=== PATIENT | male | born 1935 | race Caucasian/White ===

== ENCOUNTER 2017-06-07 12:39 | Inpatient (IN) | payer MEDICARE ==
[2017-06-07 13:16] LABS: #Basophils 0.1 thou/uL (0.0-0.2); #Eosinphils 0.1 thou/uL (0.0-0.7); #Lymphocytes 1.5 thou/uL (1.20-3.40); #Monocytes 0.3 thou/uL (0.11-0.59); #Neutrophils 3.1 thou/uL (1.40-6.50); %Basophils 1.2 % (0.0-1.0); %Lymphocytes 29.8 % (21.0-51.0); %Monocytes 5.8 % (0.0-10.0); Hematocrit 39.2 % (42.0-52.0); Mean Platelet Volume 7.4 fL (7.4-10.4); Red Blood Cell (RBC) Count 4.18 mill/uL (4.70-6.10); White Blood Cell (WBC) Count 5.1 thou/uL (4.8-10.8)
[2017-06-07] MEDS ORDERED: ISOVUE-370 76%-LOCM 1 ML ONE (13:29)
[2017-06-07 13:37] LABS: ALT (SGPT) 19 U/L (8-55); AST (SGOT) 16 U/L (5-34); Alkaline Phosphatase 70 U/L (40-150); Anion Gap 13 mmol/L (10-20); BUN (Urea Nitrogen) 21 mg/dL (8.4-25.7); Bilirubin, Total 0.8 mg/dL (0.2-1.2); Calc. Creatinine Clearance 0 mL/min (70-130); Calcium 9.2 mg/dL (7.8-10.44); Carbon Dioxide 27 mmol/L (23-31); Chloride 101 mmol/L (98-107); Estimated GFR-MDRD 51; Globulin 2.7 g/dL (2.4-3.5); Lipase 281 U/L (8-78); Protein, Total 6.5 g/dL (5.8-8.1)
[2017-06-07 13:46] LABS: Bilirubin Negative (Negative); Blood, Urine Negative (Negative); Glucose, Urine (Dipstick) Negative (Negative); Ketone, Urine Negative (Negative); Nitrite Negative (Negative); Protein, Urine (Dipstick) Negative (Neg-Trace); Urobilinogen 0.2 mg/dL (0.2-1.0)
[2017-06-07 13:49] LABS: Bacteria/HPF None Seen HPF (None Seen); Hyaline Casts/LPF 0-3 HYALINE CAST LPF (0-3 Hyaline); RBC/HPF 0-3 HPF (0-3); Squamous Epithelial None Seen HPF (0-3); WBC/HPF None Seen HPF (0-3)
--- NOTE | 2017-06-07 15:23 | ULT ---
GALLBLADDER ULTRASOUND: History: Abdominal pain. Comparison: None. Technique: Utilizing multihertz transducer, sonographic images of the right upper quadrant was perfo rmed in longitudinal and transverse plane. FINDINGS: Pancreas is obscured by bowel gas. Main portal vein is patent. Appropriate direction of flow. Hepatic parenchyma has a normal echotexture. No hepatic masses or intrahepatic dilatation. Contour o f the hepatic margin is maintained. Right hepatic lobe measures 16.3 cm. Mild right renal cortical thinning. No hydronephrosis. Right kidney measures 4.6 x 11.5 x 5.9 cm. Common bile duct diameter is 0.5 cm. There are gallstones in the gallbladder. Gallbladder is thickened. There is no pericholecystic fluid . Aviation Electronics Technician reports a negative Bone's sign. IMPRESSION: Sonographic evidence of cholelithiasis. There is pericholecystic fluid. However, there is gallbladde r wall thickening. Absent Bone's sign. Findings are equivocal. If there is concern, consider HIDA scan. POS: [facility]
[2017-06-07 17:28] VITALS: BMI 21.5
[2017-06-07] MEDS ORDERED: Ondansetron HCl/PF 4 MG/2 ML Vial IVP PRN ×2 (17:53→18:00)
[2017-06-07] MEDS ORDERED: Ondansetron ODT 4 MG TAB SL PRN (17:53)
[2017-06-07] MEDS ORDERED: Acetaminophen 325 MG TAB PO PRN (17:53)
[2017-06-07] MEDS ORDERED: Sodium Chloride 0.9% 1,000 ML IV SCH (17:53)
[2017-06-07] MEDS ORDERED: Potassium Chloride 20 MEQ TAB PO SCH (18:00)
[2017-06-07] MEDS ORDERED: Ondansetron ODT 4 MG TAB PO PRN (18:00)
[2017-06-07] MEDS: Sodium Chloride 0.9% 1,000 ML IV SCH (19:17)
--- NOTE | 2017-06-07 20:44 | CT ---
CT ABDOMEN AND PELVIS WITH IV AND ORAL CONTRAST: 06/07/17 HISTORY: Right upper quadrant pain. COMPARISON: 01/06/15 FINDINGS: There is mild atelectasis at the lung bases. Hyperdense stones are evident within the gallbladder ne ck. Cysts within the liver are stable. The spleen, kidneys, adrenal glands, and pancreas are within normal limits. There is calcification throughout the arterial structures. Urinary bladder is incompl etely distended. Appendix is not filled with contrast but is not inflamed. There are degenerative ch anges of the lumbar spine. IMPRESSION: 1. Cholelithiasis. No acute biliary abnormalities are evident. 2. Atherosclerosis. 3. Chronic type findings appear stable. POS: [facility]
[2017-06-07] MEDS ORDERED: Vancomycin HCl 25 MG/ML Oral PO SCH (21:00)
[2017-06-07] MEDS: Carvedilol 6.25 MG TAB PO SCH (21:11)
[2017-06-07] MEDS: Atorvastatin Calcium 40 MG TAB PO SCH (21:11)
[2017-06-08] MEDS: Sodium Chloride 0.9% 1,000 ML IV SCH ×4 (01:50→19:29)
--- NOTE | 2017-06-08 05:45 | HP ---
CHIEF COMPLAINT: Diarrhea. HISTORY OF PRESENT ILLNESS: This is an 81-year-old male with a past history of coronary artery disease, who presents with a several day history of diarrhea that occurs after every intake of food. He denies any abdominal pain, nausea, vomiting, dysuria, urgency, fever or chills, but he does have persistent diarrhea. He denies any blood in his stool; however, he does have some blood on the toilet paper from what he describes is having to clean himself so much. REVIEW OF SYSTEMS: Constitutional: No fever or chills. No icterus or injection. Ears, mouth, nose, and throat: No oral lesions or throat pain. Cardiovascular: No chest pain, shortness of breath. Respiratory: No cough or congestion. Gastrointestinal: See HPI. Genitourinary: Only positive for hesitancy. Difficulty voiding at time. Musculoskeletal: No arthralgias or myalgias. Skin: No rash or wounds. Neurologic: No numbness or weakness. No headaches, vision changes. He does confess that he has quite a bit of memory loss and relies on family members for remembering specific events. Endocrine: Denies polyuria, polyphagia, polydipsia. PAST MEDICAL HISTORY: 1. Coronary artery disease. 2. Restless leg syndrome. 3. New diagnosis of cholelithiasis. PAST SURGICAL HISTORY: Positive for CABG in 1996. ALLERGIES: None. MEDICATIONS: He cannot recall these to me. He requires on family members to recall. SOCIAL HISTORY: Denies tobacco, ethanol or drug use. FAMILY HISTORY: Noncontributory. PHYSICAL EXAMINATION: VITAL SIGNS: Temperature 97.6, pulse 72, respirations 18, O2 saturation 98%, blood pressure 130/70. CONSTITUTIONAL: No acute distress, resting comfortably. HEENT: No icterus or injection. Positive for arcus senilis. Nares is patent and is without lesion. He has an old, but relatively well-kept dentition. No oral lesions. NECK: Trachea is midline and mobile. No carotid bruits. CARDIOVASCULAR: Regular rate and rhythm. No murmur, gallops, or rubs. RESPIRATORY: Clear to auscultation bilaterally. No increased work of breathing , wheezes, rales, or rhonchi. GASTROINTESTINAL: Bowel sounds positive. Nontender to palpation. He has a negative Bone sign. No palpable organomegaly. Scaphoid abdomen. GENITOURINARY: Deferred. RECTAL: He has hemorrhoid, but no active bleeding visualized and not having card available, will try to procure one. No malformation or deformity. SKIN: He has a midline sternotomy scar that is well healed. Otherwise, he has a senile purpura that is quite extensive of the bilateral upper extremities, is bit dark as well. NEUROLOGICAL: Cranial nerves II through XII intact and symmetric. Motor 5/5 throughout. Sensation intact to light touch throughout. PSYCHIATRIC: Alert and oriented x3. Mood and affect appropriate for current condition. LABORATORY DATA: White blood cell count 5.1, hemoglobin 13.5, MCV 93.7, platelets 196. Chemistry: Sodium 138, potassium 3.3, chloride 107, carbon dioxide 27, BUN 21, creatinine 1.34, glucose 135, normal LFTs, albumin 3.8, lipase 281. Urine relatively unremarkable except for trace leukocyte esterase. Microbiology is negative today including a parasite screen, Campylobacter and Shiga toxin assays, and C. diff. The abdominal ultrasound is positive for cholelithiasis and also there is pericholecystic fluid with mild thickening gallbladder wall. Upon review, that he may have focal fatty infiltration in one specific area. I am not convinced that he has a lot of pericholecystic fluid and the gallbladder wall is minimally thickened at 0.38 mm. ASSESSMENT AND PLAN: An 81-year-old male with a past medical history of; 1. Diarrhea. We will continue to work up and wait for final report. Stool studies, get Hemoccult blood adequately volume resuscitate him. 2. Acute kidney injury with creatinine 1.34. Unsure if this is acute or chronic, we will repeat in the morning after volume resuscitation. 3. Elevated lipase. I think this is all may be related to his acute renal failure in light of his benign abdomen. We will feed him after his CT abdomen and pelvis has been ordered with oral contrast. 4. Asymptomatic cholelithiasis. It is likely that his diarrhea is related to his cholelithiasis and he seems to be asymptomatic and so we will monitor for now. 5. Deep venous thrombosis prophylaxis with SCDs until Hemoccult was negative. 6. Gastrointestinal prophylaxis with diet. MTDD
--- NOTE | 2017-06-08 06:00 | HP-2 ---
CODE STATUS: FULL. PRIMARY CARE PHYSICIAN: Dr. Martines ATTENDING PHYSICIAN: Dr. Capo Martini RESIDENT: Celsa Mccann D.O. HISTORIAN: Patient records and chart. SPECIALISTS: Dr. Shaikh, Dr. Frazier CHIEF COMPLAINT: Diarrhea and weight loss. HISTORY OF PRESENT ILLNESS: This is an 81-year-old white male with past medical history of systolic and diastolic congestive heart failure with last EF of 40-45% in 07/2016, hypertension, hyperlipidemia, history of Clostridium difficile and dementia presenting with diarrhea x2-3 weeks and at least a 10 pound weight loss over the last 2 weeks as well as weakness. He also admits to blood on the toilet paper and possibly in the stool per the daughter; however, he did not admit this himself. He states he has not had any abdominal pain, but does feel abdominal fullness. He denies any fevers or any other symptoms at this time and states that he does feel hungry; however, it just feels like he cannot really eat a lot. The diarrhea is about every 2 hours. He denies any urinary symptoms or any other concerns. Also, there was concern for C. diff; however, C. diff was negative there as well as in the clinic with Dr. Martines. The patient was seen with Bobbi in the clinic when this initially started and was diagnosed with a likely a food gastritis as he had eaten chicken prior to this starting; however, it continued and the patient then followed up in clinic again and was diagnosed with a viral gastroenteritis as he had developed some nonbloody vomiting x1 day along with his diarrhea. Stool studies were taken at that time in her office and were found to be negative. The patient has continued since that time to have this diarrhea and weight loss which brought him to the emergency room. In the emergency room, there was concern for dehydration. He was given 1 liter of normal saline. PAST MEDICAL HISTORY: 1. Clostridium difficile. 2. Myocardial infarction. 3. Coronary artery disease status post CABG in the . 4. Hyperlipidemia. 5. Hypertension. 6. Diastolic and systolic congestive heart failure with EF of 40-45% (2016). 7. Dementia. 8. Tremor. PAST SURGICAL HISTORY: 1. AICD placement. 2. CABG in . 3. Right hip replacement. ALLERGIES: None. MEDICATIONS: 1. Donepezil 10 mg every day. 2. Lisinopril 5 mg at bedtime. 3. Restoril 15 mg every day. 4. Atorvastatin 80 mg at bedtime. 5. Aspirin 81 mg daily. 6. Fluoxetine 20 mg daily. 7. Plavix 75 mg every day. 8. Protonix 40 mg daily. 9. Carvedilol 6.25 mg b.i.d. 10. Furosemide 20 mg every day. 11. Ranexa 1000 mg q.12h. FAMILY HISTORY: Pertinent for heart attacks as well as hypertension, diabetes, coronary artery disease in family members. Mom by age 35 with complications of diabetes and dad from heart related complications at age 75. SOCIAL HISTORY: The patient is and lives with his [id number] and her parents. He is retired. He does have 2 children. He denies any ill contacts. REVIEW OF SYSTEMS: GENERAL: He denies any fevers or chills. He does admit to the decreased appetite and weight loss and weakness. EYES: Denies any vision changes or eye pain. ENT: Denies any nasal congestion, rhinorrhea, or sore throat. RESPIRATORY: Denies any cough, congestion, shortness of breath; however, he does admit to exercise intolerance. CARDIOVASCULAR: Denies any chest pain, palpitations, edema, paroxysmal nocturnal dyspnea or orthopnea. GASTROINTESTINAL: Admits to nausea and vomiting x1 day which has resolved. This is approximately 2 weeks ago. He does continue to have diarrhea, but denies any abdominal pain. He does have bright red blood on the toilet paper. GENITOURINARY: He does have chronic urinary incontinence; however, he denies any acute urinary changes at this time. SKIN: Denies any rashes, lesions or jaundice. MUSCULOSKELETAL: Denies any new pain; however, he does have the chronic low back pain which has been worked up by Dr. Frazier outpatient. PSYCHIATRIC: Admits to generalized weakness and just not feeling well. He does have a past medical history of chronic depression and anxiety that is stable. PHYSICAL EXAMINATION: VITAL SIGNS: Blood pressure was 125/66, pulse 74, respirations 16, T-max 97.5, pulse ox 98% on room air, current weight is 63.5 kilograms. GENERAL: Alert, oriented x4, in no acute distress. He is very thin and cachectic looking, but he is appropriately interactive. EYES: Pupils equal and reactive to light. Extraocular muscles intact. ENT: Tympanic membranes pearly pearson without bulging or erythema. Nasal mucosa and oropharynx are very dry mucous membranes. In the ear, on the right ear he also does have a noticeable lesion and that is concerning for basal cell carcinoma and will need to be looked at outpatient. He is very hard of hearing. NECK: Supple, no lymphadenopathy. CARDIOVASCULAR: Regular rate and rhythm, no murmurs. Radial pulses +2 symmetric bilaterally, pedal pulses +2 symmetric bilaterally. LUNGS: Respirations within normal limits. No retractions. Clear to auscultation bilaterally. SKIN: Warm and dry, no cyanosis. ABDOMEN: Soft, nontender to palpation. Bowel sounds present x4, scaphoid abdomen. There is no mass or distention. He does not have any rebound or any guarding upon examination. EXTREMITIES: There is no edema. NEUROLOGIC: There are no focal deficits. GCS of 15. PSYCHIATRIC: Appropriate. LABORATORY DATA: CBC: WBC 5.1, hemoglobin 13.5, hematocrit of 39.2, platelets 196. Sodium 138, potassium 3.3, chloride 101, bicarbonate 27, BUN 21, creatinine 1.34 , GFR 51, glucose 135. Total bilirubin is 0.8, AST 16, ALT 19, alkaline phosphatase 70, total serum protein 6.5, albumin 3.8, lactate dehydrogenase 183. Lipase 281. Magnesium 1.9, C. diff is negative and also stool was negative for Giardia and cryptosporidium. IMAGING: Right upper quadrant shows positive cholelithiasis with pericholecystic fluid. ASSESSMENT AND PLAN: This is an 81-year-old white male with: 1. Severe acute diarrhea, possibly secondary to gallstone pancreatitis. We will obtain a CT of the abdomen and pelvis and if this is positive and concerning we will go ahead and consult GI and General Surgery; however, the patient is currently non-toxic appearing and vital signs are stable at this time. We will obtain followup with the stool studies. We will obtain a fasting lipid panel, FOBT as he admits to bright red blood on the toilet paper, likely from hemorrhoids per history. We will go ahead and start Florastor to assist with his probiotics and admit the patient to medical for observation. He may need a colonoscopy as he has never had one in the past. The patient has seen Dr. Bower in the past. 2. Dehydration, likely secondary to #1. Continue fluids. If no improvement and patient still unable to tolerate PO, consider TPN at that time. Normal saline at 150 as patient does have a history of congestive heart failure. 3. Acute kidney injury likely secondary to dehydration. Continue fluids. Repeat BMP in the morning. 4. History of coronary artery disease status post coronary artery bypass graft and myocardial infarction. We will continue home medications. However, if FOBT is positive, we will hold medications if needed. 5. Hypertension. Continue home medications and monitor blood pressure. 6.. Diastolic and systolic congestive heart failure. Continue home medications. Last echo was in July 2016, which did show the EF of 40-45% at that time. 7. Dementia. Continue home medications. 8. Hypokalemia. Replace and recheck in the morning as well as recheck a magnesium which came back normal at this time. 9. Weight loss. We will consult dietary and consider TPN if patient continues to lose weight and is unable to tolerate food. 10. Bright red Blood per Rectum, likely hemorrhoids verses GI bleed, however hemoglobin normal. 10. Deep venous thrombosis prophylaxis; sequential compression devices as the patient is currently at bleeding risk with his concern for bright red blood per rectum. This history and physical exam as well as management was discussed with Dr. Josue, who agrees with the above assessment and plan. BERNARDO
[2017-06-08 06:17] LABS: #Eosinphils 0.1 thou/uL (0.0-0.7); #Lymphocytes 1.8 thou/uL (1.20-3.40); #Monocytes 0.3 thou/uL (0.11-0.59); #Neutrophils 2.7 thou/uL (1.40-6.50); %Basophils 0.6 % (0.0-1.0); %Eosinophils 2.3 % (0.0-10.0); %Lymphocytes 36.5 % (21.0-51.0); %Monocytes 6.7 % (0.0-10.0); Hematocrit 36.8 % (42.0-52.0); Mean Platelet Volume 8.1 fL (7.4-10.4); Red Blood Cell (RBC) Count 3.92 mill/uL (4.70-6.10)
[2017-06-08 06:33] LABS: Anion Gap 11 mmol/L (10-20); BUN (Urea Nitrogen) 13 mg/dL (8.4-25.7); Calc. Creatinine Clearance 52 mL/min (70-130); Calcium 8.5 mg/dL (7.8-10.44); Carbon Dioxide 25 mmol/L (23-31); Chloride 105 mmol/L (98-107); Cholesterol 126 mg/dl (< 200 Desired); Estimated GFR-MDRD 76; LDL Cholesterol, Calculated 29 mg/dL
[2017-06-08] MEDS: Saccharomyces boulardii 250 MG CAP PO SCH (08:27)
[2017-06-08] MEDS: Pantoprazole 40 MG GRANULES PACKET PO SCH (08:27)
[2017-06-08] MEDS: Lisinopril 5 MG TAB PO SCH (08:27)
[2017-06-08] MEDS: FLUoxetine HCl 20 MG CAP PO SCH (08:27)
[2017-06-08] MEDS: Carvedilol 6.25 MG TAB PO SCH ×2 (08:27→19:25)
--- NOTE | 2017-06-08 08:54 | PDOC.FM ---
- Subjective Subjective: Pt reports doing better this morning. Did not have really any complaints or pains at this time. Pt resting comfortably in bed. reports still having some loose stools. Pt told me about his weight loss over the last 2 weeks. Denied any episodes of vomitting overnight. Denied any Fevers or chills. Denied any chest pain or SOB. No other conerns noted at this time - Objective Vital Signs & Weight: Vital Signs (12 hours) Temp Pulse Resp BP BP Pulse Ox 06/08/17 08:27 75 153/71 H 06/08/17 08:00 98.7 F 75 18 153/71 H 98 06/08/17 04:00 97.6 F 76 16 115/64 97 06/08/17 00:00 97.6 F 82 16 129/63 96 06/07/17 22:27 97.6 F 80 16 98 06/07/17 21:11 140/76 Weight Weight 60.6 kg I&O: 06/07/17 06/08/17 06/09/17 06:59 06:59 06:59 Intake Total 2050 Output Total 300 Balance 1750 Result Diagrams: 06/08/17 03:57 06/08/17 03:57 Radiology Reviewed by me: Yes Radiology: Gallbladder U/s: sonographic evidence of cholelithiasis. there is pericholecysitc fluid. However, there is gallbladder wall thickening. Absent stevenson's sign. Findings are equivocal. If there is concern consider a hida scan. CT abdo/pelvis: 1. cholelithiasis. No acute biliary abnormalities are evident. 2. atherosclerosis. 3. chronic type findings appear stable Phys Exam - Physical Examination HEENT: PERRLA, oral pharynx no lesions Pt dry mm Neck: no nodes, supple Respiratory: no wheezing, no rales, no rhonchi, clear to auscultation bilateral Cardiovascular: RRR, no significant murmur, no rub Gastrointestinal: soft, no distention, positive bowel sounds mildly tender to palpation in epigastric area Musculoskeletal: no edema, pulses present Neurological: non-focal, normal sensation, moves all 4 limbs Lymphatic: no nodes Psychiatric: normal affect, A&O x 3 Skin: no rash Dx/Plan (1) Diarrhea Code(s): R19.7 - DIARRHEA, UNSPECIFIED Status: Acute (2) Dehydration Code(s): E86.0 - DEHYDRATION Status: Acute (3) Acute kidney injury Code(s): N17.9 - ACUTE KIDNEY FAILURE, UNSPECIFIED Status: Resolved (4) Hypokalemia Code(s): E87.6 - HYPOKALEMIA Status: Acute (5) Chronic systolic (congestive) heart failure Code(s): I50.22 - CHRONIC SYSTOLIC (CONGESTIVE) HEART FAILURE Status: Chronic (6) HTN (hypertension) Code(s): I10 - ESSENTIAL (PRIMARY) HYPERTENSION Status: Chronic Qualifiers: Hypertension type: essential hypertension Qualified Code(s): I10 - Essential (primary) hypertension (7) Hx of CABG Status: Chronic - Plan Plan: Acute severe Diarrhea -NS @150 mls/hr -NPO for now. will consult GI -Hida scan for workup on previous gallbladder studies. Possible cause. Depending on results will consult General Surgery Dehydration -Will continue replacement with fluids. -Monitor hydration -Recheck CMP tmrw SUNNI -replaced with NS -Cr trended down -resolved for now Hypokalemia 3.2 today -replace with KCL and recheck CMP tmrw Hx CABG -continue home meds HTN -continue home meds dsCHF -ef 40-45% -continue home meds Weight loss -consult dietary and consider TPN if he continues to lose weight.
[2017-06-08] MEDS ORDERED: Furosemide 20 MG TAB PO SCH (09:00)
[2017-06-08] MEDS ORDERED: Potassium Chloride 20 MEQ TAB PO SCH (12:45)
[2017-06-08] MEDS: Aspirin 81 mg Enteric Coated Tablet PO SCH (15:02)
[2017-06-08] MEDS: Clopidogrel Bisulfate 75 MG TAB PO SCH (15:02)
--- NOTE | 2017-06-08 16:06 | NM ---
HEPATOBILIARY STUDY: 06/08/2017 HISTORY: Nausea and vomiting. Consideration for hepatobiliary study was recommended on a recent right upper quadrant ultrasound exam. RADIOPHARMACEUTICAL: Technetium 99m mebrofenin 5.1 millicuries IV. MEDICATIONS: CCK analog 1.2 mcg infused intravenously over 30 minutes. FINDINGS: There is normal uptake and excretion of radiotracer by the liver. Gallbladder activity is faintly v isualized by 6 minutes, with increasing activity in the gallbladder region up to 60 minutes. Bowel abnormality is visualized by 27 minutes. After 60 minutes of imaging, CCK analog was infused intrav enously over 30 minutes. A gallbladder ejection fraction of 97% was obtained, which is within akash l limits. IMPRESSION: 1. No evidence of a cystic or common duct obstruction. 2. Normal gallbladder ejection fraction. POS: [facility]
[2017-06-08] MEDS ORDERED: GoLYTELY 4,000 ml Bottle PO SCH (17:45)
[2017-06-08] MEDS: Atorvastatin Calcium 40 MG TAB PO SCH (19:25)
[2017-06-08] MEDS ORDERED: Pantoprazole 40 MG VIAL IVP SCH (21:00)
--- NOTE | 2017-06-08 21:24 | ADD-PRG ---
ADDENDUM DATE OF SERVICE: 06/08/2017 Please add it as an addendum to the note of Dr. Cristian Ahumada. Mr. Johnston is a pleasant, crusty 81-year-old white male patient who was admitted with 2 weeks of kaylee ly diarrhea and weight loss. He has had no recent travel. He has not eaten any recent exotic foods . He has never had a colonoscopy. His fecal was positive and we will work him up for infecti ous diarrhea. Given the fact that he is 81 years old and has never had a colonoscopy and has had di arrhea for 2 weeks to the point of losing weight, need to consider the possibility of a villous lori leena. We will consult GI for consideration of colonoscopy while we continue to rehydrate the patient and advance his diet as tolerated while we await further stool culture.
[2017-06-09] MEDS: Sodium Chloride 0.9% 1,000 ML IV SCH ×3 (04:39→21:09)
[2017-06-09 05:03] LABS: #Basophils 0.1 thou/uL (0.0-0.2); #Eosinphils 0.1 thou/uL (0.0-0.7); #Lymphocytes 2.4 thou/uL (1.20-3.40); #Monocytes 0.5 thou/uL (0.11-0.59); #Neutrophils 5.2 thou/uL (1.40-6.50); %Basophils 0.7 % (0.0-1.0); %Eosinophils 1.4 % (0.0-10.0); %Lymphocytes 28.6 % (21.0-51.0); %Monocytes 6.5 % (0.0-10.0); Hematocrit 42.4 % (42.0-52.0); Red Blood Cell (RBC) Count 4.52 mill/uL (4.70-6.10); White Blood Cell (WBC) Count 8.3 thou/uL (4.8-10.8)
[2017-06-09 05:19] LABS: ALT (SGPT) 20 U/L (8-55); AST (SGOT) 19 U/L (5-34); Alkaline Phosphatase 75 U/L (40-150); Bilirubin, Direct 0.4 mg/dL (0.1-0.3); Bilirubin, Total 1.2 mg/dL (0.2-1.2)
[2017-06-09 05:21] LABS: Anion Gap 12 mmol/L (10-20); BUN (Urea Nitrogen) 10 mg/dL (8.4-25.7); Calc. Creatinine Clearance 53 mL/min (70-130); Calcium 9.4 mg/dL (7.8-10.44); Carbon Dioxide 26 mmol/L (23-31); Chloride 106 mmol/L (98-107); Estimated GFR-MDRD 78; Lipase 68 U/L (8-78); Magnesium 1.8 mg/dL (1.6-2.6)
[2017-06-09] MEDS: Carvedilol 6.25 MG TAB PO SCH ×2 (05:54→20:58)
--- NOTE | 2017-06-09 06:17 | CON ---
DATE OF CONSULTATION: 06/08/2017 REASON FOR CONSULTATION: Diarrhea and weight loss. HISTORY OF PRESENT ILLNESS: Mr. Johnston was admitted to the hospital from the emergency room yesterd ay when he presented with complaints of diarrhea for 2-3 weeks with 10 pounds weight loss over 2 we eks. He reports that he had been having loose stools about every couple of hours on and off for the past 2-3 weeks. He thought maybe this was C. difficile as he had this earlier this year, but he webster d it checked with an outside physician he states that was normal. In the interim, he had some episo shante of incontinence and some lower abdominal cramping, but no overt pain and ultimately was brought to the emergency room by his family. He was hungry, but could not eat much. He had the urinary sym ptoms. C. diff in the clinic was negative per Dr. Martines, was negative here at the hospital. The patient apparently was seen by Dr. Martines in his [facility] and was felt that possibly he had a gastroenteritis that is how this started after eating chicken. With persistent symptoms, he c antonio to the emergency room. He had a CAT scan that was essentially normal. He had a mildly elevated lipase. The patient denies starting any new medications or recent antibiotics. PAST MEDICAL HISTORY: Includes C. difficile colitis x3 last episode being in December this year. He h ad a colonoscopy in 12/2014 with some ischemic colitis in both right and left colon in the outpatien t setting. History of coronary artery disease, myocardial infarction in the past, previous CABG in the , hyperlipidemia, hypertension, diastolic dysfunction, EF 40%-45%, dementia, and tremor. PAST SURGICAL HISTORY: Notable for AICD placement, CABG, right hip replacement, and endoscopy as no heaven above. ALLERGIES: None. MEDICATIONS IN THE HOSPITAL: Lisinopril, Restoril, atorvastatin, aspirin, fluoxetine, Plavix, Nathaniel nix, carvedilol, furosemide, Ranexa. FAMILY HISTORY: Negative for colorectal cancer or liver disease. SOCIAL HISTORY: The patient is , lives with his [id number] and her parents. He is retir ed and has two children. REVIEW OF SYSTEMS: Negative for dysphagia or odynophagia. Talking with the nurses, they noticed __ ___ blood, it is brown and watery, does not smell like C. diff. The patient denies any upper abdomi nal pain, history of pancreatitis, history of alcohol abuse. He does state that when he eats is whe n he tends to have diarrhea. He denies any chest pain or shortness of breath or dyspnea. PHYSICAL EXAMINATION: VITAL SIGNS: Weight is 133 pounds. He reportedly weighed 149 pounds on 11/08/2016 and on , he was 154 pounds. Temperature is 97, pulse 70, blood pressure 150/80. GENERAL: He is alert and oriented. LUNGS: Clear. CARDIOVASCULAR: Heart regular, without clicks or murmurs. ABDOMEN: Soft, nontender, somewhat sumner. There is no rebound. There is no guarding. EXTREMITIES: No clubbing, cyanosis, or edema. LABORATORY AND X-RAY FINDINGS: Today, urinalysis was negative. White count is 5, hemoglobin is 12. 7, platelet count 166,000. Chemistries: Sodium was 3.2. Triglycerides were 282, lipase is 281 yes terday, it was not checked today. The liver function tests were normal. Electrolytes were normal. Magnesium was 1.9 yesterday. Phosphorus was not checked. Negative RPR earlier this year. CAT sca n of abdomen and pelvis this admission showed cholelithiasis, atherosclerotic vessel disease. HIDA scan today was negative. Abdominal ultrasound showed gallstones, no pericholecystic fluid, but ther e is some mild gallbladder wall thickening. Microbiology: Stool is negative for blood, C. diff, Ca mpylobacter stool culture, parasite screen. Lactoferrin was positive. ASSESSMENT: 1. A 3-4 weeks of diarrhea he states every 1-2 hours and often when he eats. He has also ongoing w eight loss. The patient has not been eating well. It is unclear why. It does not seem related to pain. Differential diagnosis would include ischemia, pancreatic insufficiency, pancreatic malignanc y, although there was none seen on CAT scan. Recurrent Clostridium difficile will be a concern, but seems less likely with negative Clostridium difficile toxins thus far, bacterial overgrowth of smal l bowel, possibly he has been on a lot of antibiotics this past year and that seems unlikely as well , although he has been on probiotics more recently. Adrenal insufficiency could cause diarrhea and weight loss. 2. Gallstones. There are no signs if this is a active process. He denies any abdominal pain or ty pical biliary colic and there have been normal LFTs. 3. Mildly elevated lipase on admission. We would repeat that again tomorrow. He was dehydrated at that time. This is nonspecific blood test with negative CAT scan of the pancreas. RECOMMENDATIONS: Upper and lower endoscopy in light of 3 weeks of diarrhea. We will check stool fo r fecal fat, Cyclospora as there has been recent outbreaks of this in the [place] cause chronic diarrh ea. We will recheck his C. diff. We will check electrolytes, magnesium. We will defer potassium r eplacement to primary physician and we will check fasting cortisol level tomorrow.
--- NOTE | 2017-06-09 06:56 | PDOC.FM ---
- Subjective Subjective: Pt reports being busy this night after drinking bowel prep. He said he got a bath around 5:00 and has made him feel a lot better. He denies any pain. Denies any nausea or vomitting. Denies any Chest pain or SOB. States he still feels a little weak. - Objective MAR Reviewed: Yes Vital Signs & Weight: Vital Signs (12 hours) Temp Pulse Resp BP BP Pulse Ox 06/09/17 05:54 143/75 H 06/09/17 04:36 143/75 H 06/09/17 03:54 98.0 F 85 20 97 06/08/17 20:48 97.6 F 77 20 97 06/08/17 19:27 97.6 F 77 20 161/81 H 97 06/08/17 19:25 150/80 H Weight Admit Weight 60.6 kg Weight 60.6 kg I&O: 06/07/17 06/08/17 06/09/17 06:59 06:59 06:59 Intake Total 2050 5040 Output Total 300 300 Balance 1750 4740 Result Diagrams: 06/09/17 04:02 06/09/17 04:02 Radiology Reviewed by me: Yes Radiology: Gallbladder U/s: sonographic evidence of cholelithiasis. there is pericholecysitc fluid. However, there is gallbladder wall thickening. Absent stevenson's sign. Findings are equivocal. If there is concern consider a hida scan. CT abdo/pelvis: 1. cholelithiasis. No acute biliary abnormalities are evident. 2. atherosclerosis. 3. chronic type findings appear stable Hida SCAN: no sign of obstruction. Normal ejection fraction Phys Exam - Physical Examination Constitutional: NAD HEENT: oral pharynx no lesions MM a little dry Neck: no nodes, no JVD, supple Respiratory: no wheezing, no rales, no rhonchi, clear to auscultation bilateral Cardiovascular: RRR, no significant murmur, no rub Gastrointestinal: soft, non-tender, no distention, positive bowel sounds Musculoskeletal: no edema Neurological: non-focal Psychiatric: normal affect, A&O x 3 Skin: no rash Dx/Plan (1) Diarrhea Code(s): R19.7 - DIARRHEA, UNSPECIFIED Status: Acute (2) Dehydration Code(s): E86.0 - DEHYDRATION Status: Acute (3) Acute kidney injury Code(s): N17.9 - ACUTE KIDNEY FAILURE, UNSPECIFIED Status: Resolved (4) Hypokalemia Code(s): E87.6 - HYPOKALEMIA Status: Acute (5) Chronic systolic (congestive) heart failure Code(s): I50.22 - CHRONIC SYSTOLIC (CONGESTIVE) HEART FAILURE Status: Chronic (6) HTN (hypertension) Code(s): I10 - ESSENTIAL (PRIMARY) HYPERTENSION Status: Chronic Qualifiers: Hypertension type: essential hypertension Qualified Code(s): I10 - Essential (primary) hypertension (7) Hx of CABG Status: Chronic - Plan Plan: Acute severe Diarrhea -NS @150 mls/hr -NPO for now. -GI- Dr. Oconnor- Plan for EGD and colonoscopy today. Appreciate Recs -Hida scan normal Dehydration -Will continue replacement with fluids. -Monitor hydration -Monitor with CMP -P low, will replace when no longer NPO SUNNI -replaced with NS -Cr trended down -resolved for now Hypokalemia 3.7 today -KCL 40 meq daily. Continue to monitor Hx CABG -continue home meds HTN -continue home meds dsCHF -ef 40-45% -continue home meds Weight loss -consult dietary. Await results of scope, advance diet as tolerated. Consider starting TPN
[2017-06-09] MEDS: Clopidogrel Bisulfate 75 MG TAB PO SCH (08:55)
[2017-06-09] MEDS: Aspirin 81 mg Enteric Coated Tablet PO SCH (08:55)
[2017-06-09] MEDS: Saccharomyces boulardii 250 MG CAP PO SCH (08:59)
[2017-06-09] MEDS: FLUoxetine HCl 20 MG CAP PO SCH (08:59)
[2017-06-09] MEDS: Potassium Chloride 20 MEQ TAB PO SCH (09:00)
[2017-06-09] MEDS: Lisinopril 5 MG TAB PO SCH (09:00)
[2017-06-09] MEDS: Pantoprazole 40 MG GRANULES PACKET PO SCH (09:05)
--- NOTE | 2017-06-09 14:09 | ADD-PRG ---
DATE OF SERVICE: 06/09/2017 This is an addendum to the note of Dr. Cristian Ahumada. Mr. Johnston is resting quietly in bed. He was seen in consultation by Dr. Oconnor and we appreciate h is input. He is scheduled for colonoscopy. We are still awaiting stool culture results, but have f ound no pathogens thus far. Further treatment for the patient will depend on results of colonoscopy and further recommendations per Dr. Oconnor. His HIDA scan was normal and he is having no signs or symptoms of acute cholecystitis.
[2017-06-09] MEDS ORDERED: Lidocaine 1% PF 5 ML VIAL ONE (17:58)
[2017-06-09] MEDS ORDERED: Ondansetron HCl/PF 4 MG/2 ML Vial IVP PRN (18:07)
[2017-06-09] MEDS ORDERED: Sodium Chloride 0.9% 0 ML ONE (18:16)
[2017-06-09] MEDS: Atorvastatin Calcium 40 MG TAB PO SCH (20:58)
[2017-06-10] MEDS: Sodium Chloride 0.9% 1,000 ML IV SCH ×3 (02:01→08:57)
[2017-06-10 05:34] LABS: #Eosinphils 0.1 thou/uL (0.0-0.7); #Lymphocytes 1.2 thou/uL (1.20-3.40); #Monocytes 0.3 thou/uL (0.11-0.59); #Neutrophils 3.6 thou/uL (1.40-6.50); %Basophils 0.3 % (0.0-1.0); %Eosinophils 2.2 % (0.0-10.0); %Lymphocytes 23.1 % (21.0-51.0); %Monocytes 6.5 % (0.0-10.0); Hematocrit 34.4 % (42.0-52.0); Mean Platelet Volume 7.9 fL (7.4-10.4); Red Blood Cell (RBC) Count 3.66 mill/uL (4.70-6.10); White Blood Cell (WBC) Count 5.3 thou/uL (4.8-10.8)
[2017-06-10 05:56] LABS: Anion Gap 13 mmol/L (10-20); BUN (Urea Nitrogen) 8 mg/dL (8.4-25.7); Calc. Creatinine Clearance 63 mL/min (70-130); Calcium 8.8 mg/dL (7.8-10.44); Carbon Dioxide 21 mmol/L (23-31); Chloride 110 mmol/L (98-107); Estimated GFR-MDRD Greater than 90
--- NOTE | 2017-06-10 06:56 | OP ---
PROCEDURE: Esophagogastroduodenoscopy and colonoscopy. PREOPERATIVE DIAGNOSIS: Weight loss 20 pounds, chronic diarrhea. POSTOPERATIVE DIAGNOSES: 1. Normal esophagogastroduodenoscopy, biopsy of small bowel obtained. 2. Colonoscopy, no overt signs of colitis. Random biopsies were obtained most from the right colon . 3. Polyp cecum, appendiceal orifice, removed by snare polypectomy saline assisted, Hemoclip placed to reduce risk of perforation. 4. Five ascending colon polyps removed ranging in size from 3 to 10 mm, two of the largest removed by saline-assisted snare polypectomy, others by hot snare polypectomy, and one area had a Hemoclip p laced secondary to reduced risk of perforation. 5. Two small hepatic flexure polyps removed by cold snare polypectomy and submitted to Pathology. RECOMMENDATIONS: 1. Await histopathology. 2. Lactose-free diet, probiotic, hold Protonix, and continue aspirin. ANESTHESIA: TIVA. PROCEDURE IN DETAIL: After the patient was informed of the risks, benefits, possible complications of endoscopy including perforation, bleeding, reactions to medication and aspiration, informed conse nt was obtained. The patient was brought to the endoscopy suite where he was sedated in gradual fas hion. Once he was comfortable, a bite block was placed in incisural orifice. The endoscope was adv anced through the esophagus, stomach and second and third portion of duodenum and slowly removed. T here was good visualization of mucosa. There were no masses, lesions, or arteriovenous malformation s identified. The duodenum appeared normal as well as the stomach in forward and retroflexed views. Small bowel biopsy was obtained with regard to his history of diarrhea and weight loss and submitt ed to Pathology. The patient was turned in the room. A rectal exam was performed. The endoscope was advanced throug h the anal canal through the colon to cecum which was identified by ileocecal valve and appendiceal orifice. There was a 7-mm sessile polyp adjacent to the appendiceal orifice was removed with saline -assisted snare polypectomy and a Hemoclip was placed. There were 2 polyps in the ascending colon t hat were about a centimeter in size, these were removed by saline-assisted snare polypectomy, and at the larger of the two, there was a large mucosal defect and a Hemoclip was placed here. There were 3 other small polyps ranging in size from 3 to 7 mm in the ascending colon, removed by snare polype ctomy and submitted to Pathology. There were 2 small polyps at the hepatic flexure these were remov ed by cold snare polypectomy and submitted to Pathology. There were mild diverticulosis coli throug hout the colon. There was no evidence of colitis, inflammation, edema, or loss of vascular pattern. Random biopsies were taken from the left and right colon with regard to the chronic diarrhea.
--- NOTE | 2017-06-10 07:40 | PDOC.FM ---
- Objective Vital Signs & Weight: Vital Signs (12 hours) Temp Pulse Resp BP BP Pulse Ox 06/10/17 03:36 98.1 F 72 20 149/60 H 97 06/10/17 01:07 98.0 F 82 20 132/64 94 L 06/09/17 22:00 97.6 F 78 18 06/09/17 20:58 176/92 H Weight Admit Weight 60.6 kg Weight 60.6 kg I&O: 06/09/17 06/10/17 06/11/17 06:59 06:59 06:59 Intake Total 5040 1950 Output Total 300 Balance 4740 1950 Result Diagrams: 06/10/17 03:54 06/10/17 03:54 <Jose F Guo - Last Filed: 06/10/17 13:03> - Objective Vital Signs & Weight: Vital Signs (12 hours) Temp Pulse Resp BP Pulse Ox 06/10/17 11:48 97.7 F 72 20 122/61 99 06/10/17 08:39 98.1 F 74 18 126/69 95 06/10/17 08:00 98.1 F 74 18 06/10/17 03:36 98.1 F 72 20 149/60 H 97 Weight Admit Weight 133 lb 9.6 oz Weight 133 lb 9.6 oz I&O: 06/09/17 06/10/17 06/11/17 06:59 06:59 06:59 Intake Total 5040 1950 Output Total 300 Balance 4740 1950 Result Diagrams: 06/10/17 03:54 06/10/17 03:54 <Capo Martini - Last Filed: 06/10/17 13:23> Dx/Plan - Plan Plan: Acute severe Diarrhea -NS @150 mls/hr -starting full diet today, monitor tolerance of diet and progression of diarrhea -GI- cscope performed. multiple biopsies and polyps taken. No obvious cause of diarrhea -pending cyclospora and fecal fat -Hida scan normal Dehydration -resolved. continue PO/IV fluids SUNNI -resolved -continue PO/IV fluids Hypokalemia resolved. continue to monitor Hx CABG -continue home meds HTN -continue home meds dsCHF -ef 40-45% -continue home meds Weight loss -consult dietary. Await results of scope, advance diet as tolerated. Consider starting TPN <Jose F Guo - Last Filed: 06/10/17 13:03> Attending Addendum - Attending Addendum I personally evaluated the patient and discussed the management with [ aSri] I agree with the History, Examination, Assessment and Plan documented above with any addition or exceptions noted below. significant diarrhea and significant work up with out etiology. we need to see how he does with feeding and time away from bowel prep and await bx. if no better tomorrow will start empiric imodium for t he present time. <Capo Martini - Last Filed: 06/10/17 13:23>
[2017-06-10] MEDS: Aspirin 81 mg Enteric Coated Tablet PO SCH (08:52)
[2017-06-10] MEDS: FLUoxetine HCl 20 MG CAP PO SCH (08:56)
[2017-06-10] MEDS: Carvedilol 6.25 MG TAB PO SCH ×3 (08:56→20:51)
[2017-06-10] MEDS: Lisinopril 5 MG TAB PO SCH (08:56)
[2017-06-10] MEDS: Saccharomyces boulardii 250 MG CAP PO SCH (08:56)
[2017-06-10] MEDS: Potassium Chloride 20 MEQ TAB PO SCH (12:56)
--- NOTE | 2017-06-10 14:08 | PRG ---
DATE OF SERVICE: 06/10/2017 SUBJECTIVE: Mr. Johnston reports that he had some rectal bleeding last night. Nurse today notes in t he nurses' note last night to about 300 mL; I was not called regarding this. He has had 2 use small stools this morning which were blood tinged, mainly liquid with urine but no clots. He denies any abdominal pain. He had stable vital signs overnight. PHYSICAL EXAMINATION: VITAL SIGNS: Temperature is 98, pulse 74, respirations 18, blood pressure 126/69. HEENT: Conjunctivae and sclerae are clear. Mucous membranes are pink and moist. ABDOMEN: Soft and nontender. Bowel sounds are positive. LABORATORY STUDIES: At 0345, White count 5.3; hemoglobin 12.1, he was 13.5 on admission and 12.7 on 06/08/2017 and 14.2 yesterday. Platelet count is 150. Chemistries notable for sodium 140, potassi um 3.6, BUN and creatinine of 8 and 0.7. Cortisol 16.6. Repeat Clostridium difficile on 06/08/2017 was negative. Cyclospora is pending. Fecal fat is pending. ASSESSMENT: 1. Chronic diarrhea, workup in progress. Random biopsies taken from colon yesterday. Stool fecal fat and stool Campylobacter pending. Small bowel biopsies pending. In the past, he had some issues with chronic ischemic changes noted on colon biopsies a few years ago. 2. Colon polyps. He had about 11 polyps removed, ranging in size from 5-10 mm, the largest ones we re hemoclipped. His Plavix has been held as his last heart catheterization and stent were over 3 ye ars ago. With his bleeding this morning, we are going to hold his aspirin. We will place him back on a liquid diet and monitor his H\T\H. If he has continued bleeding, he may need repeat endoscopy.
[2017-06-10] MEDS ORDERED: EPINEPHrine 1 MG/10 ML Abboject SYRINGE ONE (15:05)
[2017-06-10] MEDS ORDERED: Lidocaine 1% PF 5 ML VIAL ONE (15:21)
[2017-06-10] MEDS ORDERED: Propofol 200 MG/20 ML VIAL ONE (15:21)
[2017-06-10] MEDS ORDERED: Succinylcholine Chloride 20 MG/ML 10 ml SYRINGE FS ONE (15:21)
[2017-06-10] MEDS ORDERED: Promethazine HCl 25 MG/ML VIAL SLOW IVP PRN (15:56)
[2017-06-10] MEDS ORDERED: Ondansetron HCl/PF 4 MG/2 ML Vial IVP PRN (15:56)
[2017-06-10] MEDS ORDERED: Promethazine HCl 25 MG/ML VIAL IM PRN (15:56)
[2017-06-10] MEDS: Atorvastatin Calcium 40 MG TAB PO SCH (20:48)
[2017-06-10 21:59] LABS: Hematocrit 28.3 % (42.0-52.0)
--- NOTE | 2017-06-11 01:28 | OP ---
PREOPERATIVE DIAGNOSES: Lower gastrointestinal bleeding, likely post-polypectomy related to 11 poly ps removed yesterday and the patient is on aspirin and Plavix. Bleeding would not stop with discont inuing those medications. POSTOPERATIVE DIAGNOSES: 1. Bleeding from the polypectomy site in the right colon controlled with injection of 1:10,000 epin ephrine 2 mL and Hemoclip placement of active bleeding visible vessel. 2. Other Hemoclips that had been placed yesterday were in place. Other polypectomy sites showed sm all ulceration, but no active bleeding or stigmata of recent bleeding. RECOMMENDATIONS: 1. Full liquid diet, serial H\T\Hs, observe before advancing diet tomorrow if no further bleeding. 2. Hold Plavix and aspirin for now. ANESTHESIA: General endotracheal anesthesia. PROCEDURE IN DETAIL: After the patient was informed of the risks, benefits, possible complications of endoscopy including perforation, bleeding, reaction to medication, and aspiration as well as the risks and complications of ongoing hemorrhage, informed consent was obtained. The patient was broug ht to the endoscopy suite urgently and intubated with rapid sequence induction as he had had liquid diet about 4 hours prior and had had a solid breakfast about 7 hours prior. This went well. He was placed in a left lateral decubitus position. The endoscope was advanced through the anal canal thr ough the colon to the cecum. The previously noted clip at the appendiceal orifice was noted to be i n place, no bleeding there and the clip in the large polypectomy site in the right colon was in plac e, no bleeding there. There was another polypectomy site in the right colon visible vessel activel y oozing fresh blood and clot. This was injected with 1:10,000 epinephrine and then the polypectomy site was clipped, taking care to clip the visible vessel as well. Bleeding stopped. Irrigation pe rformed irrigating this whole area showing good placement of the clip. The remainder polypectomy si xochilt were identified. These were small and nonbleeding, ulcerative, but not bleeding. Retroflexed v iews in the rectum were normal. Diverticulosis was present, but not bleeding. The scope was remove d. The patient tolerated the procedure well with no complications.
[2017-06-11] MEDS: Sodium Chloride 0.9% 1,000 ML IV SCH ×2 (01:30→10:35)
[2017-06-11 06:23] LABS: Anion Gap 9 mmol/L (10-20); BUN (Urea Nitrogen) 6 mg/dL (8.4-25.7); Calc. Creatinine Clearance 61 mL/min (70-130); Calcium 8.3 mg/dL (7.8-10.44); Carbon Dioxide 23 mmol/L (23-31); Chloride 112 mmol/L (98-107); Estimated GFR-MDRD Greater than 90
--- NOTE | 2017-06-11 07:08 | PDOC.FM ---
- Subjective Subjective: Pt doing well with no specific complaints. There were no issues over night. Denies all symptoms in ROS. States that the bloody stools have stopped and diarrhea has improved. - Objective MAR Reviewed: Yes Vital Signs & Weight: Vital Signs (12 hours) Temp Pulse Resp BP BP Pulse Ox 06/11/17 06:14 98.0 F 72 20 114/53 L 96 06/11/17 00:30 97.8 F 76 18 111/62 96 06/10/17 20:51 116/64 06/10/17 20:00 98.1 F 74 18 116/64 99 Weight Admit Weight 60.6 kg Weight 60.6 kg I&O: 06/10/17 06/11/17 06/12/17 06:59 06:59 06:59 Intake Total 1949 2925 Output Total 1075 Balance 1949 1849 Result Diagrams: 06/11/17 05:40 06/11/17 05:40 <Jose F Guo - Last Filed: 06/11/17 07:21> - Objective Vital Signs & Weight: Vital Signs (12 hours) Temp Pulse Resp BP BP BP Pulse Ox 06/11/17 10:35 121/61 06/11/17 08:00 98.1 F 71 16 06/11/17 07:41 98.1 F 71 16 112/58 L 96 06/11/17 06:14 98.0 F 72 20 114/53 L 96 06/11/17 00:30 97.8 F 76 18 111/62 96 Weight Admit Weight 133 lb 9.6 oz Weight 133 lb 9.6 oz I&O: 06/10/17 06/11/17 06/12/17 06:59 06:59 06:59 Intake Total 1949 2925 Output Total 1075 Balance 1949 1849 Result Diagrams: 06/11/17 05:40 06/11/17 05:40 <Chadwick Daniel - Last Filed: 06/11/17 11:17> Phys Exam - Physical Examination Constitutional: NAD HEENT: PERRLA, moist MMs Neck: no JVD, full ROM Respiratory: clear to auscultation bilateral Cardiovascular: RRR, no significant murmur Gastrointestinal: soft, non-tender, positive bowel sounds Musculoskeletal: no edema Neurological: non-focal, moves all 4 limbs Psychiatric: normal affect, A&O x 3 Skin: no rash, normal turgor <Jose F Guo - Last Filed: 06/11/17 07:21> Dx/Plan - Plan Plan: Acute severe Diarrhea -starting full diet today, monitor tolerance of diet and progression of diarrhea -GI- repeat cscope dt bloody diarrhea. This resulted in clipping a bleeding polypectomy site. Bloody diarrhea has since resolved. -pending cyclospora and fecal fat -Hida scan normal Dehydration -resolved. continue PO fluids Pancytopenia -peripheral smear to evaluate Hypophosphatemia -recheck today and replace PO SUNNI -resolved -continue PO/IV fluids Hypokalemia resolved. continue to monitor Hx CABG -continue home meds HTN -continue home meds dsCHF -ef 40-45% -continue home meds Weight loss -consult dietary. Await results of scope, advance diet as tolerated. Consider starting TPN <Jose F Guo - Last Filed: 06/11/17 07:21> Attending Addendum - Attending Addendum I personally evaluated the patient and discussed the management with resident[] I agree with the History, Examination, Assessment and Plan documented above with any addition or exceptions noted below. <Chadwick Daniel - Last Filed: 06/11/17 11:17>
[2017-06-11 07:46] LABS: Magnesium 1.5 mg/dL (1.6-2.6); Phosphorus 2.4 mg/dL (2.3-4.7)
[2017-06-11 08:01] LABS: Band 1 % (5-11); Burr Cells SLIGHT = 2-5 cells (100X) (0-1/hpf); Hematocrit 27.6 % (42.0-52.0); Mean Platelet Volume 7.5 fL (7.4-10.4); Neutrophil 54 % (42-75); Red Blood Cell (RBC) Count 2.92 mill/uL (4.70-6.10); White Blood Cell (WBC) Count 4.1 thou/uL (4.8-10.8)
[2017-06-11] MEDS: Saccharomyces boulardii 250 MG CAP PO SCH (08:22)
[2017-06-11] MEDS: Carvedilol 6.25 MG TAB PO SCH ×2 (08:22→21:05)
[2017-06-11] MEDS: FLUoxetine HCl 20 MG CAP PO SCH (08:22)
[2017-06-11] MEDS: Potassium Chloride 20 MEQ TAB PO SCH (08:23)
[2017-06-11] MEDS: Lisinopril 5 MG TAB PO SCH (10:35)
--- NOTE | 2017-06-11 14:07 | PRG ---
DATE OF SERVICE: 06/11/2017 SUBJECTIVE: Mr. Johnston has had no further bleeding overnight. He is tolerating full liquid diet. He like to eat some solid food. OBJECTIVE: VITAL SIGNS: Temperature is 98, blood pressure 121/61. ABDOMEN: Soft, nontender. He has got a little bit of wasting suprascapular muscles. LABORATORY STUDIES: His white count 4.1, hemoglobin 9.6, platelet count 118, phosphorus 1.5, potass ium 3.5, sodium 140. BUN and creatinine are 6 and 0.8. Cortisol is 16. Lipase is 68. Cyclospora smear and fecal fat are pending. ASSESSMENT: 1. Hypophosphatemia, replaced. 2. Chronic diarrhea of unclear etiology with CAT scan unrevealing random biopsies of the colon and duodenum are pending at this time. 3. 11 polyps, ranging in size from 5-10 mm, removed with post-polypectomy bleeding controlled yeste rday. 4. Anemia secondary to post-polypectomy bleed, stable. RECOMMENDATIONS: Advance diet. If the patient has ongoing diarrhea, consider empiric trial of panc reatic enzymes.
[2017-06-11 14:37] LABS: Hematocrit 27.9 % (42.0-52.0)
[2017-06-11] MEDS: Atorvastatin Calcium 40 MG TAB PO SCH (21:05)
[2017-06-11 21:54] LABS: Hematocrit 27.9 % (42.0-52.0)
[2017-06-12] MEDS: Sodium Chloride 0.9% 1,000 ML IV SCH ×3 (01:26→20:27)
[2017-06-12 02:00] LABS: Troponin I 0.014 ng/mL (< 0.028)
[2017-06-12 06:08] LABS: #Basophils 0.1 thou/uL (0.0-0.2); #Eosinphils 0.2 thou/uL (0.0-0.7); #Lymphocytes 1.4 thou/uL (1.20-3.40); #Monocytes 0.3 thou/uL (0.11-0.59); #Neutrophils 2.8 thou/uL (1.40-6.50); %Basophils 1.3 % (0.0-1.0); %Eosinophils 3.6 % (0.0-10.0); %Lymphocytes 29.5 % (21.0-51.0); %Monocytes 6.3 % (0.0-10.0); Hematocrit 28.8 % (42.0-52.0); Mean Platelet Volume 8.3 fL (7.4-10.4); Red Blood Cell (RBC) Count 3.02 mill/uL (4.70-6.10); White Blood Cell (WBC) Count 4.7 thou/uL (4.8-10.8)
[2017-06-12 06:55] LABS: Anion Gap 10 mmol/L (10-20); BUN (Urea Nitrogen) 8 mg/dL (8.4-25.7); Calc. Creatinine Clearance 56 mL/min (70-130); Calcium 8.6 mg/dL (7.8-10.44); Carbon Dioxide 22 mmol/L (23-31); Chloride 111 mmol/L (98-107); Estimated GFR-MDRD 82; Magnesium 1.3 mg/dL (1.6-2.6); Phosphorus 3.4 mg/dL (2.3-4.7)
--- NOTE | 2017-06-12 08:19 | PDOC.FM ---
- Subjective Subjective: Pt reports doing fine this morning. Had some chest pain overnight. Says it was resolved. Thinks it was likely acid reflux. Says he has been tolerating PO. Says his stools are getting back to normal. Denies any other pain or problems at this time. - Objective Vital Signs & Weight: Vital Signs (12 hours) Pulse Resp BP BP Pulse Ox 06/12/17 01:16 77 18 141/70 H 97 06/11/17 21:05 138/72 Weight Admit Weight 60.6 kg Weight 60.6 kg I&O: 06/11/17 06/12/17 06/13/17 06:59 06:59 06:59 Intake Total 2925 2700 Output Total 1075 1200 Balance 1850 1500 Result Diagrams: 06/12/17 05:33 06/12/17 05:33 Radiology Reviewed by me: Yes <Cristian Ahumada - Last Filed: 06/12/17 08:17> - Objective Vital Signs & Weight: Vital Signs (12 hours) Temp Pulse Resp BP Pulse Ox 06/12/17 08:44 77 06/12/17 08:00 98.6 F 77 16 127/67 97 06/12/17 01:16 77 18 141/70 H 97 Weight Admit Weight 60.6 kg Weight 60.6 kg I&O: 06/11/17 06/12/17 06/13/17 06:59 06:59 06:59 Intake Total 2925 2700 Output Total 1075 1200 Balance 1850 1500 Result Diagrams: 06/12/17 05:33 06/12/17 05:33 <Flex Smith - Last Filed: 06/12/17 10:50> Dx/Plan (1) Diarrhea Code(s): R19.7 - DIARRHEA, UNSPECIFIED Status: Acute (2) Dehydration Code(s): E86.0 - DEHYDRATION Status: Acute (3) Acute kidney injury Code(s): N17.9 - ACUTE KIDNEY FAILURE, UNSPECIFIED Status: Resolved (4) Hypokalemia Code(s): E87.6 - HYPOKALEMIA Status: Resolved (5) Hypomagnesemia Code(s): E83.42 - HYPOMAGNESEMIA Status: Acute (6) Chronic systolic (congestive) heart failure Code(s): I50.22 - CHRONIC SYSTOLIC (CONGESTIVE) HEART FAILURE Status: Chronic (7) HTN (hypertension) Code(s): I10 - ESSENTIAL (PRIMARY) HYPERTENSION Status: Chronic Qualifiers: Hypertension type: essential hypertension Qualified Code(s): I10 - Essential (primary) hypertension (8) Hx of CABG Status: Chronic (9) GERD (gastroesophageal reflux disease) Code(s): K21.9 - GASTRO-ESOPHAGEAL REFLUX DISEASE WITHOUT ESOPHAGITIS Status: Acute - Plan Plan: Acute severe Diarrhea -starting full diet today, monitor tolerance of diet and progression of diarrhea -GI- repeat cscope dt bloody diarrhea. This resulted in clipping a bleeding polypectomy site. Bloody diarrhea has since resolved. Recommend Pancreatic enzymes if diarrhea doesn't improve. Continue to follow recs -pending cyclospora and fecal fat -Hida scan normal -continue to monitor. Dehydration -resolved. continue PO fluids Pancytopenia -peripheral smear to evaluate Hypomagnesmia -Low, replaced Mg PO. will recheck tmrw morning SUNNI -resolved -continue PO/IV fluids Hypokalemia resolved. continue to monitor Hx CABG -continue home meds HTN -continue home meds dsCHF -ef 40-45% -continue home meds Weight loss -consult dietary. Await results of scope, advance diet as tolerated. GERD -pt reported chest pain last night, troponin and CKMB negative. Pt states he thinks was more reflux -Zofran and tums PRN as needed. <Cristian Ahumada - Last Filed: 06/12/17 08:17> Attending Addendum - Attending Addendum I personally evaluated the patient and discussed the management with Dr. Ahumada I agree with the History, Examination, Assessment and Plan documented above with any addition or exceptions noted below. We will replace Magnesium, continue fiber restricted diet, check tsh. Fecal fat and cyclospora pending. Begin creon TID-WM. <Flex Smith - Last Filed: 06/12/17 10:50>
[2017-06-12] MEDS ORDERED: Calcium Carbonate 500 MG ChewTAB PO PRN (08:26)
[2017-06-12] MEDS: Saccharomyces boulardii 250 MG CAP PO SCH (08:43)
[2017-06-12] MEDS: Potassium Chloride 20 MEQ TAB PO SCH (08:44)
[2017-06-12] MEDS: FLUoxetine HCl 20 MG CAP PO SCH (08:44)
[2017-06-12] MEDS: Lisinopril 5 MG TAB PO SCH (08:44)
[2017-06-12] MEDS: Carvedilol 6.25 MG TAB PO SCH ×2 (08:44→20:26)
[2017-06-12] MEDS ORDERED: Magnesium Chloride 64 MG TAB PO SCH (09:00)
[2017-06-12] MEDS: Pancrelipase DR 12000 1 CAP PO SCH ×2 (14:16→17:42)
[2017-06-12 16:13] LABS: Fatty Acid Droplets Normal (.); Neutral Fats And/Or Soaps Normal (.)
--- NOTE | 2017-06-12 17:20 | RAD ---
TWO VIEWS OF THE CHEST 06/12/2017 COMPARISON: 11/13/2015 HISTORY: Muscle wasting, potential malignant disease. FINDINGS: Midline sternotomy wires are present. There is a transvenous AICD inserted via left-sided approach. There is no pneumothorax or focal consolidation. No evidence for alveolar edema. There is mild b lunting of bilateral costophrenic angles, which likely represents mild pleural thickening and/or ple ural scar. No definite pleural fluid seen. IMPRESSION: No focal consolidation or alveolar edema. POS: [facility]
--- NOTE | 2017-06-12 20:21 | PRG ---
DATE OF SERVICE: 06/12/2017 GI INPATIENT DAILY PROGRESS NOTE SUBJECTIVE: Mr. Johnston denies any abdominal pain. He has been tolerating his diet. No nausea or v omiting. He continues to have pretty watery bowel movements essentially after every meal. No fever , no other new symptoms. Pancreatic enzymes were started today and I see oral magnesium was continu ed. Cyclospora smear is still pending. Biopsies are still pending as well. OBJECTIVE: VITAL SIGNS: Temperature 98.6, pulse 77, blood pressure 127/67, 97% oxygen saturation on room air. GENERAL: No acute distress. HEART: Regular rate and rhythm. LUNGS: Clear to auscultation bilaterally. ABDOMEN: Soft and nontender to palpation throughout. EXTREMITIES: No peripheral edema. LABORATORY STUDIES: Hemoglobin stable at 9.7, WBC 4.7, platelets 126. Sodium 139, potassium 3.8, B UN 8, creatinine 0.89. TSH 3.04. Fecal fat is normal. Stool fatty acid is normal. Note negative Clostridium difficile x2, negative stool culture, elevated fecal lactoferrin. Stool cyclosporine is pending. Tissue transglutaminase is pending as well. ASSESSMENT AND PLAN: 1. Chronic diarrhea. Still awaiting results of small bowel biopsies and random colon biopsies as w ell as pathology on of colon polyps. Evaluating for celiac disease versus microscopic colitis. No evidence of overt colitis or ileitis to explain the diarrhea. I agree with the initiation of pancre atic enzymes and I think it is okay to start an antimotility agent such as Lomotil as well. We will follow up results of biopsies and Cyclospora smear. No other new recommendations at this time. 2. Post-polypectomy bleed, resolved after Hemoclip placement by Dr. Oconnor. Still awaiting results all the colon polyps. Hemoglobin is stable and bleeding appears to have resolved.
[2017-06-12] MEDS: Atorvastatin Calcium 40 MG TAB PO SCH (20:27)
[2017-06-13] MEDS: Sodium Chloride 0.9% 1,000 ML IV SCH (05:28)
[2017-06-13] MEDS ORDERED: Diphenoxylate HCl/Atropine Tablet PO PRN (05:59)
[2017-06-13] MEDS ORDERED: Diphenoxylate HCl/Atropine Tablet PO SCH (06:00)
[2017-06-13 06:12] LABS: Hematocrit 27.1 % (42.0-52.0)
[2017-06-13 07:10] LABS: Anion Gap 9 mmol/L (10-20); BUN (Urea Nitrogen) 7 mg/dL (8.4-25.7); Calc. Creatinine Clearance 59 mL/min (70-130); Calcium 8.3 mg/dL (7.8-10.44); Carbon Dioxide 23 mmol/L (23-31); Chloride 112 mmol/L (98-107); Estimated GFR-MDRD 88; Magnesium 1.7 mg/dL (1.6-2.6); Phosphorus 3.8 mg/dL (2.3-4.7)
[2017-06-13] MEDS: FLUoxetine HCl 20 MG CAP PO SCH (08:02)
[2017-06-13] MEDS: Potassium Chloride 20 MEQ TAB PO SCH (08:02)
[2017-06-13] MEDS: Carvedilol 6.25 MG TAB PO SCH ×2 (08:02→21:20)
[2017-06-13] MEDS: Saccharomyces boulardii 250 MG CAP PO SCH (08:02)
[2017-06-13] MEDS: Lisinopril 5 MG TAB PO SCH (08:02)
[2017-06-13 08:03] LABS: #Eosinphils 0.1 thou/uL (0.0-0.7); #Lymphocytes 1.2 thou/uL (1.20-3.40); #Monocytes 0.2 thou/uL (0.11-0.59); #Neutrophils 2.5 thou/uL (1.40-6.50); %Basophils 1.1 % (0.0-1.0); %Eosinophils 3.2 % (0.0-10.0); %Lymphocytes 28.7 % (21.0-51.0); %Monocytes 5.9 % (0.0-10.0); Mean Platelet Volume 7.7 fL (7.4-10.4); Red Blood Cell (RBC) Count 2.85 mill/uL (4.70-6.10); White Blood Cell (WBC) Count 4.1 thou/uL (4.8-10.8)
--- NOTE | 2017-06-13 08:13 | PDOC.FM ---
- Subjective Subjective: Pt doing well this morning. Says he thinks the diarrhea is improving. Says his appetite is getting better. Is eating everything they put in front of him. Denies any pain. Denies any chest pain, SOB. Denies any nausea or vomitting. No other concerns or problems this morning Per nursing he did have 2 bm overnight. Did report them to be loose still. - Objective Vital Signs & Weight: Vital Signs (12 hours) Pulse BP 06/13/17 08:02 70 131/85 06/12/17 20:26 127/67 Weight Admit Weight 60.6 kg Weight 60.6 kg I&O: 06/12/17 06/13/17 06/14/17 06:59 06:59 06:59 Intake Total 2700 3050 Output Total 1200 1300 Balance 1500 1750 Result Diagrams: 06/13/17 05:46 06/13/17 05:46 Radiology Reviewed by me: Yes Radiology: CXR 06/12: No focal consolidation or alveolar edema <Cristian Ahumada - Last Filed: 06/13/17 08:11> - Objective Vital Signs & Weight: Vital Signs (12 hours) Temp Pulse Resp BP BP Pulse Ox 06/13/17 08:02 70 131/85 06/13/17 08:00 97.7 F 70 18 131/85 95 Weight Admit Weight 60.6 kg Weight 60.6 kg I&O: 06/12/17 06/13/17 06/14/17 06:59 06:59 06:59 Intake Total 2700 3050 Output Total 1200 1300 Balance 1500 1750 Result Diagrams: 06/13/17 05:46 06/13/17 05:46 <Flex Smith - Last Filed: 06/13/17 10:01> Phys Exam - Physical Examination HEENT: moist MMs, oral pharynx no lesions Neck: no nodes, supple, full ROM Respiratory: no wheezing, no rales, no rhonchi, clear to auscultation bilateral Cardiovascular: RRR, no significant murmur, no rub Gastrointestinal: soft, non-tender, no distention, positive bowel sounds Musculoskeletal: no edema, pulses present Neurological: non-focal, normal sensation Psychiatric: normal affect, A&O x 3 Skin: no rash, normal turgor, cap refill <2 seconds <Cristian Ahumada - Last Filed: 06/13/17 08:11> Dx/Plan (1) Diarrhea Code(s): R19.7 - DIARRHEA, UNSPECIFIED Status: Acute (2) Dehydration Code(s): E86.0 - DEHYDRATION Status: Acute (3) Acute kidney injury Code(s): N17.9 - ACUTE KIDNEY FAILURE, UNSPECIFIED Status: Resolved (4) Hypokalemia Code(s): E87.6 - HYPOKALEMIA Status: Resolved (5) Hypomagnesemia Code(s): E83.42 - HYPOMAGNESEMIA Status: Acute (6) Chronic systolic (congestive) heart failure Code(s): I50.22 - CHRONIC SYSTOLIC (CONGESTIVE) HEART FAILURE Status: Chronic (7) HTN (hypertension) Code(s): I10 - ESSENTIAL (PRIMARY) HYPERTENSION Status: Chronic Qualifiers: Hypertension type: essential hypertension Qualified Code(s): I10 - Essential (primary) hypertension (8) Hx of CABG Status: Chronic (9) GERD (gastroesophageal reflux disease) Code(s): K21.9 - GASTRO-ESOPHAGEAL REFLUX DISEASE WITHOUT ESOPHAGITIS Status: Acute - Plan Plan: Acute severe Diarrhea -starting full diet today, monitor tolerance of diet and progression of diarrhea -GI- repeat cscope dt bloody diarrhea. This resulted in clipping a bleeding polypectomy site. Bloody diarrhea has since resolved. Recommend Pancreatic enzymes if diarrhea doesn't improve. Continue to follow recs -pending cyclospora -Fecal Fat normal -Hida scan normal -Added Pancreatic Enzymes yesterday, Started Lomotil this morning. -Awaiting path reports on colonoscopy bx -continue to monitor. Dehydration -resolved. NS @ 75. tolerating PO as well Pancytopenia -peripheral smear to evaluate Hypomagnesmia -Normal this AM. Resolved for now. SUNNI -resolved -continue PO/IV fluids Hypokalemia resolved. continue to monitor Hx CABG -continue home meds HTN -continue home meds dsCHF -ef 40-45% -continue home meds Weight loss -consult dietary. Await results of scope, advance diet as tolerated. GERD -pt reported chest pain the other night, troponin and CKMB negative. Pt states he thinks was more reflux -Zofran and tums PRN as needed. <Cristian Ahumada - Last Filed: 06/13/17 08:11> Attending Addendum - Attending Addendum I personally evaluated the patient and discussed the management with [Brandyn ] I agree with the History, Examination, Assessment and Plan documented above with any addition or exceptions noted below. Will start with lomotil today. Continue creon. If stool improves and eating okay possibly discharge tmrw. Will continue to follow recs per Dr. Bower. Pathology results still pending. <Flex Smith - Last Filed: 06/13/17 10:01>
[2017-06-13] MEDS: Pancrelipase DR 12000 1 CAP PO SCH ×3 (08:27→16:19)
[2017-06-13] MEDS ORDERED: SODIUM CHLORIDE IVPB SCH (10:30)
[2017-06-13] MEDS ORDERED: ADMIXTURE FEE IVPB SCH (10:30)
[2017-06-13] MEDS ORDERED: MAGNESIUM SULFATE IVPB SCH (10:30)
[2017-06-13 14:14] LABS: Hematocrit 27.1 % (42.0-52.0)
--- NOTE | 2017-06-13 19:20 | PRG ---
DATE OF SERVICE: 06/13/2017 GI INPATIENT DAILY PROGRESS NOTE SUBJECTIVE: Mr. Johnston says he is feeling pretty well today. There is no abdominal pain, nausea, o r vomiting. He is tolerating his diet. He had 2 bowel movements overnight and says only one bowel movement so far today as of late afternoon. He has no other complaints. PHYSICAL EXAMINATION: VITAL SIGNS: Temperature 97.7, pulse 70, blood pressure 131/85, 95% oxygen saturation on room air. GENERAL: No acute distress. HEART: Regular rate and rhythm. LUNGS: Clear to auscultation bilaterally. ABDOMEN: Soft and nontender to palpation. EXTREMITIES: No peripheral edema. LABORATORY STUDIES: Stool fat normal, sodium 140, potassium 4.1, BUN 7, creatinine 0.84. TSH is 3. 04, hemoglobin 9.4, WBC 4.1, platelets 109. Stool cyclospora is still pending. C. difficile, Campy lobacter and Shiga toxin are all negative. is negative. Fecal lactoferrin is elevated. ASSESSMENT AND PLAN: 1. Chronic diarrhea, appears to be improving. Still awaiting results of small bowel biopsies and r andom colon biopsies as well as the pathology on the colon polyps. For now, agree with Creon 3 time s daily as well as the Lomotil. The patient can continue these upon discharge even while pathology is pending. We will follow up as an outpatient with pathology results. 2. Post-polypectomy bleed, resolved after Hemoclip placement by Dr. Oconnor. There has been no furt her evidence of bleeding following his repeat colonoscopy. If the patient is doing well from a symptomatic standpoint tomorrow, he could be discharged home fro m a GI standpoint for outpatient followup.
[2017-06-13] MEDS: Atorvastatin Calcium 40 MG TAB PO SCH (21:20)
[2017-06-13 22:10] LABS: Hematocrit 29.1 % (42.0-52.0)
[2017-06-14] MEDS: Sodium Chloride 0.9% 1,000 ML IV SCH (05:26)
[2017-06-14 05:48] LABS: Hematocrit 28.8 % (42.0-52.0)
[2017-06-14 06:55] LABS: #Eosinphils 0.1 thou/uL (0.0-0.7); #Lymphocytes 1.4 thou/uL (1.20-3.40); #Monocytes 0.3 thou/uL (0.11-0.59); #Neutrophils 3.1 thou/uL (1.40-6.50); %Basophils 0.6 % (0.0-1.0); %Eosinophils 2.8 % (0.0-10.0); %Lymphocytes 27.6 % (21.0-51.0); %Monocytes 6.3 % (0.0-10.0); Mean Platelet Volume 7.8 fL (7.4-10.4)
[2017-06-14 07:11] LABS: ALT (SGPT) 10 U/L (8-55); AST (SGOT) 12 U/L (5-34); Alkaline Phosphatase 53 U/L (40-150); Anion Gap 10 mmol/L (10-20); BUN (Urea Nitrogen) 9 mg/dL (8.4-25.7); Bilirubin, Total 0.6 mg/dL (0.2-1.2); Calc. Creatinine Clearance 47 mL/min (70-130); Calcium 8.6 mg/dL (7.8-10.44); Carbon Dioxide 26 mmol/L (23-31); Chloride 109 mmol/L (98-107); Estimated GFR-MDRD 68; Globulin 2.3 g/dL (2.4-3.5); Protein, Total 5.4 g/dL (5.8-8.1)
[2017-06-14] MEDS: Carvedilol 6.25 MG TAB PO SCH (08:57)
[2017-06-14] MEDS: Lisinopril 5 MG TAB PO SCH (08:58)
[2017-06-14] MEDS: Saccharomyces boulardii 250 MG CAP PO SCH (08:58)
[2017-06-14] MEDS: FLUoxetine HCl 20 MG CAP PO SCH (08:58)
[2017-06-14] MEDS: Potassium Chloride 20 MEQ TAB PO SCH (08:58)
[2017-06-14] MEDS: Pancrelipase DR 12000 1 CAP PO SCH (08:59)
--- NOTE | 2017-06-14 09:39 | PDOC.FM ---
- Subjective Subjective: Pt reports doing better this morning. Asking about going home. Pt says he tolerated food yesterday. Says he thinks his diarrhea has improved. Said he had a little gas yesterday. Denies any nausea/vomitting. Denies any pain. Denies any other problem or concerns at this time. - Objective MAR Reviewed: Yes Vital Signs & Weight: Vital Signs (12 hours) Temp Pulse Resp BP BP Pulse Ox 06/14/17 08:58 75 116/64 06/14/17 08:57 116/64 06/14/17 07:56 97.8 F 75 16 116/64 96 Weight Admit Weight 60.6 kg Weight 60.6 kg I&O: 06/13/17 06/14/17 06/15/17 06:59 06:59 06:59 Intake Total 3050 3760 Output Total 1300 1100 Balance 1750 2660 Result Diagrams: 06/14/17 05:26 06/14/17 05:26 Additional Labs: Colonoscopy Pathology: Sm bowel- No evidence celiac sprue Cecal bx- tubular adenoma Ascending bx- tubular adenoma Colon random- Hyperplastic polyp Hepatic Flexture- tubular adenoma Radiology Reviewed by me: Yes <Cristian Ahumada - Last Filed: 06/14/17 09:41> - Objective Vital Signs & Weight: Vital Signs (12 hours) Temp Pulse Resp BP BP Pulse Ox 06/14/17 08:58 75 116/64 06/14/17 08:57 116/64 06/14/17 07:56 97.8 F 75 16 116/64 96 Weight Admit Weight 60.6 kg Weight 60.6 kg I&O: 06/13/17 06/14/17 06/15/17 06:59 06:59 06:59 Intake Total 3050 3760 Output Total 1300 1100 Balance 1750 2660 Result Diagrams: 06/14/17 05:26 06/14/17 05:26 <Flex Smith - Last Filed: 06/14/17 10:02> Phys Exam - Physical Examination HEENT: moist MMs, oral pharynx no lesions Neck: no nodes, no JVD, supple, full ROM Respiratory: no wheezing, no rales, no rhonchi, clear to auscultation bilateral Cardiovascular: RRR, no significant murmur, no rub Gastrointestinal: soft, non-tender, no distention, positive bowel sounds Musculoskeletal: no edema Neurological: non-focal Psychiatric: normal affect, A&O x 3 Skin: no rash <Cristian Ahumada - Last Filed: 06/14/17 09:41> Dx/Plan (1) Diarrhea Code(s): R19.7 - DIARRHEA, UNSPECIFIED Status: Acute (2) Dehydration Code(s): E86.0 - DEHYDRATION Status: Acute (3) Acute kidney injury Code(s): N17.9 - ACUTE KIDNEY FAILURE, UNSPECIFIED Status: Resolved (4) Hypokalemia Code(s): E87.6 - HYPOKALEMIA Status: Resolved (5) Hypomagnesemia Code(s): E83.42 - HYPOMAGNESEMIA Status: Acute (6) Chronic systolic (congestive) heart failure Code(s): I50.22 - CHRONIC SYSTOLIC (CONGESTIVE) HEART FAILURE Status: Chronic (7) HTN (hypertension) Code(s): I10 - ESSENTIAL (PRIMARY) HYPERTENSION Status: Chronic (8) Hx of CABG Status: Chronic (9) GERD (gastroesophageal reflux disease) Code(s): K21.9 - GASTRO-ESOPHAGEAL REFLUX DISEASE WITHOUT ESOPHAGITIS Status: Acute - Plan Plan: Acute severe Diarrhea -starting full diet today, monitor tolerance of diet and progression of diarrhea -GI- repeat cscope dt bloody diarrhea. This resulted in clipping a bleeding polypectomy site. Bloody diarrhea has since resolved. Recommend Pancreatic enzymes if diarrhea doesn't improve. Continue to follow recs -pending cyclospora -Fecal Fat normal -Hida scan normal -Pancreatic Enzymes and Lomotil- pt says diarrhea improved -Path results do not show anything of immediate concern at this time. Will have him f/u with Dr. Bower out patient -continue to monitor. Dehydration -resolved. D/c fluids. tolerating PO as well Pancytopenia -peripheral smear to evaluate Hypomagnesmia -Normal yesterday. awaiting recheck SUNNI -resolved -continue PO luids Hypokalemia resolved. continue to monitor Hx CABG -continue home meds HTN -continue home meds dsCHF -ef 40-45% -continue home meds Weight loss -consult dietary. Tolerating diet. Will continue to monitor outpatien GERD -pt reported chest pain the other night, troponin and CKMB negative. Pt states he thinks was more reflux -Zofran and tums PRN as needed. <Cristian Ahumada - Last Filed: 06/14/17 09:41> Attending Addendum - Attending Addendum I personally evaluated the patient and discussed the management with Dr. Ahumada. I agree with the History, Examination, Assessment and Plan documented above with any addition or exceptions noted below. Patient only had 3 bowel movements in 24hrs period after adding Creon and Lamotil. Appetite significantly improved. No blood in stool. Patient requesting to go home. Colon pathology came back as benign. Will d/c home today with close follow-up with PCP and Dr. Bower outpatient. <Flex Smith - Last Filed: 06/14/17 10:02>
[2017-06-14 11:36] VITALS: BP 101/50; TEMP 97.7
[2017-06-14 11:49] LABS: Magnesium 1.9 mg/dL (1.6-2.6)
[2017-06-14 15:24] LABS: Transglutaminase IgA ABS Less than 2 U/mL (0-3); Transglutaminase IgG ABS Less than 2 U/mL (0-5)
--- NOTE | 2017-06-15 13:53 | DIS-2 ---
DISCHARGE LOCATION: [facility]. DATE OF ADMISSION: 06/07/2017 DATE OF DISCHARGE: 06/14/2017 ADMITTING ATTENDING: Capo Martini M.D. DISCHARGE ATTENDING: Flex Smith M.D. CONSULTS: During this visit were GI, Dr. Oconnor, and Dr. Bower. PROCEDURES: During this visit were colonoscopy with biopsies and an EGD. PRIMARY DIAGNOSES: 1. Acute severe diarrhea. 2. Dehydration. 3. Pancytopenia. 4. Hypomagnesemia. 5. Acute kidney injury. 6. Hypokalemia. 7. History of coronary artery bypass grafting. 8. Hypertension. 9. Diastolic, systolic congestive heart failure with an ejection fraction of 40%-45%. 10. Weight loss. 11. Gastroesophageal reflux disease. DISCHARGE MEDICATIONS: 1. Aspirin 81 mg with atorvastatin 80 mg p.o. 2. Calcium carbonate 1000 mg p.o. q.4. 3. Carvedilol 6.25 mg p.o. b.i.d. 4. Plavix 1 tab p.o. daily. 5. Diphenoxylate hydrochloride Lomotil 1 tab p.o. 6. Fluoxetine 40 mg. 7. Furosemide 20 mg. 8. Lisinopril 2.[address] [address] one cap p.o. t.i.d. 10. Pantoprazole 40 mg p.o. daily. 11. Ranolazine 500 mg p.o. b.i.d. 12. Florastor 250 mg p.o. daily. 13. Temazepam 30 mg p.o. at bedtime. DISCONTINUED MEDICATIONS: None. HISTORY OF PRESENT ILLNESS AND HOSPITAL COURSE: This is an 81-year-old male, who came in with a 2-3 weeks history of having severe diarrhea. On the last 2 days before discharge was no longer eating. Due to the severeness of the diarrhea, did not want to eat because it would just cause him to have diarrhea and family also reported a 10-15 pounds of weight loss. He also admitted to having blood on the toilet paper and the stool per the daughter. He denied any fevers or chills. At this time, he stated did not have any sickness. He did stay eating some chicken, did not state any recent jared el. He had been seen in clinic during this time by Dr. Martines, who had thought this was viral sveta roenteritis. They did stool studies and were found to be negative and then at this time, diarrhea s till did not improve as said, so he came to the ER, where he was given a liter of normal saline. At this time, patient also reported having pain in the abdomen, did have some right upper quadrant feliz n. A CT abdomen and pelvis showed cholelithiasis. No acute biliary abnormality is evident and some atherosclerosis. We got a gallbladder ultrasound that showed sonographic evidence of cholelithiasi s and pericholecystic fluid. There was gallbladder wall thickening, but absent Bone's sign. We a lso got a HIDA scan while he was here and HIDA scan showed no evidence of cystic or common duct obst ruction and normal gallbladder ejection fraction. At this time, there was nothing to be done surgic ally with the gallbladder per the HIDA scan. During this time due to severe diarrhea and his dehydr ation when he initially came in with some initial labs, his potassium was a little low at 3.3. He w ould be replaced with potassium a couple of days due to potassium would be low, the next day on 05/26 at 3.2 as well. Due to the history of diarrhea, he initially came with the SUNNI. Creatinine was 1.34. We started him on fluids at a rate of 150. His creatinine was then improved to 0.95 and his sodium would stay at 138 to 140 throughout the stay, which must have been mildly dehydrated and improved quickly after getting fluids. We continued his home medications throughout the visit per h is CABG, hypertension, and heart failure with weight loss, we consulted dietary and had them help rodriguez nagel, we consulted GI at that time, on 06/08/2017, they planned on doing a scope, which they did a c olonoscopy and EGD on 06/09/2017. We kept him over. He is still continued to have diarrhea through out the weekend, having multiple bowels and have reported having loose stools at this time to over t he weekend. At this time on Monday, he had some bloody diarrhea. They did a repeat C scope, whic h resulted in a clipping at a bleeding polypectomy site. Since then, the bloody diarrhea resolved o n Monday, otherwise here we got everything single stool studies, we get stool lactoferrin, there was stool lactoferrin noted. The rapid parasite screen was negative. The stool culture did not grow a nything. The Campylobacter antigen was negative. Shiga toxin test was negative. The C. difficile, GDH antigen and toxins were negative. Stool occult blood was negative on admission and we also did a Cyclospora, which was negative and stool fat which was negative at this time. All tests were neg ative. The patient still had some diarrhea. His appetite did improve over the weekend. It was the n decided on Monday with discussion with GI that we start him on some pancreatic enzymes. At this t solange, diarrhea has seemed to improve a little bit. Still had some loose stools on Monday, so at this time we added Lomotil on Monday and continue to watch. At this time, he continued to eat and repo rted eating much better. He reported having a little bit of gas pain, which he was already taking P rotonix. At this time finally, on Monday06/14/2017, we decided that he would be good to dischar ge. He would follow up with GI outpatient and he would continue taking the Lomotil and the pancreat ic enzymes. He also was taking a probiotic as well. At this time too, we have got the pathology re ports on polypectomies done and a colonoscopy. At this time, there was a small bowel biopsy which h as showed no evidence of celiac sprue. There was a cecal polyp, which was tubular adenoma. There w as an ascending polyp showed tubular adenoma. There was a colon random biopsy, which was a hyperpla stic polyp. There was a hepatic flexure polyp, which was tubular adenoma. None of this is concerni ng at this time. We also did tissue transglutaminase IgG and tissue transglutaminase IgA, which wer e both less than 2 at this time of studies looking into diarrhea were negative, we were wondering if this is maybe an enzymatic imbalance. We will continue to follow up with Dr. Martines and Dr. Bower at this time, GI. DISPOSITION: Stable. DISCHARGE INSTRUCTIONS: 1. Location: Home. 2. Diet: Lactose light diet. 3. Activity: Activity as tolerated. 4. Followup: He will follow up with GI within the next month. Dr. Bower to check on diarrhea statu s. He will also follow up with Dr. Martines within the next few weeks to assess weight gain status.
== END 2017-06-14 11:43 | disposition home or self-care (01) | DRG 391 ==
LOC: ERS 12:39 → T4-A 15:11
PROVIDERS: ADMIT Family Medicine; ATTEND Family Medicine
PROC: 0DB88ZX Excision of Small Intestine, Via Natural or Artificial Opening Endoscopic, Diagnostic (ICD-10-PCS; 2017-06-09)
PROC: 0DBK8ZX Excision of Ascending Colon, Via Natural or Artificial Opening Endoscopic, Diagnostic (ICD-10-PCS; 2017-06-09)
PROC: 0DBG8ZX Excision of Left Large Intestine, Via Natural or Artificial Opening Endoscopic, Diagnostic (ICD-10-PCS; 2017-06-09)
PROC: 0DBF8ZX Excision of Right Large Intestine, Via Natural or Artificial Opening Endoscopic, Diagnostic (ICD-10-PCS; 2017-06-09)
PROC: 0DBH8ZX Excision of Cecum, Via Natural or Artificial Opening Endoscopic, Diagnostic (ICD-10-PCS; 2017-06-09)
PROC: 0DBL8ZX Excision of Transverse Colon, Via Natural or Artificial Opening Endoscopic, Diagnostic (ICD-10-PCS; 2017-06-09)
PROC: 0W3P8ZZ Control Bleeding in Gastrointestinal Tract, Via Natural or Artificial Opening Endoscopic (ICD-10-PCS; principal; 2017-06-10)
DX: K52.9 Noninfective gastroenteritis and colitis, unspecified (principal); K85.10 Biliary acute pancreatitis without necrosis or infection; N17.9 Acute kidney failure, unspecified; D61.818 Other pancytopenia; F03.90 Unspecified dementia, unspecified severity, without behavioral disturbance, psychotic disturbance, mood disturbance, and anxiety; I50.42 Chronic combined systolic (congestive) and diastolic (congestive) heart failure; K91.840 Postprocedural hemorrhage of a digestive system organ or structure following a digestive system procedure; E86.0 Dehydration; I25.2 Old myocardial infarction; Z95.1 Presence of aortocoronary bypass graft; I11.0 Hypertensive heart disease with heart failure; E87.6 Hypokalemia; R63.4 Abnormal weight loss; K57.90 Diverticulosis of intestine, part unspecified, without perforation or abscess without bleeding; E83.39 Other disorders of phosphorus metabolism; K21.9 Gastro-esophageal reflux disease without esophagitis; D12.2 Benign neoplasm of ascending colon; D12.0 Benign neoplasm of cecum; D12.3 Benign neoplasm of transverse colon
CPT/HCPCS: 36415; 71020; 74177; 76705; 78227; 80048; 80053; 80061; 80076; 81003; 81015; 82274; 82533; 82553; 82705; 82710; 83516; 83615; 83630; 83690; 83735; 84100; 84443; 84484; 85025; 85060; 87015; 87045; 87046; 87206; 87324; 87328; 87329; 87449; 87899; 88305; 93005; 93010; 96360; A4216; A9537; G8978-GP-CJ; G8979-GP-CI; G8987-GO-CI; G8988-GO-CI; G8989-GO-CI; J0171; J2001; J2704; J3475; J7050

== ENCOUNTER 2017-08-07 12:58 | Inpatient (IN) | payer MEDICARE ==
[2017-08-07] MEDS ORDERED: Ondansetron HCl/PF 4 MG/2 ML Vial ONE (13:52)
[2017-08-07 14:03] LABS: #Eosinphils 0.1 thou/uL (0.0-0.7); #Monocytes 0.6 thou/uL (0.11-0.59); #Neutrophils 2.4 thou/uL (1.40-6.50); %Basophils 0.9 % (0.0-1.0); %Eosinophils 2.6 % (0.0-10.0); %Lymphocytes 23.8 % (21.0-51.0); %Monocytes 14.2 % (0.0-10.0); Hematocrit 34.6 % (42.0-52.0); Mean Platelet Volume 8.1 fL (7.4-10.4); Red Blood Cell (RBC) Count 3.78 mill/uL (4.70-6.10); White Blood Cell (WBC) Count 4.1 thou/uL (4.8-10.8)
[2017-08-07 14:18] LABS: Lactic Acid - Sepsis 1.3 mmol/L (0.5-2.2)
[2017-08-07 14:23] LABS: PTT 45.1 SEC (22.9-36.1); Prothrombin Time 13.7 SEC (12.0-14.7)
[2017-08-07 14:24] LABS: ALT (SGPT) 9 U/L (8-55); AST (SGOT) 14 U/L (5-34); Alkaline Phosphatase 66 U/L (40-150); Anion Gap 10 mmol/L (10-20); BUN (Urea Nitrogen) 16 mg/dL (8.4-25.7); Bilirubin, Total 0.7 mg/dL (0.2-1.2); CK (CPK) 46 U/L (30-200); Calc. Creatinine Clearance 0 mL/min (70-130); Calcium 8.9 mg/dL (7.8-10.44); Carbon Dioxide 30 mmol/L (23-31); Chloride 102 mmol/L (98-107); Estimated GFR-MDRD 55; Lipase 43 U/L (8-78); Protein, Total 6.5 g/dL (5.8-8.1)
[2017-08-07 14:27] LABS: Troponin I 0.029 ng/mL (< 0.028)
--- NOTE | 2017-08-07 14:37 | RAD ---
PORTABLE CHEST 1 VIEW: Date: 08/07/17 Time: 1425 hours HISTORY: Nausea, vomiting, and diarrhea. Patient had gallbladder removed last week. FINDINGS: There are changes of median sternotomy. The heart size is normal. Left-sided AICD is present. No con fluent areas of consolidation, pneumothorax, lyndsay pulmonary edema, or pleural effusions are seen. IMPRESSION: No acute process. POS: [facility]
--- NOTE | 2017-08-07 15:38 | CT ---
CT ABDOMEN AND PELVIS WITH IV CONTRAST: Date: 08/07/17 HISTORY: Abdominal pain, nausea, vomiting, and diarrhea. Patient had cholecystectomy last week. FINDINGS: Comparison made with exam of 06/07/17. Interval changes of cholecystectomy are seen. There is mild dilatation of the intrahepatic duct. A t iny left and small right pleural effusions have developed in the interim. Cysts in the liver are sta ble. The spleen, pancreas, adrenal glands, and kidneys are unremarkable. There is a moderate amount of free air in the upper abdomen (post op vs bowel perforation). There is a small amount of free fluid in the pelvis and right lower quadrant. No abnormally loculated fluid collection is seen. There are vascular calcifications without evidence of aneurysmal dilatation of the abdominal aorta. Incompletely distended urinary bladder with prominent bladder wall is again seen. There is sigmoid d iverticulosis. There are degenerative changes in the spine. There is levoscoliosis of the lumbar spi ne. Postop changes of right hip replacement are again seen. IMPRESSION: 1. Small right and tiny left pleural effusion. 2. Free air in the abdomen. 3. Small amount of free fluid in the pelvis. Findings discussed over the phone with ER physician, Dr. aKpil Lopez, at 1458 hours. CODE CR. POS: [facility]
[2017-08-07] MEDS ORDERED: ISOVUE-370 76%-LOCM 1 ML ONE (15:45)
[2017-08-07 17:03] LABS: Bilirubin Negative (Negative); Blood, Urine Negative (Negative); Glucose, Urine (Dipstick) Negative (Negative); Ketone, Urine Negative (Negative); Nitrite Negative (Negative); Protein, Urine (Dipstick) Negative (Neg-Trace); Urobilinogen 0.2 mg/dL (0.2-1.0)
[2017-08-07] MEDS ORDERED: Ondansetron ODT 4 MG TAB SL PRN (17:23)
[2017-08-07] MEDS ORDERED: Sodium Chloride 0.9% 1,000 ML IV SCH (17:23)
[2017-08-07] MEDS ORDERED: Ondansetron HCl/PF 4 MG/2 ML Vial IVP PRN ×2 (17:23→19:05)
[2017-08-07] MEDS ORDERED: Morphine 4 MG/ML VIAL SLOW IVP PRN (17:25)
[2017-08-07 17:52] LABS: Troponin I 0.035 ng/mL (< 0.028)
[2017-08-07] MEDS ORDERED: Potassium Chloride 40 MEQ in Premix Bag 1 BAG IVPB SCH (19:05)
[2017-08-07] MEDS ORDERED: Diphenoxylate HCl/Atropine Tablet PO PRN (19:05)
[2017-08-07] MEDS ORDERED: Pancrelipase DR 12000 1 CAP PO SCH (19:15)
[2017-08-07] MEDS ORDERED: Potassium Chloride 40 MEQ in Sodium Chloride 0.9% 500 ML IVPB SCH (19:15)
[2017-08-07] MEDS: Sodium Chloride 0.9% 1,000 ML IV SCH (20:05)
[2017-08-07 20:09] LABS: Troponin I 0.029 ng/mL (< 0.028)
[2017-08-07] MEDS: Megestrol Acetate 40 MG TAB PO SCH (21:32)
[2017-08-07] MEDS: Cholestyramine/Aspartame 4 gm Packet PO SCH (21:32)
[2017-08-08 05:41] LABS: #Eosinphils 0.1 thou/uL (0.0-0.7); #Lymphocytes 1.7 thou/uL (1.20-3.40); #Monocytes 0.5 thou/uL (0.11-0.59); #Neutrophils 2.1 thou/uL (1.40-6.50); %Basophils 0.4 % (0.0-1.0); %Eosinophils 2.4 % (0.0-10.0); %Lymphocytes 39.2 % (21.0-51.0); %Monocytes 10.3 % (0.0-10.0); Hematocrit 30.1 % (42.0-52.0); Mean Platelet Volume 7.8 fL (7.4-10.4); Red Blood Cell (RBC) Count 3.29 mill/uL (4.70-6.10); White Blood Cell (WBC) Count 4.4 thou/uL (4.8-10.8)
[2017-08-08 06:01] LABS: Anion Gap 11 mmol/L (10-20); BUN (Urea Nitrogen) 11 mg/dL (8.4-25.7); Calc. Creatinine Clearance 48 mL/min (70-130); Calcium 8.1 mg/dL (7.8-10.44); Carbon Dioxide 26 mmol/L (23-31); Chloride 106 mmol/L (98-107); Estimated GFR-MDRD 71; Magnesium 1.4 mg/dL (1.6-2.6); Phosphorus 2.1 mg/dL (2.3-4.7)
--- NOTE | 2017-08-08 06:04 | HP-2 ---
DATE OF SERVICE: 08/07/2017 LOCATION: [place], [place]. DATE OF ADMISSION: 08/07/2017. COSIGNER: Dr. Stanton Josue. CODE STATUS: FULL. PRIMARY CARE PHYSICIAN: Magalis Martines M.D. ATTENDING PHYSICIAN: Stanton Josue MD RESIDENT PHYSICIAN: Yyao Myers DO HISTORIAN: Patient. SPECIALISTS: Gastroenterology, Capo Bower MD CHIEF COMPLAINT: Nausea, vomiting, diarrhea. HISTORY OF PRESENT ILLNESS: An 82-year-old male with a past medical history of chronic diarrhea wit h associated nausea and vomiting, status post cholecystectomy on 07/31/2017, presents with progressi vely worsening diarrhea since his discharge from last hospitalization on 07/31/2017. The patient re ports these symptoms have been going on for more than 2 months and no associated weight loss with th e diarrhea. He has had an extensive workup in the past including fecal fat studies, stool ova and p arasites, and stool cultures and there is yet to be a cause for the chronic diarrhea found. He also had a colonoscopy approximately 3-4 months ago for concern of a villous adenoma; however, a colonos copy was negative, showed approximately 10 benign polyps, all of which were removed. The patient de nies chest pain, shortness of breath, associated fevers, chills, cough, congestion, and dysuria. Of note, the patient did have a history of Clostridium difficile, which was approximately two years ag o and was secondary to IV antibiotics. However, he made a full recovery after that and has had no i ssues since. In the ER, the patient was given 2 liters of normal saline, 81 mg aspirin and 4 mg of Zofran. PAST MEDICAL HISTORY: Coronary artery disease, congestive heart failure, hypertension, hyperlipidem ia. PAST SURGICAL HISTORY: 1. Cholecystectomy performed on 07/31/2017. 2. Open reduction internal fixation of the right hip. 3. Coronary artery bypass graft in 1997. 4. Cardiac stents x4. ALLERGIES: CIPROFLOXACIN. MEDICATIONS: 1. Plavix 75 mg per day. 2. Protonix 40 mg per day. 3. Aspirin 81 mg per day. 4. Prozac 2 capsules per day, unknown dose. 5. Temazepam 15 mg at bedtime. 6. Lisinopril 5 mg daily. 7. Furosemide 40 mg daily. 8. Carvedilol 6.25 mg b.i.d. 9. Lipitor 80 mg at bedtime. 10. Ranexa 1000 mg p.o. b.i.d. 11. Donepezil 10 mg a day. 12. Flomax 5 mg a day. FAMILY HISTORY: Deferred. SOCIAL HISTORY: Nonsmoker, nondrinker, no drugs. REVIEW OF SYSTEMS: Constitutional: Patient complains of weight change. Denies fever, chills, night sweats and fatigue . Respiratory: Denies cough, congestion, shortness of breath. ENT: Denies nasal congestion or rh inorrhea. Cardiovascular: Denies chest pain, palpitations, edema. GI: Complains of nausea, vomit ing, diarrhea. Denies constipation, abdominal pain. : Complains of incontinence. Denies dysuri a. Musculoskeletal: Denies pain. Neurologic: Denies weakness, numbness, syncope. PHYSICAL EXAMINATION: VITAL SIGNS: In the ER, blood pressure 135/74, pulse 77, respiratory rate 16, T-max 97.5, pulse ox 95% on room air, current weight 59 kilograms. GENERAL: The patient is alert and oriented, no acute distress. Well-developed, thin and appropriat ciro interactive. HEENT: Pupils equal, round, reactive to light with accommodation. Extraocular muscles intact. Con junctiva within normal limits. ENT: Oropharynx within normal limits. NECK: Supple, without lymphadenopathy. CARDIOVASCULAR: Regular rate and rhythm, 2/6 systolic ejection murmur, no gallops. Radial pulse 2+ . Pedal pulse 2+. RESPIRATORY: Normal effort, no retractions. LUNGS: Clear to auscultation bilaterally. SKIN: Warm and dry. No cyanosis noted. ABDOMEN: Soft, nontender, hyperactive bowel sounds in all 4 quadrants. No masses, distention, orga nomegaly with a postsurgical well healing incision from his laparoscopic cholecystectomy. EXTREMITIES: No clubbing, cyanosis or edema. MUSCULOSKELETAL: Structure is within normal limits. Tone within normal limits. NEUROLOGIC: No focal deficits. Sensation within normal limits. GCS 15. PSYCHIATRIC: Appropriate. LABORATORY STUDIES: White blood cell count 4.1, hemoglobin 11.2, hematocrit 34.6, platelets 187. S odium 139, potassium 3.1, chloride 102, bicarbonate 30, BUN 16, creatinine 1.25, glucose 122, calciu m 8.9, total protein 6.5, albumin 3.5, AST 14, ALT 19, alkaline phosphatase 66, total bilirubin 0.7, lipase 43. Troponin 0.029. BNP 229. Chest x-ray showed no acute intrathoracic process. IMAGING: CT abdomen with contrast showed, 1. Small right and tiny left pleural effusion, free air in the abdomen and a small amount of free f luid in the pelvis. ASSESSMENT AND PLAN: 1. Intractable diarrhea. We will check stool cultures. Check Clostridium difficile assay. The pa sebastian will be started on IV fluids, lactated Ringer's 100 mL per hour. Check I's and O's. We will check stool ova and parasite. The patient will be placed on clear liquid diet. We will consult Gas troenterology in the morning and check an a.m. BMP, magnesium and phosphorus. The patient will be s tarted on Lomotil, cholestyramine, Megace, Creon, Florastor, and Metamucil. 2. Intractable nausea and vomiting. The patient will be given IV Zofran q.4 hours as needed. 3. Elevated troponins. The patient admitted to telemetry. We will trend tropes x3, get a baseline EKG. 4. Dehydration. IV fluid, lactated Ringer's at 100 mL per hour. 5. Hypertension. Patient will be placed back on home medications. 6. Hyperlipidemia. The patient will be placed back on home medications. 7. Congestive heart failure. The patient will be placed back on home medications. 8. Hypokalemia. Patient will be given 40 mEq of potassium IV. Recheck morning BMP, magnesium and phosphorus. 9. Anemia. This is stable from prior admissions. We will check an a.m. CBC as well as RBC, folate . 10. Gastroesophageal reflux disease. The patient will be placed on Protonix per his home medicatio n. 11. Prophylaxis. Patient to be placed on Lovenox and Protonix for deep venous thrombosis and gastr ointestinal prophylaxis respectively. DISPOSITION AND LENGTH OF HOSPITAL STAY: Greater than or equal to 2 days. Symptomatic medication will be provided. History and physical exam as well as management discussed with Dr. Stanton Josue. He agrees wi th the above history, physical exam, assessment and plan unless otherwise noted in his addendum.
--- NOTE | 2017-08-08 06:11 | HP ---
CHIEF COMPLAINT: Diarrhea. HISTORY OF PRESENT ILLNESS: This is an 82-year-old male with past history of coronary artery disease, hyperlipidemia, hypertension and chronic diarrhea who most recently had a laparoscopic cholecystectomy on 07/31 with an uncomplicated course postoperatively. This procedure was done in an effort to try to address his chronic diarrhea. He has also had a colonoscopy, which showed multiple polyps, but I do not see that any random biopsies were performed. He had an EGD as well that demonstrated normal architecture of the small bowel and a duodenal biopsy and apparently no abnormalities noted in the stomach on the EGD that I am able to see. He has had about a 3-month history of this chronic diarrhea with a 20-30 pound weight loss that has been unintentional. Most recently, especially since the surgery, he has had about 4-5 bowel movements that are voluminous, non-fatty appearing, flushed easily and do not smell bad, but are quite profuse and bothersome. He has also had for about 3 days nausea in the morning with some vomiting, 1-2 episodes of just clear liquid at that time and decreased p.o. intake throughout the day. He denies any fever or chills, any abdominal pain or discomfort, any chest pain or shortness of breath. He does not have any hematochezia or melena. No hematemesis or hemoptysis. No night sweats. REVIEW OF SYSTEMS: All other systems reviewed and are negative. PAST MEDICAL HISTORY: Significant for dementia, coronary artery disease, hyperlipidemia, hypertension and again chronic diarrhea. PAST SURGICAL HISTORY: CABG in 1997, 4 stents, ORIF and laparoscopic cholecystectomy. MEDICATIONS: Plavix, Protonix, aspirin, Prozac, temazepam, donepezil, Ranexa, Lisinopril, furosemide, Coreg and Lipitor. FAMILY HISTORY: Noncontributory. ALLERGIES: CIPROFLOXACIN allergy. SOCIAL HISTORY: Denies tobacco, ethanol or drug use. PHYSICAL EXAMINATION: VITAL SIGNS: Temperature is 98.2, pulse is 76, respirations is 16, O2 sat is 99 % and blood pressure 160/76. GENERAL: No acute distress, resting comfortably in bed. HEENT: Eyes: Without icterus or injection. Positive arcus senilis. Pupils are equal and reactive to light. Eyes, ears, mouth and throat: Dry mucous membranes, eroded dentition and bilateral pharynx. NECK: Trachea is midline, mobile. No palpable thyromegaly. He has a right carotid bruit. CARDIOVASCULAR: Regular rate and rhythm with a 2/6 systolic ejection murmur at the apex that does not really seem to radiate at all. No peripheral edema. RESPIRATORY: Clear to auscultation bilaterally without wheezes, rales or rhonchi. CHEST: No increased work of breathing. GASTROINTESTINAL: Bowel sounds positive. Nontender to palpation. Incision sites are well-appearing with mild erythema and nontender. No warmth. GENITOURINARY: Uncircumcised male. He has an inclusion cyst in his right groin. MUSCULOSKELETAL: No obvious deformity contracture or fracture. SKIN: He has multiple seborrheic keratoses over his face and his ears as well as apparently pigmented forearms presumably from previous sun exposure and again the inclusion cyst noted in his right groin. NEUROLOGIC: Cranial nerves II-XII intact and symmetrical. Motor 5/5. Sensation is intact to light touch throughout. PSYCHIATRIC: He is alert and oriented x3. Mood and affect appropriate for current condition. LABORATORY DATA: White count 4.1, hemoglobin 11.2 and platelets 187. INR 1. Chemistry: Sodium 139, potassium 3.1, chloride 102, bicarbonate 30, BUN 16 and creatinine 1.25, glucose 122 and lactic acid 1.3. Troponin initial 0.029 and repeat 0.035. BNP 229.2. IMAGING DATA: My read, previous midline sternotomy, he has an AICD in place. No obvious effusion, pneumothorax or infiltrate. CT abdomen and pelvis with contrast; small right and tiny left pleural effusion, free air in the abdomen and small amount of free fluid in the pelvis. ASSESSMENT AND PLAN: This is an 82-year-old with: 1. Chronic diarrhea. + lactoferrin in the past. He has had multiple negative tests for Clostridium difficile, but we will go ahead and repeat as his recent preoperative antibiotic exposure. We will discuss with GI in the morning. 2. Dehydration. We will continue on maintenance IV fluids. He did have a bicarbonate of 30, which could be due to Lasix; however, we will gently hydrate overnight and frequently reassess volume status. 3. Status post laparoscopic cholecystectomy with intraperitoneal free air. This was discussed with Dr. Espinosa in the ED as well and I was told and she said this is normal postoperative changes for now. He has a benign abdomen. We will continue to monitor. 4. 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 Suspect this is potentially baseline. We have absolutely no symptoms at this point except for the nausea and vomiting on his EKG. He does have some inverted T waves in the lateral leads and we will obtain previous to compare. 5. Elevated BNP and history of known heart failure. He is clinically euvolemic and we feel this is likely incidental. 6. Chronic kidney disease stage 3. We will consider sending appropriate workup. 7. Anemia. He has had a workup for this in the past. Suspect this a component of chronic kidney disease. We will monitor. 8. Leukopenia. Unsure of etiology at this time, but appears to be stable. We will recheck in the morning. 9. Hypokalemia. Replete and replace and recheck in the morning. 10. Deep venous thrombosis prophylaxis with heparin. 11. Gastrointestinal prophylaxis with diet as tolerated. MTDD
[2017-08-08] MEDS: Sodium Chloride 0.9% 1,000 ML IV SCH ×2 (06:37→18:20)
--- NOTE | 2017-08-08 08:28 | PDOC.FM ---
- Subjective Subjective: Patient resting comfortably in bed this morning. He reports a solid BM overnight. No abdominal pain or cramping this morning. - Objective MAR Reviewed: Yes Vital Signs & Weight: Vital Signs (12 hours) Temp Pulse Resp BP Pulse Ox 08/08/17 07:35 99.5 F 86 18 115/77 98 08/08/17 04:00 97.8 F 82 18 110/57 L 96 08/08/17 00:00 97.8 F 83 18 103/56 L 95 Weight Weight 63.049 kg I&O: 08/07/17 08/08/17 08/09/17 06:59 06:59 06:59 Intake Total 2008 Output Total 175 Balance 1834 Result Diagrams: 08/08/17 05:22 08/08/17 05:22 <Dwaine Becerra - Last Filed: 08/08/17 08:26> - Objective Vital Signs & Weight: Vital Signs (12 hours) Temp Pulse Resp BP BP Pulse Ox 08/08/17 15:50 98.9 F 88 20 93/54 L 97 08/08/17 11:35 97.4 F L 96 18 117/60 99 08/08/17 11:04 86 115/77 08/08/17 11:03 115/77 Weight Admit Weight 60.555 kg Weight 63.049 kg I&O: 08/07/17 08/08/17 08/09/17 06:59 06:59 06:59 Intake Total 2008 2159 Output Total 175 375 Balance 1834 1785 Result Diagrams: 08/08/17 05:22 08/08/17 05:22 <Candace Kulkarni - Last Filed: 08/08/17 21:24> Phys Exam - Physical Examination Constitutional: NAD Respiratory: no wheezing, no rales Cardiovascular: RRR, no significant murmur Gastrointestinal: soft, non-tender, no distention Psychiatric: normal affect Skin: no rash <Dwaine Becerra - Last Filed: 08/08/17 08:26> Dx/Plan (1) Chronic diarrhea of unknown origin Code(s): K52.9 - NONINFECTIVE GASTROENTERITIS AND COLITIS, UNSPECIFIED Status : Chronic Plan: S/p lap carter last week. No change in diarrhea as compared to before operation. We will send stool studies- c.diff, fecal lactoferrin, fecal fat, stool clx for e. coli and campylobacter, ova & parasites, norovirus, cyclospora smear. Dr. Ivory with GI has been consulted; he is very familiar with patients history We will try a course of cholestyramine and monitor symptoms Continue lomotil, metamucil, florastor, and creon (2) Dehydration Code(s): E86.0 - DEHYDRATION Status: Acute Plan: Patient has received fluids overnight. Creatinine is now 1.0 this AM. Continue IVF at 100ml/hr (3) Chronic systolic (congestive) heart failure Code(s): I50.22 - CHRONIC SYSTOLIC (CONGESTIVE) HEART FAILURE Status: Chronic Plan: Continue home medications. Patient does not c/o chest pain or SOB today (4) HLD (hyperlipidemia) Code(s): E78.5 - HYPERLIPIDEMIA, UNSPECIFIED Status: Chronic Plan: continue home meds (5) HTN (hypertension) Code(s): I10 - ESSENTIAL (PRIMARY) HYPERTENSION Status: Chronic Qualifiers: Hypertension type: essential hypertension Qualified Code(s): I10 - Essential (primary) hypertension Plan: Continue home meds (6) Hypokalemia Code(s): E87.6 - HYPOKALEMIA Status: Chronic Plan: K improved to 3.2 this AM continue replacement (7) Dementia Code(s): F03.90 - UNSPECIFIED DEMENTIA WITHOUT BEHAVIORAL DISTURBANCE Status: Chronic Plan: continue home meds (8) Anemia Code(s): D64.9 - ANEMIA, UNSPECIFIED Status: Chronic Plan: Work up in past. CKD most likely etiology. Monitor while in hospital - Plan Plan: Plan: -await GI recs and stool studies -Monitor symptoms with addition of cholestyramine <Dwaine Becerra - Last Filed: 08/08/17 08:26> Attending Addendum - Attending Addendum I personally evaluated the patient and discussed the management with Dr. Becerra I agree with the History, Examination, Assessment and Plan documented above with any addition or exceptions noted below. 82 yo male admitted for worsening diarrhea with N/V HD #1 C diff: Patient with positive toxin 11/2015, 12/2015, 02/2016, and now 07/2017 that we can locate in [facility] record. GI consulted. Oral vanc started. Would hold PPI. hx of chronic diarrhea: GI following inpatient and outpatient. Has had extensive workup. Stool transplant? N/V: Improving with symptomatic relief. Tolerating liquids. Dehydration: Improved. Electrolyte abnormalities: Replace. Trend. CAD/HLD/HTN/rEFHF: Monitor. Adjust home meds as needed. Stable. Senile dementia: Mild. Continue aricept. Continue inpatient. Marian <Candace Kulkarni - Last Filed: 08/08/17 21:24>
[2017-08-08] MEDS ORDERED: Clopidogrel Bisulfate 75 MG TAB PO SCH (09:00)
[2017-08-08] MEDS ORDERED: Enoxaparin Sodium 40 MG/0.4 ML SYRINGE SC SCH (09:00)
[2017-08-08] MEDS ORDERED: Pantoprazole 40 MG GRANULES PACKET PO SCH (09:00)
[2017-08-08] MEDS: Carvedilol 6.25 MG TAB PO SCH ×2 (11:03→23:30)
[2017-08-08] MEDS: Tamsulosin HCl 0.4 MG CAP PO SCH (11:03)
[2017-08-08] MEDS: Aspirin 81 mg Enteric Coated Tablet PO SCH (11:04)
[2017-08-08] MEDS: Lisinopril 5 MG TAB PO SCH (11:04)
[2017-08-08] MEDS: Pancrelipase DR 12000 1 CAP PO SCH ×3 (11:04→18:20)
[2017-08-08] MEDS: Saccharomyces boulardii 250 MG CAP PO SCH (11:05)
[2017-08-08] MEDS: FLUoxetine HCl 20 MG CAP PO SCH (11:05)
[2017-08-08] MEDS: Megestrol Acetate 40 MG TAB PO SCH ×3 (11:07→23:30)
[2017-08-08] MEDS: Cholestyramine/Aspartame 4 gm Packet PO SCH ×2 (11:08→23:32)
[2017-08-08] MEDS: Acetaminophen 325 MG TAB PO PRN ×2 (14:22→22:30)
[2017-08-08] MEDS: Vancomycin HCl 25 MG/ML Oral PO SCH ×2 (18:19→23:31)
--- NOTE | 2017-08-08 18:49 | CON ---
DATE OF CONSULTATION: 08/08/2017 TYPE OF CONSULTATION: GI Inpatient Consultation. REQUESTING PHYSICIAN: Dr. Becerra. REASON FOR CONSULTATION: Acute on chronic diarrhea. HISTORY OF PRESENT ILLNESS: Flex Johnston is an 82-year-old gentleman well known to me from prior h ospitalizations. He was recently hospitalized here with ongoing chronic diarrhea and weight loss an d ended up undergoing laparoscopic cholecystectomy with Dr. Jackson just a week ago on 07/31/2017. Pl ease see my consultation note from 07/29/2017 for more complete details of his recent history and GI workup. Briefly, he has a history of chronic diarrhea over the past year with some significant we ight loss. This really seems to be intermittent with minimal abdominal pain or other symptoms. Las t year, he was treated a couple of times for recurrent C. difficile and this was finally eradicated. Throughout much of this year, repeated stool tests have always been negative for C. difficile, tho ugh fecal lactoferrin has remained elevated. We performed EGD and colonoscopy within recent months. Duodenal biopsies were normal. Random colon biopsies were normal. He did have multiple large col on polyps and actually had a post-polypectomy bleed in May, but that resolved. On his last ad mission, he was noted to have spiking LFTs and lipase and we were able to a diagnosis of chronic cho lecystitis. On 07/31/2017, he underwent laparoscopic cholecystectomy with negative intraoperative c holangiogram and this went well. The patient was essentially asymptomatic following the procedure a nd was able to be discharged home. He returns to the hospital with reports of ongoing diarrhea over the past several days. He describe s his bowel movements as loose, watery and urgent. It is difficult to get a good idea from him exac tly how many bowel movements per day he has been having, but it sounds like at least 4-5. He is hav ing some bloating lower abdominal discomfort with this. No melena or hematochezia. He was having s ome nausea and vomiting within the past couple of days as well. Stools studies were performed upon admission and are just coming back today and this shows positive C. difficile antigen though negativ e toxin. Campylobacter antigen is also positive in the stool and fecal lactoferrin remains elevated . PAST MEDICAL HISTORY: Dementia, coronary artery disease, hyperlipidemia, hypertension, chronic diar abdelrahman, recurrent C. difficile in 2016, CABG in 1998, ORIF, laparoscopic cholecystectomy on 07/31/2017 for chronic cholecystitis. REVIEW OF SYSTEMS: Full review of systems including constitutional, head, eyes, ears, nose, throat, GI, , cardiovascular, respiratory, musculoskeletal, and neurologic systems is negative except as noted in the HPI. OUTPATIENT MEDICATIONS: Plavix, Protonix 40 mg daily, aspirin 81 mg daily, Prozac, temazepam, lisin opril, furosemide, carvedilol, Lipitor, Ranexa, donepezil, Flomax, Creon tablets with meals. SOCIAL HISTORY: No smoking, alcohol, or drug use. FAMILY HISTORY: Noncontributory. ALLERGIES: CIPROFLOXACIN. PHYSICAL EXAMINATION: VITAL SIGNS: Temperature 97.4, pulse 96, blood pressure 117/60, 99% oxygen saturation on room air. GENERAL: Frail 82-year-old gentleman lying in bed comfortably, in no distress. MENTAL: Alert and oriented, pleasant and conversational, can describe current symptoms well, is les s precise about recent workup and history. SKIN: No jaundice, no rashes were palpable. ENT: Mucous membranes moist, no oral lesions. LYMPH: No submandibular or supraclavicular lymphadenopathy. THYROID: Nontender to palpation. HEART: Regular rate and rhythm. LUNGS: Clear to auscultation bilaterally. ABDOMEN: Nondistended, bowel sounds present, soft, nontender to palpation throughout. No guarding or rebound tenderness. Laparoscopy scars are healing well. EXTREMITIES: No peripheral edema. VESSELS: Radial pulses 2+ bilaterally. NEUROLOGICAL: Cranial nerves II-XII intact bilaterally. No focal deficits. LABORATORY STUDIES: WBC 4.4, hemoglobin 9.7, platelets 196. Sodium 140, potassium 3.2, BUN 11, cre atinine 1.01. INR 1.0. Troponin 0.029. BNP 229. Urinalysis negative. Stool studies show positiv e Campylobacter antigen, positive C. difficile antigen, negative C. difficile toxin, positive fecal lactoferrin. ASSESSMENT AND PLAN: 1. Acute on chronic diarrhea. 2. Recurrent Clostridium difficile. 3. Positive Campylobacter antigen in the stool. 4. Recent cholecystectomy. The patient's presenting diarrhea could be multifactorial, but I do certainly worry about recurrent Clostridium difficile infection, given now positivity of the Clostridium difficile antigen. I note the negative Clostridium difficile toxin, but with the elevated fecal lactoferrin, this does need to be treated as recurrent Clostridium difficile. We will go ahead and start him back on vancomycin 1 25 mg q.i.d. for planned 14-day course. It is unclear whether the positive Campylobacter antigen re presents a true pathogen in this case. If so, the Campylobacter enteritis should be self-limited, l asting no more than 1-2 weeks, so would not add additional antibiotics other than the oral vancomyci n. I do agree that a bile acid malabsorption following cholecystectomy could also be driving some o f this diarrhea, so I agree with having started cholestyramine 4 grams b.i.d. Otherwise, continue s upportive care. We will not plan on any further endoscopic investigation or workup at this time. A dvance diet as tolerated when the patient is feeling up to it.
[2017-08-08] MEDS ORDERED: TEMAZEPAM 15 MG PO SCH (21:00)
[2017-08-08] MEDS ORDERED: Nitroglycerin 0.4 MG TAB (25 Tab Bottle) SL PRN (22:37)
--- NOTE | 2017-08-08 23:02 | RAD ---
CHEST ONE VIEW 08/08/17 HISTORY: Chest pain. COMPARISON: 08/07/17. FINDINGS: The cardiac silhouette is magnified by projection. Mild bibasilar atelectasis is now apparent. Media stinum is midline with postoperative changes, aortic calcification, and a multilead left subclavian cardiac electronic device. No lobar consolidation or pneumothorax are apparent. clinical research monitor lead s overlie the chest. IMPRESSION: Chronic type findings are stable. POS: [facility]
[2017-08-08 23:30] LABS: Troponin I 0.028 ng/mL (< 0.028)
[2017-08-08] MEDS: Temazepam 15 MG CAP PO SCH (23:30)
[2017-08-08] MEDS: Donepezil HCl 10 MG TAB PO SCH (23:30)
[2017-08-08] MEDS: Atorvastatin Calcium 40 MG TAB PO SCH (23:30)
[2017-08-08] MEDS: Magnesium Chloride 64 MG TAB PO SCH (23:31)
--- NOTE | 2017-08-09 01:35 | PDOC.EVN ---
Event Note - Event Note Event Note: Received a page from the nurse that the patient began having severe 10/10 chest pain. I gave him a dose of nitro and ordered an EKG, chest x-ray, and cardiac enzymes. I spoke to the patient and he described it as a squeezing pain that was constant and felt the same as his prior heart attacks. It did not radiate anywhere and was not associated with any nausea or diaphoresis. It was relieved completely by a dose of nitro. The EKG showed ST depression in leads V2-V3 that was not present on admission. The cardiac enzymes were normal. Will trend cardiac enzymes and will start the patient on therapeutic lovenox and consult cardiology in the morning. The repeat EKG was consistent with the prior one. Asked the patient to let us know if the chest pain returns and asked the nurse to page. Will repeat an EKG if the chest pain returns.
[2017-08-09] MEDS ORDERED: Clopidogrel Bisulfate 300 MG TAB PO SCH (01:45)
[2017-08-09] MEDS ORDERED: Enoxaparin Sodium 60 MG/0.6 ML SYRINGE SC SCH ×2 (01:45→09:00)
--- NOTE | 2017-08-09 01:48 | PDOC.EVN ---
Event Note - Event Note Event Note: Pt with 10/10 chest pain, "just like last time" he had an MD that responded rapidly to NTG. Initial Tn unchanged, ECG with new ST dep V2, subtle in V3, unchanged on repeat. Will repeat Tn, add lovenox, discuss with cardiology in the AM if indicated.
[2017-08-09] MEDS ORDERED: Potassium Chloride 40 MEQ in Sodium Chloride 0.9% 500 ML IVPB SCH (02:30)
--- NOTE | 2017-08-09 02:57 | CON ---
DATE OF CONSULTATION: 08/08/2017 REASON FOR CONSULTATION: Postoperative nausea, vomiting, and diarrhea. HISTORY OF PRESENT ILLNESS: Mr. Johnston is an 82-year-old man who underwent a laparoscopic cholecyst ectomy by Dr. Jackson a week ago. He went home on Monday and did fine for a couple of days, but on night, developed nausea, vomiting, and diarrhea and this got worse over the weekend, so yest erday his family brought him into the emergency room. A CT scan did not show any evidence of bowel obstruction or acute infection, but he did have some free fluid in the pelvis and the gallbladder fo ssa as well as small amount of free air, mostly in the right upper quadrant. The patient states bobbi t since being admitted in the hospital and receiving IV fluids and antibiotics. He is feeling much better. He denies any nausea, vomiting, and states that his stools are becoming more formed. He do es have a history of prolonged Clostridium difficile, which required a very long course of oral vanc omycin and has had several episodes of nausea, vomiting, and diarrhea since that time, but has teste d negative for C. diff on those occasions. He denies any abdominal pain and states that other than what he considers normal postoperative soreness. He did not have pain with his nausea, vomiting, an d diarrhea. Stool studies have been sent and he is positive for Campylobacter as well was antigen p ositive for C. diff, but toxin negative. He states that when he was throwing up, there was no blood or coffee ground appearance to the emesis and also he denies melena. He has not had any fevers or chills and no jaundice or icterus. PAST MEDICAL HISTORY: Coronary artery disease, hypertension, hyperlipidemia, Clostridium difficile, and dementia. PAST SURGICAL HISTORY: Coronary artery bypass grafting and stents, recent laparoscopic cholecystect radha and orthopedic surgeries. OUTPATIENT MEDICATIONS: Include Plavix, Protonix, lisinopril, Lasix, Coreg, Lipitor, aspirin, Proza c, temazepam, donepezil, and Ranexa. FAMILY HISTORY: Noncontributory. ALLERGIES: He reports an allergy to CIPROFLOXACIN. SOCIAL HISTORY: He denies alcohol, tobacco or drug use. REVIEW OF SYSTEMS: Ten-system review of systems is negative except per HPI. PHYSICAL EXAMINATION: VITAL SIGNS: The patient has been afebrile since his admission. Heart rate is in the 80s, blood pr essure low normal, O2 sats normal. GENERAL: Reveals a healthy appearing elderly gentleman in no acute distress. HEENT: Unremarkable. NECK: Supple, without lymphadenopathy or thyroid nodules. HEART: Regular in its rate and rhythm without murmurs, rubs or gallops. LUNGS: Clear to auscultation bilaterally. ABDOMEN: Soft, nontender, nondistended. He has healing laparoscopic cholecystectomy incisions with out erythema, induration and drainage, swelling or bruising. Bowel sounds are present. No palpable masses or hernias. EXTREMITIES: Warm and well perfused without edema. NEUROLOGIC: No focal deficits. PSYCHIATRIC: Alert, oriented, and appropriate and he appears to be a reliable historian and his erma lennieter is present cooperates details. LABORATORY DATA: White count is normal, he does not have a left shift, monocyte count is somewhat i ncreased. Hematocrit is slightly low at 30. INR is normal. Electrolytes show a decreased potassiu m, phosphorus and magnesium consistent with his history of significant diarrhea. Troponins are in t he indeterminate range at 0.029 and admission LFTs were normal as was his lipase. CT images are rev iewed and I agree with the written report. ASSESSMENT: One week status post laparoscopic cholecystectomy, changes on CT scan are likely postop erative in nature. He does not have an acute abdomen and he has a history of Clostridium difficile and chronic diarrhea and stool studies which are abnormal. I do not believe that this is related to his laparoscopic cholecystectomy except and as far as he likely received a dose of prophylactic ant ibiotics before his surgery. I will continue to follow along if his symptoms recur and repeat CT wi th oral contrast could be considered, but I feel that an additional bowel perforation or surgical pr oblems extremely unlikely based on his history and physical exam, so I do not recommend at this time . I will continue to follow him as an inpatient.
[2017-08-09] MEDS: Sodium Chloride 0.9% 1,000 ML IV SCH ×2 (05:10→13:44)
[2017-08-09 05:32] LABS: Troponin I 1.861 ng/mL (< 0.028)
[2017-08-09 07:50] LABS: Troponin I 4.655 ng/mL (< 0.028)
[2017-08-09] MEDS: Aspirin 81 mg Enteric Coated Tablet PO SCH (08:38)
[2017-08-09] MEDS: Tamsulosin HCl 0.4 MG CAP PO SCH (08:38)
[2017-08-09] MEDS: Vancomycin HCl 25 MG/ML Oral PO SCH ×4 (08:38→22:56)
[2017-08-09] MEDS: Megestrol Acetate 40 MG TAB PO SCH ×3 (08:38→22:42)
[2017-08-09] MEDS: FLUoxetine HCl 20 MG CAP PO SCH (08:38)
[2017-08-09] MEDS: Saccharomyces boulardii 250 MG CAP PO SCH (08:39)
[2017-08-09] MEDS: Magnesium Chloride 64 MG TAB PO SCH ×2 (08:39→22:43)
[2017-08-09] MEDS ORDERED: Clopidogrel Bisulfate 75 MG TAB PO SCH (09:00)
--- NOTE | 2017-08-09 11:35 | CON ---
CARDIOLOGY CONSULTATION NOTE DATE OF CONSULTATION: 08/09/2017 INDICATION FOR CONSULTATION: An 82-year-old patient who was recently seen in the hospital for cholec ystectomy; has a long history of coronary artery disease, cardiomyopathy status post AICD implant, st atus post bypass surgery, status post stent placements. He had recently underwent a cholecystectomy, he been discharged from the hospital and then returned due to nausea and vomiting about 2 days ago. Last night, up until that time, he had been doing well, but continued with diarrhea. He has had a h istory of C. diff and he had been doing quite relatively well. He still had not been eating, but was on clear liquids. Then last night, he developed a sudden onset of chest pain, which became worse. He had an EKG, which showed ischemic changes in the anterior lateral leads. He was given nitroglycer in and the pain resolved after about half an hour. EKG shows some improvement this morning. Unfortu nately, it appears that he has suffered a non-ST segment elevation myocardial infarction. Cardiac en zymes are positive for myocardial infarction. Troponin I has increased up to 4.66 with an MB of 35.5 . On his last cardiac catheterization in 11/2015, the left main was 100% occluded, the right coronar y was 100% occluded. He did have a patent saphenous vein graft to the left anterior descending arter y with distal disease and left anterior descending artery about 60% stenosis. He had a patent saphen ous vein graft to an obtuse marginal branch to the left circumflex. The right coronary graft was 100 % occluded. There was some distal filling of the right coronary via the saphenous vein graft pulley maintainer d from the distal obtuse marginal branch, which had been fed by the saphenous vein graft. He has had progression of disease noted at this time of the cardiac catheterization. His ejection fraction has continued to decline. The last ejection fraction was 20% to 25%. However, given that history, he s till managed to do quite well after his laparoscopic cholecystectomy on his last admission, but at th is time it appears that he has suffered another myocardial infarction. PAST MEDICAL HISTORY: Significant for the coronary artery disease, bypass surgery, stent placement a nd cardiomyopathy. He has had an AICD implant. He has a history of GI bleed in the past. He has webster d a history of C. diff. He has had a history of transurethral resection of prostate. He has had a h istory of depression and hematuria. ALLERGIES: CIPRO. MEDICATIONS: Aspirin 81 mg a day, Lipitor 80 mg a day, Coreg 6.25 mg b.i.d., Questran Light, Plavix 75 mg a day, Lovenox 60 mg subcu b.i.d., Zestril 5 mg a day, Ranexa 1000 mg b.i.d. I believe he has been placed on vancomycin. He is also on Aricept, Prozac, Slow-Mag and Restoril. He is on Metamucil , Creon due to his decreased pancreatic function. He is on Protonix 40 mg a day and Megace 40 mg t.i .d. He is on p.r.n. medications. FAMILY HISTORY: Noncontributory at this time. REVIEW OF SYSTEMS: He mainly complained of what is noted in the history of present illness with the nausea, vomiting, diarrhea, and then the chest pain yesterday evening. He does complain of some leg pain due to arthritis. SOCIAL HISTORY: He still lives at home. 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 No h istory of alcohol or tobacco abuse at this time. I believe he lives with one of his daughters. He s moked in the past, but stopped more than 50 years ago. There is no alcohol use. He has two children . He is . PHYSICAL EXAMINATION: GENERAL: Reveals an elderly gentleman who is in no acute distress at this time. His pain has resolv ed. He is not having any complaints. VITAL SIGNS: Not available at this time as the computer system is down. HEENT: Shows the head to be normocephalic, atraumatic. Carotid pulses are present. There are no gr oss bruits noted at this time that I can determine. LUNGS: Clear to auscultation. I did not hear any rales, rhonchi or wheezing at this time. CARDIOVASCULAR: Reveals a regular rate and rhythm with normal S1 and S2. I cannot hear an S3 nor an S4. There were no significant murmurs, heaves, thrills, bruits or rubs noted. ABDOMEN: Soft and nontender. He has minimal bowel sounds. EXTREMITIES: Showed no clubbing, cyanosis or edema. He has a well-healed surgical incision in the l eft lower extremity after a saphenous vein graft retrieval. NEUROLOGIC: The patient appears to be fully intact. He appears to have normal strength and tone. Tina figueroa has generalized weakness, but otherwise appears to be stable. SKIN: Warm and dry at this time. IMAGING DATA: His EKG has showed the ST segment depression in the anterior lateral leads and also th is has improved compared to the EKGs from yesterday evening. I do not see any Q waves and the ST seg ment changes are also improved. IMPRESSION AND PLAN: 1. Non-ST segment elevation myocardial infarction. I would continue his medications with Plavix and aspirin, also would continue the Lovenox in this gentleman as well as his Ranexa, nitroglycerins as tolerated and beta blockers. We will be more than happy to continue to follow this patient with you. At this time, I would not suggest he undergo repeat cardiac catheterization due to the extensive di sease that he has and also his overall generalized medical problems. 2. History of nausea, vomiting, diarrhea and cholecystectomy. It is unclear of the etiology; it may be due to some of his pancreatic problems. 3. Anemia, hemoglobin 9.7. We will continue to follow this with you. 4. History of hypertension. This is under very good control at this time. 5. Cardiomyopathy and status post automatic implantable cardioverter-defibrillator implant. I did d iscuss with the patient and the family that I would not be advisable to proceed with cardiac catheter ization at this time. Should he become unstable and we are unable to control this with medications, then we may consider further cardiac workup, but he is at high risk for any type of procedures at thi s time and most likely has diffuse disease that is not amenable to undergoing further intervention.
[2017-08-09 12:07] LABS: Troponin I 9.947 ng/mL (< 0.028)
[2017-08-09] MEDS: Pancrelipase DR 12000 1 CAP PO SCH ×2 (13:42→16:04)
[2017-08-09] MEDS: Lisinopril 5 MG TAB PO SCH (13:43)
[2017-08-09] MEDS: Carvedilol 6.25 MG TAB PO SCH ×2 (13:43→22:53)
[2017-08-09] MEDS: Cholestyramine/Aspartame 4 gm Packet PO SCH ×2 (13:44→22:44)
[2017-08-09 14:25] LABS: Folate,Hemolysate 307.4 ng/mL (Not Estab.); Hematocrit 28.6 % (37.5-51.0); RBC Folate Test Component 1075 ng/mL (>498)
--- NOTE | 2017-08-09 17:47 | PRG ---
DATE OF SERVICE: 08/09/2017 SUBJECTIVE: Mr. Johnston had sudden onset acute severe chest pain last night and was found to have new ST depressions in several leads. Troponins climbed up significantly all consistent with non-ST elev ation myocardial infarction. He was seen by Dr. Mayorga. The decision was made not to proceed with ca rdiac catheterization. He does have a history of severe coronary artery disease as well as congestiv e heart failure. Currently, he is chest pain free. He denies any shortness of breath. He has not h ad any diarrhea today, in fact no bowel movements reported from the patient; however, he is not eatin g very much. He says the food simply does not taste good and he does not have much appetite. No abd ominal pain though. PHYSICAL EXAMINATION: VITAL SIGNS: Temperature 98.0, pulse 94, blood pressure 93/52, 100% oxygen saturation on 2 liters na celso cannula. GENERAL: Frail, no acute distress. HEART: Regular rate and rhythm. LUNGS: Clear to auscultation bilaterally. ABDOMEN: Flat, bowel sounds present, soft, nontender to palpation. EXTREMITIES: No peripheral edema. LABORATORY STUDIES: Troponin climbed up 0.5, then 1.86, then 4.655, then 9.947. CK-MB came up to 60 .5. ASSESSMENT AND PLAN: 1. Chronic diarrhea, stable. 2. Recurrent Clostridium difficile infection. 3. Positive Campylobacter antigen in the stool. 4. Non-ST elevation myocardial infarction. Chronic diarrhea seems stable at this time. I would con tinue and finish out the plan a 14-day course of oral vancomycin. Advance diet as tolerated. Poor a ppetite at this point is likely multifactorial.
[2017-08-09 18:25] LABS: Hematocrit 20.9 % (42.0-52.0)
--- NOTE | 2017-08-09 19:49 | PDOC.FM ---
- Subjective Subjective: Patient with CP overnight that was triaged and found to be NSTEMI. His diarrhea is unchanged from previous days. - Objective MAR Reviewed: Yes Vital Signs & Weight: Vital Signs (12 hours) Temp Pulse Resp BP BP Pulse Ox 08/09/17 16:03 98.0 F 94 14 93/52 L 100 08/09/17 13:43 90/55 L 08/09/17 12:40 98.0 F 95 14 91/55 L 99 08/09/17 08:45 98.0 F 95 14 99 08/09/17 08:15 98.0 F 96 16 90/55 L 100 Weight Admit Weight 60.555 kg Weight 63.049 kg I&O: 08/08/17 08/09/17 08/10/17 06:59 06:59 06:59 Intake Total 2008 2159 1979 Output Total 175 375 500 Balance 1834 1785 1480 Result Diagrams: 08/09/17 17:48 08/09/17 17:48 <Dwaine Becerra - Last Filed: 08/09/17 19:47> - Objective Vital Signs & Weight: Vital Signs (12 hours) Temp Pulse Resp BP BP Pulse Ox 08/09/17 19:45 98.1 F 102 H 16 105/59 L 98 08/09/17 16:03 98.0 F 94 14 93/52 L 100 08/09/17 13:43 90/55 L 08/09/17 12:40 98.0 F 95 14 91/55 L 99 Weight Admit Weight 60.555 kg Weight 63.049 kg I&O: 08/08/17 08/09/17 08/10/17 06:59 06:59 06:59 Intake Total 2008 2159 2459 Output Total 394 746 1808 Balance 1834 1785 760 Result Diagrams: 08/09/17 17:48 08/09/17 17:48 <Candace Kulkarni - Last Filed: 08/09/17 22:19> Phys Exam - Physical Examination Constitutional: NAD Respiratory: no wheezing, no rales Cardiovascular: RRR, no significant murmur no chest pain at this time Gastrointestinal: soft, non-tender Musculoskeletal: no edema Psychiatric: normal affect Skin: no rash <Dwaine Becerra - Last Filed: 08/09/17 19:47> Dx/Plan (1) NSTEMI (non-ST elevated myocardial infarction) Code(s): I21.4 - NON-ST ELEVATION (NSTEMI) MYOCARDIAL INFARCTION Status: Acute Plan: Chest pain overnight was worked up and EKG was found to have ST segment depression in anterior lateral leads. Cardiology was consulted and recommends no intervention at this time. Recommend continuing medical management with plavix, ASA, lovenox, Ranexa, and nitro. (2) Chronic diarrhea of unknown origin Code(s): K52.9 - NONINFECTIVE GASTROENTERITIS AND COLITIS, UNSPECIFIED Status : Chronic Plan: C. diff antigen positive as well as campylobacter positive. Dr. Bower with GI has been consulted; he is very familiar with patients history. We will continue 14 day course of oral vancomycin and discontinue lomotil and PPI at this time. (3) Chronic systolic (congestive) heart failure Code(s): I50.22 - CHRONIC SYSTOLIC (CONGESTIVE) HEART FAILURE Status: Chronic Plan: Continue home medications (4) HLD (hyperlipidemia) Code(s): E78.5 - HYPERLIPIDEMIA, UNSPECIFIED Status: Chronic Plan: continue home meds (5) HTN (hypertension) Code(s): I10 - ESSENTIAL (PRIMARY) HYPERTENSION Status: Chronic QualifierTitle: Hypertension type: essential hypertension Qualified Code( s): I10 - Essential (primary) hypertension Plan: Continue home meds (6) Hypokalemia Code(s): E87.6 - HYPOKALEMIA Status: Chronic Plan: K improved to 3.2 yesterday continue replacement (7) Dementia Code(s): F03.90 - UNSPECIFIED DEMENTIA WITHOUT BEHAVIORAL DISTURBANCE Status: Chronic Plan: continue home meds (8) Anemia Code(s): D64.9 - ANEMIA, UNSPECIFIED Status: Chronic Plan: Work up in past. CKD most likely etiology. Monitor while in hospital (9) Dehydration Code(s): E86.0 - DEHYDRATION Status: Resolved - Plan Plan: Plan: -medical management for NSTEMI with possible intervention if patient becomes hemodynamically unstable -Advance diet as tolerated -continue oral vancomycin <Dwaine Becerra - Last Filed: 08/09/17 19:47> Attending Addendum - Attending Addendum I personally evaluated the patient and discussed the management with Dr. Becerra I agree with the History, Examination, Assessment and Plan documented above with any addition or exceptions noted below. 82 yo male admitted for worsening diarrhea with N/V HD #2 C diff: Patient with positive toxin 11/2015, 12/2015, 02/2016, and now 07/2017 that we can locate in [facility] record. GI following. On oral vanc. hx of chronic diarrhea: GI following inpatient and outpatient. Has had extensive workup. Stool transplant? N/V: Improved. Dehydration: Improved. Electrolyte abnormalities: Replace. Trend. CAD with NSTEMI overnight: Cards consulted. Medical management due history of severe disease. HLD/HTN/rEFHF: Monitor. Adjust home meds as needed. Stable. Senile dementia: Mild. Continue aricept. Normocytic Anemia: Likely multifactorial. Consider transfusion due to severe CAD /NSTEMI. Continue inpatient. Marian <Candace Kulkarni - Last Filed: 08/09/17 22:19>
[2017-08-09] MEDS: Donepezil HCl 10 MG TAB PO SCH (22:42)
[2017-08-09] MEDS: Enoxaparin Sodium 60 MG/0.6 ML SYRINGE SC SCH (22:42)
[2017-08-09] MEDS: Atorvastatin Calcium 40 MG TAB PO SCH (22:42)
[2017-08-09] MEDS: Temazepam 15 MG CAP PO SCH (22:42)
[2017-08-10] MEDS ORDERED: Furosemide 40 MG/4 ML VIAL SLOW IVP SCH (06:15)
[2017-08-10 07:31] LABS: #Basophils 0.1 thou/uL (0.0-0.2); #Eosinphils 0.1 thou/uL (0.0-0.7); #Lymphocytes 2.1 thou/uL (1.20-3.40); #Monocytes 0.8 thou/uL (0.11-0.59); #Neutrophils 9.2 thou/uL (1.40-6.50); %Basophils 0.6 % (0.0-1.0); %Eosinophils 0.9 % (0.0-10.0); %Lymphocytes 17.1 % (21.0-51.0); %Monocytes 6.1 % (0.0-10.0); Hematocrit 25.4 % (42.0-52.0); Mean Platelet Volume 7.8 fL (7.4-10.4); Red Blood Cell (RBC) Count 2.82 mill/uL (4.70-6.10); White Blood Cell (WBC) Count 12.2 thou/uL (4.8-10.8)
--- NOTE | 2017-08-10 07:48 | EKG ---
Test Reason : Blood Pressure : / mmHG Vent. Rate : 099 BPM Atrial Rate : 099 BPM P-R Int : 172 ms QRS Dur : 098 ms QT Int : 386 ms P-R-T Axes : 081 -25 107 degrees QTc Int : 495 ms Sinus rhythm with frequent Premature ventricular complexes Nonspecific ST and T wave abnormality Prolonged QT Abnormal ECG When compared with ECG of 07-AUG-2017 13:45, (Unconfirmed) Premature ventricular complexes are now Present Criteria for Septal infarct are no longer Present ST now depressed in Anterior leads Confirmed by JALYN ALBERTO, DR. Bonilla (4) on 08/10/2017 7:47:50 AM Referred By: Confirmed By:DR. Chad GUNDERSON MD
[2017-08-10 07:49] LABS: Anion Gap 11 mmol/L (10-20); BUN (Urea Nitrogen) 11 mg/dL (8.4-25.7); Calc. Creatinine Clearance 59 mL/min (70-130); Calcium 8.4 mg/dL (7.8-10.44); Carbon Dioxide 22 mmol/L (23-31); Chloride 109 mmol/L (98-107); Estimated GFR-MDRD 84
--- NOTE | 2017-08-10 07:53 | RAD ---
PORTABLE UPRIGHT FRONTAL CHEST RADIOGRAPH: DATE: 08/10/17. COMPARISON: 08/08/17. HISTORY: Shortness of breath and wheezing. FINDINGS: There is worsening aeration in bilateral perihilar regions with pulmonary vascular congestion and int erstitial opacity. There is developing airspace disease suspected in the perihilar regions in the me dial left base. Small bilateral pleural effusions are noted. Midline sternotomy wires and transveno us AICD noted. No pneumothorax noted. IMPRESSION: Findings suggesting interval development of interstitial and early alveolar pulmonary edema. Infecti on or aspiration is a possibility as well. Followup to resolution advised. POS: BANDAR
--- NOTE | 2017-08-10 07:54 | EKG ---
Test Reason : Blood Pressure : / mmHG Vent. Rate : 104 BPM Atrial Rate : 104 BPM P-R Int : 174 ms QRS Dur : 096 ms QT Int : 374 ms P-R-T Axes : 089 -28 160 degrees QTc Int : 491 ms Sinus tachycardia Abnormal ECG When compared with ECG of 08-AUG-2017 22:55, (Unconfirmed) Premature ventricular complexes are no longer Present Inverted T waves have replaced nonspecific T wave abnormality in Lateral leads Confirmed by JALYN ALBERTO, DR. Bonilla (4) on 08/10/2017 7:54:05 AM Referred By: Confirmed By:DR. Chad GUNDERSON MD
--- NOTE | 2017-08-10 07:54 | EKG ---
Test Reason : Blood Pressure : / mmHG Vent. Rate : 096 BPM Atrial Rate : 096 BPM P-R Int : 176 ms QRS Dur : 092 ms QT Int : 392 ms P-R-T Axes : 074 -32 049 degrees QTc Int : 495 ms Normal sinus rhythm Left axis deviation Prolonged QT Abnormal ECG When compared with ECG of 09-AUG-2017 00:51, (Unconfirmed) No significant change was found Confirmed by JALYN ALBERTO, . STony (4) on 08/10/2017 7:54:15 AM Referred By: CARSON Confirmed By:DR. Chad GUNDERSON MD
[2017-08-10] MEDS: Aspirin 81 mg Enteric Coated Tablet PO SCH (08:13)
[2017-08-10] MEDS: Clopidogrel Bisulfate 75 MG TAB PO SCH (08:13)
[2017-08-10] MEDS: Pancrelipase DR 12000 1 CAP PO SCH ×3 (08:13→17:32)
[2017-08-10] MEDS: Carvedilol 6.25 MG TAB PO SCH ×2 (08:13→20:34)
[2017-08-10] MEDS: Saccharomyces boulardii 250 MG CAP PO SCH (08:14)
[2017-08-10] MEDS: Enoxaparin Sodium 60 MG/0.6 ML SYRINGE SC SCH ×2 (08:14→20:33)
[2017-08-10] MEDS: Magnesium Chloride 64 MG TAB PO SCH ×2 (08:14→20:34)
[2017-08-10] MEDS: Lisinopril 5 MG TAB PO SCH (08:14)
[2017-08-10] MEDS: Tamsulosin HCl 0.4 MG CAP PO SCH (08:14)
[2017-08-10] MEDS: FLUoxetine HCl 20 MG CAP PO SCH (08:14)
[2017-08-10] MEDS: Vancomycin HCl 25 MG/ML Oral PO SCH ×4 (08:19→20:33)
[2017-08-10 08:23] LABS: Mode 3LNC; Modified Allen's Test POSITIVE; Oxyhemoglobin 95.4 % (94.0-97.0); Sodium 141 mmol/L (135-148); Vent NO
[2017-08-10 08:37] LABS: Troponin I 11.753 ng/mL (< 0.028)
--- NOTE | 2017-08-10 09:12 | PDOC.CTH ---
<Linda Zelaya - Last Filed: 08/10/17 11:51> Cardiology Progress Note - Subjective The pt seen and examined. The pt was transferred from Tele to [facility] this AM due to worsening of SOB. He denied CP or discomfort in his chest, dizziness, or other cardiac complaints. - Objective Vital Signs Temp Pulse Resp BP BP Pulse Ox 08/10/17 08:14 115 H 08/10/17 08:13 140/75 08/10/17 08:00 97.6 F 115 H 18 140/75 95 08/10/17 04:00 97.8 F 96 20 111/57 L 99 08/09/17 23:08 108 H 16 117/71 98 08/09/17 22:53 117/71 Admit Weight 133 lb 8 oz Weight 140 lb 14.4 oz 08/09/17 08/10/17 08/11/17 06:59 06:59 06:59 Intake Total 2160 2460 1045 Output Total 375 1700 1025 Balance 1785 760 20 - Physical Examination General/Neuro: alert & oriented x3 Neck: no JVD present Lungs: other: (expiratory wheezing in Bilat. lobes) Heart: RRR Abdomen: soft Extremities: other: (No edemas) - Telemetry Telemetry Rhythm: ST 100s - Labs Result Diagrams: 08/10/17 07:18 08/10/17 07:17 Troponin/CKMB CK-MB (CK-2) 69.9 ng/mL (0-6.6) H* 08/10/17 08:01 Troponin I 11.753 ng/mL (< 0.028) H* 08/10/17 08:01 - Assessment/Plan 1. NSTEMI - Medical treatment only at this time due to very high risk despite of cont. increasing CE levels; The pt is asymptomatic at this time; cont. monitor on tele with Ranexa, NGT, Plavix, ASA, and Lovenox. 2. Acute on Chronic Systolic HF with EF 20-25% on 07/30/17; Still having expiratory wheezing with Lasix 40mg IV push; Will start Lasix 40mg po BID with Kcl 20 mEq daily 3. HTN - Stable with current medication; cont. monitor 4. CMY with AICD - cont. monitor 5. Hyperlipidemia - on Statin med 6. Anemia - possible 2ndary to CKD; cont. monitor 7. Chronic Diarrhea - on Vancomycin PO for 14 days and PPI; managed by GI service MAR reviewed Review of Systems - Review of Systems Constitutional: reports: no symptoms reported EENTM: reports: no symptoms reported Respiratory: reports: see HPI Cardiac (ROS): reports: no symptoms reported ABD/GI: reports: no symptoms reported : reports: no symptoms reported Musculoskeletal: reports: no symptoms reported <Nancy Shaikh - Last Filed: 08/10/17 17:29> Cardiology Progress Note - Objective Vital Signs Temp Pulse Resp BP BP Pulse Ox 08/10/17 15:12 97.7 F 104 H 14 103/51 L 99 08/10/17 11:41 97.4 F L 112 H 20 93/52 L 99 08/10/17 08:14 115 H 08/10/17 08:13 140/75 08/10/17 08:00 98.0 F 100 16 140/75 97 Admit Weight 133 lb 8 oz Weight 140 lb 14.4 oz 08/09/17 08/10/17 08/11/17 06:59 06:59 06:59 Intake Total 2160 2460 1045 Output Total 375 1700 1025 Balance 1785 760 20 - Labs Result Diagrams: 08/10/17 07:18 08/10/17 07:17 Troponin/CKMB CK-MB (CK-2) 69.9 ng/mL (0-6.6) H* 08/10/17 08:01 Troponin I 11.753 ng/mL (< 0.028) H* 08/10/17 08:01 - Assessment/Plan Pt. seen and evaluated by me. He is comfortable and without complaints.I agree with the A/P by the MAINTENANCE AND REPAIR WORKER. I will check the echo again for eval. of the EF. I presume he has closed one of his bypass grafts, likely the L-circ-OM graft. He has diffuse CAD with diffuse distal disease. Medical management is the best option. Continue diuretics. We may need to add zaroxolyn. I am not certain that the I and O's are accurate. Chest is clear at this time and he has a RRR.
[2017-08-10] MEDS: Sodium Chloride 0.9% 1,000 ML IV SCH (09:59)
--- NOTE | 2017-08-10 11:54 | PDOC.EVN ---
Event Note - Event Note Event Note: Mr. Johnston began experiencing dypsnea around 0600. Nursing reported a wet cough and increased work of breathing. At that time, he was given Lasix IV 40mg and CXR was ordered. Upon further evaluation, his breathing became more labored and he began requiring more oxygen via nasal cannula to maintain saturation. He was transferred to the [facility] with anticipation that he would need BiPap. EKG found to be normal sinus rhythm. ABG within normal limits. Cardiac enzymes were minimally elevated compared to yesterday. After being transferred the patients SOB resolved and he returned to his baseline. This is likely due to pulmonary vascular congestion exacerbated by NSTEMI the previous day.
--- NOTE | 2017-08-10 11:56 | PDOC.FM ---
- Subjective Subjective: Please see prior event note for details regarding acute respiratory failure. Patient is now breathing normally and is sitting in chair. - Objective MAR Reviewed: Yes Vital Signs & Weight: Vital Signs (12 hours) Temp Pulse Resp BP BP Pulse Ox 08/10/17 08:14 115 H 08/10/17 08:13 140/75 08/10/17 08:00 98.0 F 100 16 140/75 97 08/10/17 04:00 97.8 F 96 20 111/57 L 99 Weight Admit Weight 60.555 kg Weight 63.911 kg I&O: 08/09/17 08/10/17 08/11/17 06:59 06:59 06:59 Intake Total 2160 2460 1045 Output Total 375 1700 1025 Balance 1785 760 20 Result Diagrams: 08/10/17 07:18 08/10/17 07:17 Phys Exam - Physical Examination Constitutional: NAD Neck: no nodes bibasilar crackles and expiratory wheezing Cardiovascular: RRR Gastrointestinal: soft, non-tender Neurological: moves all 4 limbs Psychiatric: normal affect, A&O x 3 Skin: no rash Dx/Plan (1) Acute respiratory failure with hypoxia Code(s): J96.01 - ACUTE RESPIRATORY FAILURE WITH HYPOXIA Status: Acute Plan: Cardiogenic 2/2 NSTEMI yesterday. Monitor need for oxygen with BiPap available as needed. Continue diuresis (2) NSTEMI (non-ST elevated myocardial infarction) Code(s): I21.4 - NON-ST ELEVATION (NSTEMI) MYOCARDIAL INFARCTION Status: Acute Plan: NSTEMI with EKG that was found to have ST segment depression in anterior lateral leads. Cardiology was consulted and recommends no intervention at this time. Recommend continuing medical management with plavix, ASA, lovenox, Ranexa , and nitro. (3) Chronic diarrhea of unknown origin Code(s): K52.9 - NONINFECTIVE GASTROENTERITIS AND COLITIS, UNSPECIFIED Status : Chronic Plan: C. diff antigen positive as well as campylobacter positive. Dr. Bower with GI has been consulted; he is very familiar with patients history. We will continue 14 day course of oral vancomycin and discontinue lomotil and PPI at this time. (4) Chronic systolic (congestive) heart failure Code(s): I50.22 - CHRONIC SYSTOLIC (CONGESTIVE) HEART FAILURE Status: Chronic Plan: Continue home medications (5) HLD (hyperlipidemia) Code(s): E78.5 - HYPERLIPIDEMIA, UNSPECIFIED Status: Chronic Qualifiers: Plan: continue home meds (6) HTN (hypertension) Code(s): I10 - ESSENTIAL (PRIMARY) HYPERTENSION Status: Chronic Qualifiers: Hypertension type: essential hypertension Qualified Code(s): I10 - Essential (primary) hypertension Plan: Continue home meds (7) Hypokalemia Code(s): E87.6 - HYPOKALEMIA Status: Chronic Plan: corrected to 3.5, continue to monitor (8) Dementia Code(s): F03.90 - UNSPECIFIED DEMENTIA WITHOUT BEHAVIORAL DISTURBANCE Status: Chronic Plan: continue home meds (9) Anemia Code(s): D64.9 - ANEMIA, UNSPECIFIED Status: Chronic Plan: Work up in past. CKD most likely etiology. Monitor while in hospital Hg 8.6 this AM (10) Dehydration Code(s): E86.0 - DEHYDRATION Status: Resolved Plan: Creatinine is now 0.87 this AM - Plan Plan: Plan: -Cardiology following, will await further recommendations -monitor breathing closely, BiPap available -diuresis with Lasix IV
[2017-08-10] MEDS: Megestrol Acetate 40 MG TAB PO SCH ×3 (11:57→20:46)
[2017-08-10] MEDS: Cholestyramine/Aspartame 4 gm Packet PO SCH ×2 (11:58→21:37)
--- NOTE | 2017-08-10 13:15 | PRG ---
DATE OF SERVICE: 08/10/2017 GI INPATIENT DAILY PROGRESS NOTE SUBJECTIVE: Mr. Johnston had acute cough and shortness of breath and was found to be in acute pulmonar y edema. This morning, he was moved to the [facility] and given Lasix. Currently, he is feeling better, b ut remains tachypneic, also developed tachycardia. He has had a couple of Ensure today. He reports his diarrhea has slowed down and bowel movements are more normal. No abdominal pain. PHYSICAL EXAMINATION: VITAL SIGNS: Temperature 97.4, pulse 112, blood pressure 93/52, 99% oxygen saturation on 3 liters na celso cannula. GENERAL: Frail, tachypneic, no acute distress. HEART: Regular tachycardia. LUNGS: Bibasilar crackles. ABDOMEN: Soft and nontender to palpation. EXTREMITIES: No peripheral edema. LABORATORY STUDIES: WBC up to 12.2, hemoglobin 8.6, and platelets 273. Sodium 138, potassium 3.5, B UN 11, creatinine 0.87, calcium 84. CK-MB is up to 69.9, troponin up to 11.75. ASSESSMENT AND PLAN: 1. Recurrent Clostridium difficile infection. 2. Chronic diarrhea, stable for the past couple of days. 3. Non-ST elevation myocardial infarction, being treated medically. 4. Acute pulmonary edema with respiratory distress today. From a GI standpoint, no new recommendations. Continue the oral vancomycin for 14-day course. Pulmo nary Service and Cardiology following for supportive care of myocardial infarction and CHF exacerbati on. Continue to advance diet as tolerated. Agree with nutritional supplementation. Please call with que stions or concerns.
--- NOTE | 2017-08-10 13:39 | ADD-PRG ---
DATE OF SERVICE: 08/10/2017 ADDENDUM This is an addendum to the note of Dr. Dwaine Becerra. Very early this morning, Mr. Johnston developed some respiratory distress and noted to have acute heart failure. He was given a dose of Lasix and transferred to the ICU step down unit. He has had a bris k diuresis and feels much better. His lungs are now clear. He has no wheezing or rales. He is in n o respiratory distress. Cardiology has reevaluated and I feel we should still continue with medical therapy only. We have started him on p.o. Lasix and we will follow with Cardiology.
[2017-08-10] MEDS: Furosemide 40 MG TAB PO SCH (14:26)
[2017-08-10 16:15] LABS: Fatty Acid Droplets Normal (.); Neutral Fats And/Or Soaps Normal (.)
--- NOTE | 2017-08-10 17:12 | EKG ---
Test Reason : Blood Pressure : / mmHG Vent. Rate : 115 BPM Atrial Rate : 115 BPM P-R Int : 134 ms QRS Dur : 102 ms QT Int : 364 ms P-R-T Axes : 068 -29 095 degrees QTc Int : 503 ms Sinus tachycardia Abnormal ECG Confirmed by JALYN ALBERTO, DR. Bonilla ([id number]) on 08/10/2017 5:11:45 PM Referred By: Confirmed By:DR. Chad GUNDERSON MD
[2017-08-10] MEDS: Donepezil HCl 10 MG TAB PO SCH (20:34)
[2017-08-10] MEDS: Temazepam 15 MG CAP PO SCH (20:34)
[2017-08-10] MEDS: Atorvastatin Calcium 40 MG TAB PO SCH (20:34)
[2017-08-11 04:47] LABS: #Basophils 0.1 thou/uL (0.0-0.2); #Eosinphils 0.1 thou/uL (0.0-0.7); #Monocytes 0.5 thou/uL (0.11-0.59); #Neutrophils 6.1 thou/uL (1.40-6.50); %Basophils 0.7 % (0.0-1.0); %Eosinophils 0.7 % (0.0-10.0); %Lymphocytes 13.2 % (21.0-51.0); %Monocytes 6.5 % (0.0-10.0); Hematocrit 20.2 % (42.0-52.0); Mean Platelet Volume 7.6 fL (7.4-10.4); Red Blood Cell (RBC) Count 2.25 mill/uL (4.70-6.10); White Blood Cell (WBC) Count 7.7 thou/uL (4.8-10.8)
[2017-08-11 04:59] LABS: Anion Gap 10 mmol/L (10-20); BUN (Urea Nitrogen) 12 mg/dL (8.4-25.7); Calc. Creatinine Clearance 60 mL/min (70-130); Calcium 8.3 mg/dL (7.8-10.44); Carbon Dioxide 25 mmol/L (23-31); Chloride 109 mmol/L (98-107); Estimated GFR-MDRD 85
--- NOTE | 2017-08-11 08:27 | CON ---
DATE OF CONSULTATION: 08/11/2017 SERVICE: Pulmonary Medicine. REASON FOR CONSULTATION: [facility] patient. HISTORY OF PRESENT ILLNESS: The patient is an 82-year-old white male with past medical history signi ficant for heart failure. He was on the floor for a while. He is getting some IV antibiotics. On t he morning he came to the [facility], he ended up with acute respiratory failure, likely associated with vo lume overload. He got a dose of Lasix on the floor and then he made significant amounts of urine. B y the time he got to the [facility], he was in all smiles and breathing comfortably. He never required any noninvasive ventilation. He currently denies any shortness of breath or chest discomfort. He reste d last night fairly comfortably. He has no specific complaints of nausea, vomiting, or diarrhea. PAST MEDICAL HISTORY: 1. Dementia. 2. Coronary artery disease. 3. Hypertension. 4. Dyslipidemia. 5. Chronic diarrhea. PAST SURGICAL HISTORY: 1. Coronary artery bypass graft in 1997. 2. PCI x4. 3. Open reduction and internal fixation of fracture. 4. Laparoscopic cholecystectomy. FAMILY HISTORY: Noncontributory. SOCIAL HISTORY: Negative for current alcohol, tobacco or illicit drug use. He has no exposures to c hemicals, dust asbestos or tuberculosis. ALLERGIES: CIPROFLOXACIN. MEDICATIONS: List of inpatient medications was reviewed. No updates were made at this time. REVIEW OF SYSTEMS: General, head, ears, eyes, nose, throat, cardiovascular, respiratory, GI, , mus culoskeletal, neurologic and skin is negative except as mentioned in the HPI. PHYSICAL EXAMINATION: VITAL SIGNS: Afebrile, pulse 113, blood pressure 115/61, respirations 20, saturation 98% on 3 liters . GENERAL: Patient is awake and alert. No apparent distress. LUNGS: Dependent crackles are minimal. No prolonged expiratory phase, wheezing, or rhonchi are pres ent. HEART: Normal rate, regular. ABDOMEN: Soft, nontender, nondistended, bowel sounds positive. MUSCULOSKELETAL: No cyanosis or clubbing. Trace pitting in the bilateral lower extremities. NEUROLOGIC: Grossly nonfocal. LABORATORY DATA: WBC 7.7, hemoglobin 6.8, and platelets 212,000. INR 1.0. A pH 7.40, pCO2 34, and pO2 76. Basic metabolic profile is completely unremarkable. Troponin continues to trend upwards to 11.7. Urinalysis is unremarkable. Stool cultures for fatty acids, and soaps as well as fat is akash l. C. diff antigen is positive. Toxin however was not detected. Fecal lactoferrin is present. Blo od cultures x2 are unremarkable. Parasite screen was negative. E. coli toxins are negative. IMAGIN. Chest x-ray demonstrates findings consistent with some degree of volume overload. 2. CT of the abdomen and pelvis demonstrates small right and tiny left pleural effusion. Free air i n the abdomen. Small amount of free fluid in the pelvis. ASSESSMENT AND PLAN: 1. Chronic diarrhea. 2. Two weeks status post laparoscopic cholecystectomy. 3. Clostridium difficile infection, possible. 4. Non-ST elevation myocardial infarction. 5. Acute on chronic systolic and diastolic heart failure. PLAN: We will continue to diurese the patient to euvolemia. With troponin of 11, Cardiology consult ation should be considered. Pulmonary or Critical Care will continue to follow while this patient re tarah in the hospital. Dr. Reeder will cover for the weekend. One unit of blood will be transfused an d we will repeat hemoglobin this afternoon.
--- NOTE | 2017-08-11 09:14 | PDOC.FM ---
- Subjective Subjective: Patient appears pale and fatigued this morning. He has no specific complaints, no acute events overnight. Situation and prognosis explained to granddaughter in room this morning. He denies SOB or CP a this time - Objective MAR Reviewed: Yes Vital Signs & Weight: Vital Signs (12 hours) Temp Pulse Resp BP Pulse Ox 08/11/17 08:00 97.8 F 106 H 18 97 08/11/17 07:45 97.8 F 106 H 18 128/62 100 08/11/17 03:52 98.0 F 113 H 20 115/61 98 08/11/17 00:00 97.8 F 08/10/17 23:57 97.8 F 115 H 20 125/66 92 L Weight Admit Weight 60.555 kg Weight 64.229 kg I&O: 08/10/17 08/11/17 08/12/17 06:59 06:59 06:59 Intake Total 2460 2045 Output Total 1700 2615 Balance 760 -570 Result Diagrams: 08/11/17 04:24 08/11/17 04:24 Phys Exam - Physical Examination Constitutional: NAD pale conjuctiva expiratory wheezes heard bilaterally; faint bibasilar crackles Cardiovascular: RRR Gastrointestinal: soft, non-tender Neurological: moves all 4 limbs Psychiatric: normal affect Dx/Plan (1) Acute respiratory failure with hypoxia Code(s): J96.01 - ACUTE RESPIRATORY FAILURE WITH HYPOXIA Status: Acute Plan: Cardiogenic 2/2 NSTEMI Monitor need for oxygen with BiPap available as needed. Patient requiring O2 via nasal cannula Hold diuresis as patient is tachycardic and hypotensive (2) NSTEMI (non-ST elevated myocardial infarction) Code(s): I21.4 - NON-ST ELEVATION (NSTEMI) MYOCARDIAL INFARCTION Status: Acute Plan: NSTEMI with EKG that was found to have ST segment depression in anterior lateral leads. Cardiology was consulted and recommends no intervention at this time. Recommend continuing medical management with plavix, ASA, lovenox, Ranexa , and nitro. Patient re-evaluated s/p respiratory distress on 08/10 and recommend lasix 40mg PO BID with possible addition of Zaroxolyn (3) Anemia Code(s): D64.9 - ANEMIA, UNSPECIFIED Status: Chronic Plan: Work up in past with CKD most likely etiology. However, patient having acute drop in hemoglobin to 6.8. No obvious source of bleeding, and normal MCV. Transfuse 2u PRBC and check FOBT (4) Chronic diarrhea of unknown origin Code(s): K52.9 - NONINFECTIVE GASTROENTERITIS AND COLITIS, UNSPECIFIED Status : Chronic Plan: C. diff antigen positive as well as campylobacter positive. Dr. Bower with GI has been consulted; he is very familiar with patients history. We will continue 14 day course of oral vancomycin and discontinue lomotil and PPI (5) Chronic systolic (congestive) heart failure Code(s): I50.22 - CHRONIC SYSTOLIC (CONGESTIVE) HEART FAILURE Status: Chronic Plan: Continue home medications Cardiology following (6) HLD (hyperlipidemia) Code(s): E78.5 - HYPERLIPIDEMIA, UNSPECIFIED Status: Chronic Qualifiers: Plan: continue home meds (7) HTN (hypertension) Code(s): I10 - ESSENTIAL (PRIMARY) HYPERTENSION Status: Chronic Qualifiers: Hypertension type: essential hypertension Qualified Code(s): I10 - Essential (primary) hypertension Plan: Patient is hypotensive and anemic. We will hold BP medications including lasix until vitals signs normalize (8) Hypokalemia Code(s): E87.6 - HYPOKALEMIA Status: Chronic Plan: corrected to 3.6, continue to monitor (9) Dementia Code(s): F03.90 - UNSPECIFIED DEMENTIA WITHOUT BEHAVIORAL DISTURBANCE Status: Chronic Plan: continue home meds - Plan Plan: Plan: -patient continues to be hemodynamically unstable -transfuse 2u PRBC and check FOBT -monitor breathing and need for BiPap -Palliative consult to discuss goals of care -we appreciate Cardiology's recommendations
[2017-08-11] MEDS: Cholestyramine/Aspartame 4 gm Packet PO SCH ×2 (09:34→21:19)
[2017-08-11] MEDS: Potassium Chloride 20 MEQ TAB PO SCH (09:35)
[2017-08-11] MEDS: Tamsulosin HCl 0.4 MG CAP PO SCH (09:35)
[2017-08-11] MEDS: Saccharomyces boulardii 250 MG CAP PO SCH (09:35)
[2017-08-11] MEDS: FLUoxetine HCl 20 MG CAP PO SCH (09:35)
[2017-08-11] MEDS: Furosemide 40 MG TAB PO SCH ×2 (09:35→14:26)
[2017-08-11] MEDS: Pancrelipase DR 12000 1 CAP PO SCH ×3 (09:35→18:01)
[2017-08-11] MEDS: Clopidogrel Bisulfate 75 MG TAB PO SCH (09:35)
[2017-08-11] MEDS: Megestrol Acetate 40 MG TAB PO SCH ×3 (09:36→21:19)
[2017-08-11] MEDS: Carvedilol 6.25 MG TAB PO SCH ×2 (09:36→21:19)
[2017-08-11] MEDS: Aspirin 81 mg Enteric Coated Tablet PO SCH (09:36)
[2017-08-11] MEDS: Magnesium Chloride 64 MG TAB PO SCH ×2 (09:38→21:20)
[2017-08-11] MEDS: Enoxaparin Sodium 60 MG/0.6 ML SYRINGE SC SCH (09:39)
[2017-08-11] MEDS: Lisinopril 5 MG TAB PO SCH (09:39)
[2017-08-11] MEDS: Vancomycin HCl 25 MG/ML Oral PO SCH ×4 (09:48→21:19)
[2017-08-11 10:42] LABS: IRF 0.448 Ratio (0.163-0.362); Reticulocyte Count 2.4 % (0.5-1.5)
[2017-08-11 10:52] LABS: Iron 18 ug/dL (65-175)
[2017-08-11 10:59] LABS: Troponin I 10.959 ng/mL (< 0.028)
--- NOTE | 2017-08-11 11:08 | ADD-PRG ---
DATE OF SERVICE: 08/11/2017 ADDENDUM This is an addendum to the note of Dr. Dwaine Becerra. Mr. Johnston this morning is awake and alert. He is not having any respiratory distress, nor does he d escribe dyspnea. Over the last several days, his hemoglobin has dropped rather precipitously from ar ound 11 to a current level of 6.8. We will go ahead and type and cross and transfuse him after drawi ng appropriate studies including a serum iron, TIBC, retic ferritin, RBC, folate and vitamin B12 magalys claudio However, given the repetitive with which his anemia occurred, it is likely due to blood loss, per haps GI although his history is not consistent with such and/or hemolysis which I doubt. We will ini tiate studies in this regard as well. We will also recontacted GI Service to let to know of this new finding.
--- NOTE | 2017-08-11 13:45 | PRG ---
DATE OF SERVICE: 08/11/2017 SUBJECTIVE: Mr. Johnston has remained a bit short of breath with intermittent tachycardia. His appeti te has remained poor. Oral intake has been minimal today. He denies any chest pain or abdominal feliz n. Though, he has not had any bowel movements so far today and only had 1 bowel movement yesterday. Significant hemoglobin decline has been noted over the past few days, but no overt bleeding from any where. Certainly, no hematochezia reported with his bowel movement yesterday or even prior, no hemat emesis. He is getting RBC transfusion at this time. PHYSICAL EXAMINATION: VITAL SIGNS: Temperature 98.3, pulse 107, blood pressure 95/48, 99% oxygen saturation on 3 liters na celso cannula. GENERAL: Frail, no acute distress. HEART: Regular tachycardia. LUNGS: Bibasilar crackles. ABDOMEN: Soft. Bowel sounds normoactive. Nontender to palpation. EXTREMITIES: No peripheral edema. LABORATORY STUDIES: Hemoglobin down to 6.8, hematocrit 20.2, WBC 7.7, platelets 212, reticulocytes 2 .4. INR 1.0. Sodium 140, potassium 3.6, BUN only 12, creatinine 0.86. Iron 18, TIBC 213. Ferritin 81.77, so iron studies are mixed. Troponin still elevated at 10.959. Vitamin B12 296. RBC, folate 1075. ASSESSMENT AND PLAN: 1. Recurrent Clostridium difficile infection. 2. Chronic diarrhea, stabilized, essentially resolved this admission. 3. Non-ST elevation myocardial infarction. Cardiology continues to follow. The patient continues t o have tachycardia and dyspnea issues. He continues on maximal medical therapy and no cardiac interv ention is planned. 4. Anemia. He has indeed had a significant decline in hemoglobin over the past 3 days of almost 3.0 . This is in the absence of any overt evidence of bleeding. Reason for this decline is unclear. I agree with the RBC transfusion. I would not proceed with any endoscopic investigation in the absence overt evidence of bleeding, particularly with his recent myocardial infarction, and his recent EGD a nd colonoscopy are performed during his last admission. GI will continue to follow along. Please ca ll with questions or concerns.
[2017-08-11 17:06] LABS: Hematocrit 20.7 % (42.0-52.0)
--- NOTE | 2017-08-11 20:14 | CT ---
CT ABDOMEN AND PELVIS WITHOUT CONTRAST 08/11/17 HISTORY: Concern for hemorrhage. COMPARISON: None. FINDINGS: There are large layering bilateral pleural effusions. Compressive atelectasis in the lung bases. Hear t size is enlarged. There is moderate free fluid in the pelvis which has higher density measuring up to 34 [address] uni ts. There is some layering likely clot within the right pericolic gutter. No free intraperitoneal gas is appreciated. There are cholecystectomy clips. There is hypodensity of the liver There is a hemorrhage within the gallbladder fossa with a blood clot. 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 Right hip hemiarthroplasty is in place. IMPRESSION: 1. Blood clot within the gallbladder fossa with moderate volume intraperitoneal fluid which hola ures greater than fluid attenuation likely hemorrhage. 2. Evidence of recent cholecystectomy. 3. No nephrolithiasis. 4. Large layering bilateral pleural effusions. Code CR The nurse taking care of the patient notified of the findings via telephone, 8:03 p.m. who stated she would notify the physician. POS: BANDAR
--- NOTE | 2017-08-11 20:20 | PDOC.EVN ---
Event Note - Event Note Event Note: CT results showed blood clot at gallbladder fossa, intraperitoneal hemorrhage, 1L blood in abdomen. Pt has been hypotensive and received 1U PRBC's, currently on his second unit. Hb 6.8 pre and post transfusion. Lovenox was discontinued this AM, last dose 60mg at 0930. Spoke to Dr. Espinosa regarding patient's status and she recommended a continuing resuscitation with blood, rodas with strict monitoring of urine output. She will come look at him tonight. <Paula Lozano - Last Filed: 08/11/17 20:16> Attending Addendum - Attending Addendum I personally discussed the management with Dr. Lozano. I agree with the History, Examination, Assessment and Plan documented above with any addition or exceptions noted below. Case has been discussed at length with resident physicians. Patient current in no evidence of hemodynamic instability. Appreciate Dr. Espinosa's input on case. Will monitor strict I/O, hold all anticoagulation and anti-platelet therapy, and transfuse as needed through the night. Will re-eval in the AM unless his clinical status changes overnight. <Yves Driscoll - Last Filed: 08/11/17 21:59>
[2017-08-11] MEDS: Temazepam 15 MG CAP PO SCH (21:19)
[2017-08-11] MEDS: Atorvastatin Calcium 40 MG TAB PO SCH (21:19)
[2017-08-11] MEDS: Donepezil HCl 10 MG TAB PO SCH (21:19)
--- NOTE | 2017-08-11 21:41 | PDOC.EVN ---
Event Note - Event Note Event Note: Called to see patient for intra-abdominal bleeding. I did send off a Mr. Johnston since he is not having any abdominal pain and his nausea vomiting and diarrhea had resolved. However, today his blood pressure and hemoglobin were noted to be low and a noncontrast CT showed evidence of intra-abdominal bleeding which was not present on his admission. On review of lab work it appears that his hemoglobin dropped the evening after his full dose Lovenox was begun for his non -ST elevation DC. This came up somewhat and then dropped back down again. I suspect that the fluctuation in his blood count was due to fluid shifts as he reportedly received a fair amount of fluids after his DC since he dropped his blood pressure with nitroglycerin, and then went into fluid overload and had to be diuresed. The patient denies any abdominal pain but states that it does hurt when deep palpation of the abdomen is performed. He denies any chest pain or shortness of breath but his troponin is still elevated. His blood pressure has been in the 90s to 100s systolic and his heart rate has also been in the low 100s. His urine output has been adequate although hourly output has not been tracked. He received one unit of packed red blood cells without significant change in his H&H and is now receiving a second. His last dose of therapeutic Lovenox was at 9:00 this morning. I reviewed the CT and agree with the written report. I believe that the patient has had a significant intra-abdominal hemorrhage related to anticoagulation after non-ST elevation DC. Hopefully this will stop with holding his anticoagulation as general anesthesia would hold significant cardiac risks. If he does not respond to transfusion appropriately return to the OR may be necessary; however, I believe this is most likely a subacute slow bleed that may well resolve.
--- NOTE | 2017-08-12 00:16 | PDOC.EVN ---
Event Note - Event Note Event Note: Reevaluated patient. He has been seen by Dr. Espinosa. Mr. Johnston reports he still feels about the same. Reports some pain Giron insertion and abdomen still sore but unchanged. Patient's nurse, Elyssa, reports urine output has decreased over the last 2 hours to 20 cc then 10 cc. She reports is going to bladder scan him then call Dr. Espinosa with his most recent vitals and urine output as she asked to be updated. Vital Signs Respiratory Rate 28 HR 112 BP 108/66 Physical exam unchanged. Work of breathing unchanged. Lungs CTAB. Will continue to monitor closely and evalaute frequently. Continue with blood transfusion. No increase in tachycardia. BP slightly improved. Will continue to monitor urine output and have nursing page with results of bladder scan.
[2017-08-12 00:59] LABS: PTT 58.5 SEC (22.9-36.1); Prothrombin Time 15.5 SEC (12.0-14.7)
[2017-08-12 01:08] LABS: Hematocrit 26.6 % (42.0-52.0)
--- NOTE | 2017-08-12 02:19 | PDOC.EVN ---
Event Note - Event Note Event Note: Patient skin color improved, work of breathing has improved. UOP improved to 30 mL in the past hour. Heart rate in low 100's, satting in the high 90s on 2L O2. BP has been around 90s-100s/50s-60s. Hb improved to 8.9. Will continue to patient's status, monitor vital signs, UOP.
--- NOTE | 2017-08-12 04:50 | PDOC.EVN ---
Event Note - Event Note Event Note: Patient appears in similar condition to previous check. He is complaining that his belly feels "more full". He denies any chest pain. Still having increased work of breathing from baseline, but not increased from prior exam. Vital signs: HR 101, BP 87/49, 100% on 2L O2 His abdomen is tense and distended, no guarding or rebound. Tachycardic, regular rhythm. Will continue to monitor closely. Will type and cross another unit of PRBC's
[2017-08-12 05:18] LABS: #Eosinphils 0.1 thou/uL (0.0-0.7); #Lymphocytes 1.3 thou/uL (1.20-3.40); #Monocytes 0.8 thou/uL (0.11-0.59); #Neutrophils 8.4 thou/uL (1.40-6.50); %Basophils 0.3 % (0.0-1.0); %Eosinophils 0.6 % (0.0-10.0); %Lymphocytes 12.6 % (21.0-51.0); %Monocytes 7.5 % (0.0-10.0); Mean Platelet Volume 8.2 fL (7.4-10.4); Red Blood Cell (RBC) Count 2.57 mill/uL (4.70-6.10); White Blood Cell (WBC) Count 10.6 thou/uL (4.8-10.8)
[2017-08-12 05:43] LABS: Oxyhemoglobin 95.1 % (94.0-97.0); Sodium 137 mmol/L (135-148)
[2017-08-12 05:45] LABS: Mode 2L NC; Modified Allen's Test POSITIVE
[2017-08-12 06:10] LABS: Anion Gap 10 mmol/L (10-20); BUN (Urea Nitrogen) 23 mg/dL (8.4-25.7); Calc. Creatinine Clearance 37 mL/min (70-130); Carbon Dioxide 21 mmol/L (23-31); Chloride 109 mmol/L (98-107); Estimated GFR-MDRD 48
--- NOTE | 2017-08-12 06:37 | PDOC.FM ---
- Subjective Subjective: Patient with acute drop in Hg yesterday and found to have intraperitoneal hemorrhage. Given 1U pRBCs without any improvement in H/H. Thus, given 2U and responded appropriately. However, this AM patient Hg dropped to 7.8, endorses worsening abd pain, nausea and reports he doesn't feel good. Patient with fluctuating UOP, but for the most part inadequate at about 10-20cc/hr with now cola colored urine. Patient also tachypneic with RR 26-32, but denies any shortness of breath or difficulty breathing. BPs low but stable. - Objective MAR Reviewed: Yes Vital Signs & Weight: Vital Signs (12 hours) Temp Pulse Pulse Resp BP BP BP 08/12/17 06:33 98.0 F 101 H 32 H 90/48 L 08/12/17 04:00 97.6 F 103 H 30 H 98/49 L 08/12/17 00:17 98.2 F 107 H 32 H 119/61 08/12/17 00:00 115 H 28 H 122/63 08/11/17 22:52 97.9 F 107 H 28 H 103/61 08/11/17 22:35 97.7 F 106 H 30 H 102/51 L 08/11/17 22:11 97.7 F 112 H 28 H 108/65 08/11/17 21:19 105/57 L 08/11/17 20:28 97.9 F 112 H 26 H 97/53 L 08/11/17 20:11 97.2 F L 111 H 28 H 95/47 L 08/11/17 19:15 97.2 F L 108 H 26 H 93/45 L Pulse Ox 08/12/17 06:33 08/12/17 04:00 96 08/12/17 00:17 98 08/12/17 00:00 97 08/11/17 22:52 95 08/11/17 22:35 97 08/11/17 22:11 96 08/11/17 21:19 08/11/17 20:28 96 08/11/17 20:11 100 08/11/17 19:15 100 Weight Admit Weight 60.555 kg Weight 65.136 kg I&O: 08/10/17 08/11/17 08/12/17 06:59 06:59 06:59 Intake Total 2460 2045 2387 Output Total 1700 2615 750 Balance 760 -570 1637 Result Diagrams: 08/12/17 04:54 08/12/17 04:54 <Nani Kurtz - Last Filed: 08/12/17 07:37> - Objective Vital Signs & Weight: Vital Signs (12 hours) Temp Pulse Pulse Resp BP BP Pulse Ox 08/12/17 11:00 98.9 F 102 H 20 96/49 L 100 08/12/17 10:15 98.4 F 100 25 H 102/53 L 08/12/17 10:00 98.7 F 99 24 H 106/57 L 08/12/17 09:00 97.9 F 99 28 H 100 08/12/17 08:40 98.5 F 08/12/17 08:16 97.9 F 99 28 H 109/56 L 08/12/17 07:00 98.6 F 100 22 H 91/48 L 98 08/12/17 06:48 98.1 F 98 34 H 87/51 L 100 08/12/17 06:33 98.0 F 101 H 32 H 90/48 L 08/12/17 04:00 97.6 F 103 H 30 H 98/49 L 96 08/12/17 00:17 98.2 F 107 H 32 H 119/61 98 08/12/17 00:00 115 H 28 H 122/63 97 Weight Admit Weight 70.5 kg Weight 65.136 kg Most Recent Monitor Data Heart Rate from ECG 103 NIBP 96/49 NIBP BP-Mean 62 Respiration from ECG 29 SpO2 100 I&O: 08/11/17 08/12/17 08/13/17 06:59 06:59 06:59 Intake Total 5 2387 240 Output Total 2615 750 52 Balance -570 1637 188 Result Diagrams: 08/12/17 04:54 08/12/17 04:54 <Yves Driscoll - Last Filed: 08/12/17 11:50> Phys Exam - Physical Examination inc work of breathing pale conjunctiva Respiratory: no wheezing bibasilar rales Cardiovascular: RRR Gastrointestinal: positive bowel sounds diffuse TTP, mild distension, no guarding or rebound Musculoskeletal: no edema, pulses present Psychiatric: normal affect <Nani Kurtz - Last Filed: 08/12/17 07:37> Dx/Plan (1) Hemorrhage, intraperitoneal Code(s): K66.1 - HEMOPERITONEUM Status: Acute Plan: Patient with significant decrease in Hg over the past 5 days. Initial Hg upon admission of 11.2 and has decreased during hospitalization to 6.8. Transfused 1u PRBC yesterday without any improvement. Patient had recent lap carter on 07/[address] Abd/Pelv done on 08/11 showing blood in the gallbladder fossa. Intraperitoneal hemorrhage related to anticoagulation given for treatment of NSTEMI. Lovenox, ASA and plavix held. Transfused 2u PRBC overnight with appropriate response. However, this Am, Hg dropped again to 7.8. Patient complaining of abd pain, nausea and overall looks and feels worse. Dr. Espinosa of gen surg following and recommend another unit of prbc and repeat CT Abd/Pelv. Appreciate recs. Of note, palliative care has been consulted for goals of care and spoke with daughter and granddaughter yesterday. (2) Acute respiratory failure with hypoxia Code(s): J96.01 - ACUTE RESPIRATORY FAILURE WITH HYPOXIA Status: Acute Plan: Likely 2/2 CHF exacerbation 2/2 NSTEMI. Patient with good O2 sats on 2L via NC. Patient has become tachypneic overnight and appears to have increased work of breathing, though he denies any shortness of breath. Obtain ABG and recommend BiPAP if needed as patient become more tired. (3) NSTEMI (non-ST elevated myocardial infarction) Code(s): I21.4 - NON-ST ELEVATION (NSTEMI) MYOCARDIAL INFARCTION Status: Acute Plan: NSTEMI with +cardiac enzymes and EKG showing ST segment depression in anterior lateral leads. Cardiology was consulted and recommends no intervention at this time. Recommend continuing medical management with plavix, ASA, lovenox, Ranexa , and nitro. However, due to acute anemia w/ hypotension, holding plavix, ASA, lovenox and BP meds. (4) Acute kidney injury Code(s): N17.9 - ACUTE KIDNEY FAILURE, UNSPECIFIED Status: Acute Plan: Likely 2/2 intraperitoneal hemorrhage and lack of perfusion. Inadequate UOP at 10-20cc/hr and cola colored urine. Cont to monitor. (5) Chronic systolic (congestive) heart failure Code(s): I50.22 - CHRONIC SYSTOLIC (CONGESTIVE) HEART FAILURE Status: Acute Plan: Acute exacerbation 2/2 NSTEMI. Echo showing EF of 25-30%. Will need to monitor very closely as patient will have received a total of 4u PRBCs. Cardiology following and will provide lasix 40mg iv. Appreciate recs. (6) Chronic diarrhea of unknown origin Code(s): K52.9 - NONINFECTIVE GASTROENTERITIS AND COLITIS, UNSPECIFIED Status : Chronic Plan: Patient with longstanding hx of chronic diarrhea and followed closely by Dr. Purcell GI. This was patient's initial presentation of worsening diarrhea and found to be c. diff Ag + but toxin neg as well as +campylo. Recommend treatment with PO Vanc (08/08) for full 14d course. D/c lomotil and PPI. (7) HTN (hypertension) Code(s): I10 - ESSENTIAL (PRIMARY) HYPERTENSION Status: Chronic QualifierTitle: Hypertension type: essential hypertension Qualified Code( s): I10 - Essential (primary) hypertension Plan: Patient with low BPs. Holding lisinopril and coreg. (8) HLD (hyperlipidemia) Code(s): E78.5 - HYPERLIPIDEMIA, UNSPECIFIED Status: Chronic Plan: Cont home atorvastatin. (9) Dementia Code(s): F03.90 - UNSPECIFIED DEMENTIA WITHOUT BEHAVIORAL DISTURBANCE Status: Chronic Plan: Cont home aricept. <Nani Kurtz - Last Filed: 08/12/17 07:37> Attending Addendum - Attending Addendum I personally evaluated the patient and discussed the management with Dr. Kurtz. I agree with the History, Examination, Assessment and Plan documented above with any addition or exceptions noted below. Patient continues to bleed it seems as his Hgb has not responded appropriately to the amount of PRBCs that he has been given. He went for repeat CT scan this morning and we are awaiting further recs from general surgery. He is a poor operative candidate due to his comorbidities and current hospital course. However, if he continues to bleed into abdomen, it is likely that an intervention will be necessary. He had bump in renal values this morning, suggesting that blood loss is now decreasing his end organ perfusion. His BP has been stable and he reports no symptoms this morning. His abdominal exam reveals involuntary guarding, but no peritoneal signs and no worsening distention. His family has been updated and is aware of his poor prognosis, all discussed with them between our team, the palliative care team, and general surgery. He is currently receiving more blood and we will trend H&H. Await surgery recs. He has been transferred from [facility] to CCU for more intensive monitoring. <Yves Driscoll - Last Filed: 08/12/17 11:50>
--- NOTE | 2017-08-12 08:01 | PRG ---
DATE OF SERVICE: 08/12/2017 SUBJECTIVE: Mr. Johnston has a very difficult night last night as is outlined in the chart. He was fo und to have hypotension and drops in hemoglobin and hematocrit. He has received packed red blood yoel ls. He was found to have intra-abdominal bleeding. He was previously on enoxaparin and that was dis continued. He also was on aspirin and Plavix. He feels short of breath now. He is not making any urine. PHYSICAL EXAMINATION: VITAL SIGNS: Blood pressure 91/48, pulse is 104, it is regular. LUNGS: Clear, but he has increased respiratory rate. CARDIAC: Tachycardic. ABDOMEN: Soft, nontender. EXTREMITIES: No edema. LABORATORY DATA: Troponin level of 10.959 yesterday. ASSESSMENT: 1. Status post tpr-BL-tolynrhqu myocardial infarction. 2. Congestive heart failure, systolic, acute on chronic. 3. History of iron deficiency anemia. 4. Intraabdominal bleeding. 5. Hypotension. PLAN: 1. He is receiving packed red blood cells. 2. We will give one dose of intravenous Furosemide. 3. Stop lisinopril as his kidney function is worsening. He has developed acute renal failure. 4. Stop carvedilol at this time. Continue to follow. Dr. Shaikh indicated that the patient should be considered for do not resuscitate status. We will treat aggressively at this point. Prognosis is g uarded to poor.
--- NOTE | 2017-08-12 08:44 | RAD ---
PORTABLE CHEST: Date: 08/12/17 HISTORY: Shortness of breath. COMPARISON: 08/10/17. FINDINGS: Heart size is within normal limits. Postop sternotomy changes and internal defibrillator device prese nt. The parahilar lung markings appear improved as compared to the prior exam. There are some persist ent bibasilar lung changes. IMPRESSION: Improving pulmonary edema. Persistent bibasilar lung changes are probably on the basis of some resolv ing edema and atelectasis. POS: [facility]
[2017-08-12] MEDS ORDERED: Carvedilol 6.25 MG TAB PO SCH (09:00)
--- NOTE | 2017-08-12 09:01 | CT ---
CT OF ABDOMEN AND PELVIS PERFORMED WITHOUT CONTRAST ENHANCEMENT: Date: 08/12/17 HISTORY: Follow-up of intra-abdominal bleeding. COMPARISON: Prior day's CT examination. FINDINGS: Large bilateral pleural effusions are again demonstrated. These are not decreased as compared to the prior exam. There is some bibasilar atelectasis noted. The liver and spleen are within normal limits of size. Two hypodensities in the left lobe of the live r again noted, similar to the previous exam. Pancreas region is unremarkable. High attenuation density in the gallbladder fossa region extending inferiorly is again demonstrated, which is very suspicious for clot. Patient has reportedly undergone recent cholecystectomy. The velazco es within the gallbladder fossa appear fairly similar. There is ascites which is a somewhat higher at tenuation in comparison to the previous examination. I feel the ascites is slightly increased with so me slightly more fluid in the left paracolic gutter region than the prior exam. Once again, the atten uation of this is higher, particularly when viewed in the pelvis. Right and left adrenal glands, and right and left kidneys are within normal limits of size. Some mild cortical thinning of both kidneys noted. No significant periaortic or mesenteric adenopathy. Giron c atheter seen within the bladder. There is some sigmoid diverticulosis noted. IMPRESSION: 1. Postop cholecystectomy change. There is high attenuation density in the gallbladder fossa which i s felt to represent clot. This is felt to be fairly similar in size to the previous exam. The ascites is also fairly similar, although probably minimally increased as compared to the prior study. 2. Stable appearance to moderately large bilateral pleural effusions. POS: [facility]
[2017-08-12] MEDS: Potassium Chloride 20 MEQ TAB PO SCH (10:28)
[2017-08-12] MEDS: Pancrelipase DR 12000 1 CAP PO SCH ×3 (10:28→16:57)
[2017-08-12] MEDS: Magnesium Chloride 64 MG TAB PO SCH ×2 (10:29→22:16)
[2017-08-12] MEDS: FLUoxetine HCl 20 MG CAP PO SCH (10:29)
[2017-08-12] MEDS: Megestrol Acetate 40 MG TAB PO SCH ×3 (10:29→22:17)
[2017-08-12] MEDS: Tamsulosin HCl 0.4 MG CAP PO SCH (10:30)
[2017-08-12] MEDS: Saccharomyces boulardii 250 MG CAP PO SCH (10:30)
[2017-08-12] MEDS: Cholestyramine/Aspartame 4 gm Packet PO SCH ×2 (10:30→22:18)
[2017-08-12] MEDS: Furosemide 40 MG/4 ML VIAL SLOW IVP SCH (10:55)
[2017-08-12] MEDS: Vancomycin HCl 25 MG/ML Oral PO SCH ×4 (11:29→21:40)
--- NOTE | 2017-08-12 12:30 | PRG ---
DATE OF SERVICE: 08/12/2017 SUBJECTIVE: Mr. Johnston has no abdominal pain. He feels better today. He passed a formed stool this morning. He did receive blood transfusion. PHYSICAL EXAMINATION: VITAL SIGNS: Temperature 98.9, pulse 102, blood pressure 96/49, he is in no acute distress. GENERAL: Awake and alert. LUNGS: Clear to auscultation bilaterally. HEART: Tachycardic, S1, S2. ABDOMEN: Soft with mild tenderness in the right upper quadrant. Bowel sounds are present. EXTREMITIES: No lower extremity edema. LABORATORY DATA: Hemoglobin is 7.8. He has received 3 units yesterday prior to this blood draw and 1 unit after. IMPRESSION: 1. Anemia secondary to acute blood loss. 2. Bleeding into the gallbladder fossa, status post need for anticoagulation for myocardial infarcti on. The anticoagulation has since been stopped and hopefully the bleeding will stop on its own. He is being followed by Dr. Espinosa. 3. Chronic diarrhea, currently resolved. He is on vancomycin for Clostridium difficile. RECOMMENDATIONS: 1. Continue 14-day course of the vancomycin. 2. He is receiving blood transfusion as needed and anticoagulation has been held. He is being follo wed by General Surgery. 3. I will sign off for now. Please call if GI can be of assistance.
--- NOTE | 2017-08-12 13:33 | PRG ---
DATE OF SERVICE: 08/12/2017 Mr. Johnston's hemoglobin came up after 2 units of blood last night and he was pretty stable through night with systolics in the 90s-100s and urine output over 30 an hour. However, early this morning , he dropped his blood pressure into the 80s systolic and his urine output went down as well. I have ordered another unit of blood since his hemoglobin had drifted down a point and also unit of FFP sin ce his PTT was unexpectedly elevated at 58. He has received that and his blood pressure has improved . Dr. De Dios saw him this morning and felt that he may be fluid overloaded from his heart failure. I have ordered some Lasix and he has had some urine out with that; however, his creatinine is up to 1 .4 today. He still has some abdominal tenderness, but not severe. His abdomen is not notably disten ded. His lungs are clear anteriorly, but diminished in the bases. He does have large pleural effusi ons on CT which is stable. I repeated his CAT scan this morning and the blood in the abdomen appears to be fairly stable as well. I had a lyndsay discussion with the patient and his family. His prognos is is very guarded at this point. I am hopeful that now that he has been off the Lovenox for over 24 hours that we can catch up in terms of his blood count and that he has stopped or will stop bleeding . However, if he continues to bleed, then surgery would need to be entertained as an option; however , if I do have him to the operating room, I do not think he would extubate easily or quickly, so he w ould need to accept the possibility of a somewhat prolonged ventilator course. At this point, the oliver cortes states that if it involves going on a machine, he is not interested in it, so we are just going to continue to resuscitate him at this point and hopefully his urine output will meat pickler. I did rec ommend placement of a central line to monitor his central venous pressure given his bleeding and hear t failure and difficulty assessing his true intravascular volume. This was done as detailed below. I will continue to follow him with his primary team. The patient has stated that in the event of a c ardiac arrest, he does not want chest compressions or electric shocks that he is willing to have medi cations. He states he does not want to be intubated or placed on a ventilator at this time.
--- NOTE | 2017-08-12 13:39 | OP ---
PROCEDURE: Right subclavian central line placement. PREOPERATIVE DIAGNOSES: Hemorrhagic shock with heart failure with need for central venous pressure m onitoring and IV access for labs and resuscitation. POSTOPERATIVE DIAGNOSES: Hemorrhagic shock with heart failure with need for central venous pressure monitoring and IV access for labs and resuscitation. OPERATIVE PROCEDURE IN DETAIL: After informed consent was obtained from the patient and his family, he was placed in the supine position and prepped and draped in a standard sterile fashion on the [facility] chest and neck, he was placed in Trendelenburg and the right subclavian vein accessed by the standa rd approach easily on the first attempt with excellent flow of dark venous non-pulsatile blood. A wi re threaded easily and the skin was incised. The tract was dilated and a central venous catheter faith rosalio to 17 cm over the wire. There was 1 beat of ventricular ectopy. The wire was withdrawn and all three ports easily aspirated and easily flushed. The central line was secured to the skin at 4 locat ions and a Biopatch and Tegaderm dressing was placed. The patient tolerated the procedure well. A p ostoperative chest x-ray showed good position and no pneumothorax.
[2017-08-12 14:36] LABS: #Lymphocytes 1.2 thou/uL (1.20-3.40); #Monocytes 0.7 thou/uL (0.11-0.59); #Neutrophils 6.9 thou/uL (1.40-6.50); %Basophils 0.4 % (0.0-1.0); %Eosinophils 0.5 % (0.0-10.0); %Lymphocytes 13.1 % (21.0-51.0); %Monocytes 7.4 % (0.0-10.0); Hematocrit 23.4 % (42.0-52.0); Mean Platelet Volume 7.8 fL (7.4-10.4); Red Blood Cell (RBC) Count 2.61 mill/uL (4.70-6.10); White Blood Cell (WBC) Count 8.8 thou/uL (4.8-10.8)
[2017-08-12 14:42] LABS: PTT 47.2 SEC (22.9-36.1); Prothrombin Time 15.1 SEC (12.0-14.7)
[2017-08-12 14:57] LABS: Anion Gap 10 mmol/L (10-20); BUN (Urea Nitrogen) 25 mg/dL (8.4-25.7); Calc. Creatinine Clearance 35 mL/min (70-130); Calcium 8.3 mg/dL (7.8-10.44); Carbon Dioxide 25 mmol/L (23-31); Chloride 107 mmol/L (98-107); Estimated GFR-MDRD 44
--- NOTE | 2017-08-12 15:02 | RAD ---
PORTABLE SUPINE CHEST: Date: 08/12/17 HISTORY: Central line placement. FINDINGS: Comparison with earlier exam from same date. Right subclavian line is present. Catheter tip overlies the superior vena cava. No signs of pneumotho rax. No other interval change. IMPRESSION: Placement of right subclavian line. No signs of pneumothorax. POS: [facility]
--- NOTE | 2017-08-12 17:37 | PRG ---
DATE OF SERVICE: 08/12/2017 SUBJECTIVE: This morning, he is awake, alert, responsive. His H and H has dropped. He was found to have an intraabdominal hemorrhage. No difficulty breathing. OBJECTIVE: VITAL SIGNS: Blood pressure 109/56, sats are 99, respirations 28. CHEST: Chest reveals decreased breath sounds, no wheezing. CARDIAC: Normal S1, S2, no gallops. ABDOMEN: Distended. LABORATORY DATA: H and H is 7 and 23, platelet count 198. PO2 is 84, pCO2 of 33, pH 7.45, creatinine 1.4. IMPRESSION: 1. Intraabdominal hemorrhage. 2. Previous cholecystectomy. 3. Azotemia. 4. Respiratory failure. PLAN: He can be transferred out of the ICU for serial H and H. Surgery has been consulted. He may need to have reevaluation of his abdomen. We will follow while in the ICU.
[2017-08-12 19:50] LABS: Hematocrit 22.8 % (42.0-52.0)
[2017-08-12] MEDS: Atorvastatin Calcium 40 MG TAB PO SCH (22:16)
[2017-08-12] MEDS: Donepezil HCl 10 MG TAB PO SCH (22:16)
[2017-08-12] MEDS: Temazepam 15 MG CAP PO SCH (22:18)
[2017-08-13 00:06] LABS: Norovirus GI Negative (Negative); Norovirus GII Negative (Negative)
[2017-08-13] MEDS: Dextrose 5 % And 0.9 % NaCl 1,000 ML IV SCH ×2 (01:12→14:58)
[2017-08-13 02:52] LABS: #Eosinphils 0.1 thou/uL (0.0-0.7); #Monocytes 0.4 thou/uL (0.11-0.59); #Neutrophils 4.5 thou/uL (1.40-6.50); %Basophils 0.6 % (0.0-1.0); %Eosinophils 1.3 % (0.0-10.0); %Lymphocytes 15.9 % (21.0-51.0); %Monocytes 7.1 % (0.0-10.0); Hematocrit 21.6 % (42.0-52.0); Mean Platelet Volume 7.9 fL (7.4-10.4); Red Blood Cell (RBC) Count 2.41 mill/uL (4.70-6.10)
[2017-08-13 03:19] LABS: Anion Gap 13 mmol/L (10-20); BUN (Urea Nitrogen) 25 mg/dL (8.4-25.7); Calc. Creatinine Clearance 42 mL/min (70-130); Calcium 8.5 mg/dL (7.8-10.44); Carbon Dioxide 23 mmol/L (23-31); Chloride 108 mmol/L (98-107); Estimated GFR-MDRD 55
--- NOTE | 2017-08-13 05:39 | PDOC.FM ---
- Subjective Subjective: Patient did well overnight. BPs improved and now in the 110s/60s. He feels a lot better and wants to know when he can go home. Endorses slight abd pain, but improved from yesterday. O2 supplem d/c'ed earlier this AM with O2 sats in mid 90s. Denies any chest pain, shortness of breath, N/V or diarrhea. UOP improved as well. - Objective MAR Reviewed: Yes Vital Signs & Weight: Vital Signs (12 hours) Temp Pulse Resp Pulse Ox 08/13/17 04:00 98.0 F 08/13/17 00:00 96.3 F L 99 08/12/17 22:19 96 08/12/17 20:00 98.7 F 103 H 21 H 99 Weight Admit Weight 70.5 kg Weight 65.136 kg Most Recent Monitor Data Heart Rate from ECG 110 NIBP 115/69 NIBP BP-Mean 77 Respiration from ECG 22 SpO2 96 I&O: 08/11/17 08/12/17 08/13/17 06:59 06:59 06:59 Intake Total 2045 2387 511 Output Total 2615 750 1103 Balance -570 4572 -590 Result Diagrams: 08/13/17 02:00 08/13/17 02:00 <Nani Kurtz - Last Filed: 08/13/17 10:49> - Objective Vital Signs & Weight: Vital Signs (12 hours) Temp Pulse Resp Pulse Ox 08/13/17 08:00 98.7 F 105 H 19 95 08/13/17 07:00 98.7 F 08/13/17 04:00 98.0 F 08/13/17 00:00 96.3 F L 99 Weight Admit Weight 70.5 kg Weight 65.136 kg Most Recent Monitor Data Heart Rate from ECG 108 NIBP 123/64 NIBP BP-Mean 90 Respiration from ECG 29 SpO2 97 I&O: 08/12/17 08/13/17 08/14/17 06:59 06:59 06:59 Intake Total 2387 511 400 Output Total 750 1131 328 Balance 1632 -642 87 Result Diagrams: 08/13/17 08:10 08/13/17 02:00 <Yves Driscoll - Last Filed: 08/13/17 11:01> Phys Exam - Physical Examination Constitutional: NAD HEENT: PERRLA, moist MMs Respiratory: clear to auscultation bilateral (anteriorly) Cardiovascular: no significant murmur tachycardic, regular rhythm Gastrointestinal: soft, positive bowel sounds slight tenderness diffusely Musculoskeletal: no edema, pulses present <Nani Kurtz - Last Filed: 08/13/17 10:49> Dx/Plan (1) Hemorrhage, intraperitoneal Code(s): K66.1 - HEMOPERITONEUM Status: Acute Plan: Patient with significant decrease in Hg over the past 5 days. Initial Hg upon admission of 11.2 and has decreased during hospitalization to 6.8. Transfused 1u PRBC on 08/11 without any improvement. Patient had recent lap carter on 07/[address] Abd/Pelv done on 08/11 showing blood in the gallbladder fossa. Intraperitoneal hemorrhage related to anticoagulation given for treatment of NSTEMI. Lovenox, ASA and plavix held. Transfused 2u PRBC on 08/12 with appropriate response. Yesterday, patient given an additonal 1U PRBC and [address] Abd/Pelv was stable from previous imaging. Trending H/H's and has remained stable at 7.5 this AM. Patient feels a lot better and denies any N/V and improvement in abd discomfort. Dr. Espinosa of gen surg following. Appreciate recs. Cont to monitor H/H closely. (2) NSTEMI (non-ST elevated myocardial infarction) Code(s): I21.4 - NON-ST ELEVATION (NSTEMI) MYOCARDIAL INFARCTION Status: Acute Plan: NSTEMI with +cardiac enzymes and EKG showing ST segment depression in anterior lateral leads. Cardiology was consulted and recommends no intervention at this time. Recommend continuing medical management with plavix, ASA, lovenox, Ranexa , and nitro. However, due to acute anemia w/ hypotension, holding plavix, ASA, lovenox and BP meds. (3) Chronic systolic (congestive) heart failure Code(s): I50.22 - CHRONIC SYSTOLIC (CONGESTIVE) HEART FAILURE Status: Acute Plan: Acute exacerbation 2/2 NSTEMI. Echo showing EF of 25-30%. Will need to monitor very closely as patient has received a total of 4u PRBCs. Cardiology following and cont lasix 40mg iv. Appreciate recs. Cont to monitor I/Os and daily weights. (4) Acute respiratory failure with hypoxia Code(s): J96.01 - ACUTE RESPIRATORY FAILURE WITH HYPOXIA Status: Resolved Plan: Likely 2/2 CHF exacerbation 2/2 NSTEMI. Patient previously on 2L via NC, but able to be weaned off overnight. O2 sats in mid 90s and doing well. (5) Acute kidney injury Code(s): N17.9 - ACUTE KIDNEY FAILURE, UNSPECIFIED Status: Resolved Plan: Likely 2/2 intraperitoneal hemorrhage and lack of perfusion. UOP improved to 47cc/hr with Cr of 1.25 this AM. Cont to monitor. (6) Chronic diarrhea of unknown origin Code(s): K52.9 - NONINFECTIVE GASTROENTERITIS AND COLITIS, UNSPECIFIED Status : Chronic Plan: Patient with longstanding hx of chronic diarrhea and followed closely by Dr. Bower of GI. This was patient's initial presentation of worsening diarrhea and found to be c. diff Ag + but toxin neg as well as +campylo. Recommend treatment with PO Vanc (08/08) for full 14d course. (7) HTN (hypertension) Code(s): I10 - ESSENTIAL (PRIMARY) HYPERTENSION Status: Chronic QualifierTitle: Hypertension type: essential hypertension Qualified Code( s): I10 - Essential (primary) hypertension Plan: Patient with persistently low BPs. Have improved overnight to 110s/60s. Cont holding lisinopril and coreg. Monitor. (8) HLD (hyperlipidemia) Code(s): E78.5 - HYPERLIPIDEMIA, UNSPECIFIED Status: Chronic Plan: Cont home atorvastatin. (9) Dementia Code(s): F03.90 - UNSPECIFIED DEMENTIA WITHOUT BEHAVIORAL DISTURBANCE Status: Chronic Plan: Cont home aricept. <Nani Kurtz - Last Filed: 08/13/17 10:49> Attending Addendum - Attending Addendum I personally evaluated the patient and discussed the management with Dr. Kurtz. I agree with the History, Examination, Assessment and Plan documented above with any addition or exceptions noted below. Patient is actually improved this morning. He is sitting in a chair comfortably with no supplemental O2 needed. His Hgb has overall been stable and actually uptrended with most recent check. No surgical intervention at this time, though awaiting further recs from Dr. Espinosa. Appreciate her help with this case. Patient's urine output has also improved and his kidney values look better today. Blood pressure improved. Transfuse as necessary but hope that patient is now moving in a positive direction. <Yves Driscoll - Last Filed: 08/13/17 11:01>
[2017-08-13 08:32] LABS: Hematocrit 22.7 % (42.0-52.0)
[2017-08-13] MEDS: Potassium Chloride 20 MEQ TAB PO SCH (10:18)
[2017-08-13] MEDS: Pancrelipase DR 12000 1 CAP PO SCH ×3 (10:18→16:19)
[2017-08-13] MEDS: Furosemide 40 MG/4 ML VIAL SLOW IVP SCH (10:19)
[2017-08-13] MEDS: Magnesium Chloride 64 MG TAB PO SCH (10:19)
[2017-08-13] MEDS: FLUoxetine HCl 20 MG CAP PO SCH (10:19)
[2017-08-13] MEDS: Pantoprazole 40 MG VIAL IVP SCH (10:21)
[2017-08-13] MEDS: Megestrol Acetate 40 MG TAB PO SCH ×3 (10:22→20:50)
[2017-08-13] MEDS: Saccharomyces boulardii 250 MG CAP PO SCH (10:23)
[2017-08-13] MEDS: Vancomycin HCl 25 MG/ML Oral PO SCH ×4 (10:24→20:52)
[2017-08-13] MEDS: Tamsulosin HCl 0.4 MG CAP PO SCH (10:25)
[2017-08-13] MEDS: Cholestyramine/Aspartame 4 gm Packet PO SCH ×2 (10:32→20:52)
--- NOTE | 2017-08-13 13:01 | PRG ---
DATE OF SERVICE: 08/13/2017 SUBJECTIVE: This morning, he looks better. He is less short of breath. OBJECTIVE: VITAL SIGNS: Pulse 105, temperature 98, blood pressure 116/63. CHEST: Decreased breath sounds, no wheezing. CARDIAC: Normal S1 and S2. No gallops. ABDOMEN: Soft, no masses. LABORATORY DATA AND X-RAY FINDINGS: Hemoglobin and hematocrit is 7.8 and 22. Electrolytes are akash l. Creatinine 1.25. Chest x-ray showed bibasilar small pleural effusion. CT of abdomen shows intra abdominal hemorrhage. His hemoglobin and hematocrit is decreased. IMPRESSION: 1. Intraabdominal hemorrhage. 2. Respiratory failure, improved. 3. Bibasilar small pleural effusion. 4. Colitis. PLAN: He is on p.o. vancomycin. Supportive care. Status post gallbladder. Disposition as per surgery.
[2017-08-13] MEDS ORDERED: Magnesium Sulfate 3 GM in Sodium Chloride 0.9% 100 ML IVPB SCH (19:00)
[2017-08-13] MEDS ORDERED: Potassium Chloride 20 MEQ TAB PO SCH (19:00)
--- NOTE | 2017-08-13 19:21 | PRG ---
DATE OF SERVICE: 08/13/2017 SUBJECTIVE: Mr. Johnston is doing much better today. He is not having trouble breathing, had good uri ne output, feels much better. He is not having chest pain or shortness of breath. PHYSICAL EXAMINATION: VITAL SIGNS: Blood pressure is 107/56, pulse is 100 and sinus. LUNGS: Clear. CARDIAC: Normal S1, normal S2. ASSESSMENT: 1. Bleeding appears to stabilize 2. Status post non-ST elevation infarction. 3. Congestive heart failure, improved. 4. Iron deficiency anemia has got multiple units of packed red blood cells. 5. Diarrhea, resumed. 6. Frequent premature ventricular contractions. PLAN: 1. Continue to replete potassium. 2. Give magnesium. 3. Hold oral magnesium now since he has got diarrhea. 4. Dr. Shaikh to resume care tomorrow.
[2017-08-13] MEDS: Atorvastatin Calcium 40 MG TAB PO SCH (20:50)
[2017-08-13] MEDS: Donepezil HCl 10 MG TAB PO SCH (20:50)
[2017-08-13] MEDS: Temazepam 15 MG CAP PO SCH (20:51)
[2017-08-13 20:55] LABS: Hematocrit 20.5 % (42.0-52.0)
[2017-08-14 02:49] LABS: Hematocrit 24.1 % (42.0-52.0)
[2017-08-14] MEDS: Dextrose 5 % And 0.9 % NaCl 1,000 ML IV SCH ×2 (04:19→16:36)
--- NOTE | 2017-08-14 06:32 | PDOC.FM ---
- Subjective Subjective: Pt seen at bedside in NAD. Family also in room. JESSICA overnight. Pt did require transfusion of additional unit of blood. Pt notes some increased work of breathing and is on supplemental O2. Denies CP, NV, and notes UOP improved. - Objective Vital Signs & Weight: Vital Signs (12 hours) Temp Pulse Resp Pulse Ox 08/14/17 04:00 98.2 F 08/14/17 01:04 97 08/14/17 00:22 98.7 F 98 08/14/17 00:00 98.9 F 08/13/17 22:44 97.8 F 97 08/13/17 22:28 98.0 F 94 L 08/13/17 20:00 98.6 F 100 20 08/13/17 19:08 95 Weight Admit Weight 70.5 kg Weight 68 kg Most Recent Monitor Data Heart Rate from ECG 95 NIBP 110/63 NIBP BP-Mean 77 Respiration from ECG 22 SpO2 97 I&O: 08/12/17 08/13/17 08/14/17 06:59 06:59 06:59 Intake Total 2387 511 3311 Output Total 750 1131 2297 Balance 1637 -031 1014 Result Diagrams: 08/14/17 02:36 08/13/17 02:00 <Jose F Reilly - Last Filed: 08/14/17 09:15> - Objective Vital Signs & Weight: Vital Signs (12 hours) Temp Pulse Ox 08/14/17 08:00 97.1 F L 08/14/17 04:00 98.2 F 08/14/17 01:04 97 08/14/17 00:22 98.7 F 98 08/14/17 00:00 98.9 F Weight Admit Weight 70.5 kg Weight 68 kg Most Recent Monitor Data Heart Rate from ECG 90 NIBP 142/72 NIBP BP-Mean 122 Respiration from ECG 25 SpO2 98 I&O: 08/13/17 08/14/17 08/15/17 06:59 06:59 06:59 Intake Total 511 3311 660 Output Total 1131 2297 Balance -620 1014 660 Result Diagrams: 08/14/17 09:25 08/14/17 02:36 <Shona Diaz - Last Filed: 08/14/17 11:38> Phys Exam - Physical Examination Constitutional: NAD HEENT: PERRLA, moist MMs Respiratory: clear to auscultation bilateral anteriorly Cardiovascular: RRR, no significant murmur Gastrointestinal: soft, positive bowel sounds slight TTP RUQ Musculoskeletal: no edema, pulses present Psychiatric: normal affect <Jose F Reilly - Last Filed: 08/14/17 09:15> Dx/Plan (1) Hemorrhage, intraperitoneal Code(s): K66.1 - HEMOPERITONEUM Status: Acute Plan: -pt improving, however, had significant decrease in Hgb s/p lap carter on 07/31. Hgb as low as 6.8 due to intraperitoneal bleed 2/2 anticoagulation following NSTEMI on 08/11. pt has now received a total of 5u pRBC and 1 FFP, most recently pRBC 08/13 evening -Hgb after transfusion shows adequate response to 8.1 from 7.0 -AM CBC pending at this time -general surgery recommendations greatly appreciated -continue to hold anticoagulation and antiplatelet therapies -continue to monitor closely (2) NSTEMI (non-ST elevated myocardial infarction) Code(s): I21.4 - NON-ST ELEVATION (NSTEMI) MYOCARDIAL INFARCTION Status: Acute Plan: -NSTEMI with positive cardiac enzymes and ST depression in anteriolateral leads on 08/11 -cardiology on board, recs greatly appreciated -recommend medical management, however, continue to hold anticoagulation/ platelet at this time due to intraperitoneal hemorrhage -SBP consistently 100-110s with HR 90s (3) Chronic systolic (congestive) heart failure Code(s): I50.22 - CHRONIC SYSTOLIC (CONGESTIVE) HEART FAILURE Status: Acute Plan: -acute on chronic exacerbation 2/2 NSTEMI -TTE shows EF 25-30% -continue to monitor extremely closely as pt has received plenty of fluids with multiple transfusions -cardiology following and cont lasix IV daily, recently decreased to 20 mg daily. recommendations greatly appreciated. -continue to monitor strict I/Os -UO ranging 20-45/hr over last 12 hours (4) Acute respiratory failure with hypoxia Code(s): J96.01 - ACUTE RESPIRATORY FAILURE WITH HYPOXIA Status: Resolved Plan: -likely 2/2 CHF exacerbation 2/2 NSTEMI -pt previously requiring O2 via NC but weaned off -O2 sats stable, continue to monitor clinical picture closely (5) Chronic diarrhea of unknown origin Code(s): K52.9 - NONINFECTIVE GASTROENTERITIS AND COLITIS, UNSPECIFIED Status : Chronic Plan: -pt with longstanding hx of chronic diarrhea and followed by Case of GI -recommendations greatly appreciated -initial presentation showed C. diff ag + but toxin negative as well as campylobacter positive -continue with PO Vanc for 14 day course, started on 08/08 (6) HTN (hypertension) Code(s): I10 - ESSENTIAL (PRIMARY) HYPERTENSION Status: Chronic QualifierTitle: Hypertension type: essential hypertension Qualified Code( s): I10 - Essential (primary) hypertension Plan: -currently holding BP meds 2/2 hypotension with acute bleed and CHF exacerbation -stable over last 24 hrs, continue to monitor closely (7) HLD (hyperlipidemia) Code(s): E78.5 - HYPERLIPIDEMIA, UNSPECIFIED Status: Chronic Plan: -continue home atorvastatin (8) Dementia Code(s): F03.90 - UNSPECIFIED DEMENTIA WITHOUT BEHAVIORAL DISTURBANCE Status: Chronic Plan: -continue home aricept - Plan Plan: disposition: Specialist recommendations greatly appreciated. Will follow AM labs. Pt likely stable for transfer out of CCU, however, plan of care to be dictated by general surgery. Attempt to wean oxygen as tolerated. Continue to monitor closely. <Jose F Reilly - Last Filed: 08/14/17 09:15> Attending Addendum - Attending Addendum I personally evaluated the patient and discussed the management with Dr. Reilly I agree with the History, Examination, Assessment and Plan documented above with any addition or exceptions noted below- Patient sitting up in chair. Denies any complaints; earlier was SOB but not currently. Tolerating clear liquids. Afebrile VSS 1) intraperitoneal hemorrhage- appears to be stable now; transfused 1 unit last night H?H= 9.0/27.3; continue to monitor, 2) sCHF- appears mildly volume overloaded; on home dose of furosemide; will give additional dose today, 3) NSTEMI- continue to hold beta jonh/TOSHIA due to low BP and anticoagulants due to recent bleed. <Shona Diaz - Last Filed: 08/14/17 11:38>
[2017-08-14] MEDS ORDERED: Furosemide 20 MG/2 ML VIAL SLOW IVP SCH ×2 (09:00→11:00)
[2017-08-14 09:28] LABS: Anion Gap 9 mmol/L (10-20); BUN (Urea Nitrogen) 16 mg/dL (8.4-25.7); Calc. Creatinine Clearance 68 mL/min (70-130); Calcium 8.1 mg/dL (7.8-10.44); Carbon Dioxide 25 mmol/L (23-31); Chloride 110 mmol/L (98-107); Estimated GFR-MDRD Greater than 90
[2017-08-14 09:34] LABS: #Eosinphils 0.1 thou/uL (0.0-0.7); #Lymphocytes 1.2 thou/uL (1.20-3.40); #Monocytes 0.4 thou/uL (0.11-0.59); #Neutrophils 5.5 thou/uL (1.40-6.50); %Basophils 0.5 % (0.0-1.0); %Eosinophils 1.8 % (0.0-10.0); %Lymphocytes 16.9 % (21.0-51.0); %Monocytes 5.2 % (0.0-10.0); Hematocrit 27.3 % (42.0-52.0); Mean Platelet Volume 7.6 fL (7.4-10.4); Red Blood Cell (RBC) Count 2.98 mill/uL (4.70-6.10); White Blood Cell (WBC) Count 7.2 thou/uL (4.8-10.8)
[2017-08-14] MEDS: Potassium Chloride 20 MEQ TAB PO SCH (09:49)
[2017-08-14] MEDS: FLUoxetine HCl 20 MG CAP PO SCH (09:49)
[2017-08-14] MEDS: Pancrelipase DR 12000 1 CAP PO SCH ×3 (09:49→16:36)
[2017-08-14] MEDS: Pantoprazole 40 MG VIAL IVP SCH (09:50)
[2017-08-14] MEDS: Megestrol Acetate 40 MG TAB PO SCH ×3 (09:50→20:53)
[2017-08-14] MEDS: Saccharomyces boulardii 250 MG CAP PO SCH (09:52)
[2017-08-14] MEDS: Tamsulosin HCl 0.4 MG CAP PO SCH (09:52)
[2017-08-14] MEDS: Vancomycin HCl 25 MG/ML Oral PO SCH ×4 (09:52→20:55)
[2017-08-14] MEDS: Cholestyramine/Aspartame 4 gm Packet PO SCH ×2 (09:53→20:52)
--- NOTE | 2017-08-14 12:55 | PRG ---
DATE OF SERVICE: 08/14/2017 SERVICE: Pulmonary Medicine. INTERVAL HISTORY: The patient is doing great from a respiratory standpoint. He is breathing comfort ably. He denies any current chest pain or shortness of breath. Otherwise, he is returning to his [facility] state of health. His abdominal discomfort is much improved. PHYSICAL EXAMINATION: VITAL SIGNS: Afebrile, pulse 90, blood pressure 122/59, respirations 22, saturation 98% on 2 liters nasal cannula. GENERAL: The patient is awake, alert, no apparent distress. LUNGS: Decent air entry. Dependent crackles are minimal. HEART: Normal rate, regular. ABDOMEN: Soft, minimal tenderness to palpation, but there is no rebound. There is some voluntary gu arding. Bowel sounds are active. MUSCULOSKELETAL: No cyanosis or clubbing. There is trace pitting in the bilateral lower extremities . NEUROLOGIC: Grossly nonfocal. LABORATORY DATA: Hemoglobin 9.0 and roughly stable. He had an appropriate rise with 1 unit of blood yesterday. Basic metabolic profile is completely unremarkable. Stool studies including Norovirus a re unremarkable. Fecal fat is normal. C. diff antigen is positive. Toxin is negative. All other s tool cultures are unremarkable. ASSESSMENT: 1. Acute blood loss anemia. 2. Clostridium difficile infection, recurrent. 3. Non-ST elevation myocardial infarction. 4. Chronic systolic and diastolic heart failure. 5. Chronic diarrhea. PLAN: Pulmonary or Critical Care will continue to follow while the patient remains in-house. At thi s point, he is stable for transition out of the ICU once again to the floor. We will continue to mon itor hemoglobin and transfuse as needed to keep him above 7.
[2017-08-14 14:55] LABS: Hematocrit 25.9 % (42.0-52.0)
--- NOTE | 2017-08-14 15:00 | PDOC.CTH ---
<Linda Zelaya - Last Filed: 08/14/17 15:05> Cardiology Progress Note - Subjective The pt was seen and examined. No overnight events. He complained of SOB in this AM. After he received Lasix 40mg IV push, his breathing improved. No distress with RA at this moment. Plan to transfer to [facility] when his bed is available. - Objective Vital Signs Temp Pulse Resp Pulse Ox 08/14/17 12:00 97.9 F 08/14/17 08:00 97.1 F L 96 24 H 97 08/14/17 04:00 98.2 F Admit Weight 155 lb 6.814 oz Weight 149 lb 14.629 oz 08/13/17 08/14/17 08/15/17 06:59 06:59 06:59 Intake Total 511 3311 920 Output Total 1131 2297 1800 Balance -620 1014 -880 - Physical Examination General/Neuro: alert & oriented x3 Neck: no JVD present Lungs: other: (very diminished at bases) Heart: RRR Abdomen: soft (hypoactive) Extremities: other: (No edema) - Telemetry Telemetry Rhythm: SR - Labs Result Diagrams: 08/14/17 14:40 08/14/17 02:36 Troponin/CKMB CK-MB (CK-2) 69.9 ng/mL (0-6.6) H* 08/10/17 08:01 Troponin I 10.959 ng/mL (< 0.028) H* 08/11/17 10:20 - Assessment/Plan 1. Intra ABD hemorrhage w/ s/p total 5 units PRBC tx - his Hgb level has been stable since yesterday; Cont. holding OAC and antiplatelet 2. NSTEMI - Medical treatment only at this time due to very high risk despite of cont. increasing CE levels; The pt is asymptomatic at this time; cont. monitor on tele with Ranexa, NGT, Plavix, ASA, and Lovenox. 3. Acute on Chronic Systolic HF with EF 20-25% on 07/30/17 - stable with extra Lasix 40mg IV push today and 1800ml output; Will start Lasix 20mg IV daily with Kcl 20 mEq daily 5. HTN - Stable with current medication; cont. monitor 6. CMY with AICD - cont. monitor 7. Hyperlipidemia - on Statin med 8. Chronic Diarrhea - Contact Isolation due to C diff antigen positive; on Vancomycin PO for 14 days and PPI; managed by GI service MAR reviewed Review of Systems - Review of Systems Constitutional: reports: no symptoms reported EENTM: reports: no symptoms reported Respiratory: reports: no symptoms reported, see HPI Cardiac (ROS): reports: no symptoms reported ABD/GI: reports: no symptoms reported : reports: no symptoms reported Musculoskeletal: reports: no symptoms reported Skin: reports: no symptoms reported <Nancy Shaikh - Last Filed: 08/14/17 18:37> Cardiology Progress Note - Objective Vital Signs Temp Pulse Resp Pulse Ox 08/14/17 16:00 99.1 F 08/14/17 12:00 97.9 F 08/14/17 08:00 97.1 F L 96 24 H 97 Admit Weight 155 lb 6.814 oz Weight 149 lb 14.629 oz 08/13/17 08/14/17 08/15/17 06:59 06:59 06:59 Intake Total 511 3311 1909 Output Total 1131 2295 2775 Balance -620 1014 866 - Labs Result Diagrams: 08/14/17 14:40 08/14/17 02:36 Troponin/CKMB CK-MB (CK-2) 69.9 ng/mL (0-6.6) H* 08/10/17 08:01 Troponin I 10.959 ng/mL (< 0.028) H* 08/11/17 10:20 - Assessment/Plan Pt. seen and eval. by me. I agree with the A/P by the INSURANCE CLAIMS PROCESSOR.Multiple medical problems but still overall relatively stable. continue to hold anticoagulation.
[2017-08-14 16:12] LABS: Folate,Hemolysate 277.1 ng/mL (Not Estab.); Hematocrit 18.5 % (37.5-51.0); RBC Folate Test Component 1498 ng/mL (>498)
[2017-08-14] MEDS: Temazepam 15 MG CAP PO SCH (20:52)
[2017-08-14] MEDS: Donepezil HCl 10 MG TAB PO SCH (20:53)
[2017-08-14] MEDS: Atorvastatin Calcium 40 MG TAB PO SCH (20:53)
[2017-08-15 04:22] LABS: #Eosinphils 0.1 thou/uL (0.0-0.7); #Monocytes 0.2 thou/uL (0.11-0.59); #Neutrophils 4.1 thou/uL (1.40-6.50); %Basophils 0.8 % (0.0-1.0); %Eosinophils 1.9 % (0.0-10.0); %Lymphocytes 18.4 % (21.0-51.0); %Monocytes 3.9 % (0.0-10.0); Hematocrit 24.1 % (42.0-52.0); Mean Platelet Volume 7.3 fL (7.4-10.4); Red Blood Cell (RBC) Count 2.63 mill/uL (4.70-6.10); White Blood Cell (WBC) Count 5.5 thou/uL (4.8-10.8)
[2017-08-15 04:35] LABS: Anion Gap 8 mmol/L (10-20); BUN (Urea Nitrogen) 12 mg/dL (8.4-25.7); Calc. Creatinine Clearance 70 mL/min (70-130); Carbon Dioxide 25 mmol/L (23-31); Chloride 111 mmol/L (98-107); Estimated GFR-MDRD Greater than 90
[2017-08-15] MEDS: Dextrose 5 % And 0.9 % NaCl 1,000 ML IV SCH (06:05)
--- NOTE | 2017-08-15 07:36 | PDOC.FM ---
- Subjective Subjective: Pt seen at bedside in NAD. JESSICA overnight. Pt notes he feels well but is somewhat upset that he is unable to control his diarrhea. Has tolerated PO well and reports no pain and minimal SOB. - Objective MAR Reviewed: Yes Vital Signs & Weight: Vital Signs (12 hours) Temp Pulse Resp Pulse Ox 08/15/17 04:00 98.6 F 08/15/17 00:00 98.4 F 95 08/14/17 20:00 98.7 F 98 24 H 99 Weight Admit Weight 70.5 kg Weight 68 kg Most Recent Monitor Data Heart Rate from ECG 101 NIBP 133/68 NIBP BP-Mean 99 Respiration from ECG 27 SpO2 94 I&O: 08/14/17 08/15/17 08/16/17 06:59 06:59 06:59 Intake Total 3311 3251 Output Total 2297 3175 Balance 1014 76 Result Diagrams: 08/15/17 04:00 08/15/17 04:00 <Jose F Reilly - Last Filed: 08/15/17 08:33> - Objective Vital Signs & Weight: Vital Signs (12 hours) Temp Pulse Resp BP Pulse Ox 08/15/17 09:00 98.6 F 102 H 20 96 08/15/17 08:00 98.6 F 102 H 20 129/76 96 08/15/17 04:00 98.6 F 08/15/17 00:00 98.4 F 95 Weight Admit Weight 70.5 kg Weight 68 kg Most Recent Monitor Data Heart Rate from ECG 101 NIBP 133/68 NIBP BP-Mean 99 Respiration from ECG 27 SpO2 94 I&O: 08/14/17 08/15/17 08/16/17 06:59 06:59 06:59 Intake Total 3311 3251 Output Total 2297 3175 Balance 1014 76 Result Diagrams: 08/15/17 04:00 08/15/17 04:00 <Shona Diaz - Last Filed: 08/15/17 11:22> Phys Exam - Physical Examination Constitutional: NAD HEENT: PERRLA Respiratory: no wheezing minimal bibasliar crackles Cardiovascular: RRR, no significant murmur Gastrointestinal: soft, positive bowel sounds Musculoskeletal: pulses present 1+ pitting edema ankles BL Neurological: moves all 4 limbs Psychiatric: A&O x 3 <Jose F Reilly Filed: 08/15/17 08:33> Dx/Plan (1) Hemorrhage, intraperitoneal Code(s): K66.1 - HEMOPERITONEUM Status: Acute Plan: -pt improving, however, had significant decrease in Hgb s/p lap carter on 07/31. Hgb as low as 6.8 due to intraperitoneal bleed 2/2 anticoagulation following NSTEMI on 08/11. pt has now received a total of 5u pRBC and 1 FFP, most recently pRBC 08/13 evening -Hgb has fluctuated but overall stable at 8.0 this AM -general surgery recommendations greatly appreciated. diet has been advanced. -continue to hold anticoagulation and antiplatelet therapies -continue to monitor closely (2) NSTEMI (non-ST elevated myocardial infarction) Code(s): I21.4 - NON-ST ELEVATION (NSTEMI) MYOCARDIAL INFARCTION Status: Acute Plan: -NSTEMI with positive cardiac enzymes and ST depression in anteriolateral leads on 08/11 -cardiology on board, recs greatly appreciated -recommend medical management, however, continue to hold anticoagulation/ platelet at this time due to intraperitoneal hemorrhage -SBP consistently 100-110s with HR 90s (3) Chronic systolic (congestive) heart failure Code(s): I50.22 - CHRONIC SYSTOLIC (CONGESTIVE) HEART FAILURE Status: Acute Plan: -acute on chronic exacerbation 2/2 NSTEMI -TTE shows EF 25-30% -continue to monitor extremely closely as pt has received plenty of fluids with multiple transfusions -cardiology following and cont lasix IV daily, recently decreased to 20 mg daily. recommendations greatly appreciated. -continue to monitor strict I/Os -UO ranging 20-45/hr over last 12 hours (4) Acute respiratory failure with hypoxia Code(s): J96.01 - ACUTE RESPIRATORY FAILURE WITH HYPOXIA Status: Resolved Plan: -likely 2/2 CHF exacerbation 2/2 NSTEMI -pt previously requiring O2 via NC but weaned off -O2 sats stable, continue to monitor clinical picture closely (5) Chronic diarrhea of unknown origin Code(s): K52.9 - NONINFECTIVE GASTROENTERITIS AND COLITIS, UNSPECIFIED Status : Chronic Plan: -pt with longstanding hx of chronic diarrhea and followed by Dr. Bower of GI -recommendations greatly appreciated -initial presentation showed C. diff ag + but toxin negative as well as campylobacter positive -continue with PO Vanc for 14 day course, started on 08/08 (6) HTN (hypertension) Code(s): I10 - ESSENTIAL (PRIMARY) HYPERTENSION Status: Chronic QualifierTitle: Hypertension type: essential hypertension Qualified Code( s): I10 - Essential (primary) hypertension Plan: -currently holding BP meds 2/2 hypotension with acute bleed and CHF exacerbation -stable over last 24 hrs, continue to monitor closely (7) HLD (hyperlipidemia) Code(s): E78.5 - HYPERLIPIDEMIA, UNSPECIFIED Status: Chronic Plan: -continue home atorvastatin (8) Dementia Code(s): F03.90 - UNSPECIFIED DEMENTIA WITHOUT BEHAVIORAL DISTURBANCE Status: Chronic Plan: -continue home aricept - Plan Plan: dispo: Pt stable and has been transferred from CCU to [facility]. Specialist recommendations greatly appreciated. General surgery has advanced diet to full diet. Anemia has overall been stable but continues to fluctuate, will recheck this afternoon. Case management consulted to aid in discharge planning. Continue to monitor closely. <Jose F Reilly - Last Filed: 08/15/17 08:33> Attending Addendum - Attending Addendum I personally evaluated the patient and discussed the management with Dr. Reilly I agree with the History, Examination, Assessment and Plan documented above with any addition or exceptions noted below- Patient without complaints except continued diarrhea. Tolerating diet. Denies any SOB. Afebrile VSS A/P: 1) Anemia - stable; slow decline overnight; continue to monitor and recheck this afternoon, 2) sCHF- good urine output with additional lasix yesterday. Continue to monitor I/Os closely, 3) Anxiety- will increase fluoxetine and consider addition of low dose of buspar, 4) Deconditioning- continue PT. <Shona Diaz - Last Filed: 08/15/17 11:22>
[2017-08-15] MEDS: Potassium Chloride 20 MEQ TAB PO SCH (08:59)
[2017-08-15] MEDS: Pancrelipase DR 12000 1 CAP PO SCH ×3 (08:59→17:16)
[2017-08-15] MEDS: Saccharomyces boulardii 250 MG CAP PO SCH (09:01)
[2017-08-15] MEDS: Tamsulosin HCl 0.4 MG CAP PO SCH (09:02)
[2017-08-15] MEDS: FLUoxetine HCl 20 MG CAP PO SCH (09:02)
[2017-08-15] MEDS: Vancomycin HCl 25 MG/ML Oral PO SCH ×4 (09:03→20:24)
[2017-08-15] MEDS: Megestrol Acetate 40 MG TAB PO SCH ×3 (09:04→20:25)
[2017-08-15] MEDS: Pantoprazole 40 MG VIAL IVP SCH (09:05)
[2017-08-15] MEDS: Cholestyramine/Aspartame 4 gm Packet PO SCH ×2 (09:15→21:29)
[2017-08-15] MEDS ORDERED: Dextrose 5 % And 0.9 % NaCl 1,000 ML IV SCH (09:54)
[2017-08-15] MEDS ORDERED: Furosemide 20 MG/2 ML VIAL SLOW IVP SCH (10:00)
[2017-08-15] MEDS ORDERED: Potassium Chloride 20 MEQ TAB PO SCH (11:30)
--- NOTE | 2017-08-15 11:37 | PRG ---
DATE OF SERVICE: 08/15/2017 SERVICE: Pulmonary Medicine. INTERVAL HISTORY: The patient is doing poorly. His diarrhea is actually picking up a little bit. Tina figueroa feels increasing lower extremity swelling and is having a harder time with his breathing. He denie s any current fevers, chills, nausea or vomiting. Otherwise, there were no overnight events. PHYSICAL EXAMINATION: VITAL SIGNS: Afebrile, pulse 102, blood pressure 129/76, respirations 20, saturation 96% on room air . GENERAL: Patient is awake, alert, no apparent distress. LUNGS: Decent air entry. Dependent crackles are present. HEART: Normal rate and regular. ABDOMEN: Soft, nontender, nondistended. Bowel sounds positive. MUSCULOSKELETAL: No cyanosis or clubbing. There is pitting in the bilateral lower extremities, whic h is roughly 1+. It is also present at the sacrum. GENITOURINARY: Giron catheter in place. NEUROLOGIC: Grossly nonfocal. LABORATORY DATA: WBC 5.5, hemoglobin 8.0, and platelets 168,000. Basic metabolic profile is complet ciro unremarkable except for a chloride of 111. Potassium is 3.6. Cyclospora was not seen. All stoo l cultures are negative to date other than a positive C. diff antigen despite negative toxin. ASSESSMENT: 1. Acute blood loss anemia. 2. Clostridium difficile infection, recurrent. 3. Non-ST elevation myocardial infarction. 4. Chronic systolic and diastolic heart failure. 5. Chronic diarrhea. PLAN: IV fluids will be decreased significantly. He is stable for transition to the floor. I will continue to follow while he remains in this location.
[2017-08-15] MEDS: Dextrose 5 %-0.45 % NaCl 1,000 ML IV SCH (12:15)
--- NOTE | 2017-08-15 13:38 | PDOC.CTH ---
<Linda Zelaya - Last Filed: 08/15/17 13:35> Cardiology Progress Note - Subjective the pt seen and examined. No overnight events. No cardiac complaints. He complains of SOB although his O2 sat was 95% w/ RA. - Objective Vital Signs Temp Pulse Resp BP Pulse Ox 08/15/17 12:01 98.1 F 101 H 20 130/67 94 L 08/15/17 09:00 98.6 F 102 H 20 96 08/15/17 08:00 98.6 F 102 H 20 129/76 96 08/15/17 04:00 98.6 F Admit Weight 155 lb 6.814 oz Weight 149 lb 14.629 oz 08/14/17 08/15/17 08/16/17 06:59 06:59 06:59 Intake Total 3311 3251 200 Output Total 2297 3175 Balance 1014 76 200 - Physical Examination General/Neuro: alert & oriented x3 Neck: no JVD present Lungs: CTA Heart: RRR Abdomen: soft Extremities: other: (1-2+ pitting edema Bilat ankles) - Telemetry Telemetry Rhythm: SR with PVCs 90s - Labs Result Diagrams: 08/15/17 04:00 08/15/17 04:00 Troponin/CKMB CK-MB (CK-2) 69.9 ng/mL (0-6.6) H* 08/10/17 08:01 Troponin I 10.959 ng/mL (< 0.028) H* 08/11/17 10:20 - Assessment/Plan 1. Intra ABD hemorrhage w/ s/p total 5 units PRBC tx - his Hgb level has been stable since yesterday; Cont. holding OAC and antiplatelet 2. NSTEMI - Medical treatment only at this time due to very high risk despite of cont. increasing CE levels; The pt is asymptomatic at this time; cont. monitor on tele with Ranexa, NGT, Plavix, ASA, and Lovenox. 3. Acute on Chronic Systolic HF with EF 20-25% on 07/30/17 - His O2 Sat stable with extra Lasix IV push today; Will cont. Lasix 20mg IV daily with Kcl 20 mEq daily 5. HTN - Stable with current medication; cont. monitor 6. CMY with AICD - cont. monitor 7. Hyperlipidemia - on Statin med 8. Chronic Diarrhea - Contact Isolation due to C diff antigen positive; on Vancomycin PO for 14 days and PPI; managed by GI service MAR reviewed Review of Systems - Review of Systems Constitutional: reports: no symptoms reported EENTM: reports: no symptoms reported Respiratory: reports: see HPI Cardiac (ROS): reports: no symptoms reported ABD/GI: reports: no symptoms reported : reports: no symptoms reported Musculoskeletal: reports: no symptoms reported Skin: reports: no symptoms reported <Nancy Shaikh - Last Filed: 08/15/17 17:19> Cardiology Progress Note - Objective Vital Signs Temp Pulse Pulse Pulse Resp BP BP 08/15/17 15:41 99.2 F 78 20 08/15/17 13:45 08/15/17 12:01 98.1 F 101 H 20 08/15/17 10:02 97 99 133/71 147/84 H 08/15/17 09:00 98.6 F 102 H 20 08/15/17 08:00 98.6 F 102 H 20 BP Pulse Ox Pulse Ox Pulse Ox 08/15/17 15:41 115/53 L 98 08/15/17 13:45 96 08/15/17 12:01 130/67 94 L 08/15/17 10:02 100 99 08/15/17 09:00 96 08/15/17 08:00 129/76 96 Admit Weight 155 lb 6.814 oz Weight 149 lb 14.629 oz 08/14/17 08/15/17 08/16/17 06:59 06:59 06:59 Intake Total 3311 3251 200 Output Total 2297 3175 Balance 1014 76 200 - Labs Result Diagrams: 08/15/17 13:55 08/15/17 04:00 Troponin/CKMB CK-MB (CK-2) 69.9 ng/mL (0-6.6) H* 08/10/17 08:01 Troponin I 10.959 ng/mL (< 0.028) H* 08/11/17 10:20 - Assessment/Plan Pt. seen and eval. I agree with the A/P by the MECHANICAL TECHNOLOGIST.Nothing new to add from a cardiac standpoint.
[2017-08-15 14:07] LABS: Hematocrit 27.1 % (42.0-52.0)
[2017-08-15] MEDS: Acetaminophen 325 MG TAB PO PRN (14:27)
[2017-08-15] MEDS: Donepezil HCl 10 MG TAB PO SCH (20:23)
[2017-08-15] MEDS: Atorvastatin Calcium 40 MG TAB PO SCH (20:24)
[2017-08-15] MEDS: Temazepam 15 MG CAP PO SCH (20:25)
--- NOTE | 2017-08-15 21:40 | CT ---
CT ABDOMEN AND PELVIS WITHOUT CONTRAST: 08/15/17 Multiple axial tomograms obtained through the abdomen and pelvis without IV enhancement. HISTORY: Intra-abdominal bleeding. Post cholecystectomy one month ago. COMPARISON: Comparison made to recent CT abdomen and pelvis of 08/12/17. FINDINGS: The bilateral pleural effusions are again noted. Left effusion appears slightly smaller today. The ri ght effusion does not appear significantly changed. There are patchy infiltrative changes seen in the anterior right lower lobe and there is atelectasis and/or infiltrative changes in the posterior left lung base. Free fluid/ascites in the abdomen again noted, but not significantly changed from 08/12/17. There is a focal mass-like area of density along the inferior margin of the liver, inferior to the ga llbladder fossa which has been described previously as probable blood clot. This area of density dale s not appear significantly changed from 08/12/17, continuing to measure approximately 5 cm AP dimensi on. Free fluid in the lower abdomen and pelvis is again seen, not significantly changed. The spleen, pancreas, kidneys, aorta are unchanged and unremarkable. On the prior exam, there was a mass-like density in the lower abdomen just above the bladder which wa s contacted with a Giron catheter which measured approximately 5 cm AP dimension. On today's exam, that mass density is again seen, continuing to measure approximately 4.8 to 5 cm AP dimension. However, there is now gas density within this mass. There is a rather thick appearing wall. This would be concerning for an intra-abdom inal abscess. It was more phlegmonous on the prior exam but now exhibits internal gas and fluid type density. The bladder remains contacted with a Giron catheter in place and this abscess abuts the ante rior bladder wall. I would suggest a cystogram type procedure prior to any drainage procedure to ensu re that this does not communicate with the bladder. This may have previously represented a blood clot which has not developed into an intra-abdominal abscess. IMPRESSION: 1. There is a new loculated mass-like density with internal gas in the lower abdomen/pelvis abut ting the bladder. The bladder appears contracted with a Giron catheter in place. Intra-abdominal absc ess is suspected. Recommend cystogram procedure prior to any drainage procedure to assess communicati on with the bladder. 2. The mass-like density along the liver margin on the right inferior to the gallbladder fossa i s unchanged. The free fluid in the abdomen and pelvis is stable. 3. Bilateral pleural effusions again noted as described above. POS: [facility]
[2017-08-15] MEDS: Piperacillin/Tazobactam 3.375 GM in Sodium Chloride 0.9% 100 ML IVPB SCH (23:34)
[2017-08-16 04:58] LABS: #Eosinphils 0.1 thou/uL (0.0-0.7); #Monocytes 0.4 thou/uL (0.11-0.59); #Neutrophils 6.4 thou/uL (1.40-6.50); %Basophils 0.3 % (0.0-1.0); %Eosinophils 1.6 % (0.0-10.0); %Monocytes 5.2 % (0.0-10.0); Hematocrit 27.2 % (42.0-52.0); Mean Platelet Volume 7.6 fL (7.4-10.4); Red Blood Cell (RBC) Count 2.95 mill/uL (4.70-6.10)
[2017-08-16] MEDS ORDERED: Furosemide 20 MG/2 ML VIAL SLOW IVP SCH (05:00)
[2017-08-16] MEDS: Piperacillin/Tazobactam 3.375 GM in Sodium Chloride 0.9% 100 ML IVPB SCH ×4 (05:07→23:37)
[2017-08-16 05:15] LABS: Anion Gap 11 mmol/L (10-20); BUN (Urea Nitrogen) 11 mg/dL (8.4-25.7); Calc. Creatinine Clearance 74 mL/min (70-130); Calcium 8.6 mg/dL (7.8-10.44); Carbon Dioxide 23 mmol/L (23-31); Chloride 109 mmol/L (98-107); Estimated GFR-MDRD Greater than 90
--- NOTE | 2017-08-16 06:36 | PDOC.FM ---
- Subjective Subjective: Pt seen at bedside in NAD, no family at bedside. JESSICA overnight. Pt notes he had some worsening SOB this AM while eating but felt better with oxygen via NC. Pt denies abdominal pain or NVD. - Objective MAR Reviewed: Yes Vital Signs & Weight: Vital Signs (12 hours) Temp Pulse Resp BP Pulse Ox 08/16/17 04:00 99.0 F 108 H 18 129/74 98 08/16/17 00:00 98.6 F 108 H 20 125/64 98 08/15/17 20:00 99.1 F 98 18 98 08/15/17 19:15 99.1 F 98 18 115/64 98 Weight Admit Weight 70.5 kg Weight 70.449 kg Most Recent Monitor Data Heart Rate from ECG 101 NIBP 133/68 NIBP BP-Mean 99 Respiration from ECG 27 SpO2 94 I&O: 08/14/17 08/15/17 08/16/17 06:59 06:59 06:59 Intake Total 3311 3251 1140 Output Total 2297 3175 1700 Balance 1014 76 -560 Result Diagrams: 08/16/17 04:30 08/16/17 04:30 <Jose F Reilly - Last Filed: 08/16/17 08:33> - Objective Vital Signs & Weight: Vital Signs (12 hours) Temp Pulse Resp BP Pulse Ox 08/16/17 11:23 96.5 F L 100 20 133/77 97 08/16/17 08:00 97.8 F 103 H 18 98 08/16/17 07:24 97.8 F 103 H 18 116/62 96 08/16/17 04:00 99.0 F 108 H 18 129/74 98 08/16/17 00:00 98.6 F 108 H 20 125/64 98 Weight Admit Weight 70.5 kg Weight 70.449 kg Most Recent Monitor Data Heart Rate from ECG 101 NIBP 133/68 NIBP BP-Mean 99 Respiration from ECG 27 SpO2 94 I&O: 08/15/17 08/16/17 08/17/17 06:59 06:59 06:59 Intake Total 3251 1140 Output Total 3175 1700 Balance 76 -560 Result Diagrams: 08/16/17 04:30 08/16/17 04:30 <Shona Diaz - Last Filed: 08/16/17 11:43> Phys Exam - Physical Examination Constitutional: NAD HEENT: PERRLA Respiratory: no wheezing minimal bilateral crackles, diminished air exchange bibasilar Cardiovascular: RRR, no significant murmur Gastrointestinal: non-tender, positive bowel sounds mild distention but nonTTP in all quadrants. incisions c/d/i Musculoskeletal: pulses present 1+ pitting ankles BL Neurological: moves all 4 limbs Psychiatric: normal affect, A&O x 3 <Jose F Reilly - Last Filed: 08/16/17 08:33> Dx/Plan (1) Hemorrhage, intraperitoneal Code(s): K66.1 - HEMOPERITONEUM Status: Acute Plan: -pt improving, however, had significant decrease in Hgb s/p lap carter on 07/31. Hgb as low as 6.8 due to intraperitoneal bleed 2/2 anticoagulation following NSTEMI on 08/11. pt has now received a total of 5u pRBC and 1 FFP, most recently pRBC 08/13 evening -Hgb has fluctuated but overall stable at 8.0 this AM -general surgery recommendations greatly appreciated. diet has been advanced. -continue to hold anticoagulation and antiplatelet therapies -on evening of 08/15, we were paged to bedside to examine pt's abdomen as family noticed to be distended. repeat CT abd/pel ordered at that time which shows new loculated abscess-like structure above bladder. Zosyn started at that time. surgery recommendations greatly appreciated -continue to monitor closely (2) NSTEMI (non-ST elevated myocardial infarction) Code(s): I21.4 - NON-ST ELEVATION (NSTEMI) MYOCARDIAL INFARCTION Status: Acute Plan: -NSTEMI with positive cardiac enzymes and ST depression in anteriolateral leads on 08/11 -cardiology on board, recs greatly appreciated -recommend medical management, however, continue to hold anticoagulation/ platelet at this time due to intraperitoneal hemorrhage -SBP consistently 100-110s with HR 90s (3) Chronic systolic (congestive) heart failure Code(s): I50.22 - CHRONIC SYSTOLIC (CONGESTIVE) HEART FAILURE Status: Acute Plan: -acute on chronic exacerbation 2/2 NSTEMI -TTE shows EF 25-30% -continue to monitor extremely closely as pt has received plenty of fluids with multiple transfusions -cardiology following and cont lasix IV daily, recently decreased to 20 mg daily. recommendations greatly appreciated. -continue to monitor strict I/Os -UO ranging 20-45/hr over last 12 hours (4) Acute respiratory failure with hypoxia Code(s): J96.01 - ACUTE RESPIRATORY FAILURE WITH HYPOXIA Status: Resolved Plan: -likely 2/2 CHF exacerbation 2/2 NSTEMI -pt previously requiring O2 via NC but weaned off -O2 sats stable, continue to monitor clinical picture closely (5) Chronic diarrhea of unknown origin Code(s): K52.9 - NONINFECTIVE GASTROENTERITIS AND COLITIS, UNSPECIFIED Status : Chronic Plan: -pt with longstanding hx of chronic diarrhea and followed by Case of GI -recommendations greatly appreciated -initial presentation showed C. diff ag + but toxin negative as well as campylobacter positive -continue with PO Vanc for 14 day course, started on 08/08 (6) HTN (hypertension) Code(s): I10 - ESSENTIAL (PRIMARY) HYPERTENSION Status: Chronic QualifierTitle: Hypertension type: essential hypertension Qualified Code( s): I10 - Essential (primary) hypertension Plan: -currently holding BP meds 2/2 hypotension with acute bleed and CHF exacerbation -stable over last 24 hrs, continue to monitor closely (7) HLD (hyperlipidemia) Code(s): E78.5 - HYPERLIPIDEMIA, UNSPECIFIED Status: Chronic Plan: -continue home atorvastatin (8) Dementia Code(s): F03.90 - UNSPECIFIED DEMENTIA WITHOUT BEHAVIORAL DISTURBANCE Status: Chronic Plan: -continue home aricept - Plan Plan: dispo: Pt stable. With abdominal distention developing yesterday, CT obtained and showed possible loculated abscess above bladder. General surgery recommendations greatly appreciated. Zosyn started. Will continue to monitor closely. <Jose F Reilly - Last Filed: 08/16/17 08:33> Attending Addendum - Attending Addendum I personally evaluated the patient and discussed the management with Dr. Reilly I agree with the History, Examination, Assessment and Plan documented above with any addition or exceptions noted below- Patient without complaints. SOB improved. Afebrile VSS A/O: 1) Anemia- stable, 2) Abdominal distension- CT of abdomen/pelvis with loculated fluid collection near bladder- abscess versus bladder diverticulum; discussed with surgery- plan for CT cystogram today, 3) Chronic diarrhea- stable, 4) Mixed CHF- stable; continue current meds <Shona Diaz - Last Filed: 08/16/17 11:43>
--- NOTE | 2017-08-16 08:56 | PDOC.CTH ---
<Linda Zelaya - Last Filed: 08/16/17 08:56> Cardiology Progress Note - Subjective the pt was seen and examined. No overnight events. No cardiac complaints. Still SOB with movement and require NC for O2 supplement. His stool is more firm this AM. Complains of lower ABD discomfort - Objective Vital Signs Temp Pulse Resp BP Pulse Ox 08/16/17 08:00 97.8 F 103 H 18 98 08/16/17 07:24 97.8 F 103 H 18 116/62 96 08/16/17 04:00 99.0 F 108 H 18 129/74 98 08/16/17 00:00 98.6 F 108 H 20 125/64 98 Admit Weight 155 lb 6.814 oz Weight 155 lb 5 oz 08/15/17 08/16/17 08/17/17 06:59 06:59 06:59 Intake Total 3251 1140 Output Total 3175 1700 Balance 76 -560 - Physical Examination General/Neuro: alert & oriented x3 Neck: no JVD present Lungs: other: (diminished at bases) Heart: RRR Abdomen: soft Extremities: other: (No edema) - Telemetry Telemetry Rhythm: ST 100s - Labs Result Diagrams: 08/16/17 04:30 08/16/17 04:30 Troponin/CKMB CK-MB (CK-2) 69.9 ng/mL (0-6.6) H* 08/10/17 08:01 Troponin I 10.959 ng/mL (< 0.028) H* 08/11/17 10:20 - Assessment/Plan 1. Intra ABD hemorrhage w/ s/p total 5 units PRBC tx - his Hgb level has been stable since 08/14/17; On zosyn for abscess-like structure above bladder by PCP ; Cont. holding OAC and antiplatelet 2. NSTEMI - Medical treatment only at this time due to very high risk despite of elevated CE levels; The pt is asymptomatic at this time; cont. monitor on tele with Ranexa, NGT, Plavix, ASA, and Lovenox. 3. Acute on Chronic Systolic HF with EF 20-25% on 07/30/17 - His O2 Sat stable with extra Lasix IV push today; Will cont. Lasix 20mg IV daily with Kcl 20 mEq daily 5. HTN - Stable with current medication; cont. monitor 6. CMY with AICD - cont. monitor 7. Hyperlipidemia - on Statin med 8. Chronic Diarrhea - Contact Isolation due to C diff antigen positive; on Vancomycin PO for 14 days and PPI; managed by GI service MAR reviewed Review of Systems - Review of Systems Constitutional: reports: no symptoms reported EENTM: reports: no symptoms reported Respiratory: reports: see HPI Cardiac (ROS): reports: no symptoms reported ABD/GI: reports: see HPI : reports: no symptoms reported <Nancy Shaikh - Last Filed: 08/16/17 16:54> Cardiology Progress Note - Objective Vital Signs Temp Pulse Pulse Pulse Resp BP BP 08/16/17 15:17 97.3 F L 98 20 08/16/17 11:23 96.5 F L 100 20 08/16/17 10:53 99 98 133/77 115/67 08/16/17 08:00 97.8 F 103 H 18 08/16/17 07:24 97.8 F 103 H 18 BP Pulse Ox Pulse Ox Pulse Ox 08/16/17 15:17 110/58 L 98 08/16/17 11:23 133/77 97 08/16/17 10:53 95 98 08/16/17 08:00 98 08/16/17 07:24 116/62 96 Admit Weight 133 lb 8 oz Weight 155 lb 5 oz 08/15/17 08/16/17 08/17/17 06:59 06:59 06:59 Intake Total 3251 1140 Output Total 3175 1700 Balance 76 -560 - Labs Result Diagrams: 08/16/17 04:30 08/16/17 04:30 Troponin/CKMB CK-MB (CK-2) 69.9 ng/mL (0-6.6) H* 08/10/17 08:01 Troponin I 10.959 ng/mL (< 0.028) H* 08/11/17 10:20 - Assessment/Plan Pt. seen and eval. by me. I agree with the A/P by the [employer]. Continue diuretics.
[2017-08-16] MEDS: Pancrelipase DR 12000 1 CAP PO SCH ×3 (10:34→18:09)
[2017-08-16] MEDS: Furosemide 20 MG/2 ML VIAL SLOW IVP SCH (10:34)
[2017-08-16] MEDS: FLUoxetine HCl 20 MG CAP PO SCH (10:34)
[2017-08-16] MEDS: Potassium Chloride 20 MEQ TAB PO SCH (10:34)
[2017-08-16] MEDS: Pantoprazole 40 MG VIAL IVP SCH (10:35)
[2017-08-16] MEDS: Megestrol Acetate 40 MG TAB PO SCH ×3 (10:35→20:28)
[2017-08-16] MEDS: Vancomycin HCl 25 MG/ML Oral PO SCH ×4 (10:36→20:27)
[2017-08-16] MEDS: Tamsulosin HCl 0.4 MG CAP PO SCH (10:36)
[2017-08-16] MEDS: Saccharomyces boulardii 250 MG CAP PO SCH (10:36)
[2017-08-16] MEDS: Cholestyramine/Aspartame 4 gm Packet PO SCH ×2 (10:51→21:44)
[2017-08-16] MEDS: Dextrose 5 %-0.45 % NaCl 1,000 ML IV SCH (10:53)
--- NOTE | 2017-08-16 12:21 | CT ---
CT PELVIC CYSTOGRAM: History: Evaluate for diverticular abscess, pelvic abscess, possible fistula. Comparison: None. Technique: CT of the pelvis was performed prior to cystogram, during cystogram, and post cystogram. S agittal and coronal reformatted images are submitted for interpretation. FINDINGS: There is motion degradation in all three sequences. Visualized alimentary canal is unremarkable. There is free fluid in the pelvis, with attenuation coef ficient of 60 Hounsfield units suggesting complex fluid. Fecal material in the distal sigmoid colon/r ectum is noted. There is evidence of diverticulosis in the sigmoid colon. No definite evidence of div erticulitis. On the noncontrast images there is evidence of air within the urinary bladder, presumed to be due to Giron catheterization. There are small pockets of air peripherally which may be in the bladder wall. The possibility of an emphysematous cystitis cannot be excluded. Urology consultation is recommended. On the images with contrast in the bladder, there are small bladder diverticula. There is no evidence of leak or extravasation. On the post drain images, there is no evidence of extraluminal contrast. No evidence of leak or extra vasation. There is mucosal thickening likely due to inadequate distention. There is evidence of air i n the bladder mucosal wall. As stated above, correlation for emphysematous cystitis is recommended. There is bone demineralization. IMPRESSION: 1. No evidence of leak or extravasation. 2. Air in the bladder mucosal wall. Correlate for emphysematous cystitis. 3. Diverticulosis of the sigmoid colon, adjacent to the urinary bladder. There is no evidence of a co lonic vesicular fistula. 4. Complex free fluid in the pelvis. POS: [facility]
--- NOTE | 2017-08-16 14:29 | PDOC.EVN ---
Event Note - Event Note Event Note: Reviewed most recent CT abd/pel after concern for loculated bladder abscess on previous study. Report suggests free air in bladder wall. Discussed case with wildland fire operations specialist urologist and with pt displaying no symptoms and having normal exam - no fever, suprapubic tenderness, dysuria, frequency or urgency - no need to further assess. Pt has already received antibiotics during hospitalization and has urinalysis that showed no evidence of infection. No further workup or treatment necessary at this time.
[2017-08-16 14:48] VITALS: BMI 23.6
[2017-08-16] MEDS ORDERED: Iopamidol 370 76% 50 ML VIAL FS ONE (16:22)
[2017-08-16] MEDS: Atorvastatin Calcium 40 MG TAB PO SCH (20:27)
[2017-08-16] MEDS: Temazepam 15 MG CAP PO SCH (20:28)
[2017-08-16] MEDS: Donepezil HCl 10 MG TAB PO SCH (20:28)
--- NOTE | 2017-08-16 23:43 | PRG ---
DATE OF SERVICE: 08/16/2017 SERVICE: Pulmonary Medicine. INTERVAL HISTORY: The patient is doing fine from a respiratory standpoint. He continues to have per sistent dyspnea. Outside of this, there has been no interval change to his condition. He remains on room air. Otherwise, his was unremarkable. He continues to have diarrhea. He notes that if anything, it is increasing. PHYSICAL EXAMINATION: VITAL SIGNS: Afebrile, pulse 98, blood pressure 133/77, respirations 20, saturation 97% on 2 liters nasal cannula. GENERAL: Awake and alert, no apparent distress. LUNGS: Decent air entry. Dependent crackles are minimal. HEART: Normal rate, regular. ABDOMEN: Soft, nontender, nondistended. Bowel sounds positive. MUSCULOSKELETAL: No cyanosis or clubbing. There is trace to 1+ pitting in the bilateral lower extre mities. NEUROLOGIC: Grossly nonfocal. LABORATORY DATA: WBC 8.0, hemoglobin 9.0. Platelets 209,000. INR 1.2. PH 7.45, pCO2 of 33, pO2 of 84.1. Basic metabolic profile is completely unremarkable. Urinalysis is negative. Stool studies a re essentially unremarkable. He does have a Clostridium difficile antigen that is positive, but toxi n is negative. IMAGING: CT of the pelvis demonstrates no evidence of leak or extravasation. There is air in the bl adder mucosal wall. Diverticulosis of the sigmoid colon is present. There is no evidence of a colon ic vesicular fistula. Complex free fluid in the pelvis. ASSESSMENT: 1. Acute hypoxic respiratory failure, resolved. 2. Acute blood loss anemia. 3. Clostridium difficile infection, recurrent, possible. 4. Intra-abdominal abscess, suspected. 5. Non-ST elevation myocardial infarction. 6. Chronic systolic and diastolic heart failure. 7. Chronic diarrhea. PLAN: We will continue supportive care including antibiotics and steroids. Volume status needs to b e watched closely and if gets too terribly volume up, p.r.n. doses of Lasix should be continued. Cri tical care will continue to follow while he remains in this location, but truth be told, he is stable for transition out of the [facility].
[2017-08-17 05:11] LABS: #Eosinphils 0.1 thou/uL (0.0-0.7); #Monocytes 0.4 thou/uL (0.11-0.59); #Neutrophils 5.6 thou/uL (1.40-6.50); %Basophils 0.5 % (0.0-1.0); %Eosinophils 1.8 % (0.0-10.0); %Lymphocytes 14.3 % (21.0-51.0); %Monocytes 5.8 % (0.0-10.0); Hematocrit 26.9 % (42.0-52.0); Mean Platelet Volume 7.8 fL (7.4-10.4); Red Blood Cell (RBC) Count 2.93 mill/uL (4.70-6.10); White Blood Cell (WBC) Count 7.2 thou/uL (4.8-10.8)
[2017-08-17 05:27] LABS: Anion Gap 10 mmol/L (10-20); BUN (Urea Nitrogen) 12 mg/dL (8.4-25.7); Calc. Creatinine Clearance 66 mL/min (70-130); Calcium 8.4 mg/dL (7.8-10.44); Carbon Dioxide 26 mmol/L (23-31); Chloride 107 mmol/L (98-107); Estimated GFR-MDRD 85
[2017-08-17] MEDS: Piperacillin/Tazobactam 3.375 GM in Sodium Chloride 0.9% 100 ML IVPB SCH (05:45)
--- NOTE | 2017-08-17 05:54 | PDOC.FM ---
- Subjective Subjective: Pt seen at bedside in NAD. JESSICA overnight. - Objective MAR Reviewed: Yes Vital Signs & Weight: Vital Signs (12 hours) Temp Pulse Resp BP Pulse Ox 08/17/17 04:00 98.0 F 100 18 105/59 L 93 L 08/17/17 00:00 98.1 F 100 20 109/62 93 L 08/16/17 20:00 98.1 F 98 18 95 08/16/17 19:00 98.1 F 98 18 112/59 L 95 Weight Admit Weight 60.555 kg Weight 70.449 kg Most Recent Monitor Data Heart Rate from ECG 101 NIBP 133/68 NIBP BP-Mean 99 Respiration from ECG 27 SpO2 94 I&O: 08/15/17 08/16/17 08/17/17 06:59 06:59 06:59 Intake Total 3251 1140 950 Output Total 3175 1700 3100 Balance 50 -480 -5025 Result Diagrams: 08/17/17 04:50 08/17/17 04:50 <Jose F Reilly - Last Filed: 08/17/17 08:01> - Objective Vital Signs & Weight: Vital Signs (12 hours) Temp Pulse Resp BP Pulse Ox 08/17/17 08:00 98.5 F 93 20 95 08/17/17 07:00 98.5 F 93 20 98/60 93 L 08/17/17 04:00 98.0 F 100 18 105/59 L 93 L 08/17/17 00:00 98.1 F 100 20 109/62 93 L Weight Admit Weight 60.555 kg Weight 68.294 kg Most Recent Monitor Data Heart Rate from ECG 101 NIBP 133/68 NIBP BP-Mean 99 Respiration from ECG 27 SpO2 94 I&O: 08/16/17 08/17/17 08/18/17 06:59 06:59 06:59 Intake Total 1140 1510 Output Total 1700 3550 Balance -750 -0504 Result Diagrams: 08/17/17 04:50 08/17/17 04:50 <Magalis Martines - Last Filed: 08/17/17 11:13> Phys Exam - Physical Examination Constitutional: NAD HEENT: PERRLA Respiratory: no wheezing mild bibasilar crackles Cardiovascular: RRR, no significant murmur Gastrointestinal: non-tender, no distention, positive bowel sounds Musculoskeletal: pulses present 1+ pitting BL ankles Neurological: non-focal, moves all 4 limbs Psychiatric: normal affect, A&O x 3 <Jose F Reilly M - Last Filed: 08/17/17 08:01> Dx/Plan (1) Hemorrhage, intraperitoneal Code(s): K66.1 - HEMOPERITONEUM Status: Acute Plan: -pt improving, however, had significant decrease in Hgb s/p lap carter on 07/31. Hgb as low as 6.8 due to intraperitoneal bleed 2/2 anticoagulation following NSTEMI on 08/11. pt has now received a total of 5u pRBC and 1 FFP, most recently pRBC 08/13 evening -Hgb has fluctuated but overall stable at 8.0 this AM -general surgery recommendations greatly appreciated. diet has been advanced. -continue to hold anticoagulation and antiplatelet therapies -on evening of 08/15, we were paged to bedside to examine pt's abdomen as family noticed to be distended. repeat CT abd/pel ordered at that time which shows new loculated abscess-like structure above bladder. Zosyn started at that time. surgery recommendations greatly appreciated -repeat CT was obtained with bladder contrast to further assess. results showed likely bladder diverticula, therefore, Zosyn has been discontinued -H/H has continued to be stable -continue to monitor closely (2) NSTEMI (non-ST elevated myocardial infarction) Code(s): I21.4 - NON-ST ELEVATION (NSTEMI) MYOCARDIAL INFARCTION Status: Resolved Plan: -NSTEMI with positive cardiac enzymes and ST depression in anteriolateral leads on 08/11 -cardiology on board, recs greatly appreciated -recommend medical management, however, continue to hold anticoagulation/ platelet at this time due to intraperitoneal hemorrhage -SBP consistently 100-110s with HR 90s (3) Chronic systolic (congestive) heart failure Code(s): I50.22 - CHRONIC SYSTOLIC (CONGESTIVE) HEART FAILURE Status: Acute Plan: -acute on chronic exacerbation 2/2 NSTEMI -TTE shows EF 25-30% -continue to monitor extremely closely as pt has received plenty of fluids with multiple transfusions -cardiology following and cont lasix IV daily, recently decreased to 20 mg daily. recommendations greatly appreciated. -continue to monitor strict I/Os -UO ranging ~30cc/hr over last 12 hours (4) Acute respiratory failure with hypoxia Code(s): J96.01 - ACUTE RESPIRATORY FAILURE WITH HYPOXIA Status: Resolved Plan: -likely 2/2 CHF exacerbation 2/2 NSTEMI -pt previously requiring O2 via NC but weaned off -O2 sats stable, continue to monitor clinical picture closely (5) Chronic diarrhea of unknown origin Code(s): K52.9 - NONINFECTIVE GASTROENTERITIS AND COLITIS, UNSPECIFIED Status : Chronic Plan: -pt with longstanding hx of chronic diarrhea and followed by Dr. Bower of GI -recommendations greatly appreciated -initial presentation showed C. diff ag + but toxin negative as well as campylobacter positive -continue with PO Vanc for 14 day course, started on 08/08 (6) HTN (hypertension) Code(s): I10 - ESSENTIAL (PRIMARY) HYPERTENSION Status: Chronic QualifierTitle: Hypertension type: essential hypertension Qualified Code( s): I10 - Essential (primary) hypertension Plan: -currently holding BP meds 2/2 hypotension with acute bleed and CHF exacerbation -stable over last 24 hrs, continue to monitor closely (7) HLD (hyperlipidemia) Code(s): E78.5 - HYPERLIPIDEMIA, UNSPECIFIED Status: Chronic Plan: -continue home atorvastatin (8) Dementia Code(s): F03.90 - UNSPECIFIED DEMENTIA WITHOUT BEHAVIORAL DISTURBANCE Status: Chronic Plan: -continue home aricept - Plan Plan: dispo: Pt stable and doing well. Repeat CT on 08/16 showed bladder diverticula. Specialist recommendations greatly appreciated. Discussions with family have led to pt likely transitioning to swing bed upon discharge, pending approval. Continue to monitor. Case management assistance greatly appreciated. Pt can likely be discharged upon swing bed approval. <Jose F Reilly - Last Filed: 08/17/17 08:01> Attending Addendum - Attending Addendum I personally evaluated the patient and discussed the management with Dr. Reilly. I agree with the History, Examination, Assessment and Plan documented above with any addition or exceptions noted below. The patient has done well overnight. He does not want inpatient rehab or swing bed placement. The patient's oxygen will be turned off and sats checked. If he remains stable, he will be discharged home with family who have arranged to be with him 24 hours a day. He has follow-up with me on 11/29/17. Home health will resume with [facility] at discharge. <Magalis Martines - Last Filed: 08/17/17 11:13>
[2017-08-17] MEDS: Vancomycin HCl 25 MG/ML Oral PO SCH (08:35)
[2017-08-17] MEDS: Pantoprazole 40 MG VIAL IVP SCH (08:35)
[2017-08-17] MEDS: Cholestyramine/Aspartame 4 gm Packet PO SCH (08:36)
[2017-08-17] MEDS: Potassium Chloride 20 MEQ TAB PO SCH (08:37)
[2017-08-17] MEDS: Megestrol Acetate 40 MG TAB PO SCH (08:37)
[2017-08-17] MEDS: Saccharomyces boulardii 250 MG CAP PO SCH (08:37)
[2017-08-17] MEDS: FLUoxetine HCl 20 MG CAP PO SCH (08:37)
[2017-08-17] MEDS: Furosemide 20 MG/2 ML VIAL SLOW IVP SCH (08:37)
[2017-08-17] MEDS: Tamsulosin HCl 0.4 MG CAP PO SCH (08:37)
[2017-08-17] MEDS: Pancrelipase DR 12000 1 CAP PO SCH (08:38)
[2017-08-17 11:11] VITALS: BP 96/61; TEMP 98.2
--- NOTE | 2017-08-17 12:29 | PRG ---
DATE OF SERVICE: 08/17/2017 SUBJECTIVE: Flex Johnston is seen today for Dr. Jackson and Dr. Espinosa. The patient is doing well. He has not had any nausea or vomiting. He did not eat his lunch because he does not like the food. He is waiting to go home to eat. Discharge orders are pending. OBJECTIVE: VITAL SIGNS: Temperature 98.2 degrees, pulse 94 and blood pressure 96/61. LUNGS: Clear to auscultation. CARDIAC: Regular rate and rhythm without murmur or gallop. ABDOMEN: Soft and nontender. No masses. LABORATORY DATA: White count 7 and hemoglobin 8.8. Basic metabolic profile is normal. ASSESSMENT AND PLAN: The patient is doing well. At this point, I will see him. He will follow up w rizwan Jackson as an outpatient. Please call if needed.
--- NOTE | 2017-08-18 10:50 | DIS-2 ---
DATE OF ADMISSION: 08/07/2017 DATE OF DISCHARGE 08/17/2017 RESIDENT: Dr. Jose F Reilly. ADMITTING ATTENDING: Dr. Stanton Josue. DISCHARGE ATTENDING: Dr. Magalis Martines CONSULTATIONS: 1. Surgery, Dr. Espinosa. 2. Pulmonology, Dr. Sean Benites. 3. Gastroenterology, Dr. Capo Bower. 4. Cardiology, Dr. Bridgett Shaikh. PROCEDURES: 1. CT abdomen and pelvis performed on 08/07/2017 showed small right and tiny left pleural effusion, free air in the abdomen, a small amount of free fluid in the pelvis. 2. Chest x-ray performed on 08/07/2017 showed no acute process. 3. Transthoracic echocardiogram performed on 08/07/2017 showed ejection fraction of 25-30% with a restrictive filling pattern, hypokinetic inferoposterior wall, hypokinetic anterior wall, dyskinetic septal wall and a mildly dilated left atrium with pacemaker leads seen in the right atrial cavity. 4. Chest x-ray performed on 08/08/2017 showed chronic findings that were stable. 5. CT abdomen and pelvis from 08/11/2017 showed a blood clot within the gallbladder fossa with moderate volume of intramural fluid which measured greater than fluid attenuation likely secondary to hemorrhage, evidence of recent cholecystectomy and no nephrolithiasis. 6. CT abdomen and pelvis was performed on 08/15/2016 showed a new loculated mass-like density in the lower abdomen abutting the bladder with concern for a loculated abscess. 7. CT pelvis with contrast showed no evidence of leak from the bladder, bladder diverticula and some free fluid in the pelvis. 8. Right subclavian central line was placed by Dr. Espinosa on 08/12/2017. PRIMARY DIAGNOSES: 1. Normocytic anemia secondary to intraperitoneal hemorrhage following anticoagulation therapy for NSTEMI. 2. Bladder diverticula. 3. 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 4. Non-ST elevation myocardial infarction, resolved. 5. 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 6. History of coronary artery disease. 7. Hyperlipidemia. 8. Hypertension. 9. Acute hypoxic respiratory failure, resolved. 10. Acute kidney injury, resolved. DISCHARGE MEDICATIONS: 1. Fluoxetine 60 mg p.o. daily. 2. Megace 40 mg p.o. t.i.d. 3. Pancrelipase 1 capsule p.o. t.i.d. with meals. 4. Phosphorus packets p.o. b.i.d. 5. Potassium chloride 20 mEq p.o. q.a.m. with meals. 6. Florastor 250 mg p.o. daily. 7. Vancomycin 125 mg p.o. q.i.d. to complete 14-day course. 8. Tamsulosin 0.4 mg p.o. daily. 9. Donepezil 10 mg p.o. at bedtime. 10. Ranexa 1000 mg p.o. b.i.d. 11. Atorvastatin 80 mg p.o. at bedtime. 12. Furosemide 40 mg p.o. daily. 13. Temazepam 15 mg p.o. at bedtime. 14. Pantoprazole 40 mg p.o. daily. DISCONTINUED MEDICATIONS: 1. Clopidogrel 75 mg p.o. daily. 2. Aspirin 81 mg p.o. daily. 3. Lisinopril 5 mg p.o. daily. 4. Carvedilol 6.25 mg p.o. b.i.d. HISTORY OF PRESENT ILLNESS AND HOSPITAL COURSE: The patient is a very pleasant 82-year-old male who initially presented with nausea, diarrhea, and vomiting following a recent laparoscopic cholecystectomy performed by Dr. Ric Jackson on 07/31/2017. The patient was found to be in an acute CHF exacerbation and also acute hypoxic respiratory failure requiring supplemental oxygen. The patient was observed in the Critical Care Unit and further worked up. The patient was found to have a new anemia that was found to be secondary to an intraperitoneal hemorrhage as described above. The patient ultimately required a total of 5 units of packed red blood cells and 1 unit of fresh frozen plasma to stabilize his hemoglobin which was 8.6 on the day of discharge. The patient was also thought to have a chronic C. diff infection and was seen by Dr. Bower who he follows up with outpatient and was started on a 14-day course of oral vancomycin. With his CHF exacerbation and acute hypoxic respiratory failure, the patient also experienced an NSTEMI. It was thought that the therapeutic Lovenox given for his NSTEMI precipitated his intraperitoneal hemorrhage. The patient therefore had his blood thinners held even at discharge including Plavix, aspirin and Lovenox. Due to concerns of hypotension through his hospital stay, the patient also had his antihypertensive medications held. The patient continued to make good progress with physical therapy and had a good support system at home and was deemed stable for discharge with close follow up with his primary care physician. The patient's hospital course was otherwise uncomplicated. DISPOSITION: Guarded. DISCHARGE INSTRUCTIONS: 1. Location: Home with home health. 2. Diet: Heart healthy. 3. Activity: As tolerated. 4. Followup: The patient was instructed to follow up with primary care physician, Dr. Magalis Martines within 1 week. The patient was also urged to follow up with General Surgery, Dr. Ric Jackson for routine postoperative care. The patient is to also follow up with his shear setter, Dr. Bower for his chronic diarrhea. The patient has already had home health set up and will resume with physical therapy. BERNARDO
== END 2017-08-17 13:01 | disposition home health service (06) | DRG 371 ==
LOC: ERS 12:58 → 2NO 15:39 → IMCU/EMU 08-10 09:25 → CCU 08-12 09:06 → IMCU/EMU 08-15 07:31
PROVIDERS: ADMIT Student in an Organized Health Care Education/Training Program; ATTEND Student in an Organized Health Care Education/Training Program
PROC: 30233N1 Transfusion of Nonautologous Red Blood Cells into Peripheral Vein, Percutaneous Approach (ICD-10-PCS; 2017-08-11)
PROC: 02HV33Z Insertion of Infusion Device into Superior Vena Cava, Percutaneous Approach (ICD-10-PCS; principal; 2017-08-12)
PROC: 30233K1 Transfusion of Nonautologous Frozen Plasma into Peripheral Vein, Percutaneous Approach (ICD-10-PCS; 2017-08-12)
DX: A04.71 Enterocolitis due to Clostridium difficile, recurrent (principal); R57.8 Other shock; J96.01 Acute respiratory failure with hypoxia; I21.4 Non-ST elevation (NSTEMI) myocardial infarction; N17.9 Acute kidney failure, unspecified; K66.1 Hemoperitoneum; R64 Cachexia; I42.9 Cardiomyopathy, unspecified; N18.3 Chronic kidney disease, stage 3 (moderate); I13.0 Hypertensive heart and chronic kidney disease with heart failure and stage 1 through stage 4 chronic kidney disease, or unspecified chronic kidney disease; D62 Acute posthemorrhagic anemia; I50.42 Chronic combined systolic (congestive) and diastolic (congestive) heart failure; D68.32 Hemorrhagic disorder due to extrinsic circulating anticoagulants; I95.9 Hypotension, unspecified; E86.0 Dehydration; Z95.1 Presence of aortocoronary bypass graft; E78.5 Hyperlipidemia, unspecified; E87.6 Hypokalemia; K21.9 Gastro-esophageal reflux disease without esophagitis; Z95.5 Presence of coronary angioplasty implant and graft; Z95.810 Presence of automatic (implantable) cardiac defibrillator; N32.3 Diverticulum of bladder; A04.5 Campylobacter enteritis; I25.10 Atherosclerotic heart disease of native coronary artery without angina pectoris; I73.9 Peripheral vascular disease, unspecified; T45.515A Adverse effect of anticoagulants, initial encounter; F03.90 Unspecified dementia, unspecified severity, without behavioral disturbance, psychotic disturbance, mood disturbance, and anxiety; Z68.21 Body mass index [BMI] 21.0-21.9, adult
CPT/HCPCS: 36415; 36430; 71010; 72193; 74176; 74177; 80048; 80053; 81003; 82274; 82550; 82553; 82565; 82607; 82705; 82728; 82747; 82805; 83010; 83540; 83550; 83605; 83630; 83690; 83735; 83880; 84100; 84484; 85014; 85018; 85025; 85046; 85049; 85610; 85730; 86850; 86900; 86901; 87015; 87040; 87045; 87046; 87081; 87206; 87324; 87328; 87329; 87449; 87493; 87798; 87899; 93005; 93010; 93306; 93798; 96361; 96374; A4216; C1751; C9113; J1650; J1940; J2405; J2543; J3475; J3480; J7050; P9016; P9059; S0179

== ENCOUNTER 2017-08-18 11:48 | Inpatient (IN) | payer MEDICARE ==
[2017-08-18 12:55] LABS: #Eosinphils 0.1 thou/uL (0.0-0.7); #Lymphocytes 0.7 thou/uL (1.20-3.40); #Monocytes 0.3 thou/uL (0.11-0.59); #Neutrophils 4.5 thou/uL (1.40-6.50); %Basophils 0.3 % (0.0-1.0); %Eosinophils 1.1 % (0.0-10.0); %Lymphocytes 11.9 % (21.0-51.0); %Monocytes 6.1 % (0.0-10.0); Hematocrit 32.9 % (42.0-52.0); Mean Platelet Volume 7.9 fL (7.4-10.4); Red Blood Cell (RBC) Count 3.56 mill/uL (4.70-6.10); White Blood Cell (WBC) Count 5.6 thou/uL (4.8-10.8)
[2017-08-18 13:19] LABS: ALT (SGPT) 11 U/L (8-55); AST (SGOT) 11 U/L (5-34); Alkaline Phosphatase 51 U/L (40-150); Anion Gap 11 mmol/L (10-20); BUN (Urea Nitrogen) 10 mg/dL (8.4-25.7); Bilirubin, Total 0.9 mg/dL (0.2-1.2); CK (CPK) 44 U/L (30-200); Calc. Creatinine Clearance 0 mL/min (70-130); Calcium 8.9 mg/dL (7.8-10.44); Carbon Dioxide 25 mmol/L (23-31); Chloride 107 mmol/L (98-107); Estimated GFR-MDRD 82; Globulin 3.2 g/dL (2.4-3.5); Lipase 85 U/L (8-78); Protein, Total 6.2 g/dL (5.8-8.1)
[2017-08-18 13:27] LABS: Troponin I 0.564 ng/mL (< 0.028)
[2017-08-18] MEDS ORDERED: Furosemide 40 MG/4 ML VIAL ONE (14:09)
[2017-08-18] MEDS ORDERED: Nitroglycerin 2% Ointment 1 INCH/1 GM Packet ONE (14:09)
--- NOTE | 2017-08-18 14:42 | RAD ---
PORTABLE UPRIGHT FRONTAL CHEST RADIOGRAPH: Date: 08/18/17 COMPARISON: 08/12/17. HISTORY: Difficulty breathing, recent gallbladder surgery. FINDINGS: There is mild pulmonary vascular prominence. There is perihilar and infrahilar interstitial prominenc e on the right. There is elevation of the right hemidiaphragm with blunting of the right costophrenic angle suggesting small volume right pleural fluid. Stable sternotomy wires. Mild linear density noted in left lung base with blunting of the left costophrenic angle. IMPRESSION: Perihilar interstitial prominence with probable small bilateral pleural effusions and nonspecific haz y air space disease in right lung base. Findings may be on the basis of pulmonary edema or infectious pneumonitis. Recommend follow-up PA and lateral chest imaging following treatment. POS: [facility]
[2017-08-18 16:10] LABS: Troponin I 0.589 ng/mL (< 0.028)
[2017-08-18 16:14] LABS: Sodium 139 mmol/L (135-148)
[2017-08-18 16:15] LABS: Modified Allen's Test POSITIVE; Vent NO
[2017-08-18 16:16] LABS: Mode NC 2 LPM
[2017-08-18] MEDS ORDERED: Acetaminophen 325 MG TAB PO PRN (16:44)
[2017-08-18] MEDS ORDERED: ISOVUE-370 76%-LOCM 1 ML ONE (17:04)
[2017-08-18 17:45] VITALS: BMI 20.7
--- NOTE | 2017-08-18 19:12 | CT ---
CT ARTERIOGRAM CHEST WITH IV CONTRAST AND 3D MIP IMAGIN08/18/17 HISTORY: Dyspnea. Recent gallbladder surgery. FINDINGS: There is good contrast opacification of the pulmonary arteries. Contrast has not yet reached the aort a. There is calcification in the arterial structures. Bilateral pleural fluid is present right greate r than left. Atelectasis is apparent at each lung base. Ill-defined infiltrates involve each upper lo be with additional interstitial thickening. No evidence of pneumothorax. IMPRESSION: 1. No CT evidence of pulmonary embolus. 2. Bilateral pleural fluid with bibasilar atelectasis, right greater than left. 3. Nonspecific pneumonitis involving each upper lobe, favored to be stable when compared to CT a bdomen exam from 01/06/15. This may be related to chronic interstitial lung disease. POS: [facility]
[2017-08-18 19:17] LABS: Troponin I 0.612 ng/mL (< 0.028)
[2017-08-18] MEDS ORDERED: Potassium Chloride 20 MEQ TAB PO SCH (19:30)
[2017-08-18] MEDS: Vancomycin HCl 25 MG/ML Oral PO SCH (21:21)
[2017-08-18] MEDS: Megestrol Acetate 40 MG TAB PO SCH (21:22)
[2017-08-18] MEDS: Temazepam 15 MG CAP PO SCH (21:22)
[2017-08-18] MEDS: Atorvastatin Calcium 40 MG TAB PO SCH (21:24)
[2017-08-18 21:58] LABS: Critical Call Chem Troponin I RESULT DECREASING
--- NOTE | 2017-08-19 01:17 | HP ---
DATE OF SERVICE: 08/18/2017 CHIEF COMPLAINT: Shortness of breath. HISTORY OF PRESENT ILLNESS: The patient is an 82-year-old, male, who was discharged from [facility] yesterday following prolonged hospitalization with nausea, vomiting and diarrhea, then [place] , then he was noted to be anemic and was found to have bleeding from a previous surgical site and als o had episodes of acute pulmonary edema requiring increased Lasix doses. The patient was discharged home yesterday and notes that he was tired when he went home, but slept most of the day and is finer. Overnight, he started feeling more short of breath and this morning woke up and was having increase d work of breathing and states that he was worried to the point that he told his family. Home health nurse came out to evaluate and noted that he was having difficulty breathing, O2 sats were 93%-95% o n room air. The patient was brought back to the ER and noted to have a BNP over 2000. The patient a lso had a right-sided pleural effusion. The patient is being admitted to the telemetry for diuresis and further workup. It should be noted that during his previous hospitalization due to his bleeding, all of his anticoagulants have been stopped. His pleural effusion is only one-sided and hypoxia was of acute onset. Patient will be going down for CTA of the chest to get a better picture of his lung s. He has been started on IV Lasix twice a day. The patient will be recultured with blood and urine cultures. ABG has been ordered. Cardiac enzymes were mildly elevated, but these have been decreasi ng since his heart attack about a week ago. I reviewed and discussed the H&P with Dr. Guo, and repeated the pertinent parts of the exam rogelio norris. Please see his dictation for full history and physical, assessment, and plan.
--- NOTE | 2017-08-19 01:42 | HP-2 ---
DATE: 08/18/2017 at 1500 CODE STATUS: CHEMICAL CODE. PRIMARY CARE PHYSICIAN: Magalis Martines M.D. ATTENDING: Magalis Martines M.D. RESIDENT: Jose F Guo DO HISTORIAN: Family. CHIEF COMPLAINT: Shortness of breath. HISTORY OF PRESENT ILLNESS: Patient was discharged from the hospital yesterday during which time he is admitted for an extended period of time that included chronic diarrhea and NSTEMI and cholecystect radha with intra-abdominal hemorrhage during which period of time he received 5 units of blood. He was discharged from the hospital yesterday. When he got home that evening he was apparently tired and m ay have been short of breath. By the time he woke up in the next morning, he had significant shortne ss of breath that was a new symptom from the hospitalization and since he had been discharged. The lela fuchs's family called today to discuss shortness of breath and was recommended they come to emergenc y room. During in the emergency room, chest x-ray showed a right-sided pleural effusion with a sligh t left-sided pleural effusion plus an increased oxygen need. The patient was admitted for acute resp iratory distress. PAST MEDICAL HISTORY: Includes non-ST elevation myocardial infarction, CHF, dementia, chronic diarrh ea, anemia, hypertension, hyperlipidemia, major depressive anxiety. PAST SURGICAL HISTORY: History of CABG in 1997, status post 4 stents. He has had laparoscopic carter cystectomy. ALLERGIES: CIPRO. MEDICATIONS: Fluoxetine 60 mg daily, Megace 40 mg t.i.d., pancrelipase 1 capsule t.i.d. a.c., Phosp horus p.o. b.i.d., calcium chloride 20 mEq p.o. q.a.m. a.c., Florastor 250 mg every day, vancomycin 1 25 mg p.o. q.i.d., tamsulosin 0.4 mg daily, donepezil 10 mg p.o. at bedtime, Ranexa 1000 mg p.o. b.i. d., atorvastatin 80 mg p.o. daily, Lasix 40 mg every day, temazepam 15 mg p.o. at bedtime, pantoprazo le 40 mg daily, lisinopril 5 mg every day, Coreg 6.25 mg daily. SOCIAL HISTORY: Denies tobacco, alcohol, or drugs. REVIEW OF SYSTEMS: General: Denies fever, chills, change in appetite or weight, no night sweats. Eyes: Denies vision changes or eye pain. ENT: Denies nasal congestion, rhinorrhea. Respiratory: Denies cough, congest ion. Admits to shortness of breath. Cardiovascular: Denies chest pains or palpitations. Gastroint estinal: Denies nausea, vomiting. Admits to diarrhea which is chronic in nature. Denies abdominal pain. Genitourinary: Denies any incontinence, dysuria. Skin: Denies rash or lesions. Musculoskel etal: Denies any pain or tenderness. Neurological: Denies any weakness or numbness. Psychiatric: Denies any anxiety or depression. PHYSICAL EXAMINATION: VITAL SIGNS: Blood pressure 105/68, pulse 96, respiratory rate 25, T-max 97.9, pulse oximetry 95% on room air, current weight 77.1 kilograms. GENERAL: The patient is alert and oriented x3. HEENT: PERRLA. NECK: Supple. CARDIOVASCULAR: Regular rate and rhythm. No murmur or gallops. RESPIRATORY: The patient has increased effort. There are no retractions. LUNGS: Clear bilaterally with decreased lung sounds on the right. ABDOMEN: Soft, nontender, bowel sounds in all 4 quadrants without mass or distention. EXTREMITIES: There is no cyanosis or clubbing. MUSCULOSKELETAL: Structure within normal limits. Tone normal. Muscle strength 5/5. NEUROLOGIC: No focal neurological deficits. Cranial nerves II-XII are grossly intact. LABORATORY DATA: CBC: Hemoglobin 10.8, hematocrit 32.9, white count 5.6, platelets 230. CMP: S[place] um 139, potassium 3.8, chloride 105, bicarbonate 25, BUN 10, creatinine 0.89, glucose 111, calcium 8. 9, total serum protein 6.2, albumin 3.0, AST 11, ALT 11, alkaline phosphatase 51, total bilirubin 0.9 , lipase 85. BNP 2119. Chest x-ray shows bilateral effusions, worse on the right. ASSESSMENT AND PLAN: 1. Acute respiratory distress. Get ABG, repeat chest x-ray in the morning. Get a CTA, rule out pul monary embolism. Supplement O2 as needed. 2. Change in mental status likely secondary to decreased respiratory effort; however, we will get a blood and urine cultures to rule out infectious etiology. 3. Congestive heart failure. Increase his Lasix, fluid restrictions, repeat troponins and monitor h is I and O. 4. Tachypnea secondary to the effusion. Monitor O2 requirement. 5. Hyperlipidemia. Home statin. 6. Coronary artery disease. Continue home statin as above. 7. Anxiety. Continue his home fluoxetine. 8. Gastroesophageal reflux disease. Continue his home Protonix.
[2017-08-19] MEDS: Furosemide 20 MG/2 ML VIAL SLOW IVP SCH ×2 (05:41→13:57)
[2017-08-19] MEDS ORDERED: Furosemide 20 MG/2 ML VIAL SLOW IVP SCH (06:00)
[2017-08-19 06:16] LABS: ALT (SGPT) 10 U/L (8-55); AST (SGOT) 12 U/L (5-34); Alkaline Phosphatase 49 U/L (40-150); Anion Gap 9 mmol/L (10-20); BUN (Urea Nitrogen) 10 mg/dL (8.4-25.7); Bilirubin, Total 0.9 mg/dL (0.2-1.2); Calc. Creatinine Clearance 54 mL/min (70-130); Calcium 8.6 mg/dL (7.8-10.44); Carbon Dioxide 26 mmol/L (23-31); Chloride 107 mmol/L (98-107); Estimated GFR-MDRD 80; Globulin 2.8 g/dL (2.4-3.5); Protein, Total 5.6 g/dL (5.8-8.1)
[2017-08-19] MEDS: Pancrelipase DR 12000 1 CAP PO SCH ×3 (08:57→18:09)
[2017-08-19] MEDS: Vancomycin HCl 25 MG/ML Oral PO SCH ×4 (08:57→20:30)
[2017-08-19] MEDS: FLUoxetine HCl 20 MG CAP PO SCH (08:57)
[2017-08-19] MEDS: Saccharomyces boulardii 250 MG CAP PO SCH (08:58)
[2017-08-19] MEDS: Tamsulosin HCl 0.4 MG CAP PO SCH (08:58)
[2017-08-19] MEDS: Potassium Chloride 20 MEQ TAB PO SCH (08:58)
[2017-08-19] MEDS: Megestrol Acetate 40 MG TAB PO SCH ×3 (08:58→20:30)
--- NOTE | 2017-08-19 10:41 | RAD ---
TWO VIEWS OF THE CHEST: DATE: 08/19/17. COMPARISON: 08/12/17. HISTORY: Right-sided pleural effusion. FINDINGS: There is minimal linear density in the left base suggesting scar and/or volume loss. There is minima l blunting of the left costophrenic angle, improved when compared to 08/12/17 exam. Coronary arteria l calcification and stent material are present as well as midline sternotomy wires and a dual-lead AI CD. There is blunting of the right costophrenic angle with increased density in the right lung base and o bscuration of the right heart border, evidence of right pleural effusion. This appears slightly more prominent than on the 08/12/17 exam. There is nonspecific increased linear interstitial density in the perihilar region on the right which could be on the basis of vascular prominence for mild right p erihilar infiltrate. IMPRESSION: Bilateral pleural effusions, right larger than left, new when compared to 08/07/17 and enlarged on th e right when compared to 08/12/17. POS: [facility]
--- NOTE | 2017-08-19 11:21 | PDOC.FM ---
- Subjective Subjective: Patient reports doing well overnight. Denies CP, SOB, N/V. - Objective MAR Reviewed: Yes Vital Signs & Weight: Vital Signs (12 hours) Temp Pulse Resp BP Pulse Ox 08/19/17 08:50 97.7 F 95 16 110/61 99 08/19/17 03:28 97.7 F 97 16 129/72 Weight Weight 61.235 kg I&O: 08/18/17 08/19/17 08/20/17 06:59 06:59 06:59 Intake Total 350 Output Total 675 Balance -325 Result Diagrams: 08/18/17 12:36 08/19/17 05:28 <Les Ceron - Last Filed: 08/19/17 11:16> - Objective Vital Signs & Weight: Vital Signs (12 hours) Temp Pulse Pulse Pulse Resp BP BP 08/19/17 15:50 97.8 F 89 18 08/19/17 11:46 98 F 91 16 08/19/17 10:25 90 92 116/59 L 128/64 08/19/17 08:50 97.7 F 95 16 BP Pulse Ox Pulse Ox Pulse Ox 08/19/17 15:50 104/57 L 98 08/19/17 11:46 125/65 96 08/19/17 10:25 97 99 08/19/17 08:50 110/61 99 Weight Weight 61.235 kg I&O: 08/18/17 08/19/17 08/20/17 06:59 06:59 06:59 Intake Total 350 480 Output Total 675 Balance -325 480 Result Diagrams: 08/18/17 12:36 08/19/17 05:28 <Magalis Martines - Last Filed: 08/19/17 17:36> Phys Exam - Physical Examination Constitutional: NAD HEENT: moist MMs, oral pharynx no lesions Neck: full ROM Respiratory: no wheezing decreased lung sounds in RLL Cardiovascular: RRR, no significant murmur Gastrointestinal: soft, positive bowel sounds Musculoskeletal: no edema, pulses present Neurological: non-focal, moves all 4 limbs Psychiatric: normal affect, A&O x 3 <Les Ceron - Last Filed: 08/19/17 11:16> Dx/Plan (1) CHF exacerbation Code(s): I50.9 - HEART FAILURE, UNSPECIFIED Status: Acute Plan: based on history of NSTEMI last week and new SOB BNP 2119, last week was 516 continue to manage based on symptoms, O2 via nasal canula and lasix CT shows no sign of PE, however does show pleural effusion R>L (2) Pleural effusion Code(s): J90 - PLEURAL EFFUSION, NOT ELSEWHERE CLASSIFIED Status: Acute Plan: CXR this morning shows improvement of effusion compared to yesterday. Will continue with lasix based on history of CHF and continue to evaluate for signs/ symptoms of CHF exacerbation. WIll plan to manage conservatively and plan for inpt rehab if patient agrees (3) Acute respiratory distress Code(s): R06.03 - ACUTE RESPIRATORY DISTRESS Status: Acute (4) Chronic systolic (congestive) heart failure Code(s): I50.22 - CHRONIC SYSTOLIC (CONGESTIVE) HEART FAILURE Status: Acute (5) Diarrhea Code(s): R19.7 - DIARRHEA, UNSPECIFIED Status: Acute Plan: patient has history of C. diff so we will get C. diff studies (6) GERD (gastroesophageal reflux disease) Code(s): K21.9 - GASTRO-ESOPHAGEAL REFLUX DISEASE WITHOUT ESOPHAGITIS Status: Acute (7) Coronary artery disease Code(s): I25.10 - ATHSCL HEART DISEASE OF [place] CORONARY ARTERY W/O ANG PCTRS Status: Chronic (8) Dementia Code(s): F03.90 - UNSPECIFIED DEMENTIA WITHOUT BEHAVIORAL DISTURBANCE Status: Chronic (9) HLD (hyperlipidemia) Code(s): E78.5 - HYPERLIPIDEMIA, UNSPECIFIED Status: Chronic (10) HTN (hypertension) Code(s): I10 - ESSENTIAL (PRIMARY) HYPERTENSION Status: Chronic QualifierTitle: Hypertension type: essential hypertension Qualified Code( s): I10 - Essential (primary) hypertension (11) Hx of CABG Status: Chronic (12) Encephalopathy acute Code(s): G93.40 - ENCEPHALOPATHY, UNSPECIFIED Status: Resolved <Les Ceron - Last Filed: 08/19/17 11:16> Attending Addendum - Attending Addendum I personally evaluated the patient and discussed the management with Dr. Ceron. I agree with the History, Examination, Assessment and Plan documented above with any addition or exceptions noted below. The patient's breathing is a little improved. He still requires oxygen. Repeat XR this morning. No PE on CT of the Chest. Will continue IV lasix and monitor strict I/O's. The patient will have PT/OT reconsulted. Will likely need inpt rehab vs. SNF/Swing at [place]. Pt with loose stool this morning, stool sent for c. diff <Magalis Martines - Last Filed: 08/19/17 17:36>
[2017-08-19] MEDS: Pantoprazole 40 MG GRANULES PACKET PO SCH (20:29)
[2017-08-19] MEDS: Temazepam 15 MG CAP PO SCH (20:30)
[2017-08-19] MEDS: Atorvastatin Calcium 40 MG TAB PO SCH (20:30)
[2017-08-20] MEDS: Furosemide 20 MG/2 ML VIAL SLOW IVP SCH ×2 (05:36→15:10)
[2017-08-20] MEDS: Pancrelipase DR 12000 1 CAP PO SCH ×3 (09:08→16:30)
[2017-08-20] MEDS: Vancomycin HCl 25 MG/ML Oral PO SCH ×4 (09:09→20:30)
[2017-08-20] MEDS: Tamsulosin HCl 0.4 MG CAP PO SCH (09:09)
[2017-08-20] MEDS: Saccharomyces boulardii 250 MG CAP PO SCH (09:09)
[2017-08-20] MEDS: FLUoxetine HCl 20 MG CAP PO SCH (09:09)
[2017-08-20] MEDS: Potassium Chloride 20 MEQ TAB PO SCH (09:09)
[2017-08-20] MEDS: Megestrol Acetate 40 MG TAB PO SCH ×3 (09:10→20:31)
--- NOTE | 2017-08-20 10:06 | PDOC.FM ---
- Subjective Subjective: Patient reports doing well overnight, no complaints or concerns. Denies CP, SOB , weakness, N/V. Family not at beside so unable to confirm with them. - Objective MAR Reviewed: Yes Vital Signs & Weight: Vital Signs (12 hours) Temp Pulse Resp BP Pulse Ox 08/20/17 08:00 98.4 F 95 18 97 08/20/17 04:00 98.4 F 95 18 113/58 L 97 08/20/17 02:51 98 Weight Weight 63.503 kg I&O: 08/19/17 08/20/17 08/21/17 06:59 06:59 06:59 Intake Total 350 720 360 Output Total 675 Balance -325 720 360 Result Diagrams: 08/18/17 12:36 08/19/17 05:28 <Les Ceron - Last Filed: 08/20/17 10:04> - Objective Vital Signs & Weight: Vital Signs (12 hours) Temp Pulse Pulse Pulse Resp BP BP 08/20/17 11:10 98.4 F 89 18 08/20/17 09:55 88 86 135/65 113/56 L 08/20/17 08:00 97.9 F 84 17 08/20/17 04:00 98.4 F 95 18 BP Pulse Ox 08/20/17 11:10 110/56 L 99 08/20/17 09:55 08/20/17 08:00 135/65 100 08/20/17 04:00 113/58 L 97 Weight Weight 63.503 kg I&O: 08/19/17 08/20/17 08/21/17 06:59 06:59 06:59 Intake Total 350 720 480 Output Total 675 Balance -325 720 480 Result Diagrams: 08/18/17 12:36 08/19/17 05:28 <Magalis Martines - Last Filed: 08/20/17 15:31> Phys Exam - Physical Examination Constitutional: NAD HEENT: moist MMs, oral pharynx no lesions Respiratory: no wheezing, clear to auscultation bilateral Cardiovascular: RRR, no significant murmur Gastrointestinal: soft, non-tender, positive bowel sounds Musculoskeletal: no edema, pulses present Neurological: normal sensation, moves all 4 limbs Psychiatric: normal affect, A&O x 3 <Les Ceron - Last Filed: 08/20/17 10:04> Dx/Plan (1) CHF exacerbation Code(s): I50.9 - HEART FAILURE, UNSPECIFIED Status: Acute Plan: based on history of NSTEMI last week and new SOB BNP 2118, last week was 516 continue to manage based on symptoms, O2 via nasal canula and lasix CT shows no sign of PE, however does show pleural effusion R>L CXR yesterday improved from the day before (2) Pleural effusion Code(s): J90 - PLEURAL EFFUSION, NOT ELSEWHERE CLASSIFIED Status: Acute Plan: CXR this morning shows improvement of effusion compared to yesterday. Will continue with lasix based on history of CHF and continue to evaluate for signs/ symptoms of CHF exacerbation. WIll plan to manage conservatively and plan for inpt rehab if patient agrees (3) Acute respiratory distress Code(s): R06.03 - ACUTE RESPIRATORY DISTRESS Status: Acute (4) Chronic systolic (congestive) heart failure Code(s): I50.22 - CHRONIC SYSTOLIC (CONGESTIVE) HEART FAILURE Status: Acute (5) Diarrhea Code(s): R19.7 - DIARRHEA, UNSPECIFIED Status: Acute Plan: C. diff studies negative (6) GERD (gastroesophageal reflux disease) Code(s): K21.9 - GASTRO-ESOPHAGEAL REFLUX DISEASE WITHOUT ESOPHAGITIS Status: Acute (7) Coronary artery disease Code(s): I25.10 - ATHSCL HEART DISEASE OF [place] CORONARY ARTERY W/O ANG PCTRS Status: Chronic (8) Dementia Code(s): F03.90 - UNSPECIFIED DEMENTIA WITHOUT BEHAVIORAL DISTURBANCE Status: Chronic (9) HLD (hyperlipidemia) Code(s): E78.5 - HYPERLIPIDEMIA, UNSPECIFIED Status: Chronic (10) HTN (hypertension) Code(s): I10 - ESSENTIAL (PRIMARY) HYPERTENSION Status: Chronic QualifierTitle: Hypertension type: essential hypertension Qualified Code( s): I10 - Essential (primary) hypertension (11) Hx of CABG Status: Chronic (12) Physical deconditioning Code(s): R53.81 - OTHER MALAISE Status: Acute Plan: Patient experiencing continued deconditioning from hospitalization last week. Had extensive conversation with patient about the concern his family has for him and their desire for him to be taken care of. Encouraged him to listen to family based on recommendations. Patient agrees to consider these options. Patient reports he is still thinking about his interest for inpatient rehab vs outpt vs nothing. <Les Ceron - Last Filed: 08/20/17 10:04> Attending Addendum - Attending Addendum I personally evaluated the patient and discussed the management with Dr. Ceron. I agree with the History, Examination, Assessment and Plan documented above with any addition or exceptions noted below. The patient is feeling better and breathing easier. Will continue lasix. PT notes improvement in strength. If patient continues to improve, he may be able to discharge home in the coming days instead of rehab. <Magalis Martines - Last Filed: 08/20/17 15:31>
[2017-08-20] MEDS: Pantoprazole 40 MG GRANULES PACKET PO SCH (20:30)
[2017-08-20] MEDS: Temazepam 15 MG CAP PO SCH (20:31)
[2017-08-20] MEDS: Atorvastatin Calcium 40 MG TAB PO SCH (20:31)
[2017-08-21] MEDS: Furosemide 20 MG/2 ML VIAL SLOW IVP SCH ×2 (05:16→14:04)
--- NOTE | 2017-08-21 06:31 | PDOC.FM ---
Addendum entered and electronically signed by Iza Darby DO 08/21/17 18:55: Patient was recently discontinued on BB and ACEI due to hypotension. During this admission continues to be borderline hypotensive. Can consider small dose of ACEI but likely will not tolerate. Will have another discussion with family on the witholding of these meds. Original Note: - Subjective Subjective: Patient is up eating breakfast this morning. Reports he feels much better. He no longer has SOB, cough, or CP. JESSICA overnight. - Objective MAR Reviewed: Yes Vital Signs & Weight: Vital Signs (12 hours) Temp Pulse Resp BP Pulse Ox 08/20/17 20:00 97.0 F L 95 16 97 08/20/17 19:24 97.0 F L 95 16 109/53 L 97 Weight Weight 59.874 kg I&O: 08/19/17 08/20/17 08/21/17 06:59 06:59 06:59 Intake Total 145 314 6765 Output Total 675 650 Balance -325 720 670 Result Diagrams: 08/18/17 12:36 08/19/17 05:28 Radiology Reviewed by me: Yes (bilateral pleural effusions resolved) <Iza Darby - Last Filed: 08/21/17 18:52> - Objective Vital Signs & Weight: Vital Signs (12 hours) Temp Pulse Pulse Pulse Resp BP BP 08/21/17 16:00 98.2 F 90 18 08/21/17 13:15 92 88 148/69 H 116/56 L 08/21/17 12:29 98.0 F 20 08/21/17 12:03 89 133/62 BP Pulse Ox 08/21/17 16:00 119/64 95 08/21/17 13:15 08/21/17 12:29 111/56 L 96 08/21/17 12:03 Weight Weight 59.874 kg I&O: 08/20/17 08/21/17 08/22/17 06:59 06:59 06:59 Intake Total 720 1320 600 Output Total 650 580 Balance 720 670 20 Result Diagrams: 08/18/17 12:36 08/19/17 05:28 <Capo Tomlin - Last Filed: 08/21/17 22:18> Phys Exam - Physical Examination Constitutional: NAD HEENT: moist MMs Neck: no JVD Respiratory: no wheezing, no rales, no rhonchi, clear to auscultation bilateral Cardiovascular: RRR systolic murmur Gastrointestinal: soft, non-tender, positive bowel sounds Musculoskeletal: pulses present Psychiatric: normal affect, A&O x 3 Skin: cap refill <2 seconds <Iaz Darby - Last Filed: 08/21/17 18:52> Dx/Plan - Plan Plan: (1) CHF exacerbation Code(s): I50.9 - HEART FAILURE, UNSPECIFIED Status: Acute Plan: Improved based on history of NSTEMI last week and new SOB BNP 2119, last week was 516 Switch to PO lasix CXR shows pleural effusion resolved. (2) Pleural effusion Code(s): J90 - PLEURAL EFFUSION, NOT ELSEWHERE CLASSIFIED Status: Acute Plan: CXR this morning shows resolution of pleural effusion. Will continue with PO lasix based on history of CHF and continue to evaluate for signs/symptoms of CHF exacerbation. WIll plan to manage conservatively and plan for inpt rehab if patient agrees (3) Acute respiratory distress Code(s): R06.03 - ACUTE RESPIRATORY DISTRESS Status: Resolved Resolved (4) Chronic systolic (congestive) heart failure Code(s): I50.22 - CHRONIC SYSTOLIC (CONGESTIVE) HEART FAILURE Status: Acute See plan for #1 (5) Diarrhea Code(s): R19.7 - DIARRHEA, UNSPECIFIED Status: Acute Plan: C. diff studies negative, will continue treatment for Cdiff for a course of 14 days. Day 13 of 14 PO Vanc. (6) GERD (gastroesophageal reflux disease) Code(s): K21.9 - GASTRO-ESOPHAGEAL REFLUX DISEASE WITHOUT ESOPHAGITIS Status: Acute Continue home meds (7) Coronary artery disease Code(s): I25.10 - ATHSCL HEART DISEASE OF [place] CORONARY ARTERY W/O ANG PCTRS Status: Chronic BP control with current meds (8) Dementia Code(s): F03.90 - UNSPECIFIED DEMENTIA WITHOUT BEHAVIORAL DISTURBANCE Status: Chronic \ Stable (9) HLD (hyperlipidemia) Code(s): E78.5 - HYPERLIPIDEMIA, UNSPECIFIED Status: Chronic continue home meds (10) HTN (hypertension) Code(s): I10 - ESSENTIAL (PRIMARY) HYPERTENSION Status: Chronic QualifierTitle: Hypertension type: essential hypertension Qualified Code( s): I10 - Essential (primary) hypertension Continue home meds (11) Hx of CABG Status: Chronic (12) Physical deconditioning Code(s): R53.81 - OTHER MALAISE Status: Acute Plan: Patient experiencing continued deconditioning from hospitalization last week. Had extensive conversation with patient about the concern his family has for him and their desire for him to be taken care of. Encouraged him to listen to family based on recommendations. Patient agrees to inpatient rehab. CM consulted for options. Prealbumin pending. <Iza Darby - Last Filed: 08/21/17 18:52> Attending Addendum - Attending Addendum I personally evaluated the patient and discussed the management with Dr. Darby. I agree with the History, Examination, Assessment and Plan documented above with any addition or exceptions noted below. Feels well. Is now agreeable to going for rehabilitation stay at inpatient rehab or SNU if/when qualified. Lungs: CTA, CXR shows resolution of his R pleural effusion. Cor: RRR. A: Marked improvement in CHF Exacerbation. P: Continue diursesis and CHF regimen. Arrange for rehab. [facility] <Capo Tomlin - Last Filed: 08/21/17 22:18>
[2017-08-21] MEDS: Tamsulosin HCl 0.4 MG CAP PO SCH (08:15)
[2017-08-21] MEDS: FLUoxetine HCl 20 MG CAP PO SCH (08:15)
[2017-08-21] MEDS: Pancrelipase DR 12000 1 CAP PO SCH ×3 (08:15→17:59)
[2017-08-21] MEDS: Potassium Chloride 20 MEQ TAB PO SCH (08:16)
[2017-08-21] MEDS: Saccharomyces boulardii 250 MG CAP PO SCH (08:16)
[2017-08-21] MEDS: Vancomycin HCl 25 MG/ML Oral PO SCH ×4 (10:30→22:18)
[2017-08-21] MEDS: Megestrol Acetate 40 MG TAB PO SCH ×3 (10:30→22:17)
--- NOTE | 2017-08-21 12:15 | RAD ---
PORTABLE CHEST: Date: 08/21/17 HISTORY: Re-evaluate right pleural effusion. Comparison made to exam of 08/19/17. FINDINGS: Right CP angle is sharper today, indicating decrease in the right pleural effusion. Patient may be po st thoracentesis procedure. There is a linear line seen in the right lung which suggests a pleural surface; however, there are adiel ng markings peripheral to this line which would suggest a skin fold rather than a pneumothorax. Since there is questioned pneumothorax on the right, recommend upright PA chest with inspiration and expir ation. Left lung remains clear and unchanged. Heart and mediastinum unchanged. IMPRESSION: There appears to be decrease in the right pleural effusion. There is a linear line seen in the right lung suggesting a pleural surface; however, lung markings are seen peripheral to this suggesting that this is probably a skin fold. If patient is post thoracentesis, recommend PA views of chest with ins piration/expiration. POS: [facility]
[2017-08-21] MEDS: Atorvastatin Calcium 40 MG TAB PO SCH (22:16)
[2017-08-21] MEDS: Pantoprazole 40 MG GRANULES PACKET PO SCH (22:17)
[2017-08-21] MEDS: Temazepam 15 MG CAP PO SCH (22:18)
[2017-08-22 05:36] LABS: #Basophils 0.1 thou/uL (0.0-0.2); #Eosinphils 0.1 thou/uL (0.0-0.7); #Lymphocytes 1.5 thou/uL (1.20-3.40); #Monocytes 0.4 thou/uL (0.11-0.59); #Neutrophils 2.8 thou/uL (1.40-6.50); %Basophils 1.4 % (0.0-1.0); %Eosinophils 2.8 % (0.0-10.0); %Monocytes 8.3 % (0.0-10.0); Mean Platelet Volume 7.7 fL (7.4-10.4); Red Blood Cell (RBC) Count 4.41 mill/uL (4.70-6.10); White Blood Cell (WBC) Count 4.9 thou/uL (4.8-10.8)
[2017-08-22 06:01] LABS: ALT (SGPT) 9 U/L (8-55); AST (SGOT) 13 U/L (5-34); Alkaline Phosphatase 61 U/L (40-150); Anion Gap 10 mmol/L (10-20); BUN (Urea Nitrogen) 21 mg/dL (8.4-25.7); Bilirubin, Total 0.8 mg/dL (0.2-1.2); Calc. Creatinine Clearance 42 mL/min (70-130); Calcium 9.1 mg/dL (7.8-10.44); Carbon Dioxide 26 mmol/L (23-31); Chloride 103 mmol/L (98-107); Estimated GFR-MDRD 60; Globulin 3.2 g/dL (2.4-3.5); Protein, Total 6.3 g/dL (5.8-8.1)
--- NOTE | 2017-08-22 06:19 | PDOC.FM ---
- Subjective Subjective: Patient doing well this morning. Wants to go home but continues to be agreeable to going to rehab to regain strength. No acute events overnight. No SOB or CP. - Objective MAR Reviewed: Yes Vital Signs & Weight: Vital Signs (12 hours) Temp Pulse Resp BP Pulse Ox 08/22/17 04:15 93 L 08/22/17 04:00 98.1 F 95 16 117/62 93 L 08/22/17 03:51 94 L 08/22/17 00:25 93 L 08/22/17 00:00 98.1 F 93 18 111/58 L 93 L 08/21/17 19:50 98.4 F 92 18 120/61 96 Weight Weight 60.237 kg I&O: 08/20/17 08/21/17 08/22/17 06:59 06:59 06:59 Intake Total 720 1320 600 Output Total 650 580 Balance 720 670 20 Result Diagrams: 08/22/17 05:13 08/22/17 05:13 <Iza Darby - Last Filed: 08/22/17 09:24> - Objective Vital Signs & Weight: Vital Signs (12 hours) Temp Pulse Pulse Pulse Resp BP BP 08/22/17 12:20 97.3 F L 85 18 08/22/17 11:31 96 87 160/76 H 130/65 BP Pulse Ox Pulse Ox Pulse Ox 08/22/17 12:20 122/58 L 97 08/22/17 11:31 97 95 Weight Weight 60.237 kg I&O: 08/21/17 08/22/17 08/23/17 06:59 06:59 06:59 Intake Total 1320 960 Output Total 650 805 Balance 670 155 Result Diagrams: 08/22/17 05:13 08/22/17 05:13 <Capo Tomlin - Last Filed: 08/22/17 21:53> Phys Exam - Physical Examination Constitutional: NAD HEENT: moist MMs Neck: no JVD Respiratory: no wheezing, no rales, no rhonchi, clear to auscultation bilateral Cardiovascular: RRR systolic murmur Gastrointestinal: soft, non-tender, no distention Musculoskeletal: no edema Neurological: moves all 4 limbs Psychiatric: normal affect <Iza Darby - Last Filed: 08/22/17 09:24> Dx/Plan - Plan Plan: CHF exacerbation Code(s): I50.9 - HEART FAILURE, UNSPECIFIED Status: Resolved Plan: Improved based on history of NSTEMI last week and new SOB BNP 2118, last week was 516, pt back at baseline now Switched to PO lasix yesterday and doing well CXR shows pleural effusion resolved. Awaiting placement at inpatient rehab or swing bed in [place]. Pleural effusion Code(s): J90 - PLEURAL EFFUSION, NOT ELSEWHERE CLASSIFIED Status: Resolved Plan: Resolved. Awaiting placement at swing bed in [place]. Chronic systolic (congestive) heart failure Code(s): I50.22 - CHRONIC SYSTOLIC (CONGESTIVE) HEART FAILURE Status: Acute See plan for #1 Diarrhea Code(s): R19.7 - DIARRHEA, UNSPECIFIED Status: Acute Plan: Improved, no more diarrhea. C. diff studies negative, will continue treatment for Cdiff for a course of 14 days. Day 14 of 14 PO Vanc. GERD (gastroesophageal reflux disease) Code(s): K21.9 - GASTRO-ESOPHAGEAL REFLUX DISEASE WITHOUT ESOPHAGITIS Status: Acute Continue home meds Coronary artery disease Code(s): I25.10 - ATHSCL HEART DISEASE OF [place] CORONARY ARTERY W/O ANG PCTRS Status: Chronic BP control with current meds Dementia Code(s): F03.90 - UNSPECIFIED DEMENTIA WITHOUT BEHAVIORAL DISTURBANCE Status: Chronic \ Stable HLD (hyperlipidemia) Code(s): E78.5 - HYPERLIPIDEMIA, UNSPECIFIED Status: Chronic continue home meds HTN (hypertension) Code(s): I10 - ESSENTIAL (PRIMARY) HYPERTENSION Status: Chronic QualifierTitle: Hypertension type: essential hypertension Qualified Code( s): I10 - Essential (primary) hypertension Patient has not been HTN although has hx of this. In his last admission was taken off anti-hypertensives due to hypotension. Patient remains hypotensive and will continue to hold home BP meds. Patient has good follow up with Dr. Martines and will discuss adding these meds back to his regimen with her outpatient. Hx of CABG Status: Chronic Physical deconditioning Code(s): R53.81 - OTHER MALAISE Status: Acute Plan: Patient experiencing continued deconditioning from hospitalization last week. Patient agrees to inpatient rehab. CM consulted for options. Prealbumin wnl. <Iza Darby - Last Filed: 08/22/17 09:24> Attending Addendum - Attending Addendum I personally evaluated the patient and discussed the management with Dr. Darby. I agree with the History, Examination, Assessment and Plan documented above with any addition or exceptions noted below. Feels well. Willing to go to [facility] for Swing Bed SNU for rehab. Lungs CTA, Cor: RRR. No edema. Plan: D/C to [place] for SNU rehab. F/U with PCP Dr. Martines in [place]. <Capo Tomlin - Last Filed: 08/22/17 21:53>
[2017-08-22] MEDS ORDERED: Furosemide 40 MG TAB PO SCH (07:30)
[2017-08-22] MEDS: Tamsulosin HCl 0.4 MG CAP PO SCH (08:24)
[2017-08-22] MEDS: Saccharomyces boulardii 250 MG CAP PO SCH (08:24)
[2017-08-22] MEDS: Potassium Chloride 20 MEQ TAB PO SCH (08:24)
[2017-08-22] MEDS: FLUoxetine HCl 20 MG CAP PO SCH (08:24)
[2017-08-22] MEDS: Pancrelipase DR 12000 1 CAP PO SCH ×2 (08:25→11:55)
[2017-08-22] MEDS: Megestrol Acetate 40 MG TAB PO SCH ×2 (08:25→14:59)
[2017-08-22 08:43] LABS: Magnesium 2.1 mg/dL (1.6-2.6); Phosphorus 3.9 mg/dL (2.3-4.7)
[2017-08-22] MEDS: Vancomycin HCl 25 MG/ML Oral PO SCH ×2 (09:59→12:57)
[2017-08-22 12:50] VITALS: TEMP 97.3
[2017-08-22 15:45] VITALS: BP 160/76
--- NOTE | 2017-08-23 00:30 | DIS-2 ---
DATE OF ADMISSION: 08/18/2017 DATE OF DISCHARGE: 08/22/2017 RESIDENT: Iza Darby DO. ADMITTING ATTENDING: Dr. Magalis Martines. DISCHARGE ATTENDING: Dr. Capo Tomlin. CONSULTS: None. PROCEDURES/IMAGING: A chest x-ray was performed showed perihilar interstitial prominence with probab le small bilateral pleural effusions and nonspecific hazy airspace disease in the right lung base, ev idence of possible pulmonary edema or infectious pneumonitis. A chest thorax CTA was performed as we ll, which showed no evidence of pulmonary embolism and reaffirm the bilateral pleural fluid it was bi basilar atelectasis right greater than left and nonspecific pneumonitis involving each upper lobe, st able compared to CT in 12/2014, likely related to chronic interstitial lung disease. Repeat chest x- rays were performed, which showed a resolving pleural effusion. PRIMARY DIAGNOSIS: Congestive heart failure exacerbation. SECONDARY DIAGNOSES: 1. Pleural effusion. 2. Chronic systolic congestive heart failure. 3. Clostridium difficile diarrhea. 4. Gastroesophageal reflux disease. 5. Coronary artery disease. 6. Dementia. 7. Hyperlipidemia. 8. Hypertension. 9. History of coronary artery bypass grafting. 10. Physical deconditioning. DISCHARGE MEDICATIONS: 1. Atorvastatin 80 mg p.o. at bedtime. 2. Donepezil 10 mg p.o. at bedtime. 3. Fluoxetine 60 mg p.o. daily. 4. Lasix 40 mg p.o. daily. 5. Megace 40 mg p.o. t.i.d. 6. Pancrelipase DR 1 cap p.o. t.i.d. 7. Protonix 40 mg p.o. daily. 8. Phosphorus/electrolytes supplement 1 packet p.o. b.i.d. 9. Potassium chloride 20 mEq p.o. daily. 10. Ranexa 1000 mg p.o. b.i.d. 11. Flomax 0.4 mg p.o. daily. 12. Temazepam 15 mg p.o. at bedtime. DISCONTINUED MEDICATIONS: 1. Lasix 20 mg p.o. daily. 2. Vancomycin 125 mg p.o. q.i.d., finished course for C. difficile. HISTORY OF PRESENT ILLNESS AND HOSPITAL COURSE: The patient is an 82-year-old male that was recently discharged from the hospital on 08/17/2017, during which time, he was admitted for extended period o f time that included chronic diarrhea and NSTEMI and intra-abdominal hemorrhage status post cholecyst ectomy and had received 5 units of blood. He was discharged to the hospital in stable condition, but by that evening started becoming short of breath. The next morning, he came to the hospital, he was found to have a BNP of 2119 whereas his BNP on 08/12/2017 was only 516. Patient did have physical s igns of fluid overload such as bibasilar crackles and lung exam. A chest x-ray was performed as well as a CT, which confirmed pleural effusion and chronic interstitial lung disease. The patient was pl aced on IV Lasix 40 mg b.i.d. and required 2 liters of oxygen. In his past admission had episodes of hypotension and beta jonh and TOSHIA inhibitor were stopped. During this admission, he continues to have low normal blood pressures and spoke with family about risks and benefits and decided to keep h im off those medications for the time being. He diuresed well and had a repeat chest x-ray on 2016, which showed complete resolution of his pleural effusions and was able to wean off the oxygen a nd pass a walking trail without oxygen. PT saw him throughout his stay here and recommended custodial unit versus inpatient rehabilitation. With speaking with the family was agreed upon that a s wing bed in [place] would be appropriate for his discharge. The patient is very adamant and getting h ome and is very determined to get well. A repeat BNP was performed and showed the patient is back to baseline 639.4 on 08/21/2017. Patient's vital signs as well as CBC and CMP were stable throughout h is stay. Other chronic medical conditions were treated with home medications. Patient had been on p .o. vancomycin for a recent C. diff infection and finished his course of antibiotics during this stay and had no signs or symptoms of C. diff at the time of discharge. DISPOSITION: Stable. DISCHARGE INSTRUCTIONS: 1. Location: [facility] swing bed. 2. Diet: Heart healthy, fluid restriction 1800 mL. 3. Activity: As tolerated up with physical therapy. 4. Followup: Pending discharge from rehabilitation with PCP, who will be seeing him in a rehab faci lity.
== END 2017-08-22 15:35 | disposition swing bed (61) | DRG 280 ==
LOC: ERS 11:48 → 2NO 16:42
PROVIDERS: ADMIT Hospitalist; ATTEND Hospitalist
DX: I11.0 Hypertensive heart disease with heart failure (principal); I21.4 Non-ST elevation (NSTEMI) myocardial infarction; G93.40 Encephalopathy, unspecified; J84.9 Interstitial pulmonary disease, unspecified; A04.72 Enterocolitis due to Clostridium difficile, not specified as recurrent; R06.03 Acute respiratory distress; F03.90 Unspecified dementia, unspecified severity, without behavioral disturbance, psychotic disturbance, mood disturbance, and anxiety; Z95.1 Presence of aortocoronary bypass graft; I50.33 Acute on chronic diastolic (congestive) heart failure; F41.9 Anxiety disorder, unspecified; E78.5 Hyperlipidemia, unspecified; I25.10 Atherosclerotic heart disease of native coronary artery without angina pectoris; K21.9 Gastro-esophageal reflux disease without esophagitis; Z90.49 Acquired absence of other specified parts of digestive tract; Z88.1 Allergy status to other antibiotic agents
CPT/HCPCS: 36415; 71010; 71020; 71275; 80053; 82550; 82553; 82805; 83690; 83735; 83880; 84100; 84134; 84484; 85025; 87040; 87086; 87324; 87449; 93005; 93798; 96374; G8978-GP-CK; G8979-GP-CI; G8987-GO-CK; G8988-GO-CJ; J1940; S0179

== ENCOUNTER 2017-09-13 14:44 | Observation (INO) | payer MEDICARE ==
[2017-09-13 16:27] LABS: #Lymphocytes 2.2 thou/uL (1.20-3.40); #Monocytes 0.6 thou/uL (0.11-0.59); #Neutrophils 10.6 thou/uL (1.40-6.50); %Basophils 0.1 % (0.0-1.0); %Eosinophils 0.1 % (0.0-10.0); %Lymphocytes 16.5 % (21.0-51.0); %Monocytes 4.5 % (0.0-10.0); Hematocrit 50.1 % (42.0-52.0); Mean Platelet Volume 8.8 fL (7.4-10.4); White Blood Cell (WBC) Count 13.4 thou/uL (4.8-10.8)
[2017-09-13 16:43] LABS: ALT (SGPT) 42 U/L (8-55); AST (SGOT) 28 U/L (5-34); Alkaline Phosphatase 82 U/L (40-150); Anion Gap 14 mmol/L (10-20); BUN (Urea Nitrogen) 21 mg/dL (8.4-25.7); Bilirubin, Total 1.4 mg/dL (0.2-1.2); Calc. Creatinine Clearance 0 mL/min (70-130); Calcium 9.7 mg/dL (7.8-10.44); Carbon Dioxide 26 mmol/L (23-31); Chloride 103 mmol/L (98-107); Estimated GFR-MDRD 71; Globulin 3.2 g/dL (2.4-3.5); Protein, Total 7.3 g/dL (5.8-8.1)
[2017-09-13 17:58] LABS: PTT 35.4 SEC (22.9-36.1); Prothrombin Time 13.6 SEC (12.0-14.7)
[2017-09-13 18:11] LABS: Troponin I 0.042 ng/mL (< 0.028)
[2017-09-13 18:27] LABS: Bilirubin Small (Negative); Blood, Urine Small (Negative); Glucose, Urine (Dipstick) Negative (Negative); Ketone, Urine Trace mg/dL (Negative); Nitrite Positive (Negative); Protein, Urine (Dipstick) 30 mg/dL (Neg-Trace)
[2017-09-13 18:30] LABS: Bacteria/HPF None Seen HPF (None Seen); Squamous Epithelial None Seen HPF (0-3)
[2017-09-13 18:38] LABS: Hyaline Casts/LPF NONE SEEN LPF (0-3 Hyaline); Yeast-All Forms None Seen HPF (None Seen)
--- NOTE | 2017-09-13 20:21 | CT ---
CT BRAIN 09/13/17 PROVIDED CLINICAL HISTORY: Facial droop. FINDINGS: Comparison 11/07/16. The ventricular system remains prominent on the basis of central atrophy. There is no evidence for in tracranial hemorrhage or mass effect. There is no shift of the midline structures. Minimal chronic mi crovascular ischemic change appears similar to the prior study. The extracranial soft tissues and oss eous structures demonstrate no acute abnormality. IMPRESSION: No evidence for intracranial hemorrhage or mass effect. POS: [facility]
[2017-09-13] MEDS ORDERED: Acetaminophen 325 MG TAB PO PRN (22:32)
[2017-09-13] MEDS ORDERED: Ondansetron ODT 4 MG TAB PO PRN (22:32)
[2017-09-13] MEDS: Sodium Chloride 0.9% 1,000 ML IV SCH (23:04)
--- NOTE | 2017-09-14 00:27 | HP ---
DATE OF ADMISSION: 09/13/2017 ATTENDING PHYSICIAN: Meghana Tony D.O. RESIDENT: Maria A Dean D.O. HISTORY OF PRESENT ILLNESS: Dr. Dean's H&P reviewed and case discussed at length. Pertinent po rtions of the history and physical were repeated by myself. I agree with his assessment and plan wit h the following addendum: Mr. Johnston is a pleasant 82-year-old man with a past medical history of dementia, hypertension, hyper lipidemia, depression, and CHF with the recent past medical history of a cholecystectomy for chronic nausea and diarrhea, and admission one month ago for an NSTEMI, who presents after being sent to the ER from Dr. Bower, the ophthalmic dispenser's office after he was noted to have facial droop. On arriva l to the ER, the patient's facial droop had resolved. On my examination, his neurologic exam is norm al. His cranial nerves II-XII are intact and he is moving all 4 limbs symmetrically with muscle stre ngth 4+/5 in all 4 limbs. History is consistent with a TIA. His ABC score is 5, which predisposes h im to 4% chance of progression to a full stroke in the next [address] him on observati on overnight. Continue his aspirin and consult Neurology in the morning. Pending their recommendati ons, may consider an MRI in the morning for further workup.
--- NOTE | 2017-09-14 06:29 | HP-2 ---
CODE STATUS: Chemical code only. PRIMARY CARE PHYSICIAN: Magalis Martines MD ATTENDING PHYSICIAN: Meghana Tony DO PGY-1: Maria A Dean DO CHIEF COMPLAINT: Facial droop. HISTORY OF PRESENT ILLNESS: This is an 82-year-old male who presented with facial droop with onset around 1:00 p.m. this afternoon, which has since resolved. The granddaughter reports that the patient went to see Dr. Bower's PA today for followup on GI issues and at that time, he was noted to have a facial droop. Since the granddaughter was not present for the appointment, she is uncertain of which side the facial droop presented. The patient is a poor historian secondary to his underlying dementia; however, granddaughter does report similar episodes in the distant past. The patient was not given aspirin due to concerns for bleeding as he was recently admitted approximately 3 weeks ago for a gastrointestinal bleed; however, he has been taking a baby aspirin daily. He did not take it this morning due to nausea and vomiting. Upon arrival to the emergency department, all symptoms had resolved and patient did not present with any facial droop or extremity weakness. PAST MEDICAL HISTORY: 1. Coronary artery disease, status post CABG in 1996. 2. Hyperlipidemia. 3. Systolic congestive heart failure with ejection fraction of 15%. 4. Hypertension. 5. Tremor. 6. Deconditioning. 7. Anxiety. 8. Chronic diarrhea. 9. Dementia. PAST SURGICAL HISTORY: 1. Total hip arthroplasty. 2. CABG in 1996. 3. Pacemaker/defibrillator. 4. Cholecystectomy. ALLERGIES: CIPROFLOXACIN. MEDICATIONS: 1. Ranexa 1000 mg oral extended release b.i.d. 2. Furosemide 20 mg oral daily. 3. Carvedilol 6.25 mg oral b.i.d. 4. Pantoprazole 40 mg daily. 5. Fluoxetine 60 mg daily. 6. Ecotrin low strength 81 mg oral tablet, delayed release daily. 7. Atorvastatin 80 mg daily. 8. Restoril 50 mg daily. 9. Lisinopril 5 mg daily. 10. Donepezil 10 mg daily. 11. Tamsulosin 0.4 mg daily. 12. Zofran ODT 4 mg oral tablet disintegrating q.6 hours as needed. 13. Florastor 250 mg oral capsule p.o. daily. 14. Creon 12,000 unit oral capsule delayed release particles 1 p.o. t.i.d. with meals. 15. Dronabinol 5 mg oral capsule b.i.d. FAMILY HISTORY: Noncontributory. SOCIAL HISTORY: The patient is a former smoker. Based on prior records, he does not drink alcohol or use drugs. Of note, he does have home health services with PT, and his basline for gait stability includes walking with a cane. REVIEW OF SYSTEMS: A 12-point review of systems was performed, all were negative except as listed in the HPI and as indicated below. Patient does endorse decreased appetite and associated nausea and vomiting, which is being worked up by GI. He also has chronic diarrhea and a history of C. difficile colitis in the past. The patient endorses some weakness and he does have an ulcer on his sacrum per the granddaughters. PHYSICAL EXAMINATION: VITAL SIGNS: Blood pressure 139/81, pulse 78, respiratory rate 18, T-max 97.5, pulse ox 97% on room air, current weight 55 kilograms. GENERAL: The patient is alert and oriented x2, does not appear to be in any distress. He is developed and then he is pleasantly demented. EYES: Pupils equally round, reactive to light and accommodation. Extraocular muscles are intact. Conjunctivae within normal limits. ENT: Nasal mucosa within normal limits. NECK: Supple without lymphadenopathy. CARDIOVASCULAR: Regular rate and rhythm. No murmurs or gallops. Radial and pedal pulses 2+. RESPIRATORY: Normal respiratory effort. No retractions. Clear to auscultation bilaterally. SKIN: Warm and dry. No cyanosis or lesions. ABDOMEN: Soft, nontender to palpation. Bowel sounds positive in all 4 quadrants. No masses or distention. EXTREMITIES: No clubbing, cyanosis, or edema. MUSCULOSKELETAL: Structure within normal, tone within normal limit. Motor strength 5/5 in upper and lower extremities. NEUROLOGIC: No focal deficits. Sensation within normal limits. Cranial nerves II through XII intact. GCS 15. Negative pronator drift. PSYCHIATRIC: Appropriate. LABORATORY AND DIAGNOSTIC FINDINGS: 1. CBC reveals a white blood cell count of 13.4, hemoglobin 16.6, hematocrit 50.1, platelet count 157. 2. CMP reveals sodium 129, potassium 4.4, chloride 103, bicarbonate 26, BUN 21 , creatinine 1.01 and glucose 114, calcium 9.7, total protein 7.3, albumin 4.1, total bilirubin 1.4, AST 28, ALT 42, alkaline phosphatase 82. 3. PT 13.6, PTT 35.4, INR 1.0. 4. CK-MB 3.9, troponin 0.042. 5. UA shows small blood with 30 protein, moderate leukocyte esterase, positive nitrites, trace ketones, and greater than 50 wbc's. 6. EKG showed prolonged QT with possible left atrial enlargement and septal infarct of undetermined age. 7. Imaging, brain CT showed central atrophy, no intracranial hemorrhage or mass effect. There were some chronic microvascular ischemic changes. ASSESSMENT AND PLAN: This is an 82-year-old male who presented secondary to facial droop that has since resolved. 1. Transient ischemic attack. The patient was admitted to stroke for observation. There were no acute changes seen on the CT of the brain. MRI without contrast is pending for the a.m. The patient did have an ABCD2 score of 5, which indicates a moderate risk of developing a cerebrovascular accident. We will do q.4 neuro checks. Additionally, we will give patient 81 mg of aspirin as he has been taking this at home daily without any complications. 2. Urinary tract infection. The patient was given Rocephin in the emergency department. He is unable to recall symptoms secondary to dementia, so with changes in mental status, we will continue to treat with Rocephin and transitioned to oral antibiotics when ready for discharge. Urine culture is pending at this time. 3. Systolic congestive heart failure with ejection fraction of 25-30%. Continue the patient on home medications. Monitor I's and O's. 4. Hypertension. It is well controlled without medications. 5. Hyperlipidemia. We will continue atorvastatin. 6. Gastroesophageal reflux disease. Continue Protonix. 7. Dementia. We will continue donepezil. We will also make a conservative effort to prevent delirium. 8. Coronary artery disease, status post coronary artery bypass graft. Continue home medications, heart-healthy diet. DISPOSITION AND LENGTH OF HOSPITAL STAY: Two days. Symptomatic medication will be provided. History and physical exam as well as management discussed with Dr. Meghana Tony. [facility]
[2017-09-14 06:34] LABS: #Basophils 0.1 thou/uL (0.0-0.2); #Eosinphils 0.1 thou/uL (0.0-0.7); #Lymphocytes 2.2 thou/uL (1.20-3.40); #Monocytes 0.5 thou/uL (0.11-0.59); #Neutrophils 4.4 thou/uL (1.40-6.50); %Basophils 0.7 % (0.0-1.0); %Eosinophils 1.1 % (0.0-10.0); %Lymphocytes 30.8 % (21.0-51.0); %Monocytes 6.4 % (0.0-10.0); Hematocrit 39.6 % (42.0-52.0); Mean Platelet Volume 8.7 fL (7.4-10.4); Red Blood Cell (RBC) Count 4.48 mill/uL (4.70-6.10); White Blood Cell (WBC) Count 7.3 thou/uL (4.8-10.8)
[2017-09-14 06:50] LABS: Troponin I 0.047 ng/mL (< 0.028)
[2017-09-14 06:55] LABS: Anion Gap 10 mmol/L (10-20); BUN (Urea Nitrogen) 17 mg/dL (8.4-25.7); Calc. Creatinine Clearance 53 mL/min (70-130); Calcium 8.9 mg/dL (7.8-10.44); Carbon Dioxide 25 mmol/L (23-31); Chloride 105 mmol/L (98-107); Estimated GFR-MDRD Greater than 90
[2017-09-14] MEDS ORDERED: Potassium Chloride 20 MEQ TAB PO SCH ×2 (08:00→13:30)
--- NOTE | 2017-09-14 08:08 | PDOC.FM ---
- Subjective Subjective: Pt doing well this morning. Has no complaints. No acute events overnight. He is Alert and orientedx2. Pt has a look of confusion on his face. Denies any sx's of numbness, tingling, or weakness. Denies any chest pain, headaches, change in vision, or dizziness. Denies any urinary sx's. No burning or painful sensation. Denies increased urinary frequency. - Objective MAR Reviewed: Yes Vital Signs & Weight: Vital Signs (12 hours) Temp Pulse Resp BP Pulse Ox 09/14/17 04:42 98.2 F 92 18 110/61 96 09/14/17 00:17 98.3 F 97 14 110/59 L 96 09/13/17 22:30 98.3 F 97 14 Weight Weight 53.66 kg I&O: 09/13/17 09/14/17 09/15/17 06:59 06:59 06:59 Intake Total 60 Output Total 100 Balance -40 Result Diagrams: 09/14/17 05:45 09/14/17 05:45 Radiology Reviewed by me: Yes Radiology: CT Head: No acute intracranial abnormality <Cristian Ahumada - Last Filed: 09/14/17 08:06> - Objective Vital Signs & Weight: Vital Signs (12 hours) Temp Pulse Resp BP Pulse Ox 09/14/17 10:40 98.2 F 91 20 117/63 97 09/14/17 08:00 98.9 F 103 H 16 09/14/17 07:33 98.9 F 103 H 16 117/63 95 09/14/17 04:42 98.2 F 92 18 110/61 96 Weight Admit Weight 54.839 kg Weight 53.66 kg I&O: 09/13/17 09/14/17 09/15/17 06:59 06:59 06:59 Intake Total 60 Output Total 100 Balance -40 Result Diagrams: 09/14/17 05:45 09/14/17 05:45 <Yves Driscoll - Last Filed: 09/14/17 12:28> Phys Exam - Physical Examination HEENT: PERRLA, moist MMs, oral pharynx no lesions Neck: no nodes, supple, full ROM JVD noted Respiratory: no wheezing, no rales, no rhonchi, clear to auscultation bilateral Cardiovascular: RRR, no significant murmur, no rub Gastrointestinal: soft, non-tender, no distention, positive bowel sounds Musculoskeletal: no edema, pulses present strength 5/5 in arms and legs bilaterally. Neurological: non-focal, normal sensation, moves all 4 limbs CN2-12 grossly intact. No numbness reported. Lymphatic: no nodes Psychiatric: normal affect Deviation from normal: A&Ox2 to person and place Deviation from normal: Has dry arms, and brown color changes in arms. Likely due to age. <Cristian Ahumada - Last Filed: 09/14/17 08:06> Dx/Plan (1) TIA (transient ischemic attack) Status: Acute Plan: Was sent to ER with noted facial droop at outside doctors office. Has since then resolved. -No sign of focal neurologic deficit on exam this morning. -CT head negative -Pt can't get MRI due to pacemaker. Not compatible. -Likely does not need further work up. -On aspirin and statin. -Will continue to observe for any sx's. (2) UTI (urinary tract infection) Status: Acute QualifierTitle: Urinary tract infection type: acute cystitis Hematuria presence: without hematuria Qualified Code(s): N30.00 - Acute cystitis without hematuria Plan: U/A nit (+), LE Moderate, WBC 50-TNTC. Denies any sx's but also not the best historian due to dementia. -U/A concerning especially since he is male. Urine cx pending -Tx w/ IV rocephin yesterday. Will switch to bactrim today. (3) Chronic systolic (congestive) heart failure Code(s): I50.22 - CHRONIC SYSTOLIC (CONGESTIVE) HEART FAILURE Status: Chronic Plan: sEF noted to be 25-30%. Recently had NSTEMI a month ago. -Will continue home meds. -No sign of fluid overload at this time. Will continue to monitor for signs and sx. (4) Coronary artery disease Code(s): I25.10 - ATHSCL HEART DISEASE OF [place] CORONARY ARTERY W/O ANG PCTRS Status: Chronic Plan: Has had CABGx2 in past. Recently was in the hospital a month ago for NSTEMI. -Will continue home medications -On tele monitoring. (5) Dementia Code(s): F03.90 - UNSPECIFIED DEMENTIA WITHOUT BEHAVIORAL DISTURBANCE Status: Chronic QualifierTitle: Dementia type: Alzheimer's disease Alzheimer's disease onset: early-onset Dementia behavioral disturbance: without behavioral disturbance Qualified Code(s): G30.0 - Alzheimer's disease with early onset; F02.80 - Dementia in other diseases classified elsewhere without behavioral disturbance; F02.80 - Dementia in other diseases classified elsewhere without behavioral disturbance; F02.80 - Dementia in other diseases classified elsewhere without behavioral disturbance Plan: -A&Ox2 to person and place -Continue home meds (6) HTN (hypertension) Code(s): I10 - ESSENTIAL (PRIMARY) HYPERTENSION Status: Chronic QualifierTitle: Hypertension type: essential hypertension Qualified Code( s): I10 - Essential (primary) hypertension Plan: BP stable. -Continue home meds at this time. <Cristian Ahumada - Last Filed: 09/14/17 08:06> Attending Addendum - Attending Addendum I personally evaluated the patient and discussed the management with Dr. Ahumada. I agree with the History, Examination, Assessment and Plan documented above with any addition or exceptions noted below. Patient reports no issues this morning, he desires to go home. There is concern for facial droop in patient yesterday that was transient in nature. However, it could be related to TIA, for which he is on adequate therapy, or due to alteration from his likely UTI that is now being treated. Cultures pending. His family also reports he has a "busted lip" that could have appeared as facial droop. Unable to obtain MRI due to pacemaker. Patient other risk factors well controlled, though he is not a great candidate for anti-platelet therapy due to his recent intraperitoneal bleed. We will discuss with family and patient PCP the current needs, and if patient doing well this afternoon he may be able to be discharged home later today. <Yves Driscoll - Last Filed: 09/14/17 12:28>
[2017-09-14] MEDS: Carvedilol 6.25 MG TAB PO SCH ×2 (08:13→16:39)
[2017-09-14] MEDS: Pancrelipase DR 12000 1 CAP PO SCH ×2 (08:13→12:36)
[2017-09-14 08:14] VITALS: BMI 17.9
[2017-09-14] MEDS: Sodium Chloride 0.9% 1,000 ML IV SCH (08:20)
[2017-09-14] MEDS: Dronabinol 2.5 MG CAP PO SCH ×2 (08:52→16:39)
[2017-09-14] MEDS ORDERED: Furosemide 20 MG TAB PO SCH (09:00)
[2017-09-14] MEDS ORDERED: Pantoprazole 40 MG GRANULES PACKET PO SCH (09:00)
[2017-09-14] MEDS ORDERED: Saccharomyces boulardii 250 MG CAP PO SCH (09:00)
[2017-09-14] MEDS ORDERED: Tamsulosin HCl 0.4 MG CAP PO SCH (09:00)
[2017-09-14] MEDS ORDERED: Lisinopril 5 MG TAB PO SCH (09:00)
[2017-09-14] MEDS ORDERED: Aspirin 81 mg Enteric Coated Tablet PO SCH (09:00)
[2017-09-14] MEDS ORDERED: FLUoxetine HCl 20 MG CAP PO SCH (09:00)
[2017-09-14 13:51] LABS: Troponin I 0.049 ng/mL (< 0.028)
[2017-09-14 15:52] VITALS: BP 137/71; TEMP 97.9
[2017-09-14] MEDS ORDERED: Temazepam 15 MG CAP PO SCH (21:00)
[2017-09-14] MEDS ORDERED: Atorvastatin Calcium 40 MG TAB PO SCH (21:00)
[2017-09-14] MEDS ORDERED: Sulfameth/Trimethoprim DS 800-160mg TAB PO SCH (21:00)
[2017-09-14] MEDS ORDERED: Donepezil HCl 10 MG TAB PO SCH (21:00)
[2017-09-15] MEDS ORDERED: Furosemide 20 MG TAB PO SCH (09:00)
--- NOTE | 2017-09-19 11:06 | DIS-2 ---
DATE OF ADMISSION: 09/13/2017 DATE OF DISCHARGE: 09/14/2017 CONSULTS: None. PROCEDURES: None. Did get a brain CT which showed no evidence of intracranial hemorrhage or mass ef fect. MEDICATIONS: Was sent home with Bactrim double strength take b.i.d. and was given a 10-day course. Also, aspirin 81 mg, atorvastatin 80 mg p.o. at bedtime, carvedilol 6.25 mg p.o. b.i.d., donepezil 10 mg p.o. at bedtime, dronabinol 5 mg p.o. b.i.d., fluoxetine 60 mg p.o. daily, furosemide 40 mg p.o. daily, lisinopril 5 mg p.o. daily, pancrelipase 1 cap p.o. t.i.d. with meals, pantoprazole 40 mg p.o. b.i.d., potassium chloride 20 mEq p.o. q.a.m. with meals, ranolazine 500 mg p.o. b.i.d., Florastor 2 50 mg p.o. daily, tamsulosin 0.4 mg p.o. daily, and temazepam 15 mg p.o. at bedtime. PRIMARY DIAGNOSES: 1. Transient ischemic attack. 2. Urinary tract infection. 3. Chronic congestive heart failure. 4. Coronary artery disease. 5. Dementia. 6. Hypertension. HISTORY OF PRESENT ILLNESS AND BRIEF HOSPITAL COURSE: This is an 82-year-old male that presented wit h facial droop at 1:00 p.m., was seen in a GI doctor's office and was noted to have facial droop and came to the ER and once he got to the ER, he had resolved. Upon assessment, he did not have any oth er focal neuro signs, no weakness, no numbness, no tingling. He was admitted for observation, got th e brain CT, which was negative. We could not get an MRI as he has an AI heart implant that does not allow it. We did q.4 hours neuro checks which did not show any focal neuro deficit. We did get a ho ld of family and found out that he had fallen a few days before and had a little bit of bruising on h is lip, which might have caused the PA to think that he had a facial droop, but while he was here, th ey also got a UA, which was positive nitrites, moderate leukocyte esterase, and white blood cells gre ater than 50 to too numerous to count, no bacteria was seen, and his white blood cell count initially was 13.4, the next day would be 7.3. There were no real abnormalities on his BMP. His potassium wa s low on the date of discharge 2.2, but we replaced that orally. His troponins were 0.042, 0.047, 0. 049, but they were kind of chronically stable. He had had a recent MD in 07/2017, so they were actua lly lower since previous hospitalization. We started him on Bactrim for UTI. We got a urine culture , it has since then resulted as mixed normal tyrell and we did not see any more signs of focal neuro d eficit or any residual deficit, so at this time, we called it TIA, and after a day of observation, he was doing well, was wanting to go home, so we discharged him home on 09/14/2017. DISPOSITION: Stable. DISCHARGE INSTRUCTIONS: 1. Location: Home. 2. Activity: Activity as tolerated. 3. Diet: Heart-healthy diet, diabetic diet. 4. Followup: Will need to follow up with his primary care physician in 2 weeks for hospital followu p visit.
== END 2017-09-14 16:58 | disposition home or self-care (01) ==
LOC: ERS 14:44 → 2SE 20:07 → 2SW 09-14 10:32
PROVIDERS: ADMIT Family Medicine; ATTEND Family Medicine
DX: G45.9 Transient cerebral ischemic attack, unspecified (principal); N39.0 Urinary tract infection, site not specified; I25.10 Atherosclerotic heart disease of native coronary artery without angina pectoris; I11.0 Hypertensive heart disease with heart failure; I50.22 Chronic systolic (congestive) heart failure; I25.2 Old myocardial infarction; F03.90 Unspecified dementia, unspecified severity, without behavioral disturbance, psychotic disturbance, mood disturbance, and anxiety; E78.5 Hyperlipidemia, unspecified; F41.9 Anxiety disorder, unspecified; K52.9 Noninfective gastroenteritis and colitis, unspecified; Z87.891 Personal history of nicotine dependence; Z79.899 Other long term (current) drug therapy; Z90.49 Acquired absence of other specified parts of digestive tract; Z95.0 Presence of cardiac pacemaker; Z95.5 Presence of coronary angioplasty implant and graft; Z96.641 Presence of right artificial hip joint; Z98.890 Other specified postprocedural states
CPT/HCPCS: 70450; 80048; 80053 ×2; 82553 ×3; 83690; 83880; 84484 ×3; 85025 ×3; 85610; 85730; 87086; 93005; 96361; 96374; 99285; G0378; 36415; 81003; 81015; J0696; Q0167

== ENCOUNTER 2017-09-27 18:29 | Inpatient (IN) | payer MEDICARE ==
[2017-09-27 19:05] LABS: INR-International Normal Ratio 1.1
[2017-09-27 19:14] LABS: ALT (SGPT) 43 U/L (8-55); AST (SGOT) 26 U/L (5-34); Albumin 4.2 g/dL (3.4-4.8); Alkaline Phosphatase 64 U/L (40-150); Anion Gap 16 mmol/L (10-20); BUN (Urea Nitrogen) 24 mg/dL (8.4-25.7); Bilirubin, Total 1.1 mg/dL (0.2-1.2); Calc. Creatinine Clearance 0 mL/min (70-130); Calcium 9.6 mg/dL (7.8-10.44); Carbon Dioxide 23 mmol/L (23-31); Chloride 100 mmol/L (98-107); Estimated GFR-MDRD 52; Globulin 2.9 g/dL (2.4-3.5); Glucose 114 mg/dL (83-110); Potassium 4.4 mmol/L (3.5-5.1); Protein, Total 7.1 g/dL (5.8-8.1); Sodium 135 mmol/L (136-145)
[2017-09-27 19:16] LABS: CKMB 4.4 ng/mL (0-6.6); Troponin I 0.077 ng/mL (< 0.028)
[2017-09-27 19:18] LABS: Anisocytosis SLIGHT = 6-15 cells (100X) (0-5/hpf); Band 5 % (5-11); Crenated RBC SLIGHT = 1-5 cells (100X) (None Seen); Elliptocytes SLIGHT = 2-5 cells (100X) (0-1/hpf); Eosinophils 2 % (0-10); Hemoglobin 15.7 g/dL (14.0-18.0); Lymphocytes 16 % (21-51); MDiff Complete? YES; Mean Corpuscular HGB CONC 33.1 g/dL (32.0-36.0); Mean Corpuscular Hemoglobin 28.4 pg (27.0-31.0); Mean Corpuscular Volume 85.8 fl (80.0-94.0); Mean Platelet Volume 6.4 fL (7.4-10.4); Monocytes 5 % (0-10); Neutrophil 69 % (42-75); PLT Morphology Comment Appears Adequate; Platelet Count 243 thou/uL (130-400); RBC Distribution Width 13.7 % (11.5-14.5); Reactive Lymphocytes 3 % (0-10); Red Blood Cell (RBC) Count 5.51 mill/uL (4.70-6.10); White Blood Cell (WBC) Count 8.6 thou/uL (4.8-10.8)
--- NOTE | 2017-09-27 19:41 | RAD ---
EXAM: ONE VIEW CHEST 09/27/17 HISTORY: Cough. COMPARISON: 08/18/17, 08/21/17. FINDINGS: Portable semiupright chest radiograph demonstrates a left sided transvenous defibrillator with a lead position that is unchanged. There is atherosclerosis of the aorta. Sternotomy wires identified. Norm al cardiac silhouette. Pulmonary vessels and hilum are normal. Costophrenic angles are clear. No mass . No consolidation. No pneumothorax or osseous abnormality. IMPRESSION: 1. No acute cardiopulmonary process. 2. Atherosclerosis. POS: [facility]
[2017-09-27 20:09] LABS: Bilirubin Negative (Negative); Blood, Urine Negative (Negative); Clarity Clear (Clear); Glucose, Urine (Dipstick) Negative (Negative); Leukocyte Trace (Negative); Nitrite Negative (Negative); Protein, Urine (Dipstick) Negative (Neg-Trace); Specific Gravity, Urine 1.015 (1.005-1.030); Urobilinogen 0.2 mg/dL (0.2-1.0)
[2017-09-27 20:15] LABS: RBC/HPF 0-3 HPF (0-3); Squamous Epithelial 0-3 HPF (0-3)
[2017-09-27 20:16] LABS: Bacteria/HPF Rare-Few HPF (None Seen); Hyaline Casts/LPF 0-3 HYALINE CAST LPF (0-3 Hyaline)
--- NOTE | 2017-09-27 20:20 | CT ---
EXAM: NONCONTRAST HEAD CT 09/27/17 COMPARISON: 09/13/17. HISTORY: Injury. Posttraumatic pain. Dyspnea on exertion. Patient fell last night. More confused than normal. TECHNIQUE: Noncontrast head CT is performed from skull base to skull vertex. FINDINGS: No parenchymal hemorrhage. No extra-axial hematoma. No midline shift. Basilar cisterns are patent. Age appropriate atrophy. Cortical pearson-white matter differentiation is preserved. Ventricles and sulci are patent and symmetric. Calvarium is intact. Adequate aeration of the sinuses and mastoid air cells. Stable atherosclerotic d isease of the carotid arteries. IMPRESSION: No intracranial posttraumatic sequela. POS: [facility]
[2017-09-27 22:21] LABS: Troponin I 0.072 ng/mL (< 0.028)
[2017-09-27] MEDS ORDERED: Aspirin 300 MG Suppository ONE (23:09)
[2017-09-28] MEDS ORDERED: Sodium Chloride 0.9% 1,000 ML IV SCH (00:15)
[2017-09-28] MEDS ORDERED: Acetaminophen 325 MG TAB PO PRN (02:30)
[2017-09-28] MEDS ORDERED: Docusate 100 MG CAP PO PRN (02:30)
[2017-09-28] MEDS: Sodium Chloride 0.9% 1,000 ML IV SCH ×2 (03:55→16:44)
[2017-09-28 05:27] LABS: Anion Gap 12 mmol/L (10-20); BUN (Urea Nitrogen) 22 mg/dL (8.4-25.7); Calc. Creatinine Clearance 42 mL/min (70-130); Calcium 8.6 mg/dL (7.8-10.44); Carbon Dioxide 22 mmol/L (23-31); Cardiac Risk 2.9 (Less than 4.5); Chloride 106 mmol/L (98-107); Cholesterol 101 mg/dl (< 200 Desired); Estimated GFR-MDRD 65; Glucose 87 mg/dL (83-110); HDL Cholesterol 35 mg/dL (>60 Neg Risk); LDL Cholesterol, Calculated 41 mg/dL; Potassium 3.7 mmol/L (3.5-5.1); Sodium 136 mmol/L (136-145); Triglycerides 126 mg/dL (Less than 150)
[2017-09-28] MEDS ORDERED: Aspirin 81 mg Enteric Coated Tablet PO SCH (09:00)
--- NOTE | 2017-09-28 09:33 | HP-2 ---
CODE STATUS: DNI. Patient reports okay to use medications, but no chest compressions, no intubation . PRIMARY CARE PHYSICIAN: Dr. Magalis Martines. ATTENDING: Dr. Magalis Martines. RESIDENT: Dr. Iza Darby. HISTORIAN: The patient. CHIEF COMPLAINT: Confusion, weakness and shortness of breath. HISTORY OF PRESENT ILLNESS: The patient is an 82-year-old male with past medical history of recent N STEMI and TIA, CHF, hyperlipidemia, hypertension, presents with shortness of breath and weakness as w ell as confusion and a recent fall last night. Per the ER chart, family reports worsening weakness f or the last year. The fall happened, because of the weakness. Patient did have shortness of breath at this time. When he fell, he did hit his head, but no loss of consciousness. The patient reports feeling well other than the generalized weakness. At the time of exam, no shortness of breath, no ch est pain, no dysuria, no pain. The patient was recently treated for UTI. He is unsure of what medic ation was given. He was seen in an outside ED with concern for TIA or CVA. The patient does have a recent TIA. In the ER, a CT head was done, which was negative and a rectal aspirin 300 mg was given as well as 1 liter normal saline. PAST MEDICAL HISTORY: 1. History of gastrointestinal bleed. 2. Coronary artery disease. 3. Hypertension. 4. Hyperlipidemia. 5. Congestive heart failure. 6. Anxiety. PAST SURGICAL HISTORY: 1. CABG 4-vessel. 2. Total hip arthroplasty. 3. Pacemaker defibrillator placement. 4. Cholecystectomy. ALLERGIES: CIPROFLOXACIN. MEDICATIONS: 1. Carvedilol 3.125 mg p.o. b.i.d. 2. Prozac 60 mg p.o. daily. 3. Dronabinol 5 mg p.o. b.i.d. 4. Furosemide 40 mg p.o. daily. 5. Lipitor 80 mg p.o. at bedtime. 6. Aspirin 81 mg p.o. daily. 7. Florastor 250 mg p.o. daily. 8. Ranexa 1000 mg p.o. b.i.d. 9. Potassium chloride 20 mEq p.o. q.a.m. 10. Protonix 40 mg p.o. b.i.d. 11. Pancrelipase DR 12,000 1 cap p.o. t.i.d. 12. Restoril 15 mg p.o. at bedtime. 13. Flomax 0.4 mg p.o. daily. FAMILY HISTORY: Noncontributory. SOCIAL HISTORY: Patient is a former smoker. Based on prior records, he does not drink alcohol or us e drugs. Of note, he does have home health services with PT and his baseline for gait stability incl udes walking with a cane. REVIEW OF SYSTEMS: A 12 point review of systems was performed, all were negative except as listed in HPI and as indicated below. The patient does endorse shortness of breath, bruising to his arms from his recent fall and generalized weakness. PHYSICAL EXAMINATION: VITAL SIGNS: Blood pressure 100/56, pulse 91, respiratory rate 17, T-max 98.1, pulse ox 100% on room air, current weight 54.25 kilograms. GENERAL: The patient is alert and oriented x4, in no acute distress. He is thin and appropriately i nteractive. EYES: PERRLA, EOMI. ENT: Dry mucous membranes. NECK: Supple, without lymphadenopathy. CARDIOVASCULAR: Regular rate and rhythm. No murmurs or gallops. Radial pulses 2+. RESPIRATORY: Normal effort, no retractions, clear to auscultation bilaterally. SKIN: Warm and dry. There are significant ecchymosis on bilateral forearms. No open wounds. ABDOMEN: Soft, nontender. Bowel sounds present. EXTREMITIES: No cyanosis or edema. MUSCULOSKELETAL: Atrophy of muscles noted. Tone within normal limits. Muscle strength 5/5 in upper and lower extremities. NEUROLOGIC: No focal deficits. Cranial nerves II through XII intact. GCS 15. PSYCHIATRIC: Appropriate. LABORATORY DATA AND X-RAY FINDINGS: 1. CBC: White blood cell count 8.6, hemoglobin 15.7, hematocrit 47.3, platelets 243. 2. Chemistries: Sodium 135, potassium 4.4, chloride 100, CO2 of 23, BUN 24, creatinine 1.31, glucos e 114, GFR 52, calcium 9.6, total protein 7.1, albumin 4.2, AST 26, ALT 43, alkaline phosphatase 64, total bilirubin 1.1. 3. Coags: PT 14.0, INR 1.1. 4. CK-MB 4.4, troponin 0.077 which down trended to 0.072 and then 0.05. 5. BNP 299.0. 6. UA specific gravity 1.015, blood negative, protein negative, leukocyte esterase trace, nitrites n egative, ketones negative, glucose negative, red blood cells negative, white blood cells 7-10, bacter ia rare, squamous cells 0-3. 7. Chest x-ray reveals no acute process. No evidence of fluid overload. IMAGING: Brain CT reveals no acute intracranial hemorrhage and no acute process from recent fall. ASSESSMENT AND PLAN: 1. Altered mental status. Patient's family reports confusion from baseline. We will rule out cereb rovascular accident versus with MRI, could be related to transient ischemic attack versus cerebrovasc ular accident versus urinary tract infection. We will get an MRI to evaluate. The patient reports r ecent treatment for urinary tract infection, unknown what medication was given. We will order urine culture and talk with family members to decipher, which medication was given to know what treatment w as failed. 2. Acute kidney injury likely secondary to dehydration. One liter of normal saline was given in the ER. We will give a gentle fluid hydration with a history of congestive heart failure and ejection f raction 25%-30%. NS at 70 mL per hour. 3. Hypertension. The patient has been hypertensive for the last three admissions, no longer on medi cations for hypertension. 4. Dementia. Patient's family is not in the room, so unsure of baseline status. We will continue h ome donepezil. 5. Hyperlipidemia. We will continue home statin. 6. Coronary artery disease status post coronary artery bypass graft. We will continue home aspirin and Ranexa. 7. Congestive heart failure. We will give home Lasix and Coreg and gentle fluid hydration. 8. Deconditioning. PT and OT to see patient. The patient with home health at that time. All sympt oms could be related to just worsening deconditioning. We will discuss this with family members when available. 9. Deep venous thrombosis prophylaxis. Lovenox. 10. Disposition and length of hospital stay is 1-2 days. Symptomatic medications will be provided. History and physical exam as well as management discussed with Dr. Magalis Martines.
[2017-09-28] MEDS: Saccharomyces boulardii 250 MG CAP PO SCH (10:05)
[2017-09-28] MEDS: Aspirin 81 mg Enteric Coated Tablet PO SCH (10:05)
[2017-09-28] MEDS: Pancrelipase DR 12000 1 CAP PO SCH ×3 (10:05→16:43)
[2017-09-28] MEDS: Potassium Chloride 20 MEQ TAB PO SCH (10:06)
[2017-09-28] MEDS: Carvedilol 3.125 MG TAB PO SCH ×2 (10:09→20:56)
[2017-09-28] MEDS: FLUoxetine HCl 20 MG CAP PO SCH (10:09)
[2017-09-28] MEDS: Furosemide 40 MG TAB PO SCH (10:12)
[2017-09-28] MEDS: Tamsulosin HCl 0.4 MG CAP PO SCH (10:13)
[2017-09-28] MEDS: Enoxaparin Sodium 40 MG/0.4 ML SYRINGE SC SCH (10:17)
[2017-09-28] MEDS: Pantoprazole 40 MG GRANULES PACKET PO SCH ×2 (10:18→20:56)
[2017-09-28] MEDS: Dronabinol 2.5 MG CAP PO SCH ×2 (10:23→16:43)
[2017-09-28] MEDS ORDERED: Sulfameth/Trimethoprim DS 800-160mg TAB PO SCH (14:15)
--- NOTE | 2017-09-28 18:14 | CON ---
DATE OF CONSULTATION: 09/28/2017 CONSULTING PHYSICIAN: Family Medicine. IMPRESSION: 1. Some generalized weakness, possibly secondary to dehydration, which appears to be better. 2. Coronary artery disease. 3. Congestive heart failure with ejection fraction 25% to 30%. 4. Hyperlipidemia. 5. Mild dementia with hallucinosis. PLAN: 1. IV fluids. 2. Consider adding Seroquel 25 mg at night. HISTORY OF PRESENT ILLNESS: Mr. Johnston is an 82-year-old gentleman who was brought in for apparent c hange in mental status. He lives with his daughter and granddaughter care from the [facility]. Tina figueroa was getting generally weak and having more trouble getting around. Came in and had a CT of the bra in done which showed only some chronic changes with age. He has been started on some IV fluids. [facility] ses report that when he awakens from a nap, he tends to be confused as to his situation. He has poss ibly had some hallucinations since admission. His lab work shows possible urinary tract infection an d has been started on antibiotics. PAST MEDICAL HISTORY: As listed above. ALLERGIES: None. SOCIAL HISTORY: No tobacco or alcohol. FAMILY HISTORY: Noncontributory. MEDICATIONS: List is reviewed. REVIEW OF SYSTEMS: The patient is without any complaints of headache, nausea, vomiting, dizziness, c hest pain, or shortness of breath. PHYSICAL EXAMINATION: GENERAL: This is a frail elderly man, lying in bed, in no distress. HEENT: Pupils equal and reactive. Conjunctivae clear. Oropharynx clear. NECK: Supple. EXTREMITIES: No cyanosis. NEUROLOGIC: He is awake and cooperative. His speech is fluent and clear. He seemed bit confused ab out his orientation at first, but seemed to improve with more discussion of the situation. He had no focal deficits on cranial nerve exam. Strength in the extremities was quite good in all 4 extremiti es. No abnormal movements were seen. Sensation was intact to light touch. Gait was not tested. SUMMARY: I do not see any acute neurologic issues with this gentleman. He has some baseline mild de mentia and has gotten a bit confused and has some hallucinations, which are not in common under the c ircumstances. We will consider an antipsychotic with his persistent problem.
[2017-09-28] MEDS: Atorvastatin Calcium 40 MG TAB PO SCH (20:56)
[2017-09-28] MEDS: Sulfameth/Trimethoprim DS 800-160mg TAB PO SCH (20:57)
[2017-09-28] MEDS: Temazepam 15 MG CAP PO SCH (21:03)
[2017-09-29 05:40] LABS: Anion Gap 13 mmol/L (10-20); BUN (Urea Nitrogen) 14 mg/dL (8.4-25.7); Calc. Creatinine Clearance 42 mL/min (70-130); Calcium 8.7 mg/dL (7.8-10.44); Carbon Dioxide 21 mmol/L (23-31); Chloride 107 mmol/L (98-107); Estimated GFR-MDRD 67; Glucose 84 mg/dL (83-110); Potassium 3.6 mmol/L (3.5-5.1); Sodium 137 mmol/L (136-145)
--- NOTE | 2017-09-29 05:44 | HP ---
DATE OF SERVICE: 09/27/2017 CHIEF COMPLAINT: Weakness, shortness of breath. HISTORY OF PRESENT ILLNESS: The patient is an 82-year-old male with a significant past med ical history of coronary artery disease, CHF with an EF of about 20%, hypertension, and hyperlipidemi a, who presented to the [facility] ER with weakness and shortness of breath. I performed his admission on 09/27/2017. The patient was being evaluated by his home health nurses on the wh en it was noticed that the patient had a systolic blood pressure in the 90s and he appeared more weak and short of breath. He tried to get up and ambulate to the restroom and was described as panting a lmost like a dog when trying to walk and stated that he was scared because he could not breathe. As time went on, the patient started developing lower extremity weakness and his legs began to shake. T he patient was awake and alert the whole time that the shaking occurred. Upon arrival to the ER, he was noted to be slurring his words, but no other neurologic deficits besides generalized weakness in bilateral legs was noted. After further questioning, the patient admitted to the following that morn ing and hit his head. He had a CT scan of his head, which was negative for bleed. Regarding his lab s, the patient was noted to have an acute kidney injury and indeterminate troponins. His BNP was fou nd to be 299, which is about his baseline. Urinalysis showed trace leukocytes and 7-10 white blood c ells. Chest x-ray was performed and showed no acute processes. The patient's chest x-ray showed no acute cardiopulmonary processes and CT of the brain showed no intracranial posttraumatic issues. The re was age appropriate atrophy that was noted. For the full past medical history and review of systems please the resident's dictation. PHYSICAL EXAMINATION: VITAL SIGNS: Temperature 98.1, blood pressure 100/56, pulse 91, respiration rate 18, and O2 sat 100% on room air. GENERAL: The patient was awake, alert, and oriented x4, but appear to be fatigued. HEENT: Pupils are equal, round, reactive to light and accommodation. Extraocular muscles intact. E NT: Oropharynx and nasopharynx are without erythema or exudate. Mucous membranes are dry. NECK: Supple without lymphadenopathy, thyromegaly, or bruits. CARDIOVASCULAR: Regular rate and rhythm without murmurs, gallops, or rubs. LUNGS: Clear to auscultation bilaterally without wheezing or rhonchi. ABDOMEN: Soft, nontender, nondistended, bowel sounds present. EXTREMITIES: There is no clubbing, cyanosis, or edema. ASSESSMENT AND PLAN: The patient is an 82-year-old male, who presented with weakness and s hortness of breath. 1. Generalized weakness and altered mental status: Ruling out stroke. The patient is unable to get an MRI secondary to his pacemaker. The patient was noted by the family and myself to be slurring hi s words yesterday and have generalized weakness in bilateral legs. We will also try to rule out infe ction as he does have leukocytes on his urinalysis. We will treat with antibiotics and some urinalys is for culture. 2. Acute kidney injury: This is likely secondary to dehydration. The patient will be given gentle IV fluids as he does have a history of heart failure, but clinically he appears to be dehydrated and volume down. 3. Hypertension: We will monitor blood pressures as the patient has actually been hypotensive as an outpatient and I have started some of his medicines as an outpatient because I did not want him to b ecome symptomatic for his hypotension and he already had multiple falls. 4. Congestive heart failure: The patient will continue his current medication. We will monitor his fluid status closely. We are giving him IV fluids as he appears to be dehydrated, though he may req uire Lasix if he starts developing additional shortness of breath. 5. Generalized deconditioning. PT and OT will be consulted. Patient will be consulted for swallow study. 6. Please see the resident's dictation for full history and physical, assessment and plan. I have p ersonally reviewed the case with Dr. Darby and agree with his documentation.
--- NOTE | 2017-09-29 07:47 | PDOC.FM ---
- Subjective Subjective: Pt feels well today with no specific complaints. Per nursing, he was confused at times last night, but was largely at his base line. Pt denies fever, chills, n/v, abd pain and all other symptoms in ROS - Objective MAR Reviewed: Yes Vital Signs & Weight: Vital Signs (12 hours) Temp Pulse Resp BP Pulse Ox 09/29/17 04:06 98 F 96 16 119/63 95 09/29/17 00:00 97.8 F 87 16 95/58 L 95 09/28/17 20:30 98.1 F 93 14 98 09/28/17 19:55 98.1 F 93 14 115/53 L 98 Weight Admit Weight 55.747 kg Weight 55.157 kg I&O: 09/28/17 09/29/17 09/30/17 06:59 06:59 06:59 Intake Total 3107 Output Total 2700 Balance 407 Result Diagrams: 09/27/17 18:52 09/29/17 04:16 <Jose F Guo - Last Filed: 09/29/17 07:46> - Objective Vital Signs & Weight: Vital Signs (12 hours) Temp Pulse Resp BP Pulse Ox 09/29/17 15:31 97.9 F 88 18 125/70 97 09/29/17 11:30 98.6 F 99 18 122/63 96 09/29/17 08:15 98.3 F 98 18 95 Weight Admit Weight 55.747 kg Weight 55.157 kg I&O: 09/28/17 09/29/17 09/30/17 06:59 06:59 06:59 Intake Total 3107 778 Output Total 2700 1200 Balance 407 -422 Result Diagrams: 09/29/17 04:16 09/29/17 04:16 <Magalis Martines - Last Filed: 09/29/17 19:52> Phys Exam - Physical Examination Constitutional: NAD A&O x4 HEENT: PERRLA, moist MMs Neck: no nodes, no JVD Respiratory: clear to auscultation bilateral Cardiovascular: RRR, no significant murmur Gastrointestinal: soft, non-tender, no distention Musculoskeletal: no edema Neurological: non-focal, normal sensation, moves all 4 limbs Psychiatric: normal affect Skin: no rash <Jose F Guo - Last Filed: 09/29/17 07:46> Dx/Plan (1) Encephalopathy acute Code(s): G93.40 - ENCEPHALOPATHY, UNSPECIFIED Status: Resolved (2) UTI (urinary tract infection) Status: Acute QualifierTitle: Urinary tract infection type: acute cystitis Hematuria presence: without hematuria Qualified Code(s): N30.00 - Acute cystitis without hematuria (3) Dehydration Code(s): E86.0 - DEHYDRATION Status: Resolved (4) Physical deconditioning Code(s): R53.81 - OTHER MALAISE Status: Chronic (5) Dementia Code(s): F03.90 - UNSPECIFIED DEMENTIA WITHOUT BEHAVIORAL DISTURBANCE Status: Chronic QualifierTitle: Dementia type: Alzheimer's disease Alzheimer's disease onset: early-onset Dementia behavioral disturbance: without behavioral disturbance Qualified Code(s): G30.0 - Alzheimer's disease with early onset; F02.80 - Dementia in other diseases classified elsewhere without behavioral disturbance; F02.80 - Dementia in other diseases classified elsewhere without behavioral disturbance; F02.80 - Dementia in other diseases classified elsewhere without behavioral disturbance (6) HTN (hypertension) Code(s): I10 - ESSENTIAL (PRIMARY) HYPERTENSION Status: Chronic QualifierTitle: Hypertension type: essential hypertension Qualified Code( s): I10 - Essential (primary) hypertension - Plan Plan: 1. Altered mental status - Pt was initially admitted with AMS, this has since resolved with the exception of periodic confusion which is is baseline - Pt was having some visual hallucinations vs periods of confusion yesterday. Neuro, Dr Voss, was consulted. Per his note, this is likely related to the dementia and not an acute issue - most likely cause of AMS is UTI vs TIA. Pt currently taking oral abx 2. UTI - Initial UA suspicious for UTI. - Cx pending - empiric abx for what likely started with chronic prostatitis. 3. Dehydration - pt was significantly volume down at admission' - Pt has been given fluids carefully given hx of CHF - appears to approaching euvolemia. Consider stopping IVF this afternoon 4. Alzheimer's Dementia - pt back to baseline. - standard measures such as opening the blinds during the day and keeping family in the room 5. HTN - controlled on home meds 6. Deconditioning - PT is on board and pt is compliant Dispo: pt is stable. Will continue to watch volume and mental status while waiting for cultures to result. <Jose F Guo - Last Filed: 09/29/17 07:46> Attending Addendum - Attending Addendum I personally evaluated the patient and discussed the management with Dr. Guo. I agree with the History, Examination, Assessment and Plan documented above with any addition or exceptions noted below. The patient is doing better today. He is alert and oriented today. Lower extremity weakness is improving. I do not think patient needs seroquel. Will continue PT. If patient continues to do well, will likely d/c tomorrow. <Magalis Martines - Last Filed: 09/29/17 19:52>
[2017-09-29 08:27] LABS: #Eosinphils 0.1 thou/uL (0.0-0.7); #Lymphocytes 1.8 thou/uL (1.20-3.40); #Monocytes 0.3 thou/uL (0.11-0.59); #Neutrophils 2.8 thou/uL (1.40-6.50); %Basophils 0.5 % (0.0-1.0); %Eosinophils 2.3 % (0.0-10.0); %Lymphocytes 35.3 % (21.0-51.0); %Monocytes 6.1 % (0.0-10.0); %Neutrophils 55.7 % (42.0-75.0); Hemoglobin 11.9 g/dL (14.0-18.0); Mean Corpuscular HGB CONC 33.8 g/dL (32.0-36.0); Mean Corpuscular Hemoglobin 30.1 pg (27.0-31.0); Mean Platelet Volume 7.7 fL (7.4-10.4); Platelet Count 166 thou/uL (130-400); Red Blood Cell (RBC) Count 3.96 mill/uL (4.70-6.10)
[2017-09-29] MEDS: Saccharomyces boulardii 250 MG CAP PO SCH (09:04)
[2017-09-29] MEDS: Dronabinol 2.5 MG CAP PO SCH ×2 (09:04→16:33)
[2017-09-29] MEDS: Aspirin 81 mg Enteric Coated Tablet PO SCH (09:05)
[2017-09-29] MEDS: Tamsulosin HCl 0.4 MG CAP PO SCH (09:05)
[2017-09-29] MEDS: Furosemide 40 MG TAB PO SCH (09:05)
[2017-09-29] MEDS: Pancrelipase DR 12000 1 CAP PO SCH ×3 (09:05→16:33)
[2017-09-29] MEDS: FLUoxetine HCl 20 MG CAP PO SCH (09:05)
[2017-09-29] MEDS: Carvedilol 3.125 MG TAB PO SCH ×2 (09:05→21:21)
[2017-09-29] MEDS: Potassium Chloride 20 MEQ TAB PO SCH (09:05)
[2017-09-29] MEDS: Sulfameth/Trimethoprim DS 800-160mg TAB PO SCH ×2 (09:06→21:22)
[2017-09-29] MEDS: Enoxaparin Sodium 40 MG/0.4 ML SYRINGE SC SCH (09:06)
[2017-09-29] MEDS: Pantoprazole 40 MG GRANULES PACKET PO SCH ×2 (09:06→21:21)
[2017-09-29 10:29] VITALS: BMI 18.4
[2017-09-29] MEDS: Sodium Chloride 0.9% 1,000 ML IV SCH ×2 (16:35)
[2017-09-29] MEDS: Atorvastatin Calcium 40 MG TAB PO SCH (21:21)
[2017-09-29] MEDS: Temazepam 15 MG CAP PO SCH (21:22)
[2017-09-30] MEDS: Sodium Chloride 0.9% 1,000 ML IV SCH (05:22)
[2017-09-30 05:37] LABS: Anion Gap 9 mmol/L (10-20); BUN (Urea Nitrogen) 11 mg/dL (8.4-25.7); Calc. Creatinine Clearance 45 mL/min (70-130); Calcium 8.9 mg/dL (7.8-10.44); Carbon Dioxide 23 mmol/L (23-31); Chloride 107 mmol/L (98-107); Estimated GFR-MDRD 68; Glucose 86 mg/dL (83-110); Potassium 3.8 mmol/L (3.5-5.1); Sodium 135 mmol/L (136-145)
--- NOTE | 2017-09-30 06:12 | PDOC.FM ---
- Subjective Subjective: Patient had a good night. He got up and showered today. He is alert and oriented to person, place, and time today. He states he feels well and has no other concerns today. - Objective Vital Signs & Weight: Vital Signs (12 hours) Temp Pulse Resp BP Pulse Ox 09/30/17 03:40 97.8 F 98 16 116/69 98 09/29/17 23:20 97.3 F L 68 16 130/77 93 L 09/29/17 21:21 97 F L 89 16 97 09/29/17 20:02 97 F L 89 16 118/68 97 Weight Admit Weight 55.747 kg Weight 58.559 kg I&O: 09/28/17 09/29/17 09/30/17 06:59 06:59 06:59 Intake Total 3107 778 Output Total 2700 1200 Balance 407 -422 Result Diagrams: 09/29/17 04:16 09/30/17 04:20 <Oliverio Oneil - Last Filed: 09/30/17 07:38> - Objective Vital Signs & Weight: Vital Signs (12 hours) Temp Pulse Resp BP Pulse Ox 09/30/17 12:00 98.4 F 85 18 96/51 L 95 09/30/17 08:15 97.5 F L 83 18 09/30/17 07:35 97.5 F L 83 18 125/68 98 Weight Admit Weight 55.747 kg Weight 58.559 kg I&O: 09/29/17 09/30/17 10/01/17 06:59 06:59 06:59 Intake Total 3107 1858 Output Total 2700 2650 Balance 407 -792 Result Diagrams: 09/29/17 04:16 09/30/17 04:20 <Magalis Martines - Last Filed: 09/30/17 16:10> Phys Exam - Physical Examination HEENT: moist MMs Neck: no nodes Respiratory: no wheezing, clear to auscultation bilateral Cardiovascular: RRR, no significant murmur Gastrointestinal: soft, non-tender, no distention, positive bowel sounds Musculoskeletal: no edema Neurological: non-focal, moves all 4 limbs Psychiatric: normal affect <Oliverio Oneil - Last Filed: 09/30/17 07:38> Dx/Plan (1) UTI (urinary tract infection) Status: Acute QualifierTitle: Urinary tract infection type: acute cystitis Hematuria presence: without hematuria Qualified Code(s): N30.00 - Acute cystitis without hematuria (2) Dementia Code(s): F03.90 - UNSPECIFIED DEMENTIA WITHOUT BEHAVIORAL DISTURBANCE Status: Chronic QualifierTitle: Dementia type: Alzheimer's disease Alzheimer's disease onset: early-onset Dementia behavioral disturbance: without behavioral disturbance Qualified Code(s): G30.0 - Alzheimer's disease with early onset; F02.80 - Dementia in other diseases classified elsewhere without behavioral disturbance; F02.80 - Dementia in other diseases classified elsewhere without behavioral disturbance; F02.80 - Dementia in other diseases classified elsewhere without behavioral disturbance (3) HTN (hypertension) Code(s): I10 - ESSENTIAL (PRIMARY) HYPERTENSION Status: Chronic QualifierTitle: Hypertension type: essential hypertension Qualified Code( s): I10 - Essential (primary) hypertension (4) Physical deconditioning Code(s): R53.81 - OTHER MALAISE Status: Chronic (5) Dehydration Code(s): E86.0 - DEHYDRATION Status: Resolved (6) Encephalopathy acute Code(s): G93.40 - ENCEPHALOPATHY, UNSPECIFIED Status: Resolved - Plan Plan: 1. Altered mental status - Pt was initially admitted with AMS, this has since resolved with the exception of periodic confusion which is is baseline - Pt was having some visual hallucinations vs periods of confusion yesterday. Neuro, Dr Voss, was consulted. Per his note, this is likely related to the dementia and not an acute issue - most likely cause of AMS is UTI vs TIA. Pt currently taking oral abx -Resolved 2. UTI - Initial UA suspicious for UTI. - Cx pending, should be back later this AM. - no growth at 24 hours - empiric abx for what likely started with chronic prostatitis. 3. Dehydration - pt was significantly volume down at admission' - Pt has been given fluids carefully given hx of CHF - appears to approaching euvolemia. Consider stopping IVF 4. Alzheimer's Dementia - pt back to baseline. - standard measures such as opening the blinds during the day and keeping family in the room 5. HTN - controlled on home meds 6. Deconditioning - PT is on board and pt is compliant Dispo: pt is stable. Will continue to watch volume and mental status while waiting for cultures to result. <Oliverio Oneil - Last Filed: 09/30/17 07:38> Attending Addendum - Attending Addendum I personally evaluated the patient and discussed the management with Dr. Oneil. I agree with the History, Examination, Assessment and Plan documented above with any addition or exceptions noted below. The patient is back to baseline. he will d/c on antibiotics. Will f/u with me in 3-4 days. <Magalis Martines - Last Filed: 09/30/17 16:10>
[2017-09-30] MEDS: Aspirin 81 mg Enteric Coated Tablet PO SCH (09:25)
[2017-09-30] MEDS: Carvedilol 3.125 MG TAB PO SCH (09:25)
[2017-09-30] MEDS: Pantoprazole 40 MG GRANULES PACKET PO SCH (09:25)
[2017-09-30] MEDS: Potassium Chloride 20 MEQ TAB PO SCH (09:25)
[2017-09-30] MEDS: Tamsulosin HCl 0.4 MG CAP PO SCH (09:25)
[2017-09-30] MEDS: Saccharomyces boulardii 250 MG CAP PO SCH (09:25)
[2017-09-30] MEDS: FLUoxetine HCl 20 MG CAP PO SCH (09:25)
[2017-09-30] MEDS: Sulfameth/Trimethoprim DS 800-160mg TAB PO SCH (09:25)
[2017-09-30] MEDS: Furosemide 40 MG TAB PO SCH (09:25)
[2017-09-30] MEDS: Enoxaparin Sodium 40 MG/0.4 ML SYRINGE SC SCH (09:26)
[2017-09-30] MEDS: Pancrelipase DR 12000 1 CAP PO SCH (09:26)
[2017-09-30] MEDS: Dronabinol 2.5 MG CAP PO SCH (10:12)
[2017-09-30 12:00] VITALS: BP 96/51; TEMP 98.4
--- NOTE | 2017-09-30 19:24 | DIS-2 ---
DATE OF ADMISSION: 09/27/2017 DATE OF DISCHARGE: 09/30/2017 RESIDENT: Dr. Oneil. ADMITTING ATTENDING: Dr. Martines. DISCHARGE ATTENDING: Dr. Martines. CONSULTATIONS: 1. Neurology with Dr. Voss. 2. OT evaluation and treatment. 3. Stroke Team. 4. Wound care evaluation only. PROCEDURES: The patient underwent a chest x-ray on 09/27/2017 showed no acute cardiopulmonary process, atherosclerosis. Also underwent a brain CT on 09/27/2017 that showed no intracranial posttraumatic sequelae. PRIMARY DIAGNOSES: 1. Urinary tract infection. 2. Dementia. 3. Hypertension. 4. Physical deconditioning. 5. Dehydration. 6. Acute encephalopathy. DISCHARGE MEDICATIONS: 1. Protonix 40 mg b.i.d. 2. Lipitor 80 mg at bedtime. 3. Ranexa 1000 mg b.i.d. 4. Flomax 0.4 mg daily. 5. Florastor 250 mg daily. 6. Prozac 60 mg daily[address] 7. Creon DR 12,000 units t.i.d. 8. Restoril 15 mg at bedtime. 9. Dronabinol 5 mg b.i.d. 10. Aspirin 81 mg. 11. Furosemide 40 mg. 12. Potassium chloride 20 mEq. 13. Coreg 3.125 mg b.i.d. 14. Bactrim double strength b.i.d. for 1 week. DISCONTINUED MEDICATIONS: None. HISTORY OF PRESENT ILLNESS AND HOSPITAL COURSE: This patient is an 82-year-old male with past medical history of recent NSTEMI, TIA, CHF, hyperlipidemia, hypertension, presents with shortness of breath, weakness as well as confusion and recent fall last night. Per the ER chart, family reports worsening weakness for the past year. The fall happened because of the weakness. The patient did have a shortness of breath at this time. When he fell, he hit his head, but no loss of consciousness. The patient reports feeling well other than a generalized weakness. At the time of the examination, no shortness of breath, no chest pain, no dysuria, no pain. The patient was recently treated for UTI. He is unsure what medication was given. He was seen in an outside ED for concern for TIA versus CVA. The patient does have a recent TIA. In the ER , a CT head was done which was negative and a rectal aspirin 300 mg was given as well as 1 liter of normal saline. During this hospitalization, the patient was seen by Dr. Voss with Neurology with a consultation that showed generalized weakness, possibly secondary to dehydration, which appears to be better. He does not see any acute neurologic issues. He does say that he has baseline mild dementia and has gotten a little bit confused and some hallucinations which are not uncommon under the circumstances. Consider an antipsychotic if this becomes a persistent problem. Otherwise, the patient continued to make improvements every day and was no longer hallucinating and became alert and oriented x3 during the hospitalization. The patient has some notable lab values of leukocyte esterase of trace and urine white blood cells 7-10, urine bacteria rare to few. He had a troponin that ranged from 0.077 that down trended to 0.050. The patient remained afebrile during his hospitalization and his vital signs were within normal limits. The patient otherwise had no other complications and will be discharged in appropriate condition. DISPOSITION: Stable. DISCHARGE INSTRUCTIONS: 1. Location: Will be discharged home in the care of himself and his family. 2. Diet: Will be as tolerated with no restrictions. 3. Activity: Will be as tolerated with no restrictions. 4. Followup: Will be with his primary care provider, Dr. Martines in 3 days to coordinate his care going forward and to ensure he has no further problems that can be avoided. BERNARDO
--- NOTE | 2017-11-04 15:48 | EKG ---
Test Reason : Blood Pressure : / mmHG Vent. Rate : 094 BPM Atrial Rate : 094 BPM P-R Int : 160 ms QRS Dur : 094 ms QT Int : 396 ms P-R-T Axes : 078 -59 085 degrees QTc Int : 495 ms Normal sinus rhythm Possible Left atrial enlargement Left axis deviation Septal infarct , age undetermined Abnormal ECG Confirmed by ANNEL ROMO D.O. ([id number]), editor farm journal JUNO MAYA ([id number]) on 11/04/2017 3:47:59 PM Referred By: DR. ROMO Confirmed By:ANNEL ROMO D.O.
== END 2017-09-30 13:07 | disposition home health service (06) | DRG 640 ==
LOC: SCSER 18:29 → 2SE 20:29
PROVIDERS: ADMIT Family Medicine; ATTEND Family Medicine
DX: E86.0 Dehydration (principal); G93.40 Encephalopathy, unspecified; N17.9 Acute kidney failure, unspecified; N30.00 Acute cystitis without hematuria; R44.3 Hallucinations, unspecified; I50.9 Heart failure, unspecified; I11.0 Hypertensive heart disease with heart failure; G30.9 Alzheimer's disease, unspecified; F02.80 Dementia in other diseases classified elsewhere, unspecified severity, without behavioral disturbance, psychotic disturbance, mood disturbance, and anxiety; I25.10 Atherosclerotic heart disease of native coronary artery without angina pectoris; E78.5 Hyperlipidemia, unspecified; I25.2 Old myocardial infarction; R74.8 Abnormal levels of other serum enzymes; Z95.810 Presence of automatic (implantable) cardiac defibrillator; Z95.1 Presence of aortocoronary bypass graft; Z96.649 Presence of unspecified artificial hip joint; Z90.49 Acquired absence of other specified parts of digestive tract; Z88.1 Allergy status to other antibiotic agents; Z87.891 Personal history of nicotine dependence; Z86.73 Personal history of transient ischemic attack (TIA), and cerebral infarction without residual deficits; Z91.81 History of falling
CPT/HCPCS: 36415; 70450; 71045; 80048; 80053; 80061; 81003; 81015; 82553; 83735; 83880; 84484; 85025; 85610; 87086; 87804; 93005; 96360; 96361; G8978-GP-CJ; G8979-GP-CJ; G8980-GP-CJ; G8987-GO-CJ; G8988-GO-CH; G8996-GN-CJ; G8997-GN-CI; J1650; Q0167

== ENCOUNTER 2017-10-04 09:29 | Observation (INO) | payer MEDICARE ==
[2017-10-04 10:28] LABS: #Eosinphils 0.1 thou/uL (0.0-0.7); #Lymphocytes 1.4 thou/uL (1.20-3.40); #Monocytes 0.3 thou/uL (0.11-0.59); #Neutrophils 2.7 thou/uL (1.40-6.50); %Basophils 0.3 % (0.0-1.0); %Eosinophils 1.1 % (0.0-10.0); %Lymphocytes 31.9 % (21.0-51.0); %Monocytes 6.4 % (0.0-10.0); %Neutrophils 60.3 % (42.0-75.0); Hemoglobin 13.9 g/dL (14.0-18.0); Mean Corpuscular HGB CONC 33.2 g/dL (32.0-36.0); Mean Corpuscular Hemoglobin 30.3 pg (27.0-31.0); Mean Corpuscular Volume 91.3 fl (80.0-94.0); Mean Platelet Volume 7.4 fL (7.4-10.4); Platelet Count 191 thou/uL (130-400); RBC Distribution Width 15.5 % (11.5-14.5); Red Blood Cell (RBC) Count 4.58 mill/uL (4.70-6.10); White Blood Cell (WBC) Count 4.4 thou/uL (4.8-10.8)
--- NOTE | 2017-10-04 10:47 | CT ---
CT HEAD NONCONTRAST: HISTORY: Altered mental status. Syncope. COMPARISON: 09/27/2017 FINDINGS: There is no evidence of acute intracranial hemorrhage or infarct. The ventricles appear normal in si ze, shape, and position. Diffuse cortical atrophy and chronic ischemic small vessel disease are stab le. There is calcification in the arterial structures at the brain base. IMPRESSION: Chronic type findings appear stable. No acute intracranial abnormalities are demonstrated on noncont rast CT head. POS: BANDAR
--- NOTE | 2017-10-04 10:48 | RAD ---
FRONTAL VIEW CHEST: Date: 10/04/17 COMPARISON: 09/27/17. INDICATION: Altered mental status. FINDINGS: There is a subtle nodular density at the inferolateral right hemithorax. No consolidation or effusion . Cardiomediastinal silhouette is stable. Left subclavian approach AICD is again seen. IMPRESSION: Subtle nodular density inferolateral right lung base. This could be on the basis of a nipple shadow, although is not definitive. Consider follow-up with dedicated 2 view chest with nipple markers in faith ce. CODE LN. POS: BANDAR
[2017-10-04 10:52] LABS: ALT (SGPT) 24 U/L (8-55); AST (SGOT) 16 U/L (5-34); Albumin 3.8 g/dL (3.4-4.8); Alkaline Phosphatase 62 U/L (40-150); Anion Gap 12 mmol/L (10-20); BUN (Urea Nitrogen) 13 mg/dL (8.4-25.7); Bilirubin, Total 0.9 mg/dL (0.2-1.2); CK (CPK) 66 U/L (30-200); Calc. Creatinine Clearance 0 mL/min (70-130); Calcium 9.3 mg/dL (7.8-10.44); Carbon Dioxide 22 mmol/L (23-31); Chloride 105 mmol/L (98-107); Estimated GFR-MDRD 63; Globulin 2.6 g/dL (2.4-3.5); Glucose 98 mg/dL (83-110); Potassium 4.1 mmol/L (3.5-5.1); Protein, Total 6.4 g/dL (5.8-8.1); Sodium 135 mmol/L (136-145)
[2017-10-04 10:55] LABS: CKMB 2.5 ng/mL (0-6.6); Troponin I 0.043 ng/mL (< 0.028)
[2017-10-04 11:16] LABS: Bilirubin Negative (Negative); Blood, Urine Negative (Negative); Clarity CLEAR (Clear); Glucose, Urine (Dipstick) Negative (Negative); Leukocyte Negative (Negative); Nitrite Negative (Negative); Protein, Urine (Dipstick) Negative (Neg-Trace); Specific Gravity, Urine 1.012 (1.002-1.036); pH, Urine 7.5 (5.0-9.0)
[2017-10-04] MEDS ORDERED: Acetaminophen 650 MG Suppository PR PRN (14:10)
[2017-10-04] MEDS ORDERED: Ondansetron HCl/PF 4 MG/2 ML Vial IVP PRN (14:10)
[2017-10-04] MEDS ORDERED: Ondansetron ODT 4 MG TAB PO PRN (14:10)
[2017-10-04] MEDS ORDERED: Calcium Carbonate 500 MG ChewTAB PO PRN (14:10)
[2017-10-04] MEDS ORDERED: Acetaminophen 325 MG TAB PO PRN (14:10)
[2017-10-04] MEDS: Sodium Chloride 0.9% 1,000 ML IV SCH (16:13)
[2017-10-04] MEDS: Dronabinol 2.5 MG CAP PO SCH (16:32)
--- NOTE | 2017-10-04 16:32 | PDOC.EVN ---
Attending Addendum - Attending Addendum I personally evaluated the patient and discussed the management with Dr. Gonzalez. I agree with the History, Examination, Assessment and Plan documented in his H& P with any addition or exceptions noted below. Patient with multiple chronic medical conditions admitted here today for frequent falls, syncope, and general deconditioning. Per family, he has been falling more recently. Patient described uneasiness and lightheadedness on standing, with subsequent loss of consciousness and fall. He is usually able to remember the event. Further, for the last few months, they have noticed some "jerking" activity that begins in the legs and ascends. He has "a feeling" before the episodes, but becomes confused and nonresponsive during the episodes. He will also have bilateral eye deviation to the Right side with each episode. After termination, patient will be confused and "out of it" for several hours to 1 day. He is unable to have MRI performed due to AICD placement. On exam, patient has no focal neurological signs. He is profoundly orthostatic. Lab evaluation is overall benign. Patient admitted for the followin. Orthostasis- gentle fluids to prevent fluid overload. He will also have decrease/discontinuing of medications that can exacerbate orthostasis. PT and will consult inpatient rehab. 2. Likely seizure activity- unable to obtain MRI. Will consult Neuro and obtain EEG. If the is observed or continues after his EEG, consider initiating Keppra for this likely seizure activity. 3. Deconditioning- 2/2 #1 and 2. PT and rehab consult. 4. CAD- decreasing Ranexa due to orthostatic symptoms. Will have to monitor for anginal pains and s/sx of ischemia. 5. BPH- temporarily stopping Flomax. Monitor for urinary retention.
[2017-10-04] MEDS: Atorvastatin Calcium 40 MG TAB PO SCH (21:05)
[2017-10-04] MEDS: Temazepam 15 MG CAP PO SCH (21:05)
[2017-10-04] MEDS: Pantoprazole 40 MG GRANULES PACKET PO SCH (21:05)
--- NOTE | 2017-10-04 21:48 | HP-2 ---
CODE STATUS: DNR. PRIMARY CARE PHYSICIAN: Dr. Martines. ATTENDING: Dr. Driscoll. RESIDENT: Dr. Des Gonzalez. HISTORIAN: The patient and family. SPECIALIST: 1. Dr. Junior Frazier (Neurology). 2. Dr. Shaikh (Cardiology). CHIEF COMPLAINT: Fall and weakness. HISTORY OF PRESENT ILLNESS: This is an 82-year-old male with past medical history of coronary artery disease, TIA, heart failure with reduced ejection fraction (last EF 20%), here he is presenting with recent falls and seizure like activity prior to these falls. According to the patient's family, the patient has multiple episodes over the past week or two like he began shaking his upper body, which progressed to his lower body. He will then pass out and fall down on to the ground, has hit his head this morning and possibly prior. Family was unsure how many of these he has reporting to them. The patient appears postictal to the family after waking up and has no memory of what happened over falling; however, patient does not have a history suggestive of seizures prior to this. The patient was seen by his PCP yesterday who discontinued his blood pressure medications and his Coreg and agree with guest relations receptionist that this was potentially orthostatic in nature. The patient was scheduled to see his Neurologist, Dr. Frazier for a possible EEG, but was unable to attend this appointment. Of note, the patient has also lost 30 pounds in the last 3 months per family and was recently started on Marinol to try and stimulate his appetite. Patient had a colonoscopy last year that was negative other than polyps that were removed. PAST MEDICAL HISTORY: 1. Heart failure with reduced EF (20%). 2. Coronary artery disease. 3. Deconditioning. 4. Dementia. 5. History of TIA. 6. History of gastrointestinal bleed. 7. Hypertension. 8. Hyperlipidemia. 9. Anxiety. PAST SURGICAL HISTORY: 1. AICD. 2. Four-vessel CABG. 3. Right total hip arthroplasty. 4. Cholecystectomy. ALLERGIES: CIPROFLOXACIN. MEDICATIONS: 1. Protonix 40 mg p.o. b.i.d. 2. Lipitor 80 mg p.o. daily. 3. Ranexa 1000 mg p.o. b.i.d. 4. Flomax 0.4 mg p.o. daily. 5. Florastor 250 mg. 6. Prozac 60 mg. 7. Restoril 15mg 8. Dronabinol 5 mg. 9. Aspirin 81 mg. 10. Lasix 40 mg. 11. KCl 20 mEq daily. 12. Marinol. FAMILY HISTORY: Family history is notable for a brother with colon cancer, sister with some other form of cancer, it was unsure. SOCIAL HISTORY: Former tobacco user, quit years ago. Denies alcohol or drug use. REVIEW OF SYSTEMS: Ten point review of systems negative except as per HPI above. PHYSICAL EXAMINATION: VITAL SIGNS: BP 121/67, pulse 98, respirations 16, T-max 97.6, pulse ox 98% on room air, current weight 54 kilos. GENERAL: Alert and oriented x3, no acute distress, male who is thin, but appropriately interactive. HEENT: Eyes, pupils equal, round, and reactive to light. Extraocular movements intact. Conjunctivae within normal limits. Nasal mucosa and oropharynx within normal limits. NECK: Supple, without lymphadenopathy. CARDIOVASCULAR: Regular rate and rhythm, no murmurs, rubs or gallops. Radial pulses present, pedal pulses present. RESPIRATORY: Normal effort, no retractions, clear to auscultation bilaterally. SKIN: Warm and dry without cyanosis or lesions, healing bruising noted over the anterior forearm bilaterally from his falls. ABDOMEN: Soft, nontender to palpation. Bowel sounds present. No masses or distention appreciated. EXTREMITIES: No clubbing, cyanosis or edema. MUSCULOSKELETAL: Structure and tone within normal limits. Strength 4/5. Full range of motion present. NEUROLOGIC: No deficits. Sensation within normal limits. Cranial nerves II- XII are intact. GCS 15. PSYCH: Appropriate. LABORATORY: CBC: White count 4.4, hemoglobin 13.9, hematocrit 41.8, platelets 191. CMP: Sodium 135, potassium 4.1, chloride 105, bicarbonate 22, BUN 13, creatinine 1.12, glucose 98, calcium 9.3, total protein 6.4, albumin 3.8, AST 16 , ALT 24, alkaline phosphatase 62, total bilirubin 0.9, troponin 0.043. CK 66, CK-MB 2.5. BNP was pending at time of this dictation. Urinalysis was negative. Blood cultures and urine cultures are pending. EKG showed normal sinus rhythm with rate of 90 beats per minute and incomplete right bundle branch block and possible left atrial enlargement. Chest x-ray shows no acute disease. CT brain showed diffuse cortical atrophy and chronic ischemic small vessel changes consistent with chronic stable findings. ASSESSMENT AND PLAN: This is an 82-year-old male presenting with syncope and falls. 1. Syncope. We will observe on telemetry. Differential includes seizures versus transient ischemic attack versus tachybrady syndrome versus orthostatic hypotension. CT brain shows no changes from prior. We will consult replacement. Continue to work with PT and OT. Consult Neurology and consider EEG. The patient states he has AICD/pacer; however, there is no pacer spikes evident on EKG, may consider consulting Dr. Shaikh in the morning. 2. Coronary artery disease. Continue aspirin and statin. 3. Deconditioning. We will consider adding technical support representative consult due to the patient's 30-pound weight loss in the last few months. 4. Heart failure with reduced EF. Hold IV fluids at this time. Continue Lasix. 5. Hypertension. We will hold blood pressure meds for now, blood pressure is currently stable. 6. Dementia. Presumably stable at baseline per family present at my interview. 7. Hyperlipidemia. Continue statin. DISPOSITION AND LENGTH OF HOSPITAL STAY: 2 days. Symptomatic medication will be provided. History and physical exam as well as management was discussed with Dr. Driscoll. BERNARDO
[2017-10-05] MEDS: Sodium Chloride 0.9% 1,000 ML IV SCH (00:24)
[2017-10-05 04:43] LABS: Anion Gap 10 mmol/L (10-20); BUN (Urea Nitrogen) 14 mg/dL (8.4-25.7); Calc. Creatinine Clearance 50 mL/min (70-130); Calcium 8.7 mg/dL (7.8-10.44); Carbon Dioxide 22 mmol/L (23-31); Chloride 108 mmol/L (98-107); Estimated GFR-MDRD 83; Glucose 95 mg/dL (83-110); Sodium 136 mmol/L (136-145)
--- NOTE | 2017-10-05 08:46 | PDOC.FM ---
- Subjective Subjective: Pt feels well today with no continued lightheadedness or seizure like activity. He denies all symptoms in ROS. There were no acute events over night. - Objective MAR Reviewed: Yes Vital Signs & Weight: Vital Signs (12 hours) Temp Pulse Resp BP BP Pulse Ox 10/05/17 07:06 98.3 F 99 18 119/60 96 10/05/17 04:01 98.3 F 98 16 104/59 L 97 10/04/17 23:07 97.8 F 96 15 103/55 L 96 10/04/17 21:05 98.0 F 99 18 Weight Weight 54.386 kg I&O: 10/04/17 10/05/17 10/06/17 06:59 06:59 06:59 Intake Total 1483 Output Total 800 Balance 683 Result Diagrams: 10/04/17 10:13 10/05/17 03:47 <Jose F Guo - Last Filed: 10/05/17 08:44> - Objective Vital Signs & Weight: Vital Signs (12 hours) Temp Pulse Pulse Pulse Pulse Pulse Pulse 10/05/17 09:49 89 101 H 107 H 113 H 114 H 10/05/17 08:00 98.3 F 99 10/05/17 07:06 98.3 F 99 10/05/17 04:01 98.3 F 98 Pulse Pulse Resp BP BP BP BP 10/05/17 09:49 114 H 90 108/56 L 110/57 L 121/59 L 10/05/17 08:00 18 10/05/17 07:06 18 10/05/17 04:01 16 104/59 L BP BP BP BP BP Pulse Ox 10/05/17 09:49 108/59 L 103/57 L 129/66 157/74 H 10/05/17 08:00 10/05/17 07:06 119/60 96 10/05/17 04:01 97 Weight Weight 54.386 kg I&O: 10/04/17 10/05/17 10/06/17 06:59 06:59 06:59 Intake Total 1483 Output Total 800 Balance 683 Result Diagrams: 10/04/17 10:13 10/05/17 03:47 <Yves Driscoll - Last Filed: 10/05/17 12:38> Phys Exam - Physical Examination Constitutional: NAD HEENT: PERRLA, moist MMs Neck: no nodes Respiratory: no wheezing Cardiovascular: RRR, no significant murmur Gastrointestinal: soft, non-tender, no distention Musculoskeletal: no edema Neurological: non-focal, normal sensation, moves all 4 limbs Lymphatic: no nodes Psychiatric: normal affect, A&O x 3 Skin: no rash <Jose F Guo - Last Filed: 10/05/17 08:44> Dx/Plan (1) Syncopal episodes Code(s): R55 - SYNCOPE AND COLLAPSE Status: Acute QualifierTitle: Syncope type: unspecified Qualified Code(s): R55 - Syncope and collapse (2) HTN (hypertension) Code(s): I10 - ESSENTIAL (PRIMARY) HYPERTENSION Status: Chronic (3) Physical deconditioning Code(s): R53.81 - OTHER MALAISE Status: Chronic (4) Coronary artery disease Code(s): I25.10 - ATHSCL HEART DISEASE OF [place] CORONARY ARTERY W/O ANG PCTRS Status: Chronic (5) HLD (hyperlipidemia) Code(s): E78.5 - HYPERLIPIDEMIA, UNSPECIFIED Status: Chronic - Plan Plan: 1. Syncopal episode - this has been an long standing problem with outpt EEG being considered - neuro has been consulted, appreciate recommendation - CT brain was negative - no current symptoms 2. Physical deconditioning - PT while inpatient - continue home PT on discharge 3. HTN - continue home meds - monitor vitals 4. CAD - continue home statin 5. sCHF - currently no O2 need, pt appears to be euvolemic <Jose F Guo - Last Filed: 10/05/17 08:44> Attending Addendum - Attending Addendum I personally evaluated the patient and discussed the management with Dr. Guo. I agree with the History, Examination, Assessment and Plan documented above with any addition or exceptions noted below. Patient stable. Had EEG and results pending. Awaiting neurology consult for likely new onset seizure activity. If activity continues, will begin Keppra therapy. PT has worked with patient and we are awaiting decision from inpatient rehab regarding placement. <Yves Driscoll - Last Filed: 10/05/17 12:38>
[2017-10-05] MEDS ORDERED: Tamsulosin HCl 0.4 MG CAP PO SCH (09:00)
[2017-10-05] MEDS: Dronabinol 2.5 MG CAP PO SCH ×2 (09:24→18:26)
[2017-10-05] MEDS: Saccharomyces boulardii 250 MG CAP PO SCH (09:24)
[2017-10-05] MEDS: FLUoxetine HCl 20 MG CAP PO SCH (09:24)
[2017-10-05] MEDS: Pantoprazole 40 MG GRANULES PACKET PO SCH ×2 (09:25→19:57)
[2017-10-05] MEDS: Aspirin 81 mg Enteric Coated Tablet PO SCH (09:25)
[2017-10-05] MEDS: Potassium Chloride 20 MEQ TAB PO SCH (09:25)
[2017-10-05] MEDS: Furosemide 40 MG TAB PO SCH (09:25)
--- NOTE | 2017-10-05 14:58 | EEG ---
Referring Physician: DR. STEPHEN RG EEG # [id number] TEST TYPE: ROUTINE PORTABLE INPATIENT REASON FOR EEG: EPISODE OF LOSS OF CONSCIOUSNESS DATE EEG DONE: 10/04/2017 EEG DESCRIPTION: This is a 21 channel digital EEG recording. Electrodes are placed using the ten -twenty international electrode placement system. The background rhythm is predominately 6-7 hertz, medium voltage theta rhythm. The background rhythm on occasions does reach 8 hertz, low to medium voltage alpha rhythm. This EEG is really degraded by patient's movement and electrode artifact. There are no epileptiform discharges, sharp transients or asymmetry noted. EKG LEAD: Shows 90 beats per minute, regular rhythm. IMPRESSION: THIS IS A MILDLY ABNORMAL EEG. IT SHOWS MILD NONSPECIFIC CEREBRAL DYSFUNCTION. THE BACKGROUND RHYTHM DOES REACH ALPHA RHYTHM ON OCCASIONS. THIS WOULD BE CONSISTENT WITH TOXIC METABOLIC ENCEPHALOPATHY. PLEASE CORRELATE THESE FINDINGS CLINICALLY. Dye Stand Loader: NORA Extension Service Supervisor: EEG.KEON CHANG
[2017-10-05 15:28] VITALS: BMI 17.6
[2017-10-05] MEDS: Temazepam 15 MG CAP PO SCH (19:57)
[2017-10-05] MEDS: levETIRAcetam 500 MG TAB PO SCH (19:57)
[2017-10-05] MEDS: Atorvastatin Calcium 40 MG TAB PO SCH (19:57)
--- NOTE | 2017-10-05 21:24 | CON ---
DATE OF CONSULTATION: 10/05/2017 CONSULTING PHYSICIAN: [facility] IMPRESSION: Frontal lobe seizures versus orthostatic syncope. PLAN: 1. Keppra 500 mg twice a day. 2. Office followup. Mr. Johnston was admitted for evaluation of multiple episodes of shaking followed by brief loss of cons ciousness. He reports that these most commonly occur when he is standing up. He has not had any los s sitting down. He has had this sensation while lying down, but did not lose consciousness. Since a dmission, he has not had any documented hypotension. His AICD was interrogated and there apparently was no evidence of any arrhythmias. He has not ever felt it go off. PHYSICAL EXAMINATION: He is alert and appropriate. Exam is nonfocal. Given that he has had this sensation while lying down, I suspected that this could be epileptic in or igin, even though his CAT scan of the brain is normal. I will give him a trial of Keppra. Since he has had multiple per month, we should able to tell readily if the situation corrects easily enough.
--- NOTE | 2017-10-06 05:38 | PDOC.FM ---
- Subjective Subjective: Pt feeling well this morning with no specific complaints. He denies any further episodes of seizure like activity or syncope. He denies dizziness, n/v, SOB, chest pain, and neurological symptoms in ROS. There were no acute events reported over night. - Objective MAR Reviewed: Yes Vital Signs & Weight: Vital Signs (12 hours) Temp Pulse Resp BP Pulse Ox 10/06/17 03:55 98.0 F 101 H 18 122/57 L 96 10/05/17 23:05 103 H 20 131/72 95 10/05/17 19:55 97.9 F 100 15 10/05/17 19:10 97.9 F 100 15 93/54 L 96 Weight Admit Weight 55.928 kg Weight 54.885 kg I&O: 10/04/17 10/05/17 10/06/17 06:59 06:59 06:59 Intake Total 1483 960 Output Total 800 300 Balance 683 660 Result Diagrams: 10/04/17 10:13 10/05/17 03:47 <Jose F Guo - Last Filed: 10/06/17 08:17> - Objective Vital Signs & Weight: Vital Signs (12 hours) Temp Pulse Resp BP Pulse Ox 10/06/17 08:00 97.5 F L 92 16 10/06/17 07:36 97.5 F L 92 16 115/65 97 10/06/17 03:55 98.0 F 101 H 18 122/57 L 96 Weight Admit Weight 55.928 kg Weight 54.885 kg I&O: 10/05/17 10/06/17 10/07/17 06:59 06:59 06:59 Intake Total 1483 1200 Output Total 800 650 Balance 683 550 Result Diagrams: 10/04/17 10:13 10/05/17 03:47 <Yves Driscoll - Last Filed: 10/06/17 11:06> Phys Exam - Physical Examination Constitutional: NAD HEENT: PERRLA, moist MMs Neck: no nodes, no JVD Respiratory: clear to auscultation bilateral Cardiovascular: RRR, no significant murmur Gastrointestinal: soft, non-tender, no distention Musculoskeletal: no edema Neurological: non-focal, normal sensation, moves all 4 limbs Psychiatric: normal affect, A&O x 3 Skin: no rash <Jose F Guo Filed: 10/06/17 08:17> Dx/Plan (1) Syncopal episodes Code(s): R55 - SYNCOPE AND COLLAPSE Status: Acute QualifierTitle: Syncope type: unspecified Qualified Code(s): R55 - Syncope and collapse (2) HTN (hypertension) Code(s): I10 - ESSENTIAL (PRIMARY) HYPERTENSION Status: Chronic (3) Physical deconditioning Code(s): R53.81 - OTHER MALAISE Status: Chronic (4) Coronary artery disease Code(s): I25.10 - ATHSCL HEART DISEASE OF [place] CORONARY ARTERY W/O ANG PCTRS Status: Chronic (5) HLD (hyperlipidemia) Code(s): E78.5 - HYPERLIPIDEMIA, UNSPECIFIED Status: Chronic - Plan Plan: 1. Syncopal episode - Dr Voss, neurology, has been consulted. He agrees with PCP that this seems to be epileptic in nature and will start pt on trial of Keppra - CT and EEG have both been normal - Continue to monitor pt for further symptoms and tolerance of new medication - High risk fall precautions 2. Physical deconditioning - Pt would benefit from in patient rehab due to lengthy periods of time recently in the inpatient setting - Case management is currently working on placement 3. HTN - currently controlled - continue on home meds - vitals per unit routine 5. CAD - plavix has been stopped dt fall risk, continue ASA - continue statin 6. HLD - continue statin as above Dispo: stable. Ready for dc pending tolerance of Keppra and placement in rehab <Jose F Guo - Last Filed: 10/06/17 08:17> Attending Addendum - Attending Addendum I personally evaluated the patient and discussed the management with Dr. Guo. I agree with the History, Examination, Assessment and Plan documented above with any addition or exceptions noted below. Patient stable. No major seizure activity on EEG. Neurology has placed patient on Keppra. He is doing well otherwise. Awaiting possible discharge to swing bed for rehab. <Yves Driscoll - Last Filed: 10/06/17 11:06>
[2017-10-06] MEDS: FLUoxetine HCl 20 MG CAP PO SCH (08:56)
[2017-10-06] MEDS: Saccharomyces boulardii 250 MG CAP PO SCH (08:57)
[2017-10-06] MEDS: Furosemide 40 MG TAB PO SCH (08:57)
[2017-10-06] MEDS: Potassium Chloride 20 MEQ TAB PO SCH (08:57)
[2017-10-06] MEDS: Aspirin 81 mg Enteric Coated Tablet PO SCH (08:58)
[2017-10-06] MEDS: Pantoprazole 40 MG GRANULES PACKET PO SCH (08:58)
[2017-10-06] MEDS: levETIRAcetam 500 MG TAB PO SCH (08:58)
[2017-10-06] MEDS: Dronabinol 2.5 MG CAP PO SCH (10:06)
[2017-10-06 12:13] VITALS: BP 114/57; TEMP 98
--- NOTE | 2017-10-06 23:07 | DIS-2 ---
DATE OF ADMISSION: 10/04/2017 DATE OF DISCHARGE: 10/06/2017 RESIDENT: Jose F Guo DO ADMITTING ATTENDING: Yves Driscoll MD DISCHARGE ATTENDING: Yves Driscoll MD CONSULTATIONS: David Voss M.D., Neurology. PROCEDURE: EEG. PRIMARY DIAGNOSIS: Epileptic seizure. SECONDARY DIAGNOSES: Dementia, systolic CHF, coronary artery disease, hypertension, history of trans ient ischemic attack, hyperlipidemia, physical deconditioning. DISCHARGE MEDICATIONS: Atorvastatin 80 mg p.o. at bedtime, Ranexa 1000 mg p.o. b.i.d., Florastor 250 mg p.o. daily, Prozac 60 mg p.o. daily, pancrelipase 12,000 units 1 cap p.o. t.i.d. with meals, Rest oril 15 mg p.o. at bedtime, dronabinol 5 mg p.o. b.i.d. a.c., aspirin 81 mg, Lasix 40 mg p.o. daily, K-Dur 20 mg p.o. daily, Bactrim-DS 1 p.o. b.i.d. for 7 days, pantoprazole 40 mg p.o. b.i.d. and Kepp ra 500 mg p.o. b.i.d. DISCONTINUED MEDICATIONS: Flomax 0.4 mg p.o. daily. HOSPITAL COURSE: Patient was admitted after a syncopal episode with associated fall at home. Upon a dmission, a brain CT showed no acute findings and old findings related to dementia. It is determined that the likely etiology for the single episode of seizure-like activity. There was a previously sc heduled outpatient EEG. However, the patient was unable to make it to the appointment because of thi s episode. So the EEG was conducted in the inpatient setting; however EEG was taken at the bedside. EEGs were read and found to be normal. It was determined that although EEG was normal, it was likel y that these episodes were seizure activity, as the patient was started on Keppra. Additionally, patient is significantly physically deconditioned. It is appropriate for the patient t o be admitted for inpatient rehab for additional PT. The patient has agreed to go to a swing bed in [facility]. The patient was stopped on Flomax for the time being just due to fall risk that shoul d be reevaluated in the outpatient setting. DISPOSITION: Stable. DISCHARGE INSTRUCTIONS: 1. Location: To SNF for Rehabilitation. Orders given for PT. 2. Diet: Heart healthy. 3. Activity: Ad driss per PT recommendations. 4. Followup: Within 1 week with PCP, Dr. Magalis Martines and within 1 week with Neurology.
--- NOTE | 2017-10-28 14:10 | EKG ---
Test Reason : Blood Pressure : / mmHG Vent. Rate : 090 BPM Atrial Rate : 090 BPM P-R Int : 154 ms QRS Dur : 096 ms QT Int : 408 ms P-R-T Axes : 069 -59 078 degrees QTc Int : 499 ms Normal sinus rhythm Possible Left atrial enlargement Left axis deviation Incomplete right bundle branch block Septal infarct , age undetermined Abnormal ECG Confirmed by RUSSELL ALBERTO, MARIBELL ([id number]), editor publications MARY DAVIES ([id number]) on 10/28/2017 2:09:39 PM Referred By: Confirmed By:MARIBELL WELLS MD
== END 2017-10-06 14:42 ==
LOC: ERS 09:29 → 2SW 13:14
PROVIDERS: ADMIT Student in an Organized Health Care Education/Training Program; ATTEND Student in an Organized Health Care Education/Training Program
DX: G40.309 Generalized idiopathic epilepsy and epileptic syndromes, not intractable, without status epilepticus (principal); F03.90 Unspecified dementia, unspecified severity, without behavioral disturbance, psychotic disturbance, mood disturbance, and anxiety; I11.0 Hypertensive heart disease with heart failure; I50.20 Unspecified systolic (congestive) heart failure; I25.10 Atherosclerotic heart disease of native coronary artery without angina pectoris; E78.5 Hyperlipidemia, unspecified; R53.81 Other malaise; R55 Syncope and collapse; F41.9 Anxiety disorder, unspecified; Z79.82 Long term (current) use of aspirin; Z79.2 Long term (current) use of antibiotics; Z79.899 Other long term (current) drug therapy; Z88.1 Allergy status to other antibiotic agents; Z95.810 Presence of automatic (implantable) cardiac defibrillator; Z95.1 Presence of aortocoronary bypass graft; Z96.641 Presence of right artificial hip joint; Z90.49 Acquired absence of other specified parts of digestive tract; Z91.81 History of falling; Z86.73 Personal history of transient ischemic attack (TIA), and cerebral infarction without residual deficits; Z87.891 Personal history of nicotine dependence
CPT/HCPCS: 51701; 70450; 71045; 80048; 80053; 81003; 82550; 82553; 83605; 83880; 84484; 85025; 87040; 87086; 93005; 95816; 95819; 96360; 96361 ×2; 97110; 97116; 97139 ×2; 97530 ×2; 99285; G0378; G8978; G8979; G8987; G8988; 36415; Q0167

== ENCOUNTER 2018-02-25 18:56 | Emergency (ER) | payer MEDICARE ==
[2018-02-25 19:35] LABS: #Eosinphils 0.2 thou/uL (0.0-0.7); #Lymphocytes 1.2 thou/uL (1.20-3.40); #Monocytes 0.7 thou/uL (0.11-0.59); #Neutrophils 4.5 thou/uL (1.40-6.50); %Basophils 0.6 % (0.0-1.0); %Eosinophils 3.3 % (0.0-10.0); %Lymphocytes 17.8 % (21.0-51.0); %Monocytes 10.7 % (0.0-10.0); %Neutrophils 67.6 % (42.0-75.0); Hemoglobin 13.2 g/dL (14.0-18.0); Mean Corpuscular HGB CONC 34.7 g/dL (32.0-36.0); Mean Corpuscular Volume 92.3 fl (80.0-94.0); Mean Platelet Volume 7.1 fL (7.4-10.4); Platelet Count 181 thou/uL (130-400); RBC Distribution Width 12.7 % (11.5-14.5); Red Blood Cell (RBC) Count 4.11 mill/uL (4.70-6.10); White Blood Cell (WBC) Count 6.7 thou/uL (4.8-10.8)
[2018-02-25 19:43] LABS: Bilirubin Small (Negative); Blood, Urine Negative (Negative); Clarity CLEAR (Clear); Glucose, Urine (Dipstick) Negative (Negative); Leukocyte Trace (Negative); Nitrite Negative (Negative); Protein, Urine (Dipstick) Negative (Neg-Trace); Specific Gravity, Urine 1.018 (1.002-1.036)
[2018-02-25 19:45] LABS: Bacteria/HPF None Seen HPF (None Seen); Hyaline Casts/LPF 0-3 HYALINE CAST LPF (0-3 Hyaline); Pathc Cast-AUWi Flag 0.14 (0-2.49); RBC/HPF 0-3 HPF (0-3); Squamous Epithelial None Seen HPF (0-3); WBC/HPF None Seen HPF (0-3)
--- NOTE | 2018-02-25 19:55 | RAD ---
PORTABLE CHEST: HISTORY: Hypertension. Mental status change. COMPARISON: 10/04/2017 FINDINGS: The lungs appear well aerated and clear. No infiltrate identified. The heart and mediastinum are un remarkable. AICD leads are again noted. IMPRESSION: No acute lung process identified. POS: [facility]
[2018-02-25 19:59] LABS: ALT (SGPT) 19 U/L (8-55); AST (SGOT) 16 U/L (5-34); Albumin 3.6 g/dL (3.4-4.8); Alkaline Phosphatase 72 U/L (40-150); Anion Gap 11 mmol/L (10-20); BUN (Urea Nitrogen) 19 mg/dL (8.4-25.7); Bilirubin, Total 0.9 mg/dL (0.2-1.2); Calc. Creatinine Clearance 0 mL/min (70-130); Calcium 9.4 mg/dL (7.8-10.44); Carbon Dioxide 28 mmol/L (23-31); Estimated GFR-MDRD 66; Glucose 116 mg/dL (83-110); Potassium 4.3 mmol/L (3.5-5.1); Protein, Total 6.6 g/dL (5.8-8.1)
[2018-02-25 20:02] LABS: CKMB 0.6 ng/mL (0-6.6)
[2018-02-25 20:24] LABS: Chloride 103 mmol/L (98-107); Sodium 138 mmol/L (136-145)
--- NOTE | 2018-02-25 20:46 | CT ---
CT HEAD WITHOUT CONTRAST: INDICATIONS: Weakness. Mental status change. TECHNIQUE: Multiple axial tomograms obtained through the head without IV enhancement. FINDINGS: Mild to moderate cortical atrophy. The ventricles have normal size and position. Mild chronic ische shalini white matter change. No evidence of acute mass or hemorrhage. No evidence of acute infarct. IMPRESSION: There are chronic findings, as described. No acute abnormality. POS: [facility]
== END 2018-02-25 21:57 | disposition home or self-care (01) ==
LOC: ERS 18:56
DX: R53.1 Weakness (principal); E78.5 Hyperlipidemia, unspecified; F41.9 Anxiety disorder, unspecified; F03.90 Unspecified dementia, unspecified severity, without behavioral disturbance, psychotic disturbance, mood disturbance, and anxiety; I10 Essential (primary) hypertension; I25.2 Old myocardial infarction; Z87.891 Personal history of nicotine dependence; Z79.82 Long term (current) use of aspirin; Z79.899 Other long term (current) drug therapy
CPT/HCPCS: 36415; 70450; 71045; 80053; 81003; 81015; 82553; 83605; 84484; 85025; 87040; 87086; 93005; 96360

== ENCOUNTER 2018-09-08 10:19 | Emergency (ER) | payer MEDICARE ==
--- NOTE | 2018-09-08 11:25 | CT ---
CT BRAIN NONCONTRAST: HISTORY: 83-year-old male status post acute head trauma from fall. FINDINGS: There is no midline shift or any other mass effect. There is no evidence of acute intracranial hemor rhage, large cortical infarct, obstructive hydrocephalus, or extraaxial fluid collection. The calvar ium is intact. There is diffuse parenchymal volume loss. There are low attenuation areas in the whi te matter. These are nonspecific, but in a patient of this age, they are probably chronic ischemic w gasper matter changes due to microvascular atherosclerosis. IMPRESSION: 1. No acute intracranial findings. 2. Involutional changes and chronic ischemic white matter changes. jn [] POS: [facility]
[2018-09-08 11:46] LABS: Anion Gap 16 mmol/L (10-20); BUN (Urea Nitrogen) 24 mg/dL (8.4-25.7); Calc. Creatinine Clearance 0 mL/min (70-130); Calcium 9.6 mg/dL (7.8-10.44); Carbon Dioxide 27 mmol/L (23-31); Chloride 101 mmol/L (98-107); Estimated GFR-MDRD 44; Glucose 205 mg/dL (83-110); Potassium 4.3 mmol/L (3.5-5.1); Sodium 140 mmol/L (136-145)
== END 2018-09-08 11:55 | disposition home or self-care (01) ==
LOC: SCSER 10:19
DX: S00.03XA Contusion of scalp, initial encounter (principal); E78.5 Hyperlipidemia, unspecified; I10 Essential (primary) hypertension; F41.9 Anxiety disorder, unspecified; Z87.891 Personal history of nicotine dependence; Z79.82 Long term (current) use of aspirin; Z79.899 Other long term (current) drug therapy; W19.XXXA Unspecified fall, initial encounter
CPT/HCPCS: 36415; 70450; 80048; 93005

== ENCOUNTER 2018-11-08 19:18 | Emergency (ER) | payer MEDICARE ==
[2018-11-08] MEDS ORDERED: Ondansetron PF 4 MG/2 ML Vial ONE (20:38)
--- NOTE | 2018-11-08 20:38 | RAD ---
PORTABLE CHEST: HISTORY: Syncope. COMPARISON: 02/25/2018 FINDINGS: Heart size is borderline. Postop sternotomy change and internal defibrillator device. Lungs are solomon ar of any infiltrates. No signs of failure. IMPRESSION: No acute findings. POS: [facility]
--- NOTE | 2018-11-08 20:40 | CT ---
CT BRAIN WITHOUT CONTRAST: HISTORY: Syncope. COMPARISON: 09/08/2018 FINDINGS: There is generalized ventricular and sulcal prominence. There are no signs of intracerebral hemorrha ge or extraaxial fluid collections. No mass lesion or mass effect. The mastoid air cells and visual ized sinuses are clear. IMPRESSION: No acute intracranial abnormalities. POS: [facility]
[2018-11-08 20:46] LABS: ALT (SGPT) 27 U/L (8-55); AST (SGOT) 24 U/L (5-34); Alkaline Phosphatase 65 U/L (40-150); Anion Gap 18 mmol/L (10-20); BUN (Urea Nitrogen) 23 mg/dL (8.4-25.7); Bilirubin, Total 0.7 mg/dL (0.2-1.2); CK (CPK) 48 U/L (30-200); Calc. Creatinine Clearance 0 mL/min (70-130); Calcium 9.4 mg/dL (7.8-10.44); Carbon Dioxide 23 mmol/L (23-31); Chloride 101 mmol/L (98-107); Estimated GFR-MDRD 50; Globulin 2.7 g/dL (2.4-3.5); Glucose 125 mg/dL (83-110); Lipase 52 U/L (8-78); Potassium 4.3 mmol/L (3.5-5.1); Protein, Total 6.7 g/dL (5.8-8.1); Sodium 138 mmol/L (136-145)
[2018-11-08 20:57] LABS: #Eosinphils 0.1 thou/uL (0.0-0.7); #Lymphocytes 1.6 thou/uL (1.20-3.40); #Monocytes 0.5 thou/uL (0.11-0.59); #Neutrophils 5.9 thou/uL (1.40-6.50); %Basophils 0.2 % (0.0-1.0); %Eosinophils 1.5 % (0.0-10.0); %Lymphocytes 19.5 % (21.0-51.0); %Monocytes 6.5 % (0.0-10.0); %Neutrophils 72.4 % (42.0-75.0); Hemoglobin 14.9 g/dL (14.0-18.0); Mean Corpuscular HGB CONC 33.7 g/dL (32.0-36.0); Mean Corpuscular Hemoglobin 31.6 pg (27.0-31.0); Mean Corpuscular Volume 93.5 fL (78.0-98.0); Mean Platelet Volume 7.9 fL (7.4-10.4); Platelet Count 168 thou/uL (130-400); RBC Distribution Width 11.5 % (11.5-14.5); Red Blood Cell (RBC) Count 4.71 mill/uL (4.70-6.10); White Blood Cell (WBC) Count 8.1 thou/uL (4.8-10.8)
[2018-11-08 21:08] LABS: Bilirubin Negative (Negative); Blood, Urine Negative (Negative); Clarity CLEAR (Clear); Glucose, Urine (Dipstick) Negative (Negative); Leukocyte Negative (Negative); Nitrite Negative (Negative); Protein, Urine (Dipstick) Negative (Neg-Trace); Specific Gravity, Urine 1.013 (1.002-1.036); Urobilinogen 0.2 mg/dL (0.2-1.0); pH, Urine 5.5 (5.0-9.0)
== END 2018-11-08 22:04 | disposition home or self-care (01) ==
LOC: ERS 19:18
DX: R55 Syncope and collapse (principal); E78.5 Hyperlipidemia, unspecified; I25.2 Old myocardial infarction; I11.0 Hypertensive heart disease with heart failure; I50.9 Heart failure, unspecified; F41.9 Anxiety disorder, unspecified; Z87.891 Personal history of nicotine dependence; Z79.82 Long term (current) use of aspirin; Z79.899 Other long term (current) drug therapy
CPT/HCPCS: 36415; 70450; 71045; 80053; 81003; 82550; 83690; 83880; 84484; 85025; 85379; 93005; 96361; 96374; J2405

== ENCOUNTER 2018-12-31 19:17 | Observation (INO) | payer MEDICARE ==
[2018-12-31 20:14] LABS: #Eosinphils 0.2 thou/uL (0.0-0.7); #Lymphocytes 1.3 thou/uL (1.20-3.40); #Monocytes 0.4 thou/uL (0.11-0.59); %Basophils 0.5 % (0.0-1.0); %Eosinophils 3.6 % (0.0-10.0); %Lymphocytes 22.1 % (21.0-51.0); %Monocytes 7.5 % (0.0-10.0); %Neutrophils 66.4 % (42.0-75.0); Hemoglobin 12.9 g/dL (14.0-18.0); Mean Corpuscular HGB CONC 34.4 g/dL (32.0-36.0); Mean Corpuscular Volume 93.1 fL (78.0-98.0); Mean Platelet Volume 7.5 fL (7.4-10.4); Platelet Count 177 thou/uL (130-400); RBC Distribution Width 11.5 % (11.5-14.5); Red Blood Cell (RBC) Count 4.02 mill/uL (4.70-6.10)
--- NOTE | 2018-12-31 20:29 | CT ---
CT BRAIN WITHOUT CONTRAST: HISTORY:Altered mental status, tremors, abnormal speech COMPARISON:11/08/2018 FINDINGS: There are foci of decreased attenuation in the periventricular white matter, consistent with chronic small vessel ischemic disease. No evidence of acute infarct, hemorrhage, midline shift or abnormal extra-axial fluid collections is seen. The ventricular size is appropriate and the basilar cisterns are patent. The bony calvarium is intact. The visualized paranasal sinuses and mastoid air cells are well aerated. IMPRESSION: No CT evidence of acute intracranial process.
[2018-12-31 20:52] LABS: Bilirubin Negative (Negative); Blood, Urine Negative (Negative); Clarity CLEAR (Clear); Glucose, Urine (Dipstick) Negative (Negative); Leukocyte Negative (Negative); Nitrite Negative (Negative); Protein, Urine (Dipstick) Negative (Neg-Trace); Specific Gravity, Urine 1.018 (1.002-1.036); Urobilinogen 0.2 mg/dL (0.2-1.0)
[2018-12-31 20:52] LABS: ALT (SGPT) 14 U/L (8-55); AST (SGOT) 14 U/L (5-34); Albumin 3.7 g/dL (3.4-4.8); Alkaline Phosphatase 78 U/L (40-150); Anion Gap 11 mmol/L (10-20); BUN (Urea Nitrogen) 16 mg/dL (8.4-25.7); Bilirubin, Total 0.7 mg/dL (0.2-1.2); CK (CPK) 43 U/L (30-200); Calc. Creatinine Clearance 0 mL/min (70-130); Carbon Dioxide 31 mmol/L (23-31); Chloride 103 mmol/L (98-107); Estimated GFR-MDRD 54; Globulin 2.2 g/dL (2.4-3.5); Glucose 136 mg/dL (83-110); Protein, Total 5.9 g/dL (5.8-8.1); Sodium 141 mmol/L (136-145)
--- NOTE | 2018-12-31 20:54 | RAD ---
PORTABLE CHEST ONE VIEW: Date: 12-31-18 Time: 8:22 p.m. History: Altered mental status. Tremors, abnormal speech. FINDINGS: Comparison made with exam of 11-08-18. Changes of median sternotomy are again seen. The heart size is normal. The aorta is tortuous. Left si ded AICD remains in place. No lobar consolidation, pneumothoraces, lyndsay pulmonary edema or large eff usions are seen. IMPRESSION: No acute process. POS: [facility]
--- NOTE | 2018-12-31 22:55 | PDOC.FPRHP ---
- History of Present Illness Chief Complaint: difficulty speaking History of Present Illness: 83 yo M with PMH of seizures, HTN, RI, and HFrEF presents for aphasia. Pt is somewhat of a poor historian. No family was with him during his interview. States he was with his daughter and granddaughter earlier today, and 3 episodes of shaking of his arms and legs, each lasting about 1 hr. Pt did not lose consciousness, no incontinence. Reports since that time, he has had aphasia. Reports he has had this problem for a year, but it seems to have worsened after his shaking episode. Also reports diffuse muscle soreness in abdomen and upper legs. In ED, CT head negative. CXR neg. WBC wnl. UA neg. - Allergies/Adverse Reactions Allergies Allergy/AdvReac Type Severity Reaction Status Date / Time ciprofloxacin Allergy Verified 10/04/17 15:39 - Home Medications Medication Instructions Recorded Confirmed Type Atorvastatin Calcium [Lipitor] 80 mg PO HS #30 tab 11/08/16 01/01/19 Rx Ranolazine [Ranexa] 1,000 mg PO BID 06/07/17 01/01/19 History Pancrelipase 21159 [Creon DR 1 cap PO TID-WM #90 cap 08/25/17 01/01/19 Rx 12,000 Units] Temazepam [Restoril] 15 mg PO HS 09/14/17 01/01/19 History Pantoprazole Sodium 40 mg PO DAILY 10/04/17 01/01/19 History Potassium Chloride [K-Dur] 20 meq PO QAM-WM #90 tab 10/17/17 01/01/19 Rx levETIRAcetam [Keppra] 500 mg PO BID #60 tab 10/17/17 01/01/19 Rx FLUoxetine HCl [Fluoxetine HCl] 20 mg PO TID 01/01/19 01/01/19 History Furosemide 40 mg PO DAILY 01/01/19 01/01/19 History - History PMHx: 1. HLD 2. HTN 3. CAD s/p 4v CABG 4. HFrEF 5. Bulging disc 6. Mild dementia 7. seizure disorder 8. hx RI November 2014, STEMI Jul 2019 9. Hx Gi bleed July 2017 PSHx: R hip total arthroplasty, prostate surgery, cholecystectomy, AICD placement, 4v CABG FHx: non-contributory Social: Former tobacco use for a few years, quit smoking in his 20s. Denies tobacco or alcohol use. - Review of Systems General: denies: fever/chills, weight/appetite/sleep changes Eyes: denies: eye pain, vision changes ENT: denies: nasal congestion, rhinorrhea Respiratory: denies: cough, shortness of breath Cardiovascular: denies: chest pain, palpitation Gastrointestinal: reports: diarrhea, constipation. denies: nausea, vomiting, abdominal pain, GI bleeding Genitourinary: denies: incontinence, dysuria Skin: denies: rashes, lesions Musculoskeletal: reports: pain (thighs, abdomen). denies: tenderness Neurological: denies: numbness, syncope, weakness Psychological: denies: anxiety, depression - Vital signs BP: [104/61] HR: [82] RR: [17] Tmax: [] Pox: [96]% on [RA] Wt: [67.59 kg] - Physical Exam Constitutional: NAD HEENT: normocephalic and atraumatic, PERRLA, EOMI, conjunctiva clear, MMM, oropharynx clear, other (mildly decreased hearing) Neck: supple, no LAD Heart: RRR, normal S1/S2, no murmurs/rubs/gallops, pulses present, no edema Lungs: CTAB, no respiratory distress, good air movement, no rales/rhonchi, no wheezing Abdomen: soft, non-tender, bowel sounds present, no masses/distention Musculoskeletal: normal structure, normal tone, ROM grossly normal Neurological: no focal deficit, CN II-XII intact, normal sensation, other ( somewhat difficult to understand his speech, unknown if this is baseline) Skin: no rash/lesions, good turgor, capillary refill <2 seconds Heme/Lymphatic: no unusual bruising or bleeding, no purpura Psychiatric: normal mood and affect, other (somewhat poor historian) FMR H&P: Results - Labs Result Diagrams: 12/31/18 20:05 12/31/18 20:05 Lab results: WBC 6.0 thou/uL (4.8-10.8) 12/31/18 20:05 Hgb 12.9 g/dL (14.0-18.0) L 12/31/18 20:05 Hct 37.4 % (42.0-52.0) L 12/31/18 20:05 MCV 93.1 fL (78.0-98.0) 12/31/18 20:05 Plt Count 177 thou/uL (130-400) 12/31/18 20:05 Neutrophils % 66.4 % (42.0-75.0) 12/31/18 20:05 Sodium 141 mmol/L (136-145) 12/31/18 20:05 Potassium 4.0 mmol/L (3.5-5.1) 12/31/18 20:05 Chloride 103 mmol/L (98-107) 12/31/18 20:05 Carbon Dioxide 31 mmol/L (23-31) 12/31/18 20:05 BUN 16 mg/dL (8.4-25.7) 12/31/18 20:05 Creatinine 1.27 mg/dL (0.7-1.3) 12/31/18 20:05 Glucose 136 mg/dL (83-110) H 12/31/18 20:05 Calcium 9.0 mg/dL (7.8-10.44) 12/31/18 20:05 Total Bilirubin 0.7 mg/dL (0.2-1.2) 12/31/18 20:05 AST 14 U/L (5-34) 12/31/18 20:05 ALT 14 U/L (8-55) 12/31/18 20:05 Alkaline Phosphatase 78 U/L (40-150) 12/31/18 20:05 Creatine Kinase 43 U/L (30-200) 12/31/18 20:05 Serum Total Protein 5.9 g/dL (5.8-8.1) 12/31/18 20:05 Albumin 3.7 g/dL (3.4-4.8) 12/31/18 20:05 Urine Ketones Negative mg/dL (Negative) 12/31/18 20:34 Urine Blood Negative (Negative) 12/31/18 20:34 Urine Nitrite Negative (Negative) 12/31/18 20:34 Ur Leukocyte Esterase Negative (Negative) 12/31/18 20:34 - EKG Interpretation EKG: NSR, LAD, QTc prolonged at 524 ms, PACs - Radiology Interpretation Chest x-ray Status: report reviewed by me Additional comment: no acute process CT scan - head Status: report reviewed by me Additional comment: negative for acute process FMR H&P: A/P - Problem List (1) HLD (hyperlipidemia) Current Visit: No Status: Chronic Code(s): E78.5 - HYPERLIPIDEMIA, UNSPECIFIED Qualifiers: (2) HTN (hypertension) Current Visit: No Status: Chronic Code(s): I10 - ESSENTIAL (PRIMARY) HYPERTENSION Qualifiers: Comment: currently hypotensive (3) Hx of CABG Current Visit: No Status: Chronic (4) Concern about stroke without diagnosis Current Visit: Yes Status: Acute Code(s): Z71.1 - PERSON W FEARED HLTH COMPLAINT IN WHOM NO DIAGNOSIS IS MADE (5) Aphasia Current Visit: Yes Status: Acute Code(s): R47.01 - APHASIA (6) Myalgia Current Visit: Yes Status: Acute Code(s): M79.10 - MYALGIA, UNSPECIFIED SITE (7) Seizure disorder Current Visit: Yes Status: Chronic Code(s): G40.909 - EPILEPSY, UNSP, NOT INTRACTABLE, WITHOUT STATUS EPILEPTICUS (8) History of CVA (cerebrovascular accident) Current Visit: Yes Status: Chronic Code(s): Z86.73 - PRSNL HX OF TIA (TIA), AND CEREB INFRC W/O RESID DEFICITS (9) HFrEF (heart failure with reduced ejection fraction) Current Visit: Yes Status: Chronic Code(s): I50.20 - UNSPECIFIED SYSTOLIC ( CONGESTIVE) HEART FAILURE (10) Prolonged Q-T interval on ECG Current Visit: Yes Status: Acute Code(s): R94.31 - ABNORMAL ELECTROCARDIOGRAM [ECG] [EKG] - Plan TIA vs CVA - Presents with aphasia - FLP, TSH, Mag, Phos pending - MRI brain in AM - Aspirin 325 [place] - NPO for speech - EKG showed NSR, with LAD, QTc prolongation 524 ms, and PACs - Repeat Echo Aphasia - NPO - Speech consulted Myalgias -CK pending Prolonged QT - avoid QT prolonging agents Seizure -Continue home medication -based on pt's story, unlikely that patient's shaking episode today was seizure activity h/o CVA HTN - continue home medication HLD with known CAD - Continue home medication Hx MIx2 -November 2014 -STEMI 2019 Anxiety -aware HFrEF - EF 25-30% in 2017 - Repeat echo pending - AICD in place Hx GI Bleed Diet: NPO for speech to clear DVT ppx: lovenox GI ppx: none Dispo: Tele obs FMR H&P: Upper Level - Pertinent history 83 y/o M with PMHx of possible seizure, CVA, HTN, HLD, CAD, HFrEF presents with difficulty with speech. He reports difficulty getting his words out. He says that when he was at the house around 4pm he started shaking for about an hour. His relatives were there and witnessed it. He reports that he was awake during that episode. He reports a h/o these shaking episodes in the past as well that he was awake for. Denies incontinence or tongue biting. His speech difficulty started about a year ago. He reports pain in his muscles that started after this episode. The patient was overall a very poor historian. - Pertinent findings BP 104/61 HR 82 RR 17 Temp 98.1 O2 sat 96% on RA Weight 67.59 kg PE: Gen - alert, oriented, NAD HEENT - MMM, EOMI, PERRL CV - RRR, no murmurs, gallops, rubs Resp - CTAB, no wheezes Neuro - anomic aphasia, slurring of speech, CN II-XII intact, motor and sensation grossly intact, cerebellar exam WNL with normal awhvoy-yh-rowk and mxkf-cu-eykr Brain CT - No acute intracranial process CXR - no acute process - Plan Date/Time: 12/31/18 2250 I, Paula Lozano MD, PGY-2, have evaluated this patient and agree with findings/ plan as outlined by news internship resident. Pertinent changes/additions are listed here. TIA vs CVA Patient with possible worsening of aphasia per ED physician, however pt reports it has been a problem for a year. CT brain WNL. Neuro exam intact except some anomic aphasia and slurring. -Aspirin -Statin -MRI brain in AM -FLP -Echo Myalgia Patient reports "muscle shaking" episode. Do not suspect seizure as prolactin normal and pt aware during episodes. -Will check TSH, Mag, Phos -Will check CK Seizure d/o Pt previously admitted for "seizure". He had postictal state at that time, but normal EEG. Neuro concerned for seizure activity as cause of his encephalopathy. He was started on keppra 500mg BID. -Will continue keppra, although doesn't appear that this episode related to seizures HLD -Check FLP -Continue atorvastatin 80mg HFrEF -Continue lasix -Check Echo as last in 2016 showed EF 25-30%. Pt with AICD in place See news internship note for further details regarding other chronic medical conditions. Dispo: Obs on stroke VTE ppx: Code Status: Full Addendum - Attending - Attending Attestation Date/Time: 01/01/19 0637 I personally evaluated the patient and discussed the management with Dr. Stevens and Marta at time fo admission on 12/31/18. I agree with the History, Examination, Assessment and Plan documented above with any addition or exceptions noted below. While patient has a known seizure disorder, the history of the events yesterday does not suggest seizure activity as he maintained consciousness throughout. Concern for TIA prompts MRI. Patient does take a benzodiazepime which may affect memory and speech detrimentally.
[2019-01-01] MEDS ORDERED: Aspirin 300 MG Suppository ONE (02:38)
[2019-01-01] MEDS ORDERED: Enoxaparin Sodium 40 MG/0.4 ML SYRINGE SC SCH (03:54)
[2019-01-01 04:06] VITALS: BMI 21.4
[2019-01-01] MEDS ORDERED: Aspirin 325 mg Enteric Coated Tablet PO SCH (04:15)
--- NOTE | 2019-01-01 06:04 | PDOC.FM ---
- Subjective Subjective: Flex Johnston seen at bedside this morning. He is not a reliable historian. Unclear history regarding symptoms of shaking in bilateral extremities and aphasia. States it is difficult for him to find words at times but states this has been going on for months to years. His speak is understandable this morning. Denies vision changes, headaches, chest pain, dyspnea, n/v, focal weakness, numbness/tingling. - Objective MAR Reviewed: Yes Vital Signs & Weight: Vital Signs (12 hours) Temp Pulse Resp BP Pulse Ox 01/01/19 03:10 98.0 F 84 18 134/69 96 Weight Weight 64.042 kg Result Diagrams: 12/31/18 20:05 12/31/18 20:05 Phys Exam - Physical Examination Constitutional: NAD HEENT: moist MMs, sclera anicteric Neck: supple, full ROM Respiratory: no wheezing, no rales, no rhonchi, clear to auscultation bilateral Cardiovascular: RRR, no significant murmur Gastrointestinal: soft, non-tender, no distention Musculoskeletal: no edema, pulses present Neurological: non-focal, normal sensation, moves all 4 limbs Psychiatric: normal affect, A&O x 3 Skin: no rash Dx/Plan (1) Aphasia Code(s): R47.01 - APHASIA Status: Acute (2) Seizure disorder Code(s): G40.909 - EPILEPSY, UNSP, NOT INTRACTABLE, WITHOUT STATUS EPILEPTICUS Status: Chronic (3) TIA (transient ischemic attack) Status: Acute (4) Prolonged Q-T interval on ECG Code(s): R94.31 - ABNORMAL ELECTROCARDIOGRAM [ECG] [EKG] Status: Acute (5) HFrEF (heart failure with reduced ejection fraction) Code(s): I50.20 - UNSPECIFIED SYSTOLIC (CONGESTIVE) HEART FAILURE Status: Chronic (6) History of CVA (cerebrovascular accident) Code(s): Z86.73 - PRSNL HX OF TIA (TIA), AND CEREB INFRC W/O RESID DEFICITS Status: Chronic (7) HLD (hyperlipidemia) Code(s): E78.5 - HYPERLIPIDEMIA, UNSPECIFIED Status: Chronic Qualifiers: (8) HTN (hypertension) Code(s): I10 - ESSENTIAL (PRIMARY) HYPERTENSION Status: Chronic Qualifiers: (9) Hx of CABG Status: Chronic - Plan Plan: TIA vs CVA - Presents with aphasia - FLP, TSH, Mag, Phos pending - MRI brain ordered - Aspirin 325 [place], Continue home statin - NPO for speech - EKG showed NSR, with LAD, QTc prolongation 524 ms, and PACs - Repeat Echo Aphasia - NPO - Speech consulted Myalgias - CK 43, continue to monitor Prolonged QT - avoid QT prolonging agents Seizure - Continue home medication - based on pt's story, unlikely that patient's shaking episode today was seizure activity - Keppra level is 23.8 h/o CVA HTN - continue home medication HLD with known CAD - Continue home medication Hx MIx2 - November 2014 - STEMI 2019 Anxiety - aware HFrEF - EF 25-30% in 2017 - Repeat echo pending - AICD in place Hx GI Bleed Diet: NPO for speech to clear DVT ppx: lovenox GI ppx: none Addendum - Attending - Attending Attestation Date/Time: 01/01/19 4900 I personally evaluated the patient and discussed the management with Dr. Senior. I agree with and repeated the History, Examination, Assessment and Plan documented above with any addition or exceptions noted below. Unable to perform MRI 2/2 AICD. The spell described by the patient was almost certainly not a TIA/stroke as no deficits (he tells me know dysarthria either), and I highly doubt focal with secondary generalization with no LOC as a seizure semiology. No evidence of migraine. Plan on a limited workup and likely d/c this afternoon.
[2019-01-01 06:15] LABS: Phosphorus 2.5 mg/dL (2.3-4.7)
[2019-01-01 06:18] LABS: Magnesium 1.6 mg/dL (1.6-2.6)
[2019-01-01] MEDS: FLUoxetine HCl 20 MG CAP PO SCH ×3 (09:56→20:39)
[2019-01-01] MEDS: Furosemide 40 MG TAB PO SCH (09:56)
[2019-01-01] MEDS: levETIRAcetam 500 MG TAB PO SCH ×2 (09:56→20:39)
[2019-01-01] MEDS ORDERED: Atorvastatin Calcium 40 MG TAB PO SCH (21:00)
[2019-01-02 05:48] LABS: Hemoglobin 13.5 g/dL (14.0-18.0); Mean Corpuscular HGB CONC 34.4 g/dL (32.0-36.0); Mean Platelet Volume 7.8 fL (7.4-10.4); Platelet Count 191 thou/uL (130-400); RBC Distribution Width 11.4 % (11.5-14.5); Red Blood Cell (RBC) Count 4.21 mill/uL (4.70-6.10); White Blood Cell (WBC) Count 6.3 thou/uL (4.8-10.8)
--- NOTE | 2019-01-02 05:57 | PDOC.FM ---
- Subjective Subjective: Flex Johnston seen at bedside this morning. Denies any complaints, no acute events overnight. Patient and family agree that his speech is much improved compared to admission. Denies any headaches, vision changes, chest pain, dyspnea, palpitations, n/v. - Objective MAR Reviewed: Yes Vital Signs & Weight: Vital Signs (12 hours) Temp Pulse Resp BP Pulse Ox 01/02/19 03:26 98.1 F 89 20 105/60 92 L 01/01/19 23:20 97.4 F L 92 20 128/72 94 L 01/01/19 20:10 98.2 F 88 20 114/65 95 Weight Weight 64.042 kg I&O: 12/31/18 01/01/19 01/02/19 06:59 06:59 06:59 Intake Total 200 1210 Output Total 200 250 Balance 0 960 Result Diagrams: 01/02/19 05:28 01/02/19 05:28 Phys Exam - Physical Examination Constitutional: NAD HEENT: PERRLA, moist MMs, sclera anicteric Neck: supple, full ROM Respiratory: no wheezing, no rales, no rhonchi, clear to auscultation bilateral Cardiovascular: RRR, no significant murmur Gastrointestinal: soft, non-tender, no distention Musculoskeletal: no edema, pulses present Neurological: non-focal, normal sensation, moves all 4 limbs Psychiatric: normal affect, A&O x 3 Skin: no rash Dx/Plan (1) Aphasia Code(s): R47.01 - APHASIA Status: Acute (2) Seizure disorder Code(s): G40.909 - EPILEPSY, UNSP, NOT INTRACTABLE, WITHOUT STATUS EPILEPTICUS Status: Chronic (3) TIA (transient ischemic attack) Status: Acute (4) Prolonged Q-T interval on ECG Code(s): R94.31 - ABNORMAL ELECTROCARDIOGRAM [ECG] [EKG] Status: Acute (5) HFrEF (heart failure with reduced ejection fraction) Code(s): I50.20 - UNSPECIFIED SYSTOLIC (CONGESTIVE) HEART FAILURE Status: Chronic (6) History of CVA (cerebrovascular accident) Code(s): Z86.73 - PRSNL HX OF TIA (TIA), AND CEREB INFRC W/O RESID DEFICITS Status: Chronic (7) HLD (hyperlipidemia) Code(s): E78.5 - HYPERLIPIDEMIA, UNSPECIFIED Status: Chronic Qualifiers: (8) HTN (hypertension) Code(s): I10 - ESSENTIAL (PRIMARY) HYPERTENSION Status: Chronic Qualifiers: (9) Hx of CABG Status: Chronic - Plan Plan: TIA vs CVA - Presents with aphasia - FLP, TSH, Mag, Phos normal - Unable to perform Brain MRI due to AICD - Aspirin 325 [place], Continue home statin - Passed swallow study - EKG showed NSR, with LAD, QTc prolongation 524 ms, and PACs - Echo shows no changes from prior, EF 25-30% - D/c home today Aphasia - passed swallow study - improved Myalgias - CK 43 - improved Prolonged QT - avoid QT prolonging agents Seizure - Continue home medication - based on pt's story, unlikely that patient's shaking episode today was seizure activity - Keppra level is 23.8 h/o CVA HTN - continue home medication HLD with known CAD - Continue home medication Hx MIx2 - November 2014 - STEMI 2019 Anxiety - aware HFrEF - EF 25-30% in 2017 - Repeat echo pending - AICD in place Hx GI Bleed Diet: NPO for speech to clear DVT ppx: lovenox GI ppx: none
[2019-01-02 05:59] LABS: Anion Gap 8 mmol/L (10-20); BUN (Urea Nitrogen) 12 mg/dL (8.4-25.7); Calc. Creatinine Clearance 43 mL/min (70-130); Calcium 9.3 mg/dL (7.8-10.44); Carbon Dioxide 33 mmol/L (23-31); Cardiac Risk 4.3 (Less than 4.5); Chloride 103 mmol/L (98-107); Cholesterol 147 mg/dl (< 200 Desired); Estimated GFR-MDRD 59; Glucose 118 mg/dL (83-110); HDL Cholesterol 34 mg/dL (>60 Neg Risk); LDL Cholesterol, Calculated 72 mg/dL; Potassium 3.8 mmol/L (3.5-5.1); Sodium 140 mmol/L (136-145); Triglycerides 204 mg/dL (Less than 150)
[2019-01-02] MEDS ORDERED: Enoxaparin Sodium 40 MG/0.4 ML SYRINGE SC SCH (09:00)
[2019-01-02] MEDS: levETIRAcetam 500 MG TAB PO SCH (09:20)
[2019-01-02] MEDS: Furosemide 40 MG TAB PO SCH (09:21)
[2019-01-02] MEDS: FLUoxetine HCl 20 MG CAP PO SCH (09:21)
--- NOTE | 2019-01-02 10:42 | PRG ---
DATE OF SERVICE: 01/02/2019 SUBJECTIVE: Mr. Johnston this morning is completely awake and alert. He no longer has an aphasia. His brain CT was negative. Echo unrevealing. He possibly had a TIA. In the event, his aphasia has resolved and then he is ready for discharge. Job ID: [id number]
[2019-01-02 11:46] VITALS: BP 108/55; TEMP 97.9
--- NOTE | 2019-01-03 12:43 | DIS ---
DATE OF ADMISSION: 01/01/2019 DATE OF DISCHARGE: 01/02/2019 RESIDENT PHYSICIAN: Ramiro Senior MD. ADMITTING ATTENDING: Dr. Tavares Patel. DISCHARGE ATTENDING: Dr. Flaco Wright. CONSULTS: 1. Case Management. 2. Speech Evaluation. PROCEDURES: 1. Chest x-ray on 12/31/2018, impression; no acute process. 2. Brain CT on 12/31/2018, impression; no CT evidence of acute intracranial process. 3. Echocardiogram on 01/01/2019, summary; technically inadequate exam. Ejection fraction visually estimated at 25% to 30%. Mildly dilated left atrium. Left ventricular size mildly increased. Aortic valve leaflets are somewhat thickened. Mild tricuspid and mitral regurgitation present. PRIMARY DIAGNOSIS: Aphasia, rule out seizure versus transient ischemic attack. SECONDARY DIAGNOSIS: 1. Rule out transient ischemic attack. 2. Seizure disorder. 3. Myalgia. 4. History of cerebrovascular accident. 5. Heart failure with reduced ejection fraction. 6. Prolonged QT interval on ECG. DISCHARGE INSTRUCTIONS: Resume home medications including, 1. Atorvastatin 80 mg p.o. h.s. 2. Ranexa 1000 mg p.o. b.i.d. 3. Pancrelipase DR 12,000 one capsule p.o. t.i.d. with meals. 4. Restoril 15 mg p.o. h.s. 5. Pantoprazole 40 mg p.o. daily. 6. Keppra 500 mg p.o. b.i.d. 7. Potassium chloride 20 mEq p.o. q.a.m. with meals. 8. Furosemide 40 mg p.o. daily. 9. Fluoxetine 20 mg p.o. t.i.d. New home medications include, 1. Aspirin 81 mg p.o. daily. HISTORY OF PRESENT ILLNESS/HOSPITAL COURSE: Flex Johnston is an 83-year-old male with past medical history of seizures, hypertension, CAD, status post SC and heart failure with reduced ejection fraction, who presented to [facility] ED with aphasia. The patient is a poor historian, but family stated that he was with his daughter and granddaughter earlier in the day and had three episodes of shake in his arms and legs, which lasted approximately 3 minutes. The patient did not lose consciousness, have incontinence or tongue biting, but reported that since that time, he has had difficulty word finding. Reports that he has had this problem for about a year, but it seemed to worsen after a shaking episode. He reports diffuse muscle soreness in his abdomen and upper legs. In the ED, CT head was negative. Chest x-ray was negative. White blood cell count was within normal limits and UA was negative. On admission, the patient's initial vitals were blood pressure 104/61, heart rate 82, respiratory rate 17, pulse ox 96% on room air, and he was afebrile. Physical exam showed no focal deficits. Cranial nerves 2 through 12 are intact. He had normal sensation, but his speech was somewhat difficult to understand. He had difficulty finding words and would have long pauses. Initial labs; white blood cell count 6.0, hemoglobin 12.9, hematocrit 37.4, platelets 177. Sodium 141, potassium 4.0, chloride 103, bicarb 31, BUN 16, creatinine 1.27, and glucose of 136. EKG showed normal sinus rhythm with left axis deviation, QTc prolonged at 524. He had PACs. Chest x-ray showed no acute process. CT of the head was negative. The patient was admitted for aphasia with concern for TIA versus CVA versus seizure. Brain MRI could not be performed due to the patient having AICD. The patient had a negative prolactin at 11.6. His troponin was negative at 0.019. His CK was 38. Magnesium and phosphorus were normal. TSH was 2.36. Keppra level was drawn and was 23.8, which is therapeutic. Urine culture showed no growth. Over the course of the patient's 2-day hospitalization, his speech improved. On day of discharge, 01/02/2019, his speech was dramatically improved. It was thought that based on his history, this is likely secondary to a possible seizure. However, secondary prevention for stroke was optimized and the patient was instructed to establish care with a new neurologist as the patient's neurologist is no longer practicing for re-evaluation of his seizure medications. The patient was also instructed to follow up with Dr. Martines, his primary care provider. The patient was cleared for discharge on 01/02/2019 with instructions above. His hospital stay was otherwise uncomplicated. The patient's family were in agreement with plan. DISPOSITION: Stable. DISCHARGE INSTRUCTIONS: 1. Location, home. 2. Diet, heart healthy. 3. Activity, as tolerated. 4. Follow up with Neurology and primary care provider within the next 1 to 2 weeks. Job ID: [id number]
--- NOTE | 2019-01-05 15:32 | EKG ---
Test Reason : Blood Pressure : / mmHG Vent. Rate : 087 BPM Atrial Rate : 087 BPM P-R Int : 146 ms QRS Dur : 104 ms QT Int : 436 ms P-R-T Axes : 021 -50 087 degrees QTc Int : 524 ms Sinus rhythm with Premature atrial complexes Left axis deviation Nonspecific ST and T wave abnormality Prolonged QT Abnormal ECG Confirmed by MIRA BYNUM ([id number]), editor news MARY DAVIES ([id number]) on 01/05/2019 3:32:12 PM Referred By: Confirmed By:MIRA BYNUM
== END 2019-01-02 12:23 | disposition home or self-care (01) ==
LOC: ERS 19:17 → 2SE 01-01 02:31
PROVIDERS: ADMIT Family Medicine; ATTEND Family Medicine
DX: R47.01 Aphasia (principal); G40.909 Epilepsy, unspecified, not intractable, without status epilepticus; M79.10 Myalgia, unspecified site; I11.0 Hypertensive heart disease with heart failure; I50.22 Chronic systolic (congestive) heart failure; I25.10 Atherosclerotic heart disease of native coronary artery without angina pectoris; I25.2 Old myocardial infarction; F03.90 Unspecified dementia, unspecified severity, without behavioral disturbance, psychotic disturbance, mood disturbance, and anxiety; E78.5 Hyperlipidemia, unspecified; R94.31 Abnormal electrocardiogram [ECG] [EKG]; Z86.73 Personal history of transient ischemic attack (TIA), and cerebral infarction without residual deficits; Z95.810 Presence of automatic (implantable) cardiac defibrillator; Z88.1 Allergy status to other antibiotic agents; Z79.899 Other long term (current) drug therapy; Z95.1 Presence of aortocoronary bypass graft; Z87.891 Personal history of nicotine dependence
CPT/HCPCS: 70450; 71045; 80048; 80053; 80061; 80177; 81003; 82550 ×2; 83735; 84100; 84146; 84443; 84484; 85025; 85027; 87086; 93005; 93306; 96372; 97116; 97139; 99285; G0378 ×2; 36415; J1650

== ENCOUNTER 2019-03-23 19:41 | Inpatient (IN) | payer MEDICARE ==
[2019-03-23 20:11] LABS: #Basophils 0.1 thou/uL (0.0-0.2); #Eosinphils 0.2 thou/uL (0.0-0.7); #Lymphocytes 1.8 thou/uL (1.20-3.40); #Monocytes 0.5 thou/uL (0.11-0.59); %Basophils 1.4 % (0.0-1.0); %Lymphocytes 26.7 % (21.0-51.0); %Monocytes 7.8 % (0.0-10.0); %Neutrophils 61.2 % (42.0-75.0); Hemoglobin 14.9 g/dL (14.0-18.0); Mean Corpuscular HGB CONC 34.8 g/dL (32.0-36.0); Mean Corpuscular Hemoglobin 30.9 pg (27.0-31.0); Mean Corpuscular Volume 88.7 fL (78.0-98.0); Platelet Count 189 thou/uL (130-400); RBC Distribution Width 11.9 % (11.5-14.5); Red Blood Cell (RBC) Count 4.83 mill/uL (4.70-6.10); White Blood Cell (WBC) Count 6.6 thou/uL (4.8-10.8)
[2019-03-23 20:25] LABS: ALT (SGPT) 20 U/L (8-55); AST (SGOT) 20 U/L (5-34); Albumin 4.2 g/dL (3.4-4.8); Alkaline Phosphatase 61 U/L (40-150); Anion Gap 14 mmol/L (10-20); BUN (Urea Nitrogen) 15 mg/dL (8.4-25.7); Bilirubin, Total 0.6 mg/dL (0.2-1.2); Calc. Creatinine Clearance 0 mL/min (70-130); Calcium 9.4 mg/dL (7.8-10.44); Carbon Dioxide 29 mmol/L (23-31); Chloride 101 mmol/L (98-107); Estimated GFR-MDRD 48; Glucose 116 mg/dL (83-110); Magnesium 2.1 mg/dL (1.6-2.6); Potassium 4.3 mmol/L (3.5-5.1); Protein, Total 7.2 g/dL (5.8-8.1); Sodium 140 mmol/L (136-145)
--- NOTE | 2019-03-23 20:27 | CT ---
EXAM: Brain CT scan Without contrast: HISTORY: Altered mental status COMPARISON: 12/31/2018 FINDINGS: Atrophy and chronic white matter ischemic change. No focal mass or midline shift. No intra or extra-axial hemorrhage. The visualized sinuses and mastoids are clear of acute process. IMPRESSION: No mass or bleed or other significant acute intracranial process.
--- NOTE | 2019-03-23 20:38 | RAD ---
CHEST ONE VIEW: 03/23/19 HISTORY: Syncope. COMPARISON: 12/31/18. FINDINGS: Portable upright chest demonstrates sternotomy wires and a left sided transvenous defibrillator with lead position in the right atrium and right ventricle. There is atherosclerosis of the aorta. Pulmona ry vessels are within normal limits. Costophrenic angles are clear. Lung volumes are diminished likel y due to poor inspiratory effort. No consolidation or mass. No pneumothorax or osseous abnormalities . IMPRESSION: 1. No acute cardiopulmonary process. 2. Atherosclerosis. 3. Diminished lung volumes likely due to poor inspiratory effort. POS: PPP
[2019-03-23 21:10] LABS: Bilirubin Negative (Negative); Blood, Urine Negative (Negative); Clarity Clear (Clear); Glucose, Urine (Dipstick) Negative (Negative); Leukocyte Negative (Negative); Nitrite Negative (Negative); Protein, Urine (Dipstick) Negative (Neg-Trace); Urobilinogen 0.2 mg/dL (0.2-1.0)
[2019-03-23] MEDS ORDERED: Aspirin Chewable 81 MG TAB ONE (21:18)
[2019-03-24 03:26] LABS: Troponin I Less than 0.010 ng/mL (< 0.028)
[2019-03-24 06:25] LABS: Troponin I Less than 0.010 ng/mL (< 0.028)
[2019-03-24 08:06] VITALS: BMI 23.5
[2019-03-24] MEDS ORDERED: Lorazepam 2 MG/ML VIAL SLOW IVP PRN (09:38)
--- NOTE | 2019-03-24 09:57 | PDOC.FPRHP ---
- History of Present Illness Chief Complaint: Shaking, confusion History of Present Illness: 83 yo M with pmh of seizures, HTN, [place] s/p CABG x4v and HFrEF presents for shaking movements, confusion and aphasia. He was just hospitalized for similar complaints on 12/31-01/02. Accompanied by his granddaughter, pt is a poor historian. Was sitting at a restaurant yesterday, they had just finished eating when he felt like was going to pass out. During this time he had 3 minutes of shaking of extremities. Denied LOC, loss of continence, or biting tongue. Since episode pt has been aphasic and oriented to self only which is not typical. Looking at records he has had this aphasia for over a year but it has apparently worsened after each of these episodes. He sees Dr Ramirez, neurology outpt. Denies fevers, chills, focal weakness. Has a pacemaker that is not MRI compatible. PCP: Dr. Martines ED Course: Brain CT- neg. Given ASA. Pt stayed overnight at [facility] ED after admission. EKG with QT prolongation - Allergies/Adverse Reactions Allergies Allergy/AdvReac Type Severity Reaction Status Date / Time ciprofloxacin Allergy Verified 10/04/17 15:39 - Home Medications Medication Instructions Recorded Confirmed Type Atorvastatin Calcium [Lipitor] 80 mg PO HS #30 tab 11/08/16 03/24/19 Rx Ranolazine [Ranexa] 1,000 mg PO BID 06/07/17 03/24/19 History Pancrelipase 15842 [Martin DR 1 cap PO TID-WM #90 cap 08/25/17 03/24/19 Rx 12,000 Units] Temazepam [Restoril] 15 mg PO HS 09/14/17 03/24/19 History Pantoprazole Sodium 40 mg PO DAILY 10/04/17 03/24/19 History Potassium Chloride [K-Dur] 20 meq PO QAM-WM #90 tab 10/17/17 03/24/19 Rx FLUoxetine HCl [Fluoxetine HCl] 20 mg PO TID 01/01/19 03/24/19 History Furosemide 40 mg PO DAILY 01/01/19 03/24/19 History Aspirin [Aspir-Low] 81 mg PO DAILY #30 tablet. 01/02/19 03/24/19 Rx levETIRAcetam [Keppra] 1,000 mg PO BID 03/24/19 03/24/19 History - History PMHx: HLD, HTN, CAD s/p CABG x4, HFrEF, Bulging disc, Mild dementia, seizure disorder, Hx WV 11/2014, STEMI 07/2019, Hx GI bleed 07/2017 PSHx: R hip total arthroplasty, prostate surgery, cholecystectomy, AICD placement, CABG x4v FHx: non-contributory Social: Former tobacco use for a few years, quit smoking in his 20s. Denies tobacco or alcohol use. - Review of Systems General: denies: fever/chills, weight/appetite/sleep changes Eyes: denies: eye pain, vision changes ENT: denies: nasal congestion, rhinorrhea Respiratory: denies: cough, congestion, shortness of breath Cardiovascular: denies: chest pain, palpitation, edema Gastrointestinal: denies: nausea, vomiting, abdominal pain Genitourinary: denies: incontinence Skin: denies: rashes, lesions Musculoskeletal: denies: pain, tenderness Neurological: reports: other (Extremity shaking and presyncope) - Vital signs BP: 151/79 HR: 95 RR: 14 Tmax: 97.8 Pox: 96% on RA Wt: 66kg - Physical Exam Constitutional: NAD, awake, alert and oriented HEENT: normocephalic and atraumatic, conjunctiva clear, MMM, oropharynx clear Neck: supple, trachea midline Heart: RRR, no edema Lungs: CTAB Abdomen: soft, non-tender Musculoskeletal: normal structure, normal tone, ROM grossly normal Neurological: no focal deficit Skin: no rash/lesions Heme/Lymphatic: no unusual bruising or bleeding Psychiatric: normal mood and affect, other (Alert and oriented to person only) FMR H&P: Results - Labs Result Diagrams: 03/23/19 20:10 03/23/19 20:10 Lab results: WBC 6.6 thou/uL (4.8-10.8) 03/23/19 20:10 Hgb 14.9 g/dL (14.0-18.0) 03/23/19 20:10 Hct 42.9 % (42.0-52.0) 03/23/19 20:10 MCV 88.7 fL (78.0-98.0) 03/23/19 20:10 Plt Count 189 thou/uL (130-400) 03/23/19 20:10 Neutrophils % 61.2 % (42.0-75.0) 03/23/19 20:10 Sodium 140 mmol/L (136-145) 03/23/19 20:10 Potassium 4.3 mmol/L (3.5-5.1) 03/23/19 20:10 Chloride 101 mmol/L (98-107) 03/23/19 20:10 Carbon Dioxide 29 mmol/L (23-31) 03/23/19 20:10 BUN 15 mg/dL (8.4-25.7) 03/23/19 20:10 Creatinine 1.41 mg/dL (0.7-1.3) H 03/23/19 20:10 Glucose 116 mg/dL (83-110) H 03/23/19 20:10 Calcium 9.4 mg/dL (7.8-10.44) 03/23/19 20:10 Total Bilirubin 0.6 mg/dL (0.2-1.2) 03/23/19 20:10 AST 20 U/L (5-34) 03/23/19 20:10 ALT 20 U/L (8-55) 03/23/19 20:10 Alkaline Phosphatase 61 U/L (40-150) 03/23/19 20:10 B-Natriuretic Peptide 151.8 pg/mL (0-100) H 03/23/19 20:10 Serum Total Protein 7.2 g/dL (5.8-8.1) 03/23/19 20:10 Albumin 4.2 g/dL (3.4-4.8) 03/23/19 20:10 Urine Ketones Negative mg/dL (Negative) 03/23/19 20:55 Urine Blood Negative (Negative) 03/23/19 20:55 Urine Nitrite Negative (Negative) 03/23/19 20:55 Ur Leukocyte Esterase Negative (Negative) 03/23/19 20:55 - EKG Interpretation EKG: NSR, prolonged QT. LBBB. - Radiology Interpretation Chest x-ray Status: report reviewed by me Additional comment: No acute process CT scan - head Status: report reviewed by me Additional comment: No acute infarct FMR H&P: A/P - Problem List (1) Aphasia Current Visit: No Status: Acute Code(s): R47.01 - APHASIA (2) Concern about stroke without diagnosis Current Visit: No Status: Acute Code(s): Z71.1 - PERSON W FEARED HLTH COMPLAINT IN WHOM NO DIAGNOSIS IS MADE (3) GERD (gastroesophageal reflux disease) Current Visit: No Status: Acute Code(s): K21.9 - GASTRO-ESOPHAGEAL REFLUX DISEASE WITHOUT ESOPHAGITIS (4) Observed seizure-like activity Current Visit: No Status: Acute Code(s): R56.9 - UNSPECIFIED CONVULSIONS (5) Prolonged Q-T interval on ECG Current Visit: No Status: Acute Code(s): R94.31 - ABNORMAL ELECTROCARDIOGRAM [ECG] [EKG] (6) TIA (transient ischemic attack) Current Visit: No Status: Acute (7) UTI (urinary tract infection) Current Visit: No Status: Acute Qualifiers: Urinary tract infection type: acute cystitis Hematuria presence: without hematuria Qualified Code(s): N30.00 - Acute cystitis without hematuria (8) Anemia Current Visit: No Status: Chronic Code(s): D64.9 - ANEMIA, UNSPECIFIED (9) Chronic systolic (congestive) heart failure Current Visit: No Status: Chronic Code(s): I50.22 - CHRONIC SYSTOLIC ( CONGESTIVE) HEART FAILURE (10) Coronary artery disease Current Visit: No Status: Chronic Code(s): I25.10 - ATHSCL HEART DISEASE OF [place] CORONARY ARTERY W/O ANG PCTRS Qualifiers: Comment: Continue med mgmt (11) Dementia Current Visit: No Status: Chronic Code(s): F03.90 - UNSPECIFIED DEMENTIA WITHOUT BEHAVIORAL DISTURBANCE Qualifiers: Dementia type: Alzheimer's disease Alzheimer's disease onset: early-onset Dementia behavioral disturbance: without behavioral disturbance Qualified Code(s): G30.0 - Alzheimer's disease with early onset; F02.80 - Dementia in other diseases classified elsewhere without behavioral disturbance (12) HFrEF (heart failure with reduced ejection fraction) Current Visit: No Status: Chronic Code(s): I50.20 - UNSPECIFIED SYSTOLIC ( CONGESTIVE) HEART FAILURE (13) HLD (hyperlipidemia) Current Visit: No Status: Chronic Code(s): E78.5 - HYPERLIPIDEMIA, UNSPECIFIED Qualifiers: (14) HTN (hypertension) Current Visit: No Status: Chronic Code(s): I10 - ESSENTIAL (PRIMARY) HYPERTENSION Qualifiers: Comment: currently hypotensive (15) History of CVA (cerebrovascular accident) Current Visit: No Status: Chronic Code(s): Z86.73 - PRSNL HX OF TIA (TIA), AND CEREB INFRC W/O RESID DEFICITS (16) Hx of CABG Current Visit: No Status: Chronic (17) Seizure disorder Current Visit: No Status: Chronic Code(s): G40.909 - EPILEPSY, UNSP, NOT INTRACTABLE, WITHOUT STATUS EPILEPTICUS (18) Acute kidney injury Current Visit: No Status: Resolved Code(s): N17.9 - ACUTE KIDNEY FAILURE, UNSPECIFIED (19) Encephalopathy acute Current Visit: No Status: Resolved Code(s): G93.40 - ENCEPHALOPATHY, UNSPECIFIED Comment: Etiology unclear, likely multifactorial - Plan 83yo male with pmh of seizures, CAD, HFrEF presents with acute encephalopathy after possible seizure. Acute Encephalopathy - 2/2 Seizure vs Acute CVA vs TIA. No signs of infection. Unlikely to be seizure. - Pt is also on Benzo for insomnia that could be contributing to AMS - A&O to person only - AICD not compatible with MRI. CT no acute ischemia - Neuro checks q4hrs - Bedside swallow study ordered - Keppra level, Mg, Phos, CK ordered. TSH nml - Continue ASA and statin - EKG with QT prolongation and LAD. Echo 12/2018 with EF 25-30% - Admit to stroke obs Seizures - Seizure precautions - Will check Keppra level, recently increased after seizure 3 months ago - Follows with Dr Voss outpt - Continue Keppra HFrEF with AICD - Last Echo 01/01/19: EF 25-30% - HH diet - Strict I&Os, fluid restriction Aphasia - Ordered bedside swallow study - Manage as above Prolonged QT - Avoid QT prolonging agents HTN - Continue home meds HLD - continue home meds CAD - Continue home meds Hx of CVA & [place] - Continue home meds - 2018 Anxiety Insomnia - Continue home meds, consider stopping BZ Code Status: DNR DVT ppx: SCDs PCP: Dr Martines Pt was seen and evaluated by Dr Catherine during morning rounds. FMR H&P: Upper Level - Plan Date/Time: 03/24/19 0945 I, [], have evaluated this patient and agree with findings/plan as outlined by manager internal resident. Pertinent changes/additions are listed here.
[2019-03-24 12:00] LABS: CK (CPK) 55 U/L (30-200); Magnesium 1.9 mg/dL (1.6-2.6); Phosphorus 3.4 mg/dL (2.3-4.7)
[2019-03-24] MEDS ORDERED: Acetaminophen 500 MG TAB PO SCH (15:30)
[2019-03-24] MEDS ORDERED: Pancrelipase DR 12000 1 CAP PO SCH (17:00)
[2019-03-24] MEDS ORDERED: FLUoxetine HCl 20 MG CAP PO SCH (21:00)
[2019-03-24] MEDS: Atorvastatin Calcium 40 MG TAB PO SCH (21:03)
[2019-03-24] MEDS: levETIRAcetam 500 MG TAB PO SCH (21:03)
[2019-03-25 05:06] LABS: #Eosinphils 0.1 thou/uL (0.0-0.7); #Lymphocytes 1.3 thou/uL (1.20-3.40); #Monocytes 0.5 thou/uL (0.11-0.59); #Neutrophils 4.2 thou/uL (1.40-6.50); %Basophils 0.7 % (0.0-1.0); %Eosinophils 2.3 % (0.0-10.0); %Lymphocytes 21.4 % (21.0-51.0); %Monocytes 7.7 % (0.0-10.0); Hemoglobin 13.1 g/dL (14.0-18.0); Mean Corpuscular Hemoglobin 31.4 pg (27.0-31.0); Mean Corpuscular Volume 92.3 fL (78.0-98.0); Mean Platelet Volume 7.8 fL (7.4-10.4); Platelet Count 156 thou/uL (130-400); RBC Distribution Width 12.2 % (11.5-14.5); Red Blood Cell (RBC) Count 4.19 mill/uL (4.70-6.10); White Blood Cell (WBC) Count 6.2 thou/uL (4.8-10.8)
[2019-03-25 05:28] LABS: Anion Gap 13 mmol/L (10-20); BUN (Urea Nitrogen) 10 mg/dL (8.4-25.7); Calc. Creatinine Clearance 52 mL/min (70-130); Calcium 9.2 mg/dL (7.8-10.44); Carbon Dioxide 24 mmol/L (23-31); Cardiac Risk 3.6 (Less than 4.5); Cholesterol 158 mg/dl (< 200 Desired); Estimated GFR-MDRD 74; Glucose 107 mg/dL (83-110); HDL Cholesterol 44 mg/dL (>60 Neg Risk); LDL Cholesterol, Calculated 69 mg/dL; Potassium 3.6 mmol/L (3.5-5.1); Triglycerides 225 mg/dL (Less than 150)
[2019-03-25 05:32] LABS: Chloride 106 mmol/L (98-107); Sodium 139 mmol/L (136-145)
--- NOTE | 2019-03-25 06:22 | PDOC.FM ---
- Subjective Subjective: Pt is pleasently demented this morning. Is A&O only to self. Has difficulty with word finding and speech that is slightly slurred. Does not recall why he was brought into the hospital. Denies any complaints at this time. - Objective Vital Signs & Weight: Vital Signs (12 hours) Temp Pulse Resp BP Pulse Ox 03/25/19 02:22 97.4 F L 97 14 146/67 H 95 03/24/19 19:00 98.2 F 96 12 113/64 96 Weight Weight 63.82 kg I&O: 03/23/19 03/24/19 03/25/19 06:59 06:59 06:59 Intake Total 600 Output Total 950 Balance -350 Result Diagrams: 03/25/19 04:40 03/25/19 04:40 Phys Exam - Physical Examination Constitutional: NAD HEENT: PERRLA, moist MMs Neck: full ROM Respiratory: no wheezing, no rales Cardiovascular: RRR, no significant murmur Gastrointestinal: soft, non-tender Musculoskeletal: no edema, pulses present Neurological: non-focal, moves all 4 limbs Psychiatric: normal affect Deviation from normal: Pt is alert, oriented only to self speech is slightly slurred, has difficulty with word finding Dx/Plan (1) TIA (transient ischemic attack) Status: Acute (2) Aphasia Code(s): R47.01 - APHASIA Status: Acute (3) CHF exacerbation Code(s): I50.9 - HEART FAILURE, UNSPECIFIED Status: Acute (4) HFrEF (heart failure with reduced ejection fraction) Code(s): I50.20 - UNSPECIFIED SYSTOLIC (CONGESTIVE) HEART FAILURE Status: Chronic (5) Seizure disorder Code(s): G40.909 - EPILEPSY, UNSP, NOT INTRACTABLE, WITHOUT STATUS EPILEPTICUS Status: Chronic - Plan Plan: Acute Encephalopathy - 2/2 Seizure vs Acute CVA vs TIA. No signs of infection. Unlikely to be seizure. - Pt is also on Benzo for insomnia that could be contributing to AMS, will hold for now - A&O to person only - AICD not compatible with MRI. CT no acute ischemia - Neuro checks q4hrs - Bedside swallow study today - Keppra level is 19.1 which is therapeutic. - TSH, Mg, Phos nml - Continue ASA and statin - EKG with QT prolongation and LAD. Echo 12/2018 with EF 25-30% Seizures - Seizure precautions - Keppra increased after seizure 3 months ago, level 19.1 - Follows with Dr Voss outpt - Continue Keppra HFrEF with AICD - Last Echo 01/01/19: EF 25-30% - HH diet - Strict I&Os, fluid restriction Aphasia - Ordered bedside swallow study - Manage as above Prolonged QT - Avoid QT prolonging agents HTN - Continue home meds HLD - continue home meds CAD - Continue home meds Hx of CVA & [place] - Continue home meds - 2018 Anxiety Insomnia - Continue home meds, consider stopping BZ Addendum - Attending - Attending Attestation Date/Time: 03/25/19 1303 I personally evaluated the patient and discussed the management with Dr. Oneil and Sully. I agree with the History, Examination, Assessment and Plan documented above with any addition or exceptions noted below. The patient is slurring his words and having trouble with word-finding. He can read sentences but when he needs to come up with answers he is struggling. Will consult neurology. Consult PT/OT/ST. Rehab screen will be placed.
--- NOTE | 2019-03-25 08:49 | HP ---
ADDENDUM: Please see the history and physical done by the residents for which I agree. The patient was seen, evaluated, and discussed with the residents by bedside. CHIEF COMPLAINT: Near syncope. HISTORY OF PRESENT ILLNESS: This is an 83-year-old gentleman, known vasculopath, who also has history of seizures, hypertension, NC, and heart failure with preserved ejection fraction, who basically presented feeling normal, weak, and running all day yesterday and then after eating dinner was about to get up and leave and just had a sensation of tremulousness or tremors in his legs, feet go up the body all the way to his arms. He was having some speech issues and confusion, some altered mental status at that time. Questionable slurring speech versus word-finding difficulty. It sounds like he is still not completely back to baseline mentally, still a little bit of confusion. He had a very similar episode occur to him in December and it was determined this was probably a seizure early self with a thought of the time. He is on Keppra recently was increased and does sound like he is compliant. Denied chest pain, shortness of breath, diaphoresis, nausea, or vomiting. Denies visual symptoms. Denied complete loss of consciousness. ALLERGIES: PER THE RESIDENTS' HISTORY AND PHYSICAL FOR WHICH I AGREE. HOME MEDICATIONS: Per the residents' history and physical for which I agree. PAST MEDICAL HISTORY: Per the residents' history and physical for which I agree. PAST SURGICAL HISTORY: Per the residents' history and physical for which I agree. FAMILY HISTORY: Per the residents' history and physical for which I agree. SOCIAL HISTORY: Per the residents' history and physical for which I agree. REVIEW OF SYSTEMS: Per the residents' history and physical for which I agree. PHYSICAL EXAMINATION: GENERAL: No apparent distress. He is alert to name and place only, confused about the year, a little bit confused about the exact place. No slurring speech, but at times he does seem to wax and wane on his ability to communicate well and answer questions. The granddaughter who is with him is on his primary historians in the room, agreed that this does not seem to be his baseline. ENT: Fairly normal cranial nerves 2 through 12. Conjunctiva not particularly pale. Oropharynx clear. NECK: I do not appreciate bruits. CHEST: Clear. HEART: Regular rate and rhythm. Occasional ectopic beat. ABDOMEN: Benign. NEUROLOGIC: Otherwise, looks normal. LABORATORY DATA: Normal CBC. Chemistries negative for creatinine of 1.41, but that is unusual for him. He has had some elevated creatinine that range above 4. The BNP 151, but he has had a lot higher readings before. TSH borderline at 4.1. ASSESSMENT AND PLAN: 1. Altered mental status and near syncope: Unclear if this represented a seizure versus a transient ischemic attack or a possible stroke, although this is an unusual presentation for that. Prior highest on my list is that he is having a seizure. Does seem to improve now. Plan is to observe him. We will probably get carotids and another echo, potentially get a Keppra level and monitor him, see if he has any more this activity and see if he mentally comes back to normal. He had a defibrillator placed, so therefore, we cannot do an MRI. 2. Systolic congestive heart failure with a low EF. I actually wrote above that he has had a preserved ejection fraction, but it looks like on past medical record he actually had a low EF. It sounds like he has a defibrillator in. We will continue home medicines. 3. Coronary artery disease. 4. Mild dementia. 5. History of transient ischemic attack. 6. Seizure disorder. 7. Hypertension. 8. Hyperlipidemia. Job ID: [id number]
[2019-03-25] MEDS: Furosemide 40 MG TAB PO SCH (09:53)
[2019-03-25] MEDS: FLUoxetine HCl 20 MG CAP PO SCH (09:53)
[2019-03-25] MEDS: Potassium Chloride 20 MEQ TAB PO SCH (09:54)
[2019-03-25] MEDS: Aspirin 81 mg Enteric Coated Tablet PO SCH (09:54)
[2019-03-25] MEDS: levETIRAcetam 500 MG TAB PO SCH ×2 (09:54→21:24)
--- NOTE | 2019-03-25 17:29 | ULT ---
EXAM: Carotid ultrasound HISTORY: Stroke/TIA COMPARISON: None TECHNIQUE: Multiplanar grayscale and color Doppler images were obtained in a carotid ultrasound. Spec tral analysis of the Doppler waveforms were performed. FINDINGS: A large amount of calcified plaque is seen in the bilateral internal and common carotid arteries. The re is an abnormal tardus parvus waveform in the right internal carotid artery. An abnormal high resistance waveform is seen in the left internal carotid artery. Peak systolic velocity in the right internal carotid artery 61 cm/s. Peak systolic velocity in the right common carotid artery 79 cm/s. The right ICA/CCA ratio is 0.8. Peak systolic velocity in the left internal carotid artery 88 cm/s. Peak systolic velocity in the left common carotid artery 76 cm/s. The left ICA/CCA ratio is 1.1. The right vertebral artery was not seen. Antegrade flow is seen in the left vertebral artery. IMPRESSION: Velocities and ratios are normal bilaterally, but there is significant heavily calcified plaque bilat erally. These velocities and ratios may not be reflective of the true amount of stenosis. A CTA of the neck is recommended for better evaluation.
[2019-03-25] MEDS ORDERED: Enoxaparin Sodium 40 MG/0.4 ML SYRINGE SC SCH (21:00)
[2019-03-25] MEDS: Atorvastatin Calcium 40 MG TAB PO SCH (21:24)
--- NOTE | 2019-03-26 05:55 | PDOC.FM ---
- Subjective Subjective: Pt states he rested well overnight with no events. He is more oriented and speaking more fluidly. He voices awareness of this change. Denies any complaints at this time. - Objective MAR Reviewed: Yes Vital Signs & Weight: Vital Signs (12 hours) Temp Pulse Resp BP Pulse Ox 03/26/19 03:50 98.0 F 84 16 120/67 94 L 03/25/19 19:06 98.0 F 91 16 121/61 94 L Weight Weight 63.049 kg I&O: 03/24/19 03/25/19 03/26/19 06:59 06:59 06:59 Intake Total 600 800 Output Total 950 600 Balance -350 200 Result Diagrams: 03/25/19 04:40 03/25/19 04:40 Phys Exam - Physical Examination Constitutional: NAD HEENT: moist MMs Neck: full ROM Respiratory: clear to auscultation bilateral Cardiovascular: RRR, no significant murmur Gastrointestinal: soft, non-tender Musculoskeletal: no edema Neurological: moves all 4 limbs Speech is less slurred than yesterday Psychiatric: normal affect Deviation from normal: Pt is alert and oriented to person and place, aware of date but not month Dx/Plan (1) Prolonged Q-T interval on ECG Code(s): R94.31 - ABNORMAL ELECTROCARDIOGRAM [ECG] [EKG] Status: Acute (2) HTN (hypertension) Code(s): I10 - ESSENTIAL (PRIMARY) HYPERTENSION Status: Chronic Qualifiers: Hypertension type: essential hypertension Qualified Code(s): I10 - Essential (primary) hypertension (3) Seizure disorder Code(s): G40.909 - EPILEPSY, UNSP, NOT INTRACTABLE, WITHOUT STATUS EPILEPTICUS Status: Chronic (4) Carotid stenosis Code(s): I65.29 - OCCLUSION AND STENOSIS OF UNSPECIFIED CAROTID ARTERY Status : Acute - Plan Plan: Acute Encephalopathy - 2/2 Seizure vs Acute CVA vs TIA. No signs of infection. Unlikely to be seizure. - Pt is also on Benzo for insomnia that could be contributing to AMS, will hold for now - A&O to person and place, confusion of date - AICD not compatible with MRI. CT no acute ischemia - Bedside swallow study normal - Keppra level is 19.1 which is therapeutic. - TSH, Mg, Phos nml - Continue ASA and statin - EKG with QT prolongation and LAD. Echo 12/2018 with EF 25-30% - Neurology consulting Seizures - Seizure precautions - Keppra increased after seizure 3 months ago, level 19.1 - Follows with Dr Voss outpt - Continue Keppra - Neurology consulting - EEG today Carotid stenosis - Carotid US found bilateral heavy plaque burden and suggested f/u CTA - Discussion with pt and family about risks and benefits, family feels they would not want to pursue any invasive procedures making CTA unnecessary HFrEF with AICD - Last Echo 01/01/19: EF 25-30% - HH diet - Strict I&Os, fluid restriction Aphasia - Ordered bedside swallow study - Manage as above Prolonged QT - Avoid QT prolonging agents HTN - Continue home meds HLD - continue home meds CAD - Continue home meds Hx of CVA & [place] - Continue home meds - 2018 Anxiety Insomnia - Continue home meds, holding home meds Dispo: Stable and improving Inpatient status LOS: 1-2, inpt rehab evaluation and EEG today Addendum - Attending - Attending Attestation Date/Time: 03/26/19 7885 I personally evaluated the patient and discussed the management with Dr. Virk. I agree with the History, Examination, Assessment and Plan documented above with any addition or exceptions noted below. The patient is speaking more clearly and joking with me this morning. Spoke with PT who thinks short term rehab would be beneficial. Carotid doppler shows stenosis but we discussed CTA and possible surgery if needed and pt doesn't want surgery. Therefore, we are not preceeding with a CTA neck. EEG taken this morning and results are pending.
[2019-03-26] MEDS: Aspirin 81 mg Enteric Coated Tablet PO SCH (10:02)
[2019-03-26] MEDS: Enoxaparin Sodium 40 MG/0.4 ML SYRINGE SC SCH (10:02)
[2019-03-26] MEDS: Potassium Chloride 20 MEQ TAB PO SCH (10:03)
[2019-03-26] MEDS: Furosemide 40 MG TAB PO SCH (10:03)
[2019-03-26] MEDS: FLUoxetine HCl 20 MG CAP PO SCH (10:03)
[2019-03-26] MEDS: levETIRAcetam 500 MG TAB PO SCH ×2 (10:03→20:48)
--- NOTE | 2019-03-26 15:39 | EEG ---
Referring Physician: Harris GU EEG # [id number] TEST TYPE: ROUTINE PORTABLE INPATIENT REPORT: AN EEG USING THE INTERNATIONAL TEN-TWENTY SYSTEM OF ELECTRODE PLACEMENT WAS PERFORMED. The waking background is a 8 hertz Alpha frequency. The patient was awake throughout the study. Photic stimulation was unremarkable. No epileptiform features were present. IMPRESSION: THIS IS A NORMAL AWAKE EEG. Social Insurance Adviser: NORA Inventory Analyst: [email or web address] CHANG
[2019-03-26] MEDS: Atorvastatin Calcium 40 MG TAB PO SCH (20:48)
--- NOTE | 2019-03-26 23:56 | CON ---
DATE OF CONSULTATION: 03/26/2019 CONSULT PHYSICIANS: Family Medicine Service. IMPRESSION: Breakthrough seizure. PLAN: 1. Increase Keppra to 1250 mg twice daily. 2. The patient will be discharged to discretion. HISTORY OF PRESENT ILLNESS: Mr. Johnston is an 83-year-old gentleman who has been a patient of Dr. Cotton, who was transferred into my care since his departure. He was last seen by my nurse practitioner for what reportedly has been some focal seizure activity. He seemingly responded well to Keppra for a good interval of time. He had a breakthrough event not long ago. His dose was increased to 1000 twice daily. He was out at a restaurant with his daughter when he had recurrent generalized jerks. After it resolved, he was too weak to walk. They had to carry him out of the restaurant. He was subsequently admitted. He has not had any further events. His EEG showed a normal background. He had unremarkable laboratory studies including a cortisols level, B12 and other routine labs. His Keppra level was 19. He has otherwise been stable. PHYSICAL EXAMINATION: GENERAL: On exam, he is alert and cooperative. NEUROLOGIC: His speech is fluent and clear. He does not have any abnormal movements. There are no focal deficits. He is able to walk to the bathroom with the use of a cane. Seems to be back to his baseline. His Keppra level is on the low side despite his current dose. I will go ahead and increase it a bit and follow up with him in the office. Job ID: [id number]
--- NOTE | 2019-03-27 07:31 | PDOC.FM ---
- Subjective Subjective: Pt has had two episodes of a change in mood/mentation, both noticed by family and occurring later in the day, questionable that this may be . Due to this mentation change the family had concerns about the pt's safety if they were to bring him home. This morning the pt was pleasant and hopeful for discharge. He was seen by neurology and had an EEG yesterday that came back as normal. He was informed of the possibility of him needing to spend some time at a half-way facility. The pt noted that he understands that is probably best for him right now, even though it is not ideal. - Objective MAR Reviewed: Yes Vital Signs & Weight: Vital Signs (12 hours) Temp Pulse Resp BP Pulse Ox 03/27/19 04:00 97.9 F 88 16 117/67 93 L 03/27/19 00:00 98.6 F 87 16 109/68 98 Weight Weight 62.686 kg I&O: 03/26/19 03/27/19 03/28/19 06:59 06:59 06:59 Intake Total 900 1560 Output Total 700 600 Balance 200 960 Result Diagrams: 03/25/19 04:40 03/25/19 04:40 Phys Exam - Physical Examination Constitutional: NAD HEENT: PERRLA Neck: full ROM Respiratory: clear to auscultation bilateral Cardiovascular: RRR 2/6 precordial ejection murmur Gastrointestinal: soft, non-tender, positive bowel sounds Musculoskeletal: no edema, pulses present Neurological: moves all 4 limbs Psychiatric: normal affect Deviation from normal: A&O to person and place; to time with assistance Skin: no rash Dx/Plan (1) Prolonged Q-T interval on ECG Code(s): R94.31 - ABNORMAL ELECTROCARDIOGRAM [ECG] [EKG] Status: Acute (2) HTN (hypertension) Code(s): I10 - ESSENTIAL (PRIMARY) HYPERTENSION Status: Chronic Qualifiers: Hypertension type: essential hypertension Qualified Code(s): I10 - Essential (primary) hypertension (3) Seizure disorder Code(s): G40.909 - EPILEPSY, UNSP, NOT INTRACTABLE, WITHOUT STATUS EPILEPTICUS Status: Chronic (4) Carotid stenosis Code(s): I65.29 - OCCLUSION AND STENOSIS OF UNSPECIFIED CAROTID ARTERY Status : Acute - Plan Plan: Acute Encephalopathy - 2/2 Seizure vs Acute CVA vs TIA. No signs of infection. Unlikely to be seizure. - Pt is also on Benzo for insomnia that could be contributing to AMS, will hold for now - A&O to person and place, confusion of date - AICD not compatible with MRI. CT no acute ischemia - Bedside swallow study normal - Keppra level is 19.1 which is therapeutic. - TSH, Mg, Phos nml - Continue ASA and statin - EKG with QT prolongation and LAD. Echo 12/2018 with EF 25-30% - Neurology consulting - recommend increasing Keppra to 1250mg BID and F/U oupt - EEG: Normal background Seizures - Seizure precautions - Keppra increased after seizure 3 months ago, level 19.1 - Follows with Dr Voss outpt - Continue Keppra - Neurology consulting as above - EEG as above Carotid stenosis - Carotid US found bilateral heavy plaque burden and suggested f/u CTA - Discussion with pt and family about risks and benefits, family feels they would not want to pursue any invasive procedures making CTA unnecessary HFrEF with AICD - Last Echo 01/01/19: EF 25-30% - HH diet - Strict I&Os, fluid restriction Aphasia - Ordered bedside swallow study - Manage as above Prolonged QT - Avoid QT prolonging agents HTN - Continue home meds HLD - continue home meds CAD - Continue home meds Hx of CVA & [place] - Continue home meds - 2018 Insomnia - Continue home meds, holding home meds Dispo: Stable, aphasia and orientation are nearing baseline DC today: home with family and HH vs SNF placement - discretion of family/pt Addendum - Attending - Attending Attestation Date/Time: 03/27/19 8405 I personally evaluated the patient and discussed the management with Dr. Virk. I agree with the History, Examination, Assessment and Plan documented above with any addition or exceptions noted below. We will increase pt's keppra dose. Due to deconditioning, will try to place pt in swingbed at [facility] but he will need to stay at [facility] until 03/29.
[2019-03-27] MEDS: Furosemide 40 MG TAB PO SCH (09:42)
[2019-03-27] MEDS: Potassium Chloride 20 MEQ TAB PO SCH (09:42)
[2019-03-27] MEDS: FLUoxetine HCl 20 MG CAP PO SCH (09:42)
[2019-03-27] MEDS: Aspirin 81 mg Enteric Coated Tablet PO SCH (09:42)
[2019-03-27] MEDS: Enoxaparin Sodium 40 MG/0.4 ML SYRINGE SC SCH (09:42)
[2019-03-27] MEDS: levETIRAcetam 500 MG TAB PO SCH ×2 (09:43→21:10)
[2019-03-27] MEDS: Atorvastatin Calcium 40 MG TAB PO SCH (21:10)
--- NOTE | 2019-03-28 07:51 | PDOC.FM ---
- Subjective Subjective: Pt is doing well this morning. No events overnight. Agreeable with plan to transfer to [facility] tomorrow. - Objective MAR Reviewed: Yes Vital Signs & Weight: Vital Signs (12 hours) Temp Pulse Resp BP Pulse Ox 03/28/19 07:13 97.8 F 88 16 134/90 93 L 03/28/19 04:00 98.1 F 96 16 137/87 94 L 03/28/19 00:00 98 F 92 16 83/74 L 96 03/27/19 21:00 95 03/27/19 20:00 97.9 F 84 16 104/69 95 Weight Weight 62.686 kg I&O: 03/27/19 03/28/19 03/29/19 06:59 06:59 06:59 Intake Total 1560 Output Total 600 Balance 960 Result Diagrams: 03/25/19 04:40 03/25/19 04:40 Phys Exam - Physical Examination Constitutional: NAD HEENT: moist MMs Neck: full ROM Respiratory: no wheezing, clear to auscultation bilateral Cardiovascular: RRR 1/3 systolic Gastrointestinal: soft, non-tender Musculoskeletal: no edema Psychiatric: normal affect Deviation from normal: Alert and oriented to self, place, and time with assitance Dx/Plan (1) Carotid stenosis Code(s): I65.29 - OCCLUSION AND STENOSIS OF UNSPECIFIED CAROTID ARTERY Status : Acute (2) Prolonged Q-T interval on ECG Code(s): R94.31 - ABNORMAL ELECTROCARDIOGRAM [ECG] [EKG] Status: Acute (3) HTN (hypertension) Code(s): I10 - ESSENTIAL (PRIMARY) HYPERTENSION Status: Chronic Qualifiers: Hypertension type: essential hypertension Qualified Code(s): I10 - Essential (primary) hypertension (4) Seizure disorder Code(s): G40.909 - EPILEPSY, UNSP, NOT INTRACTABLE, WITHOUT STATUS EPILEPTICUS Status: Chronic - Plan Plan: Acute Encephalopathy - 2/2 Seizure vs Acute CVA vs TIA. No signs of infection. Unlikely to be seizure. - Pt is also on Benzo for insomnia that could be contributing to AMS, will hold for now - A&O to person and place, confusion of date - AICD not compatible with MRI. CT no acute ischemia - Bedside swallow study normal - Keppra level is 19.1 which is therapeutic. - TSH, Mg, Phos nml - Continue ASA and statin - EKG with QT prolongation and LAD. Echo 12/2018 with EF 25-30% - Neurology consulting - recommend increasing Keppra to 1250mg BID and F/U oupt - EEG: Normal background Seizures - Seizure precautions - Keppra increased after seizure 3 months ago, level 19.1 - Follows with Dr Voss outpt - Continue Keppra - Neurology consulting as above - EEG as above Carotid stenosis - Carotid US found bilateral heavy plaque burden and suggested f/u CTA - Discussion with pt and family about risks and benefits, family feels they would not want to pursue any invasive procedures making CTA unnecessary HFrEF with AICD - Last Echo 01/01/19: EF 25-30% - HH diet - Strict I&Os, fluid restriction Aphasia - Ordered bedside swallow study - Manage as above - Speech therapy at [facility] Prolonged QT - Avoid QT prolonging agents HTN - Continue home meds HLD - continue home meds CAD - Continue home meds Hx of CVA & [place] - Continue home meds - 2018 Insomnia - Continue home meds, holding home meds Dispo: Stable, aphasia and orientation are nearing baseline LOS: 1 day, planned transfer to [facility] tomorrow Addendum - Attending - Attending Attestation Date/Time: 03/28/19 1510 I personally evaluated the patient and discussed the management with Dr. Virk. I agree with the History, Examination, Assessment and Plan documented above with any addition or exceptions noted below. The patient is doing well this morning. He is looking forward to transitioning to [facility] bed tomorrow. Will try to arrange for transfer early tomorrow. Tolerating increased keppra dose.
[2019-03-28] MEDS: Enoxaparin Sodium 40 MG/0.4 ML SYRINGE SC SCH (09:39)
[2019-03-28] MEDS: levETIRAcetam 500 MG TAB PO SCH ×2 (09:40→21:24)
[2019-03-28] MEDS: Aspirin 81 mg Enteric Coated Tablet PO SCH (09:40)
[2019-03-28] MEDS: Furosemide 40 MG TAB PO SCH (09:40)
[2019-03-28] MEDS: FLUoxetine HCl 20 MG CAP PO SCH (09:40)
[2019-03-28] MEDS: Potassium Chloride 20 MEQ TAB PO SCH (09:40)
[2019-03-28] MEDS: Atorvastatin Calcium 40 MG TAB PO SCH (21:25)
--- NOTE | 2019-03-29 06:54 | PDOC.FM ---
- Subjective Subjective: Pt is resting comfortably this morning. A&O nearing baseline. Aphasia and word finding difficulties have continually improved. No events overnight. - Objective MAR Reviewed: Yes Vital Signs & Weight: Vital Signs (12 hours) Temp Pulse Resp BP Pulse Ox 03/29/19 03:52 97.9 F 88 20 108/66 93 L 03/28/19 23:46 97.8 F 91 20 121/77 94 L 03/28/19 20:20 97.8 F 86 19 120/69 93 L Weight Weight 66.86 kg I&O: 03/27/19 03/28/19 03/29/19 06:59 06:59 06:59 Intake Total 1560 1200 Output Total 600 200 Balance 960 1000 Result Diagrams: 03/25/19 04:40 03/25/19 04:40 Phys Exam - Physical Examination Constitutional: NAD HEENT: moist MMs Neck: full ROM Respiratory: clear to auscultation bilateral Cardiovascular: RRR Gastrointestinal: soft, non-tender Musculoskeletal: no edema Psychiatric: normal affect Deviation from normal: A&O to self and place, assitance with time Dx/Plan (1) Carotid stenosis Code(s): I65.29 - OCCLUSION AND STENOSIS OF UNSPECIFIED CAROTID ARTERY Status : Acute (2) Prolonged Q-T interval on ECG Code(s): R94.31 - ABNORMAL ELECTROCARDIOGRAM [ECG] [EKG] Status: Acute (3) HTN (hypertension) Code(s): I10 - ESSENTIAL (PRIMARY) HYPERTENSION Status: Chronic Qualifiers: Hypertension type: essential hypertension Qualified Code(s): I10 - Essential (primary) hypertension (4) Seizure disorder Code(s): G40.909 - EPILEPSY, UNSP, NOT INTRACTABLE, WITHOUT STATUS EPILEPTICUS Status: Chronic - Plan Plan: Acute Encephalopathy - 2/2 Seizure vs Acute CVA vs TIA. No signs of infection. Unlikely to be seizure. - Pt is also on Benzo for insomnia that could be contributing to AMS, will hold for now - A&O to person and place, confusion of date - AICD not compatible with MRI. CT no acute ischemia - Bedside swallow study normal - Keppra level is 19.1 which is therapeutic. - TSH, Mg, Phos nml - Continue ASA and statin - EKG with QT prolongation and LAD. Echo 12/2018 with EF 25-30% - Neurology consulting - recommend increasing Keppra to 1250mg BID and F/U oupt - EEG: Normal background Seizures - Seizure precautions - Keppra increased after seizure 3 months ago, level 19.1 - Follows with Dr Voss outpt - Continue Keppra - Neurology consulting as above - EEG as above Carotid stenosis - Carotid US found bilateral heavy plaque burden and suggested f/u CTA - Discussion with pt and family about risks and benefits, family feels they would not want to pursue any invasive procedures making CTA unnecessary HFrEF with AICD - Last Echo 01/01/19: EF 25-30% - HH diet - Strict I&Os, fluid restriction Aphasia - Ordered bedside swallow study - Manage as above - Speech therapy at [facility] Prolonged QT - Avoid QT prolonging agents HTN - Continue home meds HLD - continue home meds CAD - Continue home meds Hx of CVA & [place] - Continue home meds - 2018 Insomnia - Continue home meds, holding home meds Dispo: Stable, aphasia and orientation are nearing baseline Discharge today to [facility] Addendum - Attending - Attending Attestation Date/Time: 03/29/19 9485 I personally evaluated the patient and discussed the management with Dr. Virk. I agree with the History, Examination, Assessment and Plan documented above with any addition or exceptions noted below. The patient's encephalopathy continues to improve. No new seizure activity. Is able to find words easier. Pt is ready for transfer to [facility] bed and I have spoken with Brandon from [facility] who states they are ready to receive the patient. He will benefit from additional therapy.
[2019-03-29 07:41] VITALS: BP 119/73; TEMP 98.5
[2019-03-29] MEDS: Enoxaparin Sodium 40 MG/0.4 ML SYRINGE SC SCH (09:04)
[2019-03-29] MEDS: FLUoxetine HCl 20 MG CAP PO SCH (09:04)
[2019-03-29] MEDS: Aspirin 81 mg Enteric Coated Tablet PO SCH (09:04)
[2019-03-29] MEDS: levETIRAcetam 500 MG TAB PO SCH (09:05)
[2019-03-29] MEDS: Furosemide 40 MG TAB PO SCH (09:05)
[2019-03-29] MEDS: Potassium Chloride 20 MEQ TAB PO SCH (09:05)
--- NOTE | 2019-04-01 08:40 | DIS ---
DATE OF ADMISSION: 03/26/2019 DATE OF DISCHARGE: 03/29/2019 RESIDENT: Tanmay Virk DO. ADMITTING ATTENDING: Dr. Paresh Catherine. DISCHARGE ATTENDING: Dr. Magalis Martines. CONSULTS: PT, OT, Speech Therapy. PRIMARY DIAGNOSES: Acute encephalopathy Carotid stenosis Seizure disorder, Transient ischemic attack versus cerebrovascular accident SECONDARY DIAGNOSES: Hypertension Prolonged QT interval on ECG Heart failure with reduced ejection fraction. HISTORY OF PRESENT ILLNESS/HOSPITAL COURSE: An 83-year-old gentleman, who is a known vasculopath, who also has a history of seizures, hypertension, DC, and heart failure with reduced ejection fraction, presented feeling weak following an episode after eating dinner, where he was about to get up and leave and just had a sensation of tremulousness. The tremors went from his feet all the way up to his body and into his arms. He was having some speech issues and confusions, as well as some altered mental status at that time. The family was present and there and reported slurring of speech versus word finding difficulties. Upon arrival, he was not completely back to baseline mentally and was still a bit confused. He had a very similar episode that occurred back in December and it was determined that it was probably a seizure. He was on Keppra that was recently increased to 1000 mg b.i.d. and it sounds like the patient is compliant. He denied any chest pain, shortness of breath, diaphoresis, nausea, or vomiting. He also denied any visual symptoms, and the patient and bystander denied any loss of consciousness during the episode. The patient was subsequently seen in the ER. The patient had a brain CT that was negative and was admitted to observation for stroke rule out. It was determined that the patient was not able to get an MRI due to a pacemaker that is not compatible. The following day, the patient was seen by the residents and Dr. Martines, who is also his PCP. Both Dr. Martines and family noted that the patient's speech was not at his baseline and he was having difficulties with word finding and had increased slurring. Dr. Voss, the patient's neurologist saw the patient in the hospital and recommended an EEG and an increase in his Keppra. The EEG was performed and showed a normal background with no indications of seizure activity. The patient also had a carotid ultrasound that showed a high plaque burden bilaterally. The patient and family were notified of this and we discussed the risks and benefits of further imaging and treatment. Following discussion, both family and the patient agreed that further imaging would be unnecessary due to the fact that if anything were to be found, they would not like to proceed with any invasive procedures to correct that. Throughout his stay, the patient's aphasia and word finding difficulties continually improved. The patient's daughter and granddaughter noted that at times, the patient would become agitated and not acting himself toward the end of the day. This made them feel that he may not be safe going home with them as he recently started living with his daughter and having home health see him. The patient subsequently qualified for inpatient long term care and was accepted at [facility] for further rehabilitation. Throughout the patient's stay, he remained stable and displayed no further seizure-like activity or signs and symptoms suggestive of acute CVA. Keppra level was found to be therapeutic at 19.1. The patient's last echo on 01/01/2019, showed an EF of 25% to 30%. IMAGING: Chest x-ray; impression, no acute pulmonary or cardio process. Atherosclerosis noted. Diminished lung volumes, likely due to poor inspiratory effort. Carotid ultrasound; impression, velocities and ratios are normal bilaterally, but there is significantly heavily calcified plaque bilaterally. These velocities and ratios may not be reflected of the true amount of stenosis, and a CTA of the neck is recommended for better evaluation. Brain CT scan without contrast; impression, no mass or bleed or other significant acute intracranial process. DISCHARGE MEDICATIONS: 1. Fluoxetine HCL 20 mg capsule, three capsules p.o. daily. 2. Furosemide 40 mg tablet, 40 mg p.o. daily. 3. Pantoprazole 40 mg p.o. b.i.d. 4. Potassium chloride 40 mEq p.o. b.i.d. 5. Ranolazine 1000 mg p.o. b.i.d. 6. Restoril 15 mg p.o. at bedtime. 7. Aspirin 81 mg p.o. daily. 8. Atorvastatin calcium 80 mg p.o. at bedtime. 9. Keppra 1250 mg p.o. b.i.d. Discontinued medications; 1. Keppra 1000 mg p.o. b.i.d. DISPOSITION: Stable. DISCHARGE INSTRUCTIONS: 1. Location: [facility]. 2. Diet: Heart healthy. 3. Activity: As tolerated, no restrictions. FOLLOWUP: PCP, Dr. Magalis Martines within 7 days. Job ID: [id number] [facility]
== END 2019-03-29 10:56 | DRG 101 ==
LOC: SCSER 19:41 → ERHOLD 22:16 → 2SW 03-24 07:13 → OBSVTOIN 03-26 10:33 → 2SE 03-26 19:08
PROVIDERS: ADMIT Family Medicine; ATTEND Family Medicine
DX: G40.909 Epilepsy, unspecified, not intractable, without status epilepticus (principal); G93.40 Encephalopathy, unspecified; R47.01 Aphasia; N39.0 Urinary tract infection, site not specified; N17.9 Acute kidney failure, unspecified; I50.32 Chronic diastolic (congestive) heart failure; Z66 Do not resuscitate; F03.90 Unspecified dementia, unspecified severity, without behavioral disturbance, psychotic disturbance, mood disturbance, and anxiety; K21.9 Gastro-esophageal reflux disease without esophagitis; I45.81 Long QT syndrome; F41.9 Anxiety disorder, unspecified; G47.00 Insomnia, unspecified; E78.5 Hyperlipidemia, unspecified; I11.0 Hypertensive heart disease with heart failure; I25.10 Atherosclerotic heart disease of native coronary artery without angina pectoris; Z95.0 Presence of cardiac pacemaker; Z88.1 Allergy status to other antibiotic agents; Z88.8 Allergy status to other drugs, medicaments and biological substances; Z95.1 Presence of aortocoronary bypass graft; I25.2 Old myocardial infarction
CPT/HCPCS: 36415; 70450; 71045; 80048; 80053; 80061; 80177; 81003; 82140; 82533; 82550; 82607; 83735; 83880; 84100; 84443; 84484; 85025; 93005; 93880; 94760; 95816; 95819; J1650

== ENCOUNTER 2019-06-24 11:22 | Emergency (ER) | payer MEDICARE ==
[2019-06-24 12:04] LABS: Bilirubin Negative (Negative); Blood, Urine Negative (Negative); Glucose, Urine (Dipstick) Negative (Negative); Leukocyte Negative (Negative); Nitrite Negative (Negative); Protein, Urine (Dipstick) Negative (Neg-Trace); Urobilinogen 0.2 mg/dL (Less than 2)
[2019-06-24 12:07] LABS: Clarity Clear (Clear)
[2019-06-24 12:15] LABS: #Eosinphils 0.1 thou/uL (0.0-0.7); #Lymphocytes 1.6 thou/uL (1.20-3.40); #Monocytes 0.3 thou/uL (0.11-0.59); %Basophils 0.8 % (0.0-1.0); %Eosinophils 1.5 % (0.0-10.0); %Lymphocytes 26.8 % (21.0-51.0); %Neutrophils 65.9 % (42.0-75.0); Hemoglobin 14.4 g/dL (14.0-18.0); Mean Corpuscular HGB CONC 34.4 g/dL (32.0-36.0); Mean Corpuscular Hemoglobin 31.3 pg (27.0-31.0); Mean Platelet Volume 7.8 fL (7.4-10.4); Platelet Count 191 thou/uL (130-400); RBC Distribution Width 11.8 % (11.5-14.5); Red Blood Cell (RBC) Count 4.58 mill/uL (4.70-6.10); White Blood Cell (WBC) Count 6.1 thou/uL (4.8-10.8)
[2019-06-24 12:44] LABS: ALT (SGPT) 14 U/L (8-55); AST (SGOT) 13 U/L (5-34); Albumin 4.2 g/dL (3.4-4.8); Alkaline Phosphatase 64 U/L (40-110); Anion Gap 13 mmol/L (10-20); BUN (Urea Nitrogen) 21 mg/dL (8.4-25.7); Bilirubin, Total 0.5 mg/dL (0.2-1.2); CK (CPK) 45 U/L (30-200); Calc. Creatinine Clearance 0 mL/min (70-130); Calcium 9.3 mg/dL (7.8-10.44); Carbon Dioxide 29 mmol/L (23-31); Chloride 105 mmol/L (98-107); Estimated GFR-MDRD 46; Globulin 2.4 g/dL (2.4-3.5); Glucose 152 mg/dL (83-110); Potassium 4.1 mmol/L (3.5-5.1); Protein, Total 6.6 g/dL (5.8-8.1); Sodium 143 mmol/L (136-145)
--- NOTE | 2019-06-24 13:08 | CT ---
Exam: CT brain PROVIDED CLINICAL HISTORY: Dizziness COMPARISON: 04/23/2019 FINDINGS: The ventricular system is normal in size and morphology. No evidence for intracranial hemorrhage or mass effect. The extracranial soft tissues and osseous structures demonstrate no evidence for an acute abnormality. Vascular calcifications are seen. IMPRESSION: No evidence for intracranial hemorrhage or mass effect.
== END 2019-06-24 13:42 | disposition home or self-care (01) ==
LOC: ERS 11:22
DX: R42 Dizziness and giddiness (principal); E78.5 Hyperlipidemia, unspecified; I10 Essential (primary) hypertension; I25.2 Old myocardial infarction; Z86.73 Personal history of transient ischemic attack (TIA), and cerebral infarction without residual deficits; Z87.891 Personal history of nicotine dependence; Z79.899 Other long term (current) drug therapy; Z79.82 Long term (current) use of aspirin
CPT/HCPCS: 36415; 70450; 80053; 80177; 81003; 82550; 83880; 84484; 85025; 93005

== ENCOUNTER 2020-04-27 18:08 | Observation (INO) | payer MEDICARE, OTHER ==
[2020-04-27 18:54] LABS: #Basophils 0.1 thou/uL (0.0-0.2); #Eosinphils 0.2 thou/uL (0.0-0.7); #Lymphocytes 1.3 thou/uL (1.20-3.40); #Monocytes 0.4 thou/uL (0.11-0.59); #Neutrophils 3.6 thou/uL (1.40-6.50); %Basophils 1.1 % (0.0-1.0); %Eosinophils 3.7 % (0.0-10.0); %Lymphocytes 22.4 % (21.0-51.0); %Monocytes 7.5 % (0.0-10.0); %Neutrophils 65.3 % (42.0-75.0); Mean Corpuscular HGB CONC 34.2 g/dL (32.0-36.0); Mean Corpuscular Hemoglobin 31.4 pg (27.0-31.0); Mean Corpuscular Volume 91.8 fL (78.0-98.0); Mean Platelet Volume 8.3 fL (7.4-10.4); Platelet Count 204 thou/uL (130-400); RBC Distribution Width 11.9 % (11.5-14.5); Red Blood Cell (RBC) Count 4.45 mill/uL (4.70-6.10); White Blood Cell (WBC) Count 5.6 thou/uL (4.8-10.8)
--- NOTE | 2020-04-27 18:55 | RAD ---
XR Chest 1 View Portable HISTORY: Syncope COMPARISON: 03/23/2019 FINDINGS: The heart size is normal. Changes of median sternotomy and left AICD are again seen. The ao rta is tortuous. The lungs are well expanded without focal areas of consolidation, pneumothorax or pleural effusions. IMPRESSION: No radiographic evidence of acute cardiopulmonary process.
[2020-04-27 19:00] LABS: Prothrombin Time 12.9 sec (12.0-14.7)
[2020-04-27 19:14] LABS: ALT (SGPT) 10 U/L (8-55); AST (SGOT) 16 U/L (5-34); Albumin 4.1 g/dL (3.4-4.8); Alkaline Phosphatase 72 U/L (40-110); Anion Gap 12 mmol/L (10-20); BUN (Urea Nitrogen) 17 mg/dL (8.4-25.7); Bilirubin, Total 0.8 mg/dL (0.2-1.2); Calc. Creatinine Clearance 0 mL/min (70-130); Calcium 9.3 mg/dL (7.8-10.44); Carbon Dioxide 30 mmol/L (23-31); Chloride 101 mmol/L (98-107); Estimated GFR-MDRD 46; Globulin 3.2 g/dL (2.4-3.5); Glucose 103 mg/dL (83-110); Potassium 3.7 mmol/L (3.5-5.1); Protein, Total 7.3 g/dL (5.8-8.1); Sodium 139 mmol/L (136-145)
[2020-04-27 19:56] LABS: Bilirubin Negative (Negative); Blood, Urine Negative (Negative); Clarity Clear (Clear); Glucose, Urine (Dipstick) Normal (Negative); Ketone, Urine Negative (Negative); Leukocyte Negative Leu/uL (Negative); Nitrite Negative (Negative); Protein, Urine (Dipstick) Negative (Neg-Trace); Specific Gravity, Urine 1.017 (1.002-1.036); Urobilinogen Normal mg/dL (Less than 2); pH, Urine 5.5 (5.0-9.0)
--- NOTE | 2020-04-27 20:23 | CT ---
CT BRAIN WITHOUT CONTRAST: History: Fall, headache. Comparison: 10-03-2019 FINDINGS: No evidence of acute infarct, hemorrhage, midline shift, or abnormal extraaxial fluid collections are seen. Changes of cortical atrophy and chronic small vessel ischemic disease are stable. Ventricular size is stable and the basilar cisterns are patent. The bony calvarium is intact. The visualized para nasal sinuses and mastoid air cells are well aerated. IMPRESSION: No CT evidence of acute intracranial process. POS: [facility]
--- NOTE | 2020-04-27 22:08 | PDOC.FPRHP ---
- History of Present Illness Chief Complaint: syncope/fall History of Present Illness: 84 year old M PMHx of Dementia, [place] x3, CABG x4, HTN, HLD, who was brought to the ED by his daughter due to a syncopal episode and fall. His daughter reports she left their home to package pick up her car and was 10 min away and he called and told her he had a "spell", noting he stood up and started walking to the washing machine when he got dizzy, had chest pain, shortness of breath and passed out and fell. Daughter notes he didn't look well when she arrived back at his house and was he was confused. She called EMS who checked him out and said his vitals were stable and he looked okay. She then called her PCP who told her to bring him to the ED. She notes he had no other complaints. Patient is a poor historian and is only AxO x 1. Per daughter, patient does have days when he is AxO x 1 with his dementia, noting being in the hospital is probably making it worse. The patient denies pain, fever, cough, chest pain, SOB, N/V/D, weakness, urinary sxs, headache. - Allergies/Adverse Reactions Allergies Allergy/AdvReac Type Severity Reaction Status Date / Time ciprofloxacin Allergy Verified 12/14/19 19:00 - Home Medications Medication Instructions Recorded Confirmed Type Ranolazine [Ranexa] 1,000 mg PO BID 06/07/17 04/27/20 History Pantoprazole Sodium 40 mg PO DAILY 10/04/17 04/27/20 History FLUoxetine HCl [Fluoxetine HCl] 3 capsule PO DAILY 01/01/19 04/27/20 History Furosemide 40 mg PO DAILY 01/01/19 04/27/20 History Aspirin [Aspir-Low] 81 mg PO DAILY #30 tablet. 01/02/19 04/27/20 Rx Potassium Chloride [K-Dur] 20 meq PO QAM-WM #90 tab 04/04/19 04/27/20 Rx Atorvastatin Calcium [Lipitor] 80 mg PO HS 04/27/20 04/27/20 History Meclizine HCl 50 mg PO Q8H PRN 04/27/20 04/27/20 History levETIRAcetam [Keppra] 1,000 mg PO BID 04/27/20 04/27/20 History - History PMHx: seizure disorder, HLD, HTN, [place] x3, CABG x4, GI Bleed (10/2016), CHF (20%), Anxiety PSHx: AICD, CABG x4, cholecystectomy, prostate surgery FHx: noncontributory Social: no smoking, alcohol or drugs. Lives at home with daughter - Review of Systems General: denies: fever/chills, weight/appetite/sleep changes Eyes: denies: eye pain, vision changes ENT: denies: nasal congestion, rhinorrhea Respiratory: reports: shortness of breath. denies: cough Cardiovascular: reports: chest pain. denies: edema Gastrointestinal: denies: nausea, vomiting, diarrhea, constipation, abdominal pain Genitourinary: denies: incontinence, dysuria Skin: denies: rashes, lesions Musculoskeletal: denies: pain, tenderness Neurological: denies: syncope, weakness Psychological: reports: anxiety. denies: depression - Vital signs BP: 120/67,Pulse: 83, Resp: 17, O2 sat: 98 on RA, Wt: 68kg - Physical Exam Constitutional: NAD, other (elderly male) HEENT: normocephalic and atraumatic, PERRLA, other (dry mucous membranes) Neck: supple, FROM Heart: RRR, no murmurs/rubs/gallops, other (AICD incision visualized) Lungs: CTAB, no respiratory distress Abdomen: soft, non-tender, bowel sounds present Musculoskeletal: normal structure, ROM grossly normal Neurological: no focal deficit, normal sensation Skin: no rash/lesions, good turgor Psychiatric: other (Alert to person only, unsure of what hospital or city, unsure of month or year) FMR H&P: Results - Labs Result Diagrams: 04/27/20 18:30 04/27/20 18:30 Lab results: WBC 5.6 thou/uL (4.8-10.8) 04/27/20 18:30 Hgb 14.0 g/dL (14.0-18.0) 04/27/20 18:30 Hct 40.8 % (42.0-52.0) L 04/27/20 18:30 MCV 91.8 fL (78.0-98.0) 04/27/20 18:30 Plt Count 204 thou/uL (130-400) 04/27/20 18:30 Neutrophils % 65.3 % (42.0-75.0) 04/27/20 18:30 Sodium 139 mmol/L (136-145) 04/27/20 18:30 Potassium 3.7 mmol/L (3.5-5.1) 04/27/20 18:30 Chloride 101 mmol/L (98-107) 04/27/20 18:30 Carbon Dioxide 30 mmol/L (23-31) 04/27/20 18:30 BUN 17 mg/dL (8.4-25.7) 04/27/20 18:30 Creatinine 1.45 mg/dL (0.7-1.3) H 04/27/20 18:30 Glucose 103 mg/dL (83-110) 04/27/20 18:30 Calcium 9.3 mg/dL (7.8-10.44) 04/27/20 18:30 Total Bilirubin 0.8 mg/dL (0.2-1.2) 04/27/20 18:30 AST 16 U/L (5-34) 04/27/20 18:30 ALT 10 U/L (8-55) 04/27/20 18:30 Alkaline Phosphatase 72 U/L (40-110) 04/27/20 18:30 B-Natriuretic Peptide 135.0 pg/mL (0-100) H 04/27/20 18:30 Serum Total Protein 7.3 g/dL (5.8-8.1) 04/27/20 18:30 Albumin 4.1 g/dL (3.4-4.8) 04/27/20 18:30 Urine Ketones Negative mg/dL (Negative) 04/27/20 19:00 Urine Blood Negative (Negative) 04/27/20 19:00 Urine Nitrite Negative (Negative) 04/27/20 19:00 Ur Leukocyte Esterase Negative Nadiya/uL (Negative) 04/27/20 19:00 - EKG Interpretation EKG: NSR 83, long QT. No findings acute ischemia - Radiology Interpretation CT scan - head Status: report reviewed by me (chronic small ischemic changes, no acute intracranial process) Chest x-ray Status: report reviewed by me (no acute cardiopulmonary process) FMR H&P: A/P - Problem List (1) Syncopal episodes Current Visit: Yes Status: Acute Code(s): R55 - SYNCOPE AND COLLAPSE Qualifiers: Syncope type: unspecified Qualified Code(s): R55 - Syncope and collapse (2) HFrEF (heart failure with reduced ejection fraction) Current Visit: Yes Status: Chronic Code(s): I50.20 - UNSPECIFIED SYSTOLIC ( CONGESTIVE) HEART FAILURE (3) Dementia Current Visit: Yes Status: Chronic Code(s): F03.90 - UNSPECIFIED DEMENTIA WITHOUT BEHAVIORAL DISTURBANCE Qualifiers: Alzheimer's disease onset: early-onset Dementia behavioral disturbance: without behavioral disturbance (4) HTN (hypertension) Current Visit: No Status: Chronic Code(s): I10 - ESSENTIAL (PRIMARY) HYPERTENSION Qualifiers: Hypertension type: essential hypertension Qualified Code(s): I10 - Essential (primary) hypertension (5) Hx of CABG Current Visit: Yes Status: Chronic (6) HLD (hyperlipidemia) Current Visit: Yes Status: Chronic Code(s): E78.5 - HYPERLIPIDEMIA, UNSPECIFIED Qualifiers: - Plan Syncope 2/2 Orthostatic hypotension vs Dehydration vs Arrhythmia CT Brain: chronic small vessel ischemic changes EKG NS, no evidence of ischemic changes, prolonged QT Patient appeared dry on exam, vitals stable - will give 1 bag of LR @75 - Ordered CPK, Mg, Phos - pending UA - Orthostatics ordered - will interrogate AICD - will repeat Trop - continue cardiac monitoring - q4hr vitals - am CMP Reported Exertional Chest Pain Trop 0.022, EKG unchanged from previous Patient reported to daughter, who reported to MD, chest pain while walking to washing machine Unable to obtain further details regarding this, unsure if atypical vs typical Production Shift Supervisor Dr. Frankel - will interrogate AICD - repeat Trop - continue cardiac monitoring Hx Seizures Neurologist Dr. Voss Unlikely cause of syncope due to preceding symptoms, however unwitnessed - will check keppra level - will resume home keppra in the interim HFrEF (EF 20%) BNP 135 (appears baseline per previous visits) No evidence of fluid overload - will continue home lasix Hx of [place] x 3 , CABG x4 Production Shift Supervisor Dr. Frankel Patient taking 81mg aspirin daily, on statin - AICD in place - will monitor as above Hx of Dementia AxO x 1 today, per daughter patient has A&O x 1 days at baseline - will resume appetite stimulant, follows with PCP Hx Pancreatitis - will resume home Creon Hx GI Bleed Hg 14 - resume home protonix Hx HLD - will resume home statin Hx Depression and Anxiety - will resume home temazapam and sertraline Hx of HTN BPs stable - no home HTN medications Presumed CKD 2/3 Cr 1.45, appears to be baseline per past hospital visits - will renally dose as appropriate, will avoid nephrotoxic agents - 1 bag of LR @75 Dispo: admit tele obs LOS <48 hours DVT PPx: SCDs Status: DNI-DNR PCP: Bobbi I have discussed this case with Dr. Zimmer. FMR H&P: Upper Level - Plan Date/Time: 04/27/202207 I, Faviola Benton, have evaluated this patient and agree with findings/plan as outlined by pr internship resident. Pertinent changes/additions are listed here. 84YOM with a PMH notable for HFrEF s/p AICD placement, CAD s/p stent placement & CABG, HTN, seizure disorder, and dementia who presented to the ER per the urging of his daughter after having an episode of weakness at home earlier today. Of note, history was obtained from daughter via phone call as patient was A&Ox1 to person at time of exam. Daughter reports he called her earlier this evening he called her stating while walking to the washing machine he felt kighheaded and had chest pain before falling and passing out. EMS was called to evaluate him and noted he was well-appearing and vitals were WNLs on their evaluation but the daughter reported that he was more confused than baseline. She therefore call his PCP who recommended that they proceed to the ER for further evaluation. On presentation to the ER his vitals were WNLs and his initial laboratories were WNLs and/or at baseline range. A CXR & head CT were obtained & did not show any acute findings. On exam his vitals were WNLs & his exam was unremarkable with the exception of being oriented to person only. Regarding his "episode," since it was unwitnessed unsure if patient did have LOC vs. possible seizure given his history. Plan will be to check keppra, CPK, Mg and phos levels in addition to labs done in ER & continue to trend trops. Will also interrogate his pacemaker to make sure no cardiac event occurred during this episode. Will continue close monitoring on telemetry overnight as well. Will resume all home meds for chronic medical issues. Anticipated LOS < 2 midnights pending clinical course. Addendum - Attending - Attending Attestation Date/Time: 04/28/208 I personally evaluated the patient and discussed the management with Dr. Castro/ Chetan. I agree with the History, Examination, Assessment and Plan documented above with any addition or exceptions noted below. see my event note for details.
[2020-04-27] MEDS ORDERED: Lactated Ringer's 1,000 ML IV SCH (22:30)
[2020-04-27] MEDS ORDERED: Temazepam 15 MG CAP PO SCH (22:45)
[2020-04-27 22:58] LABS: CK (CPK) 45 U/L (30-200); Magnesium 1.9 mg/dL (1.6-2.6); Phosphorus 3.3 mg/dL (2.3-4.7)
--- NOTE | 2020-04-27 23:38 | PDOC.EVN ---
Event Note - Event Note Event Note: Case discussed and documentation reviewed with residents. 84 yo WM PMH CAD, HFrEF, and dementia with A&O to person and occasionally place at baseline. Presented after unwitnessed syncopal episode with fall from standing. Patient unable to provide much history. Daughter (HUMBLE) provided history. Patient was walking around house when reported he lost consciousness and fell. Unsure of how long he was down but daughter stated she had only left him alone for <30 min. Exam unremarkable. Lab unremarkable. EKG showed LAD w/ QTc prolongation ( baseline low 500s). Imaging unremarkable. Observation for syncope with collapse , trend trop, interrogate pacer/AICD, check electrolytes. will give 1L LR over 10 hours and stop as urine appeared concentrated. continue chronic medications. LOS <2 midnights pending evaluation.
[2020-04-28 01:41] VITALS: BMI 21.9
[2020-04-28 05:05] LABS: ALT (SGPT) 9 U/L (8-55); AST (SGOT) 12 U/L (5-34); Albumin 3.7 g/dL (3.4-4.8); Alkaline Phosphatase 70 U/L (40-110); Anion Gap 11 mmol/L (10-20); BUN (Urea Nitrogen) 12 mg/dL (8.4-25.7); Bilirubin, Total 0.7 mg/dL (0.2-1.2); Calc. Creatinine Clearance 46 mL/min (70-130); Calcium 9.1 mg/dL (7.8-10.44); Carbon Dioxide 31 mmol/L (23-31); Chloride 102 mmol/L (98-107); Estimated GFR-MDRD 63; Globulin 2.8 g/dL (2.4-3.5); Glucose 117 mg/dL (83-110); Magnesium 2.1 mg/dL (1.6-2.6); Potassium 3.6 mmol/L (3.5-5.1); Protein, Total 6.5 g/dL (5.8-8.1); Sodium 140 mmol/L (136-145)
--- NOTE | 2020-04-28 05:42 | PDOC.FM ---
- Subjective Subjective: The patient says he has difficulty with his memory and does not remember the circumstances surrounding his fall. He denies headache, vision changes, chest pain, palpitations, SOB, abdominal pain and edema. - Objective MAR Reviewed: Yes Vital Signs & Weight: Vital Signs (12 hours) Temp Pulse Resp BP Pulse Ox 04/28/20 04:00 98.0 F 99 20 110/60 04/27/20 22:16 97.6 F 88 18 135/62 99 Weight Weight 65.402 kg I&O: 04/26/20 04/27/20 04/28/20 06:59 06:59 06:59 Intake Total 820 Balance 820 Result Diagrams: 04/27/20 18:30 04/28/20 04:36 Phys Exam - Physical Examination Constitutional: NAD HEENT: moist MMs, sclera anicteric Neck: supple, full ROM Respiratory: no wheezing, clear to auscultation bilateral Cardiovascular: RRR, no significant murmur Gastrointestinal: soft, positive bowel sounds Musculoskeletal: no edema, pulses present Neurological: non-focal, moves all 4 limbs Lymphatic: no nodes Psychiatric: normal affect Deviation from normal: A&O x 3 (person, place, time - year). Cannot specify month. Knows he is in the hospital due to a fall. Skin: no rash, normal turgor Dx/Plan - Plan Plan: Syncope 2/2 orthostatic hypotension vs dehydration vs arrhythmia EKG showed prolonged QT, unchanged from previous. Trop 0.022 -> 0.020. CT Brain : chronic small vessel ischemic changes. Patient appeared dry on exam in ED, vitals stable. Unlikely seizure given Keppra within therapeutic range but episode was unwitnessed. NSR on tele since admission. - Received 1 bag of LR @75 - Encourage PO intake - Orthostatics ordered - Continue cardiac monitoring - Q4hr vitals Reported Exertional Chest Pain Trop stable. EKG unchanged from previous. Patient reported to daughter, who reported to MD, chest pain while walking to washing machine. Unable to obtain specifics as patient does not remember this. Patient sees senior manager quality assurance Dr. Frankel. - Monitor on tele Hx Seizures Neurologist is Dr. Voss. Keppra level within therapeutic range. - Continue home Keppra dose HFrEF (EF 20%) BNP 135, appears baseline per previous visits. No evidence of fluid overload. - Continue home lasix Hx of [place] x [address] B[address] Frankel - Continue home meds - AICD in place Dementia Per daughter patient has A&O x 1 days at baseline. A&O x 3 today. - Continue home meds Hx Pancreatitis - Continue home Creon HLD - Continue home statin Depression Anxiety - Continue home temazapam and sertraline HTN BPs stable - No home HTN medications Presumed CKD Cr 1.45 on admission, improved to 1.11 today. Appears to be near baseline per previous hospitalizations. - Will renally dose as appropriate, will avoid nephrotoxic agents - Received 1 L LR at 75 DVT PPx: SCDs Status: DNI-DNR PCP: Bobbi Dispo: Home with daughter pending orthostatics result Addendum - Attending - Attending Attestation Date/Time: 04/28/20 5611 I personally evaluated the patient and discussed the management with Dr. Deras. I agree with the History, Examination, Assessment and Plan documented above with any addition or exceptions noted below. Patient feeling improved. He was profoundly orthostatic, likely 2/2 hypovolemia from diuretic use. He will need to be on a small amount of diuresis due to his sCHF. Small fluid boluses completed. Will see how he feels later today and coordinate his care plan with his outpatient PCP and family.
[2020-04-28] MEDS ORDERED: Dronabinol 2.5 MG CAP PO SCH (07:30)
[2020-04-28] MEDS ORDERED: Potassium Chloride 20 MEQ TAB PO SCH (08:00)
[2020-04-28] MEDS ORDERED: Furosemide 40 MG TAB PO SCH (09:00)
[2020-04-28] MEDS ORDERED: Gabapentin 100 MG CAP PO SCH (09:00)
[2020-04-28] MEDS ORDERED: Enoxaparin Sodium 40 MG/0.4 ML SYRINGE SC SCH (09:00)
[2020-04-28] MEDS ORDERED: Aspirin 81 mg Enteric Coated Tablet PO SCH (09:00)
[2020-04-28] MEDS ORDERED: levETIRAcetam 500 MG TAB PO SCH (09:00)
[2020-04-28] MEDS: Pancrelipase DR 12,000 1 CAP PO SCH ×2 (09:25→11:52)
[2020-04-28 11:56] VITALS: TEMP 97.7
[2020-04-28 14:14] VITALS: BP 118/59
[2020-04-28 14:30] LABS: SARS-CoV-2 MS2 Positive; SARS-CoV-2 N Gene Negative; SARS-CoV-2 S Gene Negative; SARS-CoV-2 by NAA Not Detected (NotDetected); SARS-CoV-2 orf1ab Negative
[2020-04-28] MEDS ORDERED: Atorvastatin Calcium 40 MG TAB PO SCH (21:00)
--- NOTE | 2020-04-30 04:23 | DIS ---
DATE OF ADMISSION: 04/27/2020 DATE OF DISCHARGE: 04/28/2020 RESIDENT: Masha Deras MD ADMITTING ATTENDING: Manny Zimmer MD DISCHARGE ATTENDING: Yves Driscoll MD CONSULTS: None. PROCEDURES: None. PRIMARY DIAGNOSIS: Orthostatic hypotension 2/2 hypovolemia related to diuretic use and decreased p.o. intake. SECONDARY DIAGNOSES: History of seizures, heart failure with preserved ejection fraction, history of myocardial infarction x3, history of coronary artery bypass grafting x4, dementia, history of pancreatitis, hyperlipidemia, depression, anxiety, hypertension, chronic kidney disease. DISCHARGE MEDICATIONS: 1. Atorvastatin 80 mg p.o. h.s. 2. Fluoxetine 20 mg p.o. daily. 3. Keppra 1000 mg p.o. b.i.d. 4. Meclizine 50 mg p.o. q.8 p.r.n. 5. Pantoprazole 40 mg p.o. daily. 6. Ranexa 1000 mg p.o. b.i.d. 7. Aspirin 81 mg p.o. daily. 8. Marinol 5 mg p.o. b.i.d. 9. Gabapentin 100 mg p.o. b.i.d. 10. Creon 1 capsule p.o. t.i.d. 11. Potassium chloride 20 mEq p.o. q.a.m. 12. Sertraline 50 mg p.o. daily. 13. Restoril 15 mg p.o. h.s. p.r.n. 14. Lasix 20 mg p.o. daily DISCONTINUED MEDICATIONS: Lasix 20 mg b.i.d. HISTORY OF PRESENT ILLNESS: The patient is an 84-year-old male who presented to the ED due to possible syncope. The patient has a history of dementia and is unable to recall the event. According to his daughter, the patient was walking and expressed concerns about chest pain. When she returned home, the patient had fallen. EKG showed prolonged QT, unchanged from previous EKG. Troponin was trended and remained negative. CT of brain showed chronic small vessel ischemic changes with nothing acute. Keppra level was within therapeutic range. The patient did appear dry on exam. He received 1 bag of lactated ringers and p.o. intake was encouraged. Orthostatics were positive on the morning of 04/28. The patient's Lasix was held, and he ate both breakfast and lunch. Afterward, orthostatics were repeated and negative. The patient's PCP, Dr. Martines, was consulted. She was agreeable to discharging the patient on Lasix 20 mg once a day instead of b.i.d. The patient has a history of home health with PT. His daughter was agreeable to restarting this and will work on it in the outpatient setting. The patient was deemed stable for discharge home with his daughter on 04/28 afternoon. DISPOSITION: Stable. DISCHARGE INSTRUCTIONS: 1. Location: Home with HH and PT 2. Diet: Heart healthy. 3. Activity: As tolerated. 4. Followup with Dr. Martines (PCP) within 3 to 5 days. Job ID: [id number] MTDD
--- NOTE | 2020-05-07 16:52 | EKG ---
Test Reason : Blood Pressure : / mmHG Vent. Rate : 083 BPM Atrial Rate : 083 BPM P-R Int : 166 ms QRS Dur : 108 ms QT Int : 428 ms P-R-T Axes : 052 -40 104 degrees QTc Int : 502 ms Normal sinus rhythm Possible Left atrial enlargement Left axis deviation Incomplete right bundle branch block Nonspecific ST and T wave abnormality Prolonged QT Abnormal ECG Confirmed by JOURDAN SARMIENTO ([id number]), school photograph editor JUNO MAYA ([id number]) on 05/07/2020 4:50:41 PM Referred By: Confirmed By:JOURDAN Marie
== END 2020-04-28 15:24 | disposition home or self-care (01) ==
LOC: ERS 18:08 → 2NO 20:36
PROVIDERS: ADMIT Family Medicine; ATTEND Family Medicine
DX: E86.1 Hypovolemia (principal); T50.2X5A Adverse effect of carbonic-anhydrase inhibitors, benzothiadiazides and other diuretics, initial encounter; R63.8 Other symptoms and signs concerning food and fluid intake; I95.1 Orthostatic hypotension; G40.909 Epilepsy, unspecified, not intractable, without status epilepticus; I13.0 Hypertensive heart and chronic kidney disease with heart failure and stage 1 through stage 4 chronic kidney disease, or unspecified chronic kidney disease; I50.22 Chronic systolic (congestive) heart failure; N18.9 Chronic kidney disease, unspecified; I25.2 Old myocardial infarction; F03.90 Unspecified dementia, unspecified severity, without behavioral disturbance, psychotic disturbance, mood disturbance, and anxiety; K85.90 Acute pancreatitis without necrosis or infection, unspecified; E78.5 Hyperlipidemia, unspecified; F41.9 Anxiety disorder, unspecified; F32.9 Major depressive disorder, single episode, unspecified; R07.9 Chest pain, unspecified; R73.03 Prediabetes; Z87.891 Personal history of nicotine dependence; Z66 Do not resuscitate; Z79.82 Long term (current) use of aspirin; Z79.899 Other long term (current) drug therapy; Z88.1 Allergy status to other antibiotic agents; Z95.1 Presence of aortocoronary bypass graft; Z95.810 Presence of automatic (implantable) cardiac defibrillator; Z20.828 Contact with and (suspected) exposure to other viral communicable diseases; W19.XXXA Unspecified fall, initial encounter
CPT/HCPCS: 70450; 71045; 80053; 80177; 81003; 82550; 83735 ×2; 83880; 84100; 84484 ×2; 85610; 85730; 93005; 96372; 99285; G0378 ×2; U0003; 36415; 84443; 85025; 87635; J1650; J3475; J3490; Q0167

== ENCOUNTER 2021-01-13 08:14 | Inpatient (IN) | payer MEDICARE ==
[2021-01-13 09:01] LABS: #Eosinphils 0.2 thou/uL (0.0-0.7); #Lymphocytes 1.3 thou/uL (1.20-3.40); #Monocytes 0.4 thou/uL (0.11-0.59); #Neutrophils 3.7 thou/uL (1.40-6.50); %Basophils 0.6 % (0.0-1.0); %Eosinophils 2.8 % (0.0-10.0); %Lymphocytes 22.9 % (21.0-51.0); %Monocytes 6.7 % (0.0-10.0); Hemoglobin 12.4 g/dL (14.0-18.0); Mean Corpuscular HGB CONC 33.8 g/dL (32.0-36.0); Mean Corpuscular Hemoglobin 29.6 pg (27.0-31.0); Mean Corpuscular Volume 87.6 fL (78.0-98.0); Mean Platelet Volume 8.4 fL (7.4-10.4); Platelet Count 137 thou/uL (130-400); RBC Distribution Width 12.8 % (11.5-14.5); White Blood Cell (WBC) Count 5.5 thou/uL (4.8-10.8)
[2021-01-13 09:20] LABS: ALT (SGPT) 17 U/L (8-55); AST (SGOT) 16 U/L (5-34); Albumin 3.9 g/dL (3.4-4.8); Alkaline Phosphatase 64 U/L (40-110); Anion Gap 14 mmol/L (10-20); BUN (Urea Nitrogen) 22 mg/dL (8.4-25.7); Bilirubin, Total 0.7 mg/dL (0.2-1.2); Calc. Creatinine Clearance 0 mL/min (70-130); Calcium 9.4 mg/dL (7.8-10.44); Carbon Dioxide 23 mmol/L (23-31); Chloride 109 mmol/L (98-107); Globulin 2.5 g/dL (2.4-3.5); Glucose 170 mg/dL (83-110); Lipase 49 U/L (8-78); Potassium 3.3 mmol/L (3.5-5.1); Protein, Total 6.4 g/dL (5.8-8.1); Sodium 143 mmol/L (136-145)
[2021-01-13] MEDS ORDERED: Potassium Chloride 20 MEQ TAB ONE ×2 (10:02→10:03)
[2021-01-13 10:50] LABS: Bacteria/HPF None Seen HPF (None Seen); Bilirubin Negative (Negative); Blood, Urine 1+ (Negative); Clarity Clear (Clear); Glucose, Urine (Dipstick) Normal (Negative); Ketone, Urine Negative (Negative); Leukocyte 250 Leu/uL (Negative); Nitrite Negative (Negative); Protein, Urine (Dipstick) Negative (Neg-Trace); Specific Gravity, Urine 1.027 (1.002-1.036); Squamous Epithelial None Seen HPF (0-3); Urobilinogen Normal mg/dL (Less than 2); pH, Urine 5.5 (5.0-9.0)
[2021-01-13] MEDS ORDERED: Iopamidol-370 76% 500 ML 1 ML ONE (12:19)
[2021-01-13] MEDS ORDERED: Lactated Ringer's 500 ML IV SCH (13:15)
[2021-01-13 14:10] LABS: Thyroid Stimulating Hormone 1.582 uIU/mL (0.35-4.94)
[2021-01-13 18:41] VITALS: BMI 23.1
[2021-01-13] MEDS: Atorvastatin Calcium 40 MG TAB PO SCH (19:50)
[2021-01-13] MEDS: levETIRAcetam 500 MG TAB PO SCH (19:50)
[2021-01-13] MEDS: Haloperidol 1 MG TAB PO SCH (19:50)
[2021-01-13 22:36] LABS: SARS-CoV-2 PCR by NAA Not Detected (NotDetected)
[2021-01-14] MEDS: Potassium Chloride 20 MEQ TAB PO SCH (08:35)
[2021-01-14] MEDS: Haloperidol 1 MG TAB PO SCH ×2 (08:35→19:54)
[2021-01-14] MEDS: levETIRAcetam 500 MG TAB PO SCH ×2 (08:35→19:54)
[2021-01-14 09:01] LABS: Anion Gap 10 mmol/L (10-20); BUN (Urea Nitrogen) 13 mg/dL (8.4-25.7); Calc. Creatinine Clearance 61 mL/min (70-130); Carbon Dioxide 25 mmol/L (23-31); Chloride 110 mmol/L (98-107); Glucose 114 mg/dL (83-110); Potassium 3.3 mmol/L (3.5-5.1); Sodium 142 mmol/L (136-145)
[2021-01-14] MEDS ORDERED: Potassium Chloride 20 MEQ TAB PO SCH (10:45)
[2021-01-14] MEDS ORDERED: Lactated Ringer's 500 ML IV SCH (17:15)
[2021-01-14] MEDS: Atorvastatin Calcium 40 MG TAB PO SCH (19:53)
[2021-01-14] MEDS: Acetaminophen 325 MG TAB PO PRN (19:55)
[2021-01-15 08:04] LABS: Anion Gap 11 mmol/L (10-20); BUN (Urea Nitrogen) 8 mg/dL (8.4-25.7); Calc. Creatinine Clearance 64 mL/min (70-130); Calcium 8.9 mg/dL (7.8-10.44); Carbon Dioxide 25 mmol/L (23-31); Chloride 110 mmol/L (98-107); Glucose 123 mg/dL (83-110); Potassium 3.7 mmol/L (3.5-5.1); Sodium 142 mmol/L (136-145)
[2021-01-15] MEDS: Haloperidol 1 MG TAB PO SCH ×2 (09:00→20:31)
[2021-01-15] MEDS: levETIRAcetam 500 MG TAB PO SCH ×2 (09:01→20:31)
[2021-01-15] MEDS: Magnesium Oxide 400 MG TAB PO SCH ×2 (09:01→20:32)
[2021-01-15] MEDS: Potassium Chloride 20 MEQ TAB PO SCH (09:02)
[2021-01-15 15:11] LABS: Syphilis Antibody Nonreactive (Nonreactive); Syphilis Antibody Index 0.05 S/CO (<1.00 Non-Reactive)
[2021-01-15 15:14] LABS: Hep C IgG Ab Non-Reactive (NonReactive); Hep C Index 0.11 S/CO (0-0.79)
[2021-01-15] MEDS: Acetaminophen 325 MG TAB PO PRN (20:31)
[2021-01-15] MEDS: Atorvastatin Calcium 40 MG TAB PO SCH (20:31)
[2021-01-15] MEDS ORDERED: Sterile Water 10 ML ONE (23:11)
[2021-01-15] MEDS ORDERED: Ziprasidone 20 MG VIAL IM SCH (23:15)
[2021-01-16 06:40] LABS: Anion Gap 13 mmol/L (10-20); BUN (Urea Nitrogen) 10 mg/dL (8.4-25.7); Calc. Creatinine Clearance 61 mL/min (70-130); Calcium 9.2 mg/dL (7.8-10.44); Carbon Dioxide 23 mmol/L (23-31); Chloride 110 mmol/L (98-107); Glucose 124 mg/dL (83-110); Potassium 3.6 mmol/L (3.5-5.1); Sodium 142 mmol/L (136-145)
[2021-01-16] MEDS: levETIRAcetam 500 MG TAB PO SCH ×2 (09:34→20:49)
[2021-01-16] MEDS: Potassium Chloride 20 MEQ TAB PO SCH (09:34)
[2021-01-16] MEDS: Magnesium Oxide 400 MG TAB PO SCH ×2 (09:34→20:50)
[2021-01-16] MEDS: Haloperidol 1 MG TAB PO SCH (09:35)
[2021-01-16] MEDS ORDERED: Haloperidol 5 MG TAB PO SCH ×2 (09:45→21:00)
[2021-01-16] MEDS ORDERED: Haloperidol 1 MG TAB PO SCH (11:45)
[2021-01-16] MEDS ORDERED: Ziprasidone 20 MG VIAL IM PRN (20:19)
[2021-01-16] MEDS ORDERED: Sterile Water 10 ML VIAL FS PRN (20:30)
[2021-01-16] MEDS: Atorvastatin Calcium 40 MG TAB PO SCH (20:52)
[2021-01-17 06:14] LABS: Anion Gap 13 mmol/L (10-20); BUN (Urea Nitrogen) 12 mg/dL (8.4-25.7); Calc. Creatinine Clearance 60 mL/min (70-130); Calcium 9.5 mg/dL (7.8-10.44); Carbon Dioxide 26 mmol/L (23-31); Chloride 108 mmol/L (98-107); Glucose 124 mg/dL (83-110); Potassium 3.8 mmol/L (3.5-5.1); Sodium 143 mmol/L (136-145)
[2021-01-17] MEDS: Haloperidol 5 MG TAB PO SCH (08:50)
[2021-01-17] MEDS: levETIRAcetam 500 MG TAB PO SCH ×2 (08:51→19:44)
[2021-01-17] MEDS: Magnesium Oxide 400 MG TAB PO SCH ×2 (08:51→19:48)
[2021-01-17] MEDS: Potassium Chloride 20 MEQ TAB PO SCH (08:51)
[2021-01-17] MEDS: Atorvastatin Calcium 40 MG TAB PO SCH (19:44)
[2021-01-17] MEDS ORDERED: Haloperidol 5 MG TAB PO SCH (21:00)
[2021-01-18 07:25] VITALS: BP 104/63; TEMP 98.6
[2021-01-18] MEDS: levETIRAcetam 500 MG TAB PO SCH (08:00)
[2021-01-18] MEDS: Potassium Chloride 20 MEQ TAB PO SCH (08:00)
[2021-01-18] MEDS: Magnesium Oxide 400 MG TAB PO SCH (08:00)
[2021-01-18] MEDS: Haloperidol 5 MG TAB PO SCH (08:01)
[2021-01-18 10:37] LABS: Hep B Surface AG-Rflx Sendout Negative (Negative); Hepatitis B Core Total Negative (Negative); Hepatitis B Surface AB-Sendout Non Reactive (.)
== END 2021-01-18 15:01 | DRG 640 ==
LOC: ERS 08:14 → ERHOLD 12:03 → T4-A 17:07 → T4-B 01-15 19:02
PROVIDERS: ADMIT Student in an Organized Health Care Education/Training Program; ATTEND Student in an Organized Health Care Education/Training Program
DX: E86.0 Dehydration (principal); G93.41 Metabolic encephalopathy; I50.22 Chronic systolic (congestive) heart failure; E46 Unspecified protein-calorie malnutrition; Z66 Do not resuscitate; Z20.822 Contact with and (suspected) exposure to COVID-19; E87.6 Hypokalemia; I25.10 Atherosclerotic heart disease of native coronary artery without angina pectoris; K52.9 Noninfective gastroenteritis and colitis, unspecified; F03.90 Unspecified dementia, unspecified severity, without behavioral disturbance, psychotic disturbance, mood disturbance, and anxiety; F32.9 Major depressive disorder, single episode, unspecified; E78.5 Hyperlipidemia, unspecified; M19.90 Unspecified osteoarthritis, unspecified site; R25.1 Tremor, unspecified; G40.909 Epilepsy, unspecified, not intractable, without status epilepticus; Z96.641 Presence of right artificial hip joint; I11.0 Hypertensive heart disease with heart failure; E83.42 Hypomagnesemia; Z87.891 Personal history of nicotine dependence; Z95.1 Presence of aortocoronary bypass graft; Z88.1 Allergy status to other antibiotic agents; Z79.899 Other long term (current) drug therapy; Z68.23 Body mass index [BMI] 23.0-23.9, adult; I25.2 Old myocardial infarction; Z79.82 Long term (current) use of aspirin; Z90.49 Acquired absence of other specified parts of digestive tract; Z95.810 Presence of automatic (implantable) cardiac defibrillator
CPT/HCPCS: 36415; 51701; 70450; 71045; 74177; 80048; 80053; 81003; 81015; 82140; 82607; 83630; 83690; 83735; 83880; 84443; 84484; 85025; 85652; 86140; 86704; 86705; 86706; 86707; 86780; 86803; 87045; 87046; 87086; 87324; 87328; 87329; 87340; 87350; 87427; 87449; 87635; 93005; J3486; J7120; Q9967; U0003; U0005

== ENCOUNTER 2021-11-01 23:03 | Inpatient (IN) | payer MEDICARE ==
[2021-11-02 00:04] LABS: #Lymphocytes 0.9 thou/uL (1.20-3.40); #Monocytes 0.4 thou/uL (0.11-0.59); #Neutrophils 7.3 thou/uL (1.40-6.50); %Basophils 0.3 % (0.0-1.0); %Eosinophils 0.2 % (0.0-10.0); %Lymphocytes 10.3 % (21.0-51.0); %Monocytes 5.1 % (0.0-10.0); %Neutrophils 84.1 % (42.0-75.0); Hemoglobin 13.9 g/dL (14.0-18.0); Mean Corpuscular HGB CONC 33.1 g/dL (32.0-36.0); Mean Corpuscular Hemoglobin 27.3 pg (27.0-31.0); Mean Corpuscular Volume 82.5 fL (78.0-98.0); Mean Platelet Volume 7.8 fL (7.4-10.4); Platelet Count 173 thou/uL (130-400); RBC Distribution Width 13.6 % (11.5-14.5); Red Blood Cell (RBC) Count 5.08 mill/uL (4.70-6.10); White Blood Cell (WBC) Count 8.7 thou/uL (4.8-10.8)
[2021-11-02 00:23] LABS: ALT (SGPT) 17 U/L (8-55); AST (SGOT) 13 U/L (5-34); Albumin 3.5 g/dL (3.4-4.8); Alkaline Phosphatase 87 U/L (40-110); Anion Gap 14 mmol/L (10-20); BUN (Urea Nitrogen) 22 mg/dL (8.4-25.7); Bilirubin, Total 0.3 mg/dL (0.2-1.2); Calc. Creatinine Clearance 0 mL/min (70-130); Calcium 9.5 mg/dL (7.8-10.44); Carbon Dioxide 26 mmol/L (23-31); Chloride 101 mmol/L (98-107); Globulin 3.6 g/dL (2.4-3.5); Glucose 339 mg/dL (83-110); Potassium 4.5 mmol/L (3.5-5.1); Protein, Total 7.1 g/dL (5.8-8.1); Sodium 136 mmol/L (136-145)
[2021-11-02 00:24] LABS: Bacteria/HPF 4+ HPF (None Seen); Bilirubin Negative (Negative); Blood, Urine 2+ (Negative); Clarity Extra Turbid (Clear); Glucose, Urine (Dipstick) Greater than 1000 mg/dL (Negative); Ketone, Urine Negative (Negative); Leukocyte 500 Leu/uL (Negative); Nitrite Negative (Negative); Protein, Urine (Dipstick) 50 mg/dL (Neg-Trace); RBC/HPF 21-50 HPF (0-3); Specific Gravity, Urine 1.017 (1.002-1.036); Squamous Epithelial None Seen HPF (0-3); Urobilinogen Normal mg/dL (Less than 2); WBC/HPF Greater than 50 HPF (0-3); pH, Urine 5.5 (5.0-9.0)
[2021-11-02] MEDS ORDERED: cefTRIAXone\\ROCEPHIN 1 GM VIAL ONE (00:40)
[2021-11-02] MEDS ORDERED: Acetaminophen 325 MG Suppository ONE (00:55)
[2021-11-02] MEDS ORDERED: Acetaminophen 650 MG Suppository ONE (00:55)
[2021-11-02 03:03] LABS: Lactic Acid 1.6 mmol/L (0.5-2.2)
[2021-11-02] MEDS ORDERED: Acetaminophen 325 MG TAB PO PRN ×2 (03:40→07:16)
[2021-11-02] MEDS ORDERED: Lactated Ringer's 1,000 ML IV SCH (03:45)
[2021-11-02] MEDS ORDERED: Dextrose 5% in Water 1,000 ML IV PRN (03:50)
[2021-11-02] MEDS ORDERED: HumaLOG 300 UNITS/3 ML VIAL SC PRN (03:50)
[2021-11-02] MEDS ORDERED: Dextrose 50% Abboject 50 ML SYRINGE SLOW IVP PRN (03:50)
[2021-11-02] MEDS ORDERED: Furosemide 20 MG TAB PO PRN (07:16)
[2021-11-02] MEDS ORDERED: Non-Formulary Item 1 EACH (Loperamide Hcl [Loperamide] 2 MG Tablet) PO PRN (07:16)
[2021-11-02] MEDS ORDERED: Loperamide HCl 2 MG CAP PO PRN (07:57)
[2021-11-02] MEDS ORDERED: Non-Formulary Item 1 EACH (Levetiracetam [Keppra] 1,000 MG Tablet) PO SCH (09:00)
[2021-11-02] MEDS ORDERED: Non-Formulary Item 1 EACH (Omeprazole [Omeprazole] 20 MG Tablet.Dr) PO SCH (09:00)
[2021-11-02] MEDS ORDERED: Haloperidol 5 MG TAB PO SCH (09:00)
[2021-11-02 11:49] LABS: SARS-CoV-2 PCR by NAA Not Detected (NotDetected)
[2021-11-02] MEDS: levETIRAcetam 500 MG TAB PO SCH ×2 (12:30→20:27)
[2021-11-02] MEDS: Enoxaparin Sodium 40 MG/0.4 ML SYRINGE SC SCH (12:30)
[2021-11-02] MEDS: Haloperidol 1 MG TAB PO SCH (12:30)
[2021-11-02] MEDS: Potassium Chloride 20 MEQ TAB PO SCH (12:30)
[2021-11-02 17:36] VITALS: BMI 19.0
[2021-11-02] MEDS: Atorvastatin Calcium 20 MG TAB PO SCH (20:27)
[2021-11-02] MEDS: Haloperidol 5 MG TAB PO SCH (20:44)
[2021-11-02] MEDS ORDERED: Non-Formulary Item 1 EACH (Atorvastatin Calcium [Lipitor] 80 MG Tablet) PO SCH (21:00)
[2021-11-02] MEDS: cefTRIAXone\\ROCEPHIN 1 GM in Sodium Chloride 0.9% 100 ML IVPB SCH (23:55)
[2021-11-03 06:51] LABS: #Eosinphils 0.1 thou/uL (0.0-0.7); #Lymphocytes 1.5 thou/uL (1.20-3.40); #Monocytes 0.4 thou/uL (0.11-0.59); #Neutrophils 3.5 thou/uL (1.40-6.50); %Basophils 0.8 % (0.0-1.0); %Eosinophils 1.4 % (0.0-10.0); %Lymphocytes 27.4 % (21.0-51.0); %Monocytes 7.2 % (0.0-10.0); %Neutrophils 63.2 % (42.0-75.0); Hemoglobin 11.4 g/dL (14.0-18.0); Mean Corpuscular HGB CONC 32.2 g/dL (32.0-36.0); Mean Corpuscular Hemoglobin 27.4 pg (27.0-31.0); Mean Corpuscular Volume 85.1 fL (78.0-98.0); Mean Platelet Volume 7.8 fL (7.4-10.4); Platelet Count 155 thou/uL (130-400); RBC Distribution Width 13.6 % (11.5-14.5); Red Blood Cell (RBC) Count 4.15 mill/uL (4.70-6.10); White Blood Cell (WBC) Count 5.5 thou/uL (4.8-10.8)
[2021-11-03 07:18] LABS: ALT (SGPT) 12 U/L (8-55); AST (SGOT) 14 U/L (5-34); Albumin 2.7 g/dL (3.4-4.8); Alkaline Phosphatase 67 U/L (40-110); Anion Gap 9 mmol/L (10-20); BUN (Urea Nitrogen) 14 mg/dL (8.4-25.7); Bilirubin, Total 0.3 mg/dL (0.2-1.2); Calc. Creatinine Clearance 54 mL/min (70-130); Calcium 8.5 mg/dL (7.8-10.44); Carbon Dioxide 25 mmol/L (23-31); Globulin 2.8 g/dL (2.4-3.5); Glucose 122 mg/dL (83-110); Protein, Total 5.5 g/dL (5.8-8.1)
[2021-11-03 08:05] LABS: Chloride 106 mmol/L (98-107); Sodium 136 mmol/L (136-145)
[2021-11-03] MEDS: levETIRAcetam 500 MG TAB PO SCH ×2 (09:31→20:21)
[2021-11-03] MEDS: Enoxaparin Sodium 40 MG/0.4 ML SYRINGE SC SCH (09:31)
[2021-11-03] MEDS: Potassium Chloride 20 MEQ TAB PO SCH (09:31)
[2021-11-03] MEDS: Haloperidol 1 MG TAB PO SCH (09:33)
[2021-11-03] MEDS: Pantoprazole 40 MG GRANULES PACKET PO SCH (09:58)
[2021-11-03] MEDS: HumaLOG 300 UNITS/3 ML VIAL SC PRN ×2 (12:59→17:55)
[2021-11-03] MEDS: Haloperidol 5 MG TAB PO SCH (20:20)
[2021-11-03] MEDS: Atorvastatin Calcium 20 MG TAB PO SCH (20:20)
[2021-11-04] MEDS: cefTRIAXone\\ROCEPHIN 1 GM in Sodium Chloride 0.9% 100 ML IVPB SCH (01:02)
[2021-11-04] MEDS: Enoxaparin Sodium 40 MG/0.4 ML SYRINGE SC SCH (09:28)
[2021-11-04] MEDS: levETIRAcetam 500 MG TAB PO SCH ×2 (09:28→19:52)
[2021-11-04] MEDS: Potassium Chloride 20 MEQ TAB PO SCH (09:29)
[2021-11-04] MEDS: Haloperidol 1 MG TAB PO SCH (09:30)
[2021-11-04] MEDS: Pantoprazole 40 MG GRANULES PACKET PO SCH (09:30)
[2021-11-04] MEDS: HumaLOG 300 UNITS/3 ML VIAL SC PRN (12:33)
[2021-11-04] MEDS: Atorvastatin Calcium 20 MG TAB PO SCH (19:52)
[2021-11-04] MEDS: Haloperidol 5 MG TAB PO SCH (19:52)
[2021-11-05] MEDS: Cephalexin 250 MG CAP PO SCH ×2 (05:47→11:41)
[2021-11-05 09:09] VITALS: BP 110/63; TEMP 97.7
[2021-11-05] MEDS: Pantoprazole 40 MG GRANULES PACKET PO SCH (09:26)
[2021-11-05] MEDS: Enoxaparin Sodium 40 MG/0.4 ML SYRINGE SC SCH (09:26)
[2021-11-05] MEDS: levETIRAcetam 500 MG TAB PO SCH (09:27)
[2021-11-05] MEDS: Haloperidol 1 MG TAB PO SCH (09:27)
[2021-11-05] MEDS: Potassium Chloride 20 MEQ TAB PO SCH (09:27)
== END 2021-11-05 12:15 | DRG 871 ==
LOC: ERS 23:03 → ERHOLD 11-02 01:55 → T4-A 11-02 12:52
PROVIDERS: ADMIT Family Medicine; ATTEND Family Medicine
DX: A41.9 Sepsis, unspecified organism (principal); G93.41 Metabolic encephalopathy; N39.0 Urinary tract infection, site not specified; I50.22 Chronic systolic (congestive) heart failure; Z20.822 Contact with and (suspected) exposure to COVID-19; Z66 Do not resuscitate; K21.9 Gastro-esophageal reflux disease without esophagitis; I25.10 Atherosclerotic heart disease of native coronary artery without angina pectoris; G30.9 Alzheimer's disease, unspecified; F02.80 Dementia in other diseases classified elsewhere, unspecified severity, without behavioral disturbance, psychotic disturbance, mood disturbance, and anxiety; E87.6 Hypokalemia; I49.3 Ventricular premature depolarization; R13.10 Dysphagia, unspecified; R73.9 Hyperglycemia, unspecified; I11.0 Hypertensive heart disease with heart failure; Z88.1 Allergy status to other antibiotic agents; I25.2 Old myocardial infarction; Z79.899 Other long term (current) drug therapy; Z95.810 Presence of automatic (implantable) cardiac defibrillator; Z95.1 Presence of aortocoronary bypass graft; Z87.891 Personal history of nicotine dependence
CPT/HCPCS: 36415; 36416; 51701; 70450; 71045; 80053; 81003; 81015; 83605; 84484; 85025; 87040; 87086; 93005; 96365; J0696; J1650; J1815; J3490; J7120; U0003; U0005